=== PATIENT | female | born 1975 | race African-American/Black ===

== ENCOUNTER 2020-10-16 14:39 | Outpatient (REF) | payer OTHER, SELFPAY | END 2020-10-16 14:40 | disposition home or self-care (01) | LOC: HO.LAB 14:39 | PROVIDERS: Visit Provider Internal Medicine | DX: Z20.828 Contact with and (suspected) exposure to other viral communicable diseases (principal) | CPT/HCPCS: C9803; U0003 ==

== ENCOUNTER 2021-08-12 19:32 | Emergency (ER) | payer OTHER, SELFPAY ==
--- NOTE | 2021-08-12 | ECG_ITS ---
Test Reason : CHEST PAIN Blood Pressure : / mmHG Vent. Rate : 091 BPM Atrial Rate : 091 BPM P-R Int : 150 ms QRS Dur : 086 ms QT Int : 334 ms P-R-T Axes : 058 014 027 degrees QTc Int : 410 ms Normal sinus rhythm Normal ECG When compared with ECG of 11-OCT-2017 01:28, No significant change was found Referred By: Generic ED Physician Electronically Signed By:GARRY VICK
--- NOTE | ~2021-08-12 | CT_ITS ---
EXAMINATION: CT ANGIOGRAM OF THE CHEST WITH AND WITHOUT CONTRAST (CT PULMONARY ANGIOGRAM FOR PE) CLINICAL INFORMATION: Reason for Exam elevated D-dimer. PE? COMPARISON: None TECHNIQUE: Prior to contrast administration, noncontrast localization images were obtained. Subsequently, multidetector volumetric imaging was performed from the thoracic inlet to below the diaphragms following the administration of 80 mL Omnipaque 350 intravenous contrast. No contrast reaction reported Sagittal, coronal, and MIP oblique sagittal reformatted images were obtained on the CT workstation, uploaded to PACS, and reviewed. This CT examination was performed using dose optimization techniques as appropriate, variously including the following: *Automated exposure control *Adjustment of mA and/or kV according to patient size (this includes techniques or standardized protocols for targeted exams where dose is matched to indication/reason for exam; i.e. extremities or head) *Use of iterative reconstruction technique Total exam dose-length product 214 mGy-cm FINDINGS: QUALITY OF STUDY/CONTRAST BOLUS: Satisfactory. PULMONARY ARTERIES: No central or segmental pulmonary emboli. THORACIC AORTA: No aneurysm or dissection. LUNG: No focal consolidation, nodules or masses. The central airways are patent. Minimal bibasilar atelectasis. PLEURA: No pleural effusion or pneumothorax. MEDIASTINUM: Normal heart size. No pericardial effusion. No hilar or mediastinal lymphadenopathy. No evidence of septal bowing or right heart strain. CHEST WALL/AXILLA: No axillary or internal mammary lymphadenopathy. OSSEOUS STRUCTURES: No acute or suspicious osseous abnormality. UPPER ABDOMEN: Unremarkable. No reflux of contrast into the hepatic veins to suggest elevated right heart pressures. CT/CT angio chest PE protocol IMPRESSION: No pulmonary embolism or other acute intrathoracic abnormality. VTE: negative
--- NOTE | ~2021-08-12 | XR_ITS ---
EXAMINATION: XR CHEST CLINICAL INFORMATION: Chest pain. COMPARISON: Chest radiograph dated from 07/23/2016. TECHNIQUE: 2 views of the chest were obtained. FINDINGS: No significant abnormality is noted involving the heart, lungs, mediastinum, bony thorax or soft tissues. XR/XR chest 2V IMPRESSION: No acute cardiopulmonary findings.
[2021-08-12 20:40] VITALS: BP 146/91; PULSE 96; RESP 16; TEMP 36.6; O2SAT 100; BMI 30.4
[2021-08-12 20:59] LABS: COVID-19 Test Negative (Negative); IDNOW Serial# 9DD0AD1C
[2021-08-12 22:50] LABS: MANUAL DIFF FLAG NO
[2021-08-12 22:52] LABS: Basophils Percent Auto 0.2 % (0-2); Eosinophils Absolute Auto 0.1 X10*3/uL (0.0-0.4); Eosinophils Percent Auto 2.1 % (0-4); Hematocrit 33.2 % (37-47); Hemoglobin 11.4 g/dl (12.0-16.0); Imm Gran Abs Auto 0.02 X10*3/uL (0.00-0.03); Imm Gran Pct Auto 0.3 % (0.0-0.4); Lymphocytes Absolute Auto 1.7 X10*3/uL (1.2-4.9); Lymphocytes Percent Auto 27.3 % (20-40); Mean Corpuscular HGB Conc 34.3 g/dl (31.0-35.0); Mean Corpuscular Hemoglobin 29.8 pg (27.0-33.0); Mean Corpuscular Volume 86.9 fL (80-98); Mean Platelet Volume 9.8 fL (9.4-12.3); Monocytes Absolute Auto 0.5 X10*3/uL (0.1-1.2); Monocytes Percent Auto 7.6 % (2-11); Neutrophils Percent Auto 62.5 % (45-73); Platelet Count 305 X10*3/uL (160-400); Red Blood Count 3.82 X10*6/uL (4.20-5.50); Red Cell Distribution Width 12.4 % (11.0-16.0); White Blood Count 6.3 X10*3/uL (4.8-10.8)
[2021-08-12 22:59] LABS: INTERNATIONAL NORM RATIO 1.1 (0.9-1.1); Prothrombin Time 12.5 SEC (9.9-13.0)
[2021-08-12 23:02] LABS: D Dimer 777 NG/ML; Partial Thromboplastin Time 40.5 SEC (24.1-38.0)
[2021-08-12 23:11] LABS: B Type Natriuretic Peptide 46 pg/mL (<100); Troponin-I High Sensitivity < 3.5 ng/L (<3.5-17.0)
[2021-08-12 23:12] LABS: Alanine Aminotransferase 10 U/L (0-31); Albumin Level 3.7 g/dL (3.5-5.0); Alkaline Phosphatase 85 U/L (39-117); Anion Gap 13 (12-20); Aspartate Amino Transferase 19 U/L (5-31); Bilirubin Total 0.4 mg/dL (0.0-1.0); Blood Urea Nitrogen 19 mg/dL (9-16); Calcium 8.6 mg/dL (8.4-10.2); Carbon Dioxide 19 mmol/L (22-29); Chloride 109 mmol/L (96-108); Creatinine Clr Calc Pharmacy 63.5; Estimated Glomerular Filt Rate > 60; Glucose Random 86 mg/dL (60-115); Sodium 137 mmol/L (135-145); Total Protein 7.8 g/dL (6.5-8.0)
[2021-08-12 23:48] LABS: HCG Quantitative < 2 mIU/mL
--- NOTE | 2021-08-13 00:13 | ED_ITS ---
HPI - General Adult General Chief complaint: Upper Respiratory Symptoms Stated complaint: chest pain Time Seen by Provider: 08/12/21 21:58 Source: patient Mode of arrival: ambulatory Limitations: no limitations History of Present Illness HPI narrative: Patient presents to the ED for slight cough but more concerning pleuritic chest pain and also right-sided chest pain. Patient denies any swelling of lower extremities, calf pain, coughing up blood, fever, or chills. Patient denies any sore throat. Patient states history of lupus. Patient denies any history of blood clots. Related Data Allergies Allergy/AdvReac Type Severity Reaction Status Date / Time Penicillins [PENICILLINS] Allergy Unknown SWELLING Unverified 07/25/20 16:37 Review of Systems Review of Systems: Yes all other systems are reviewed and are negative Constitutional: Constitutional: Reports as per HPI and Reports no additional constitutional complaints Eyes: Eyes: Reports as per HPI and Reports no additional eye complaints ENT: Reports system reviewed and no additional complaints, except as documented and Reports as per HPI Cardiovascular: Cardiovascular: Reports as per HPI, Reports no additional cardiovascular complaints and Reports chest pain (Right-sided) Respiratory: Respiratory: Reports as per HPI, Reports no additional respiratory complaints, Reports cough and Reports pain on inspiration Gastrointestinal: Gastrointestinal: Reports as per HPI and Reports no additional gastrointestinal complaints Genitourinary: Genitourinary: Reports no additional female genitourinary complaints and Reports as per HPI Musculoskeletal: Musculoskeletal: Reports no additional musculoskeletal c omplaints and Reports as per HPI Neurologic: Reports system reviewed and no additional complaints, except as documented and Reports as per HPI Psychiatric: Psychiatric: Reports no additional psychiatric complaints and Reports as per HPI [facility] Past Medical History Medical History (Updated 08/13/21 @ 01:37 by DOC Kruger) HTN (hypertension) Lupus Surgical History (Updated 08/12/21 @ 20:47 by Arleen Samaniego) History of hysterectomy Social History Social History Advance Directives: No Advance Directives Information Provided: No Patient : No Physical Exam Vital Signs: Vital Signs: Last Vital Signs Temp 97.8 F 08/12/21 20:40 Pulse 96 08/12/21 20:40 Resp 16 08/12/21 20:40 BP 146/91 H 08/12/21 20:40 Pulse Ox 100 08/12/21 20:40 Body Mass Index 30.4 Const: General: cooperative, healthy appearing, comfortable, no acute distress, well developed, alert, awake and Physically active O rientation/consciousness: patient oriented x3 HENMT: Head: Yes normal to inspection, Yes No palpable skull fracture present, Yes normocephalic, Yes atraumatic and No abrasion Throat: Yes posterior oropharynx normal, Yes tonsils normal and Yes uvula midline Eyes: General: appearance normal, both eyes and all related structures Neck: Neck: Yes normal visual inspection, Yes full ROM, Yes no lymphade nopathy, Yes no meningeal signs, Yes trachea midline, Yes supple and No tender Chest: Other: Positive for right-sided chest wall tenderness. Chest palpation & inspection: normal inspection of the chest Resp: Effort & Inspection: normal respiratory effort and able to speak in complete sentences Auscultation: clear to auscultation bilaterally Cardio: Jugular venous distension: no JVD Heart sounds: S1 normal heart sound present and S2 normal heart sound present GI: Inspection: Yes normal to inspection and No abdominal wall ecchymosis Palpation (GI): Soft to palpation, not firm, nontender, no guarding and not rigid : General: No CVA tenderness and Yes no CVA tenderness Back/Spine/Pelvis: Back: no CVA tenderness, No CVA tenderness and No back tenderness Skin: General skin exam: no rashes or lesions noted and elasticity normal Neuro: General: patient oriented x3, gait normal, no meningeal signs and CN's II-XI intact bilaterally Extrem: Other: Lower extremities negative for swelling, pitting edema, or calf tenderness General: Yes normal to inspection and Yes full ROM Psych: Appearance: grossly normal, well kempt and not disheveled Course Course Course Narrative: Patient COVID sore chest x-ray normal. Patient seemed concerned for pleuritic chest pain. Patient will have the labs including D- dimer. Patient read the EKG. Reevaluation(s) Reevaluation #1: D-dimer elevated. Troponin negative. Due to history of lupus will do chest CT to rule out PE. EKG negative STEMI Time: 00:18 Reevaluation #2: Patient chest CT negative for PE. One troponin negative after having symptoms for 2 days. Diagnosis upper respiratory infection with pleurisy. Time: 01:35 Medical Decision Making [facility] Narrative Medical decision making narrative: Pleuritic chest pain Lab Data Result diagrams: 08/12/21 22:46 08/12/21 22:46 Labs: Lab Results 08/12/21 08/12/21 08/12/21 Range/Units 20:31 22:46 22:46 WBC 6.3 (4.8-10.8) X10*3/uL RBC 3.82 L (4.20-5.50) X10*6/uL Hgb 11.4 L (12.0-16.0) g/dl Hct 33.2 L (37-47) % MCV 86.9 (80-98) fL MCH 29.8 (27.0-33.0) pg MCHC 34.3 (31.0-35.0) g/dl RDW 12.4 (11.0-16.0) % Plt Count 305 (160-400) X10*3/uL MPV 9.8 (9.4-12.3) fL Immature Gran % (Auto) 0.3 (0.0-0.4) % Neut % (Auto) 62.5 (45-73) % Lymph % (Auto) 27.3 (20-40) % [place] % (Auto) 7.6 (2-11) % Eos % (Auto) 2.1 (0-4) % Baso % (Auto) 0.2 (0-2) % Lymph # (Auto) 1.7 (1.2-4.9) X10*3/uL [place] # (Auto) 0.5 (0.1-1.2) X10*3/uL Eos # (Auto) 0.1 (0.0-0.4) X10*3/uL Baso # (Auto) 0.0 (0.0-0.2) X10*3/uL Abs Immat Gran (auto) 0.02 (0.00-0.03) X10*3/uL Absolute Neuts (auto) 4.0 (2.0-8.3) X10*3/uL Absolute Nucleated RBC 0.000 (0.0-0.012) X10*3/uL Nucleated RBC % (auto) 0.0 (0.0-0.2) /100WBC PT 12.5 (9.9-13.0) SEC INR 1.1 (0.9-1.1) APTT 40.5 H (24.1-38.0) SEC D-Dimer 777 NG/ML Sodium (135-145) mmol/L Potassium (3.3-5.1) mmol/L Chloride (96-108) mmol/L Carbon Dioxide (22-29) mmol/L Anion Gap (12-20) BUN (9-16) mg/dL Creatinine (0.5-1.4) mg/dL Estim Creat Clear Calc Estimated GFR Random Glucose (60-115) mg/dL Calcium (8.4-10.2) mg/dL Total Bilirubin (0.0-1.0) mg/dL AST (5-31) U/L ALT (0-31) U/L Alkaline Phosphatase (39-117) U/L Troponin I High Sens (<3.5-17.0) ng/L B-Natriuretic Peptide (<100) pg/mL Total Protein (6.5-8.0) g/dL Albumin (3.5-5.0) g/dL Beta HCG, Quant mIU/mL COVID-19 ([place]) Negative (Negative) COVID-19 Clin Com See Note 08/12/21 08/12/21 Range/Units 22:46 22:46 WBC (4.8-10.8) X10*3/uL RBC (4.20-5.50) X10*6/uL Hgb (12.0-16.0) g/dl Hct (37-47) % MCV (80-98) fL MCH (27.0-33.0) pg MCHC (31.0-35.0) g/dl RDW (11.0-16.0) % Plt Count (160-400) X10*3/uL MPV (9.4-12.3) fL Immature Gran % (Auto) (0.0-0.4) % Neut % (Auto) (45-73) % Lymph % (Auto) (20-40) % [place] % (Auto) (2-11) % Eos % (Auto) (0-4) % Baso % (Auto) (0-2) % Lymph # (Auto) (1.2-4.9) X10*3/uL [place] # (Auto) (0.1-1.2) X10*3/uL Eos # (Auto) (0.0-0.4) X10*3/uL Baso # (Auto) (0.0-0.2) X10*3/uL Abs Immat Gran (auto) (0.00-0.03) X10*3/uL Absolute Neuts (auto) (2.0-8.3) X10*3/uL Absolute Nucleated RBC (0.0-0.012) X10*3/uL Nucleated RBC % (auto) (0.0-0.2) /100WBC PT (9.9-13.0) SEC INR (0.9-1.1) APTT (24.1-38.0) SEC D-Dimer NG/ML Sodium 137 (135-145) mmol/L Potassium 4.0 (3.3-5.1) mmol/L Chloride 109 H (96-108) mmol/L Carbon Dioxide 19 L (22-29) mmol/L Anion Gap 13 (12-20) BUN 19 H (9-16) mg/dL Creatinine 0.82 (0.5-1.4) mg/dL Estim Creat Clear Calc 63.5 Estimated GFR > 60 Random Glucose 86 (60-115) mg/dL Calcium 8.6 (8.4-10.2) mg/dL Total Bilirubin 0.4 (0.0-1.0) mg/dL AST 19 (5-31) U/L ALT 10 (0-31) U/L Alkaline Phosphatase 85 (39-117) U/L Troponin I High Sens < 3.5 (<3.5-17.0) ng/L B-Natriuretic Peptide 46 (<100) pg/mL Total Protein 7.8 (6.5-8.0) g/dL Albumin 3.7 (3.5-5.0) g/dL Beta HCG, Quant < 2 mIU/mL COVID-19 ([place]) (Negative) COVID-19 Clin Com ECG Data Interpretation: EKG normal sinus rhythm. Normal EKG. Ventricular rate 91. Pr i nterval 150. QRS 86. QTC 410. Negative STEMI Discharge Plan Discharge Clinical Impression: Upper respiratory infection, Pleuritic chest pain Patient Disposition: Home, Self-Care Instructions: Pleurisy (ED), Upper Respiratory Infection (ED) Additional Instructions: Reed electrocardiograma y an?lisis de medhat resultaron negativos para un ataque card?aco. Reed radiograf?a de t?rax result? negativa para neumon?a. Reed hisopo COVID result? negativo. Y umberto tomograf?a computarizada de reed pecho result? negativa para embolia pulmonar. Est? seguro para el natasha. Regrese al servicio de urgencias de inmediato si tiene hinchaz?n de las extremidades inferiores, dolor en la pantorrilla, tos con medhat, dolor sarai en el pecho, dificultad para respirar o cualquier otro s?ntoma preocupante. Siga al proveedor de atenci?n primaria. Stand Alone Forms: Work/School Release Print Language: Montenegrin
[2021-08-13] MEDS: iohexoL 350 MG/ML 100 ML INFUS..BTL 65 ML IV (00:46)
== END 2021-08-13 01:52 | disposition home or self-care (01) ==
PROVIDERS: Physician Assistant; Emergency Provider Internal Medicine; PCP Internal Medicine
DX: J06.9 Acute upper respiratory infection, unspecified (principal); R07.81 Pleurodynia; R06.02 Shortness of breath; R05.9 Cough, unspecified; Z20.822 Contact with and (suspected) exposure to COVID-19; Z79.899 Other long term (current) drug therapy
CPT/HCPCS: 36415; 71046; 71275; 80053; 83880; 84484; 84702; 85025; 85379; 85610; 85730; 87635; 93005; 99284; Q9967

== ENCOUNTER 2021-10-08 18:46 | Emergency (ER) | payer OTHER, SELFPAY ==
--- NOTE | ~2021-10-08 | XR_ITS ---
EXAMINATION: LEFT SHOULDER, LEFT ELBOW CLINICAL INFORMATION: Left elbow and shoulder pain COMPARISON: Left elbow 03/30/2019 TECHNIQUE: 4 views left shoulder, 3 views left elbow FINDINGS: There is calcification seen in the supraspinatus tendon. No other shoulder abnormality is seen. No significant bone joint or soft tissue abnormality is seen involving the left elbow. No convincing joint effusion or fracture is not present. XR/XR elbow LT 2V IMPRESSION: Rotator cuff tendinosis/tendinitis with calcification in the supraspinatus tendon
--- NOTE | ~2021-10-08 | XR_ITS ---
EXAMINATION: LEFT SHOULDER, LEFT ELBOW CLINICAL INFORMATION: Left elbow and shoulder pain COMPARISON: Left elbow 03/30/2019 TECHNIQUE: 4 views left shoulder, 3 views left elbow FINDINGS: There is calcification seen in the supraspinatus tendon. No other shoulder abnormality is seen. No significant bone joint or soft tissue abnormality is seen involving the left elbow. No convincing joint effusion or fracture is not present. XR/XR shoulder LT min 2V IMPRESSION: Rotator cuff tendinosis/tendinitis with calcification in the supraspinatus tendon
--- NOTE | ~2021-10-08 | CT_ITS ---
EXAMINATION: CT CERVICAL SPINE WITHOUT CONTRAST CLINICAL INFORMATION: Neck pain radiating down the arm COMPARISON: None TECHNIQUE: Noncontrast helical axial CT images through the cervical spine were obtained. This CT examination was performed using dose optimization techniques as appropriate, variously including the following: *Automated exposure control *Adjustment of mA and/or kV according to patient size (this includes techniques or standardized protocols for targeted exams where dose is matched to indication/reason for exam; i.e. extremities or head) *Use of iterative reconstruction technique DLP: 475 mGy-cm FINDINGS: No fracture seen. There is straightening of the normal cervical lordosis. No malalignment. Normal prevertebral soft tissues. There is degenerative disc disease with loss of disc height, endplate sclerosis, and anterior as well as posterior osteophytosis at C5-C6. The axial orientation of the scan is poor for evaluating each intervertebral disc level. There is a broad-based posterior disc osteophyte complex at C5-C6. Slightly effaces the ventral thecal sac. There is minimal right neuroforaminal narrowing. No left neuroforaminal narrowing. The remaining cervical levels are normal in appearance with no central canal stenosis or neuroforaminal narrowing seen. Thyroid is homogeneous. No cervical lymphadenopathy or mass. Diffuse fatty atrophy of the parotid gland. Normal size left intraparotid lymph node. Partially absent crown of the left most posterior molar consistent with dental disease. CT/CT cervical spine wo con IMPRESSION: Degenerative disc disease at C5-C6. Recommend MRI for further evaluation.
[2021-10-08 20:06] VITALS: BP 145/88; PULSE 77; RESP 16; TEMP 36.6; O2SAT 100; BMI 29.1
[2021-10-08 20:35] VITALS: BP 140/84; PULSE 72; RESP 16; TEMP 36.6; O2SAT 100
--- NOTE | 2021-10-08 21:56 | ED.EXTPRO ---
HPI - Extremity Problem General Chief complaint: Extremity Injury, Upper Stated complaint: left arm pain Time Seen by Provider: 10/08/21 20:42 Source: patient Mode of arrival: ambulatory Limitations: no limitations History of Present Illness HPI Narrative: 45-YEAR-OLD FEMALE PRESENTS TO ED FOR NECK AND LEFT SHOULDER PAIN FOR 2 DAYS. PATIENT DENIES ANY TRAUMA. PATIENT STATES RANGE OF MOTION OF LEFT SHOULDER LIMITED DUE TO PAIN. PATIENT STATES NO FEVER, CHILLS, CHEST PAIN, SHORTNESS OF BREATH. PATIENT DENIES ANY HEADACHE Related Data Previous Rx's Medication Instructions Recorded cyclobenzaprine 10 mg tablet 10 mg PO TID PRN #21 tab 10/08/21 naproxen 500 mg tablet 500 mg PO BID PRN 10 Days #20 tab 10/08/21 prednisone 20 mg tablet 40 mg PO DAILY 5 Days #10 tab 10/08/21 Allergies Allergy/AdvReac Type Severity Reaction Status Date / Time Penicillins [PENICILLINS] Allergy Unknown SWELLING Unverified 07/25/20 16:37 Review of Systems Review of Systems: Yes all other systems are reviewed and are negative Constitutional: Constitutional: Reports as per HPI and Reports no additional constitutional complaints Eyes: Eyes: Reports as per HPI and Reports no additional eye complaints ENT: Reports system reviewed and no additional complaints, except as documented, Reports as per HPI and Reports neck pain Cardiovascular: Cardiovascular: Reports as per HPI and Reports no additional cardiovascular complaints Respiratory: Respiratory: Reports as per HPI and Reports no additional respiratory complaints Gastrointestinal: Gastrointestinal: Reports as per HPI and Reports no additional gastrointestinal complaints Genitourinary: Genitourinary: Reports no additional female genitourinary complaints and Reports as per HPI Musculoskeletal: Musculoskeletal: Reports no additional musculoskeletal complaints, Reports as per HPI and Reports neck pain Comments: LEFT SHOULDER PAIN Neurologic: Reports system reviewed and no additional complaints, except as documented and Reports as per HPI Psychiatric: Psychiatric: Reports no additional psychiatric complaints and Reports as per HPI Endocrine: Endocrine: Reports no additional endocrine complaints and Reports as per HPI PMF Past Medical History Medical History (Updated 10/09/21 @ 00:02 by Melanie Headley) HTN (hypertension) Lupus Surgical History (Updated 08/12/21 @ 20:47 by Arleen Samaniego) History of hysterectomy Social History Social History Advance Directives: No Advance Directives Information Provided: Yes Patient : No Physical Exam Vital Signs: Vital Signs: Last Vital Signs Temp 98.1 F 10/08/21 22:00 Pulse 70 10/08/21 22:00 Resp 17 10/08/21 22:00 BP 140/79 H 10/08/21 22:00 Pulse Ox 100 10/08/21 22:00 BMI result Body Mass Index 29.1 Const: General: cooperative, healthy appearing, comfortable, no acute distress, well developed, alert, awake and Physically active Orientation/consciousness: patient oriented x3 HENMT: Head: Yes normal to inspection, Yes No palpable skull fracture present, Yes normocephalic and Yes atraumatic Eyes: General: appearance normal, both eyes and all related structures Neck: Neck: Yes normal visual inspection, Yes full ROM, Yes no lymphadenopathy, Yes no meningeal signs, Yes trachea midline, Yes supple, No anterior neck swelling and Yes tender (POSTERIOR) Chest: Chest palpation & inspection: normal inspection of the chest and normal palpation of entire chest wall Resp: Effort & Inspection: normal respiratory effort and able to speak in complete sentences Cardio: Jugular venous distension: no JVD Heart sounds: S1 normal heart sound present and S2 normal heart sound present GI: Inspection: Yes normal to inspection and No abdominal wall ecchymosis Palpation (GI): Soft to palpation, not firm, nontender, no guarding and not rigid : General: No CVA tenderness and Yes no CVA tenderness Back/Spine/Pelvis: Back: no CVA tenderness, No CVA tenderness and No back tenderness Skin: General skin exam: no rashes or lesions noted and elasticity normal Neuro: General: patient oriented x3, gait normal, no meningeal signs and CN's II-XI intact bilaterally Cranial nerves: Yes CN's II-XII intact bilaterally Extrem: Shoulder/upper arm images: 1. POSITIVE FOR TENDERNESS ON PALPATION. DECREASED ABDUCTION DUE TO PAIN. NEGATIVE FOR SWELLING OR REDNESS. VASCULAR/NEURO EXAM INTACT. MOTOR EXAM LIMITED DUE TO PAIN. Psych: Appearance: grossly normal, well kempt and not disheveled Course Course Course Narrative: PATIENT WILL HAVE IMAGING. Reevaluation(s) Reevaluation #1: IMAGES OF NECK SHOWS CERVICAL ARTHRITIS. SHOULDER X-RAY SHOWS TENDINITIS. Time: 22:06 MDM - Extremity (Nontraumatic) MDM Narrative Medical decision making narrative: CERVICAL RADICULOPATHY, ROTATOR CUFF TENDINITIS Discharge Plan Discharge Clinical Impression: Cervical radiculopathy, Right rotator cuff tendonitis Patient Disposition: Home, Self-Care Instructions: Rotator Cuff Tendinitis (ED), Cervical Radiculopathy (ED) Additional Instructions: LA TAC DEL LUPIS MUESTRA ARTRITIS. LA RADIOGRAF?A DE ARGUELLES HOMBRO MUESTRA TENDINITIS DEL MANGUITO DEL ROTADOR. SER? DADO DE ZULMA CON MEDICAMENTOS PARA EL DOLOR, RELAJANTE MUSCULAR Y ESTEROIDES. DEBE SEGUIR CON ARGUELLES M?DICO DE ATENCI?N PRIMARIA PARA JAYE POSIBLE REFERENCIA A TERAPIA F?EVETTE. REGRESE INMEDIATAMENTE AL DEP?SITO EN HANNAH DE PAR?LISIS DE EXTREMIDADES SUPERIORES DOLOR QUAN DE LUPIS, DOLOR DE ÁNGEL, FIEBRE, ESFALZOS, N?USEAS, V?MITOS, ENROJECIMIENTO, HINCHAZ?N, DOLOR EN EL PECHO, DIFICULTAD PARA RESPIRAR O CUALQUIER OTROS S?NTOMAS RELACIONADOS. Prescriptions: New naproxen 500 mg tablet 500 mg PO BID PRN (Reason: pain) 10 Days Qty: 20 RF: 0 prednisone 20 mg tablet 40 mg PO DAILY 5 Days Qty: 10 RF: 0 cyclobenzaprine 10 mg tablet 10 mg PO TID PRN (Reason: muscle spasm) Qty: 21 RF: 0 Interventions: ED Discharge Assessment Last Done: 10/08/21 22:38 Discharge Date/Time: 10/08/21 22:40 Print Language: Citizen Of [place]
[2021-10-08 22:00] VITALS: BP 140/79; PULSE 70; RESP 17; TEMP 36.7; O2SAT 100
[2021-10-08] MEDS: predniSONE 20 MG TABLET 60 MG PO (22:33)
[2021-10-08] MEDS: Ibuprofen 800 MG TABLET PO (22:34)
== END 2021-10-08 22:40 | disposition home or self-care (01) ==
PROVIDERS: Emergency Provider Emergency Medicine
DX: M54.12 Radiculopathy, cervical region (principal); M75.101 Unspecified rotator cuff tear or rupture of right shoulder, not specified as traumatic; M79.602 Pain in left arm; M54.2 Cervicalgia; Z79.899 Other long term (current) drug therapy
CPT/HCPCS: 72125; 73030; 73070; 99284

== ENCOUNTER 2022-03-31 20:26 | Emergency (ER) | payer OTHER, SELFPAY ==
[2022-03-31 21:30] VITALS: BP 188/102; PULSE 95; RESP 16; TEMP 36.2; O2SAT 97; BMI 30.7
[2022-03-31 22:16] LABS: MANUAL DIFF FLAG NO
[2022-03-31 22:18] LABS: Basophils Percent Auto 0.4 % (0-2); Eosinophils Absolute Auto 0.1 X10*3/uL (0.0-0.4); Eosinophils Percent Auto 0.9 % (0-4); Hematocrit 42.8 % (37.0-47.0); Hemoglobin 14.6 g/dl (12.0-16.0); Imm Gran Abs Auto 0.03 X10*3/uL (0.00-0.03); Imm Gran Pct Auto 0.4 % (0.0-0.4); Lymphocytes Percent Auto 27.2 % (20-40); Mean Corpuscular HGB Conc 34.1 g/dl (31.0-35.0); Mean Corpuscular Hemoglobin 30.1 pg (27.0-33.0); Mean Corpuscular Volume 88.2 fL (80.0-98.0); Mean Platelet Volume 10.1 fL (9.4-12.3); Monocytes Absolute Auto 0.8 X10*3/uL (0.1-1.2); Monocytes Percent Auto 11.2 % (2-11); Neutrophils Absolute Auto 4.4 x10*3/uL (2.0-8.3); Neutrophils Percent Auto 59.9 % (45-73); Platelet Count 331 X10*3/uL (160-400); Red Blood Count 4.85 X10*6/uL (4.20-5.50); Red Cell Distribution Width 11.8 % (11.0-16.0); White Blood Count 7.4 X10*3/uL (4.8-10.8)
[2022-03-31 22:26] LABS: D Dimer High Sensitivity 215 NG/ML
[2022-03-31 22:34] LABS: Alanine Aminotransferase 18 U/L (0-31); Alkaline Phosphatase 77 U/L (39-117); Anion Gap 13 (12-20); Aspartate Amino Transferase 21 U/L (5-31); Bilirubin Total 0.4 mg/dL (0.0-1.0); Blood Urea Nitrogen 19 mg/dL (9-16); Calcium 9.3 mg/dL (8.4-10.2); Carbon Dioxide 31 mmol/L (22-29); Chloride 94 mmol/L (96-108); Creatinine Clr Calc Pharmacy 47.4; Estimated Glomerular Filt Rate 54; Glucose Random 110 mg/dL (60-115); Potassium 3.1 mmol/L (3.3-5.1); Sodium 135 mmol/L (135-145); Total Protein 8.1 g/dL (6.5-8.0)
--- NOTE | 2022-03-31 22:50 | ED_ITS ---
HPI - General Adult General Chief complaint: General Medical Stated complaint: High Blood Pressure/Sob Time Seen by Provider: 03/31/22 22:48 Related Data Previous Rx's Medication Instructions Recorded cyclobenzaprine 10 mg tablet 10 mg PO TID PRN #21 tab 10/08/21 naproxen 500 mg tablet 500 mg PO BID PRN 10 Days #20 tab 10/08/21 prednisone 20 mg tablet 40 mg PO DAILY 5 Days #10 tab 10/08/21 Allergies Allergy/AdvReac Type Severity Reaction Status Date / Time Penicillins [PENICILLINS] Allergy Unknown SWELLING Unverified 07/25/20 16:37 [facility] Past Medical History Medical History (Updated 10/09/21 @ 00:02 by Melanie Headley) HTN (hypertension) Lupus Surgical History (Updated 08/12/21 @ 20:47 by Arleen Samaniego) History of hysterectomy Social History Social History Advance Directives: No Physical Exam ED Vital Signs: Vital Signs - 24 hr 03/31/22 21:30 Temperature 97.2 F Pulse Rate 95 Respiratory Rate 16 Blood Pressure 188/102 H Pulse Oximetry 97 BMI result Body Mass Index 30.7 Medical Decision Making Lab Data Result diagrams: 03/31/22 22:10 03/31/22 22:10 Labs: Lab Results 03/31/22 03/31/22 03/31/22 Range/Units 22:10 22:10 22:10 WBC 7.4 (4.8-10.8) X10*3/uL RBC 4.85 (4.20-5.50) X10*6/uL Hgb 14.6 (12.0-16.0) g/dl Hct 42.8 (37.0-47.0) % MCV 88.2 (80.0-98.0) fL MCH 30.1 (27.0-33.0) pg MCHC 34.1 (31.0-35.0) g/dl RDW 11.8 (11.0-16.0) % Plt Count 331 (160-400) X10*3/uL MPV 10.1 (9.4-12.3) fL Immature Gran % (Auto) 0.4 (0.0-0.4) % Neut % (Auto) 59.9 (45-73) % Lymph % (Auto) 27.2 (20-40) % [place] % (Auto) 11.2 H (2-11) % Eos % (Auto) 0.9 (0-4) % Baso % (Auto) 0.4 (0-2) % Lymph # (Auto) 2.0 (1.2-4.9) X10*3/uL [place] # (Auto) 0.8 (0.1-1.2) X10*3/uL Eos # (Auto) 0.1 (0.0-0.4) X10*3/uL Baso # (Auto) 0.0 (0.0-0.2) X10*3/uL Abs Immat Gran (auto) 0.03 (0.00-0.03) X10*3/uL Absolute Neuts (auto) 4.4 (2.0-8.3) x10*3/uL Absolute Nucleated RBC 0.000 (0.0-0.012) X10*3/uL Nucleated RBC % (auto) 0.0 (0.0-0.2) /100WBC D-Dimer High Sensitivty 215 NG/ML Sodium 135 (135-145) mmol/L Potassium 3.1 L D (3.3-5.1) mmol/L Chloride 94 L (96-108) mmol/L Carbon Dioxide 31 H (22-29) mmol/L Anion Gap 13 (12-20) BUN 19 H (9-16) mg/dL Creatinine 1.09 (0.5-1.4) mg/dL Estim Creat Clear Calc 47.4 Estimated GFR 54 Random Glucose 110 (60-115) mg/dL Calcium 9.3 D (8.4-10.2) mg/dL Total Bilirubin 0.4 (0.0-1.0) mg/dL AST 21 (5-31) U/L ALT 18 (0-31) U/L Alkaline Phosphatase 77 (39-117) U/L Total Protein 8.1 H (6.5-8.0) g/dL Albumin 4.0 (3.5-5.0) g/dL Discharge Plan Discharge Prescriptions: No Action naproxen 500 mg tablet 500 mg PO BID PRN (Reason: pain) 10 Days Qty: 20 0RF prednisone 20 mg tablet 40 mg PO DAILY 5 Days Qty: 10 0RF cyclobenzaprine 10 mg tablet 10 mg PO TID PRN (Reason: muscle spasm) Qty: 21 0RF Rx Instructions: side effect is drowsiness. Do not take at work or while driving.
--- NOTE | 2022-03-31 23:14 | ED.GENADULT ---
HPI - General Adult General Chief complaint: General Medical Stated complaint: High Blood Pressure/Sob Time Seen by Provider: 03/31/22 22:48 Source: patient and development administrator Mode of arrival: ambulatory Limitations: no limitations History of Present Illness HPI narrative: compliant with her 25mg HCTZ and 10mg lisinopril notes BP has been high for 4 days feeling headaches daily BP always above 150 which is not normal for her. also has leg cramps in both legs, no recent travel or procedures MD complaint: leg cramps and elevated BP Onset (ago): day(s) (4) Location: head, left, right and lower extremity Radiation: non-radiation Severity: mild Quality: aching and dull Pain Consistency: intermittent Relieving factors: none Exacerbating factors: none Associated symptoms: other (muscle cramps in legs) Treatments prior to arrival: none Related Data Previous Rx's Medication Instructions Recorded cyclobenzaprine 10 mg tablet 10 mg PO TID PRN #21 tab 10/08/21 naproxen 500 mg tablet 500 mg PO BID PRN 10 Days #20 tab 10/08/21 prednisone 20 mg tablet 40 mg PO DAILY 5 Days #10 tab 10/08/21 amlodipine 2.5 mg tablet 2.5 mg PO DAILY #14 tab 03/31/22 Allergies Allergy/AdvReac Type Severity Reaction Status Date / Time Penicillins [PENICILLINS] Allergy Unknown SWELLING Unverified 07/25/20 16:37 Review of Systems Review of Systems: Constitutional : No Weight loss, No Fever, No Chills, No Fatigue, No Malaise ENT/Mouth : No sore throat, No Rhinorrhea Eyes: No Eye Pain, No Swelling, No Redness Cardiovascular : No Chest Pain, No SOB, No Dyspnea on Exertion, No Orthopnea, No Edema, No Palpitations Respiratory : No Cough, No Sputum, No Wheezing Gastrointestinal : No Nausea, No Vomiting, No Diarrhea, No Constipation, No abdominal Pain, No Hematochezia, No Melena Genitourinary : No Dysuria, No Urinary Frequency, No Hematuria, Musculoskeletal : No joint pain, No Joint Swelling, pos leg cramps Skin : No Skin Lesions, No rash Neuro : No Weakness, No Numbness, No Dizziness, posHeadache Psych : No Anxiety/Panic, No Depression Heme/Lymph: No Bruising, No Bleeding,No Lymphadenopathy Endocrine : No Polyuria, No Polydipsia All other systems reviewed and are negative [facility] Past Medical History Attestation statement: The following information was validated with the patient. Medical History HTN (hypertension) Lupus Surgical History History of hysterectomy Social History Social History (Updated 03/31/22 @ 23:15 by Hafsa Wagner DO) Patient Tobacco Use Status: Never used Tobacco Advance Directives: No Physical Exam ED Vital Signs: Vital Signs - 24 hr 03/31/22 21:30 Temperature 97.2 F Pulse Rate 95 Respiratory Rate 16 Blood Pressure 188/102 H Pulse Oximetry 97 BMI result Body Mass Index 30.7 Appearance: Alert. Oriented X3. No acute distress. Eyes: Pupils equal, round and reactive to light. ENT: Pharynx normal. Neck: Normal inspection. Neck supple. CVS: Normal heart rate and rhythm. Pulses normal. Respiratory: No respiratory distress. Breath sounds normal. Abdomen: Soft and nontender. Skin: Skin warm and dry. Normal skin color. Normal skin turgor. Extremities: No lower extremity edema. No calf ttp bouding distal pulses Neuro: Oriented X 3. No motor deficit. No sensory deficit. Normal gait Course Course Course Narrative: BP down to 144/94 stable for DC Medical Decision Making [facility] Narrative Medical decision making narrative: 46 yo female with hx of HTN, lupus on medications comes in with c/o peristently high BP > 150 with mild headaches despite compliance with her HCTZ 25 and lisinopril 10mg. No new changes in diet or meds. Will add on amlodipine 2.5mg and she can follow up with PCP. She has no signs of end organ damage - CR is normal and has no chest pain. She has leg cramps and kassandra horses at night - K is low will replete denies GI losses. Ddtanika davey has no calf pain on exam and no swellling doubt DVT suspect symptom of hypokalemia. Lab Data Result diagrams: 03/31/22 22:10 03/31/22 22:10 Labs: Lab Results 03/31/22 03/31/22 03/31/22 Range/Units 22:10 22:10 22:10 WBC 7.4 (4.8-10.8) X10*3/uL RBC 4.85 (4.20-5.50) X10*6/uL Hgb 14.6 (12.0-16.0) g/dl Hct 42.8 (37.0-47.0) % MCV 88.2 (80.0-98.0) fL MCH 30.1 (27.0-33.0) pg MCHC 34.1 (31.0-35.0) g/dl RDW 11.8 (11.0-16.0) % Plt Count 331 (160-400) X10*3/uL MPV 10.1 (9.4-12.3) fL Immature Gran % (Auto) 0.4 (0.0-0.4) % Neut % (Auto) 59.9 (45-73) % Lymph % (Auto) 27.2 (20-40) % [place] % (Auto) 11.2 H (2-11) % Eos % (Auto) 0.9 (0-4) % Baso % (Auto) 0.4 (0-2) % Lymph # (Auto) 2.0 (1.2-4.9) X10*3/uL [place] # (Auto) 0.8 (0.1-1.2) X10*3/uL Eos # (Auto) 0.1 (0.0-0.4) X10*3/uL Baso # (Auto) 0.0 (0.0-0.2) X10*3/uL Abs Immat Gran (auto) 0.03 (0.00-0.03) X10*3/uL Absolute Neuts (auto) 4.4 (2.0-8.3) x10*3/uL Absolute Nucleated RBC 0.000 (0.0-0.012) X10*3/uL Nucleated RBC % (auto) 0.0 (0.0-0.2) /100WBC D-Dimer High Sensitivty 215 NG/ML Sodium 135 (135-145) mmol/L Potassium 3.1 L D (3.3-5.1) mmol/L Chloride 94 L (96-108) mmol/L Carbon Dioxide 31 H (22-29) mmol/L Anion Gap 13 (12-20) BUN 19 H (9-16) mg/dL Creatinine 1.09 (0.5-1.4) mg/dL Estim Creat Clear Calc 47.4 Estimated GFR 54 Random Glucose 110 (60-115) mg/dL Calcium 9.3 D (8.4-10.2) mg/dL Magnesium 2.1 (1.6-2.6) mg/dL Total Bilirubin 0.4 (0.0-1.0) mg/dL AST 21 (5-31) U/L ALT 18 (0-31) U/L Alkaline Phosphatase 77 (39-117) U/L Total Protein 8.1 H (6.5-8.0) g/dL Albumin 4.0 (3.5-5.0) g/dL Discharge Plan Discharge Clinical Impression: Acute hypokalemia HTN (hypertension) Qualifiers: Hypertension type: unspecified Qualified Code(s): I10 - Essential (primary) hypertension Patient Disposition: Home, Self-Care Instructions: Hypokalemia (ED), Hypertension (ED) Additional Instructions: return to ED for any worsening symptoms or concerns Prescriptions: New amlodipine 2.5 mg tablet 2.5 mg PO DAILY Qty: 14 0RF No Action naproxen 500 mg tablet 500 mg PO BID PRN (Reason: pain) 10 Days Qty: 20 0RF prednisone 20 mg tablet 40 mg PO DAILY 5 Days Qty: 10 0RF cyclobenzaprine 10 mg tablet 10 mg PO TID PRN (Reason: muscle spasm) Qty: 21 0RF Rx Instructions: side effect is drowsiness. Do not take at work or while driving. Referrals: Willie Main III, MD [Primary Care Provider] - 2 days Print Language: Urdu
[2022-03-31 23:29] LABS: Magnesium 2.1 mg/dL (1.6-2.6)
[2022-03-31] MEDS: Potassium Chloride ER 20 MEQ TAB.ER.PRT 40 MEQ PO (23:33)
[2022-03-31] MEDS: amLODIPine Besylate 2.5 MG TABLET PO (23:33)
[2022-03-31 23:57] VITALS: BP 149/94; PULSE 86; PULSE 90; RESP 16; RESP 18; O2SAT 100
[2022-04-01] VITALS: BP 151/89; PULSE 83; RESP 16; TEMP 36.9; O2SAT 100
== END 2022-04-01 00:43 | disposition home or self-care (01) ==
PROVIDERS: Emergency Provider Emergency Medicine; PCP Internal Medicine
DX: E87.6 Hypokalemia (principal); R06.02 Shortness of breath; R25.2 Cramp and spasm; I10 Essential (primary) hypertension; Z79.899 Other long term (current) drug therapy
CPT/HCPCS: 36415; 80053; 83735; 85025; 85379; 99282; 99283

== ENCOUNTER 2022-09-03 08:56 | Outpatient (REF) | payer OTHER, SELFPAY ==
[2022-09-03 10:48] LABS: MANUAL DIFF FLAG NO
[2022-09-03 11:00] LABS: Basophils Percent Auto 0.5 % (0-2); Eosinophils Absolute Auto 0.2 X10*3/uL (0.0-0.4); Eosinophils Percent Auto 2.6 % (0-4); Hematocrit 36.1 % (37.0-47.0); Hemoglobin 11.8 g/dl (12.0-16.0); Imm Gran Abs Auto 0.01 X10*3/uL (0.00-0.03); Imm Gran Pct Auto 0.2 % (0.0-0.4); Lymphocytes Absolute Auto 1.7 X10*3/uL (1.2-4.9); Mean Corpuscular HGB Conc 32.7 g/dl (31.0-35.0); Mean Corpuscular Hemoglobin 29.1 pg (27.0-33.0); Mean Corpuscular Volume 88.9 fL (80.0-98.0); Mean Platelet Volume 9.9 fL (9.4-12.3); Monocytes Absolute Auto 0.5 X10*3/uL (0.1-1.2); Monocytes Percent Auto 7.2 % (2-11); Neutrophils Absolute Auto 4.3 x10*3/uL (2.0-8.3); Neutrophils Percent Auto 64.5 % (45-73); Platelet Count 308 X10*3/uL (160-400); Red Blood Count 4.06 X10*6/uL (4.20-5.50); White Blood Count 6.7 X10*3/uL (4.8-10.8)
[2022-09-03 11:26] LABS: Alanine Aminotransferase 8 U/L (0-31); Albumin Level 3.5 g/dL (3.5-5.0); Alkaline Phosphatase 68 U/L (39-117); Anion Gap 12 (12-20); Aspartate Amino Transferase 17 U/L (5-31); Bilirubin Total 0.3 mg/dL (0.0-1.0); Blood Urea Nitrogen 16 mg/dL (9-16); Calcium 8.6 mg/dL (8.4-10.2); Carbon Dioxide 27 mmol/L (22-29); Chloride 104 mmol/L (96-108); Estimated Glomerular Filt Rate > 60; Glucose Random 75 mg/dL (60-115); Sodium 139 mmol/L (135-145); Total Protein 7.1 g/dL (6.5-8.0)
[2022-09-03 11:49] LABS: Creatinine Urine 251.01 mg/dL; Protein/Creatinine Ratio, Ur 0.12 (<0.2); Total Protein Urine Random 31 mg/dL (<12)
[2022-09-03 16:01] LABS: Erythrocyte Sedimentation Rate 27 MM/HR (0-20)
== END 2022-09-03 08:57 | disposition home or self-care (01) ==
LOC: HO.10HDL 08:56
PROVIDERS: Visit Provider Internal Medicine Rheumatology
DX: M32.9 Systemic lupus erythematosus, unspecified (principal); M75.81 Other shoulder lesions, right shoulder; M75.82 Other shoulder lesions, left shoulder; B02.9 Zoster without complications; Z79.899 Other long term (current) drug therapy
CPT/HCPCS: 36415; 80053; 84156; 85025; 85652; 86140; 99212

== ENCOUNTER 2022-10-22 12:21 | Emergency (ER) | payer OTHER, SELFPAY ==
--- NOTE | ~2022-10-22 | XR_ITS ---
EXAMINATION: XR CHEST CLINICAL INFORMATION: Asymptomatic elevated blood pressure COMPARISON: August 2021. TECHNIQUE: 2 views of the chest were obtained. 1330 hours. FINDINGS: No significant abnormality is noted involving the heart, lungs, mediastinum, bony thorax or soft tissues. XR/XR chest 2V IMPRESSION: Unremarkable examination.
[2022-10-22 13:03] VITALS: BP 179/94; PULSE 81; RESP 17; TEMP 36; O2SAT 98; BMI 30.9
--- NOTE | 2022-10-22 13:05 | ED.RECABL ---
HPI - Recheck/Abnormal Lab/Rx General Chief Complaint: General Medical <DOC Wen - Last Filed: 10/22/22 13:09> Stated Complaint: high bp <DOC Wen - Last Filed: 10/22/22 13:09> Time Seen by Provider: 10/22/22 16:53 <DOC Wen - Last Filed: 10/22/22 13:09> Source: patient <Chan Sullivan MD - Last Filed: 10/22/22 22:50> Mode of arrival: ambulatory <Chan Sullivan MD - Last Filed: 10/22/22 22:50> Limitations: no limitations <Chan Sullivan MD - Last Filed: 10/22/22 22:50> History of Present Illness HPI narrative: This is a 46 years old female presented to the emergency department with asymptomatic hypertension, she takes a 2.5 mg of amlodipine daily, she went to the dentist yesterday a before she had anything done her blood pressure was 200 systolic so the procedure was canceled. She denies any chest pain shortness of breath <Chan Sullivan MD - Last Filed: 10/22/22 22:50> Initial visit (ago): day(s) (1) <Chan Sullivan MD - Last Filed: 10/22/22 22:50> Symptoms since prior visit: no new symptoms <Chan Sullivan MD - Last Filed: 10/22/22 22:50> Associated symptoms: none <Chan Sullivan MD - Last Filed: 10/22/22 22:50> Related Data Home Medications: Previous Rx's Medication Instructions Recorded cyclobenzaprine 10 mg tablet 10 mg PO TID PRN muscle spasm #21 10/08/21 tabs naproxen 500 mg tablet 500 mg PO BID PRN pain 10 days #20 10/08/21 tabs amlodipine 2.5 mg tablet 2.5 mg PO DAILY #14 tabs 03/31/22 gabapentin 300 mg capsule 300 mg PO TID #90 caps 09/03/22 mycophenolate mofetil 500 mg tablet 500 mg PO QID #120 tabs 09/03/22 valacyclovir 1 gram tablet 1,000 mg PO TID #21 tabs 09/03/22 amlodipine 5 mg tablet (Norvasc) 5 mg PO DAILY #30 tabs 10/22/22 <DOC Wen - Last Filed: 10/22/22 13:09> Allergies/Adverse Reactions: Allergies Allergy/AdvReac Type Severity Reaction Status Date / Time Penicillins [PENICILLINS] Allergy Unknown SWELLING Unverified 09/03/22 08:01 <DOC Wen - Last Filed: 10/22/22 13:09> Review of Systems Constitutional: Constitutional: Reports no additional constitutional complaints <Chan Sullivan MD - Last Filed: 10/22/22 22:50> ENT: Reports system reviewed and no additional complaints, except as documented <Chan Sullivan MD - Last Filed: 10/22/22 22:50> Cardiovascular: Cardiovascular: Reports no additional cardiovascular complaints <Chan Sullivan MD - Last Filed: 10/22/22 22:50> Gastrointestinal: Gastrointestinal: Reports no additional gastrointestinal complaints <Chan Sullivan MD - Last Filed: 10/22/22 22:50> Musculoskeletal: Musculoskeletal: Reports no additional musculoskeletal complaints <Chan Sullivan MD - Last Filed: 10/22/22 22:50> PMFSH Past Medical History Medical History: Medical History Dyslipidemia Eczema GERD (gastroesophageal reflux disease) HTN (hypertension) Lupus SLE (systemic lupus erythematosus) Tendinopathy of right rotator cuff <DOC Wen - Last Filed: 10/22/22 13:09> Surgical History: Surgical History History of hysterectomy <DOC Wen - Last Filed: 10/22/22 13:09> Family History Family History: Family History (Updated 06/18/22 @ 12:04 by FRANCISCO Lopez) Mother Hypertension Father Hypertension History of thyroid disorder Sister Strabismus Maternal Grandmother Diabetes Maternal Grandfather FH: prostate cancer <DOC Wen - Last Filed: 10/22/22 13:09> Social History Social History: Social History (Updated 09/03/22 @ 08:02 by Barry Mccrary LPN) Household Members: Spouse Housing: Apartment Alcohol intake: current Patient Tobacco Use Status: Never used Tobacco Advance Directives: No Advance Directives Information Provided: No service: No Current occupational status: unemployed <DOC Wen - Last Filed: 10/22/22 13:09> Physical Exam Vital Signs: Vital Signs: Last Vital Signs Temp 96.8 F 10/22/22 13:03 Pulse 81 10/22/22 13:03 Resp 17 10/22/22 13:03 BP 159/87 H 10/22/22 16:40 Pulse Ox 98 10/22/22 13:03 O2 Del Method 10/22/22 13:03 BMI result Body Mass Index 30.9 <DOC Wen - Last Filed: 10/22/22 13:09> Vital Signs: Last Vital Signs Temp 96.8 F 10/22/22 13:03 Pulse 81 10/22/22 13:03 Resp 17 10/22/22 13:03 BP 159/87 H 10/22/22 16:40 Pulse Ox 98 10/22/22 13:03 O2 Del Method 10/22/22 13:03 BMI result Body Mass Index 30.9 <Chan Sullivan MD - Last Filed: 10/22/22 22:50> Patient looks well she is not toxic-appearing <Chan Sullivan MD - Last Filed: 10/22/22 22:50> Const: General: cooperative, comfortable, no acute distress, well developed, alert and awake <Chan Sullivan MD - Last Filed: 10/22/22 22:50> Nutritional Appearance: average body habitus and well nourished <Chan Sullivan MD - Last Filed: 10/22/22 22:50> Orientation/consciousness: patient oriented x3 <Chan Sullivan MD - Last Filed: 10/22/22 22:50> Limitations: no limitations <Chan Sullivan MD - Last Filed: 10/22/22 22:50> HEENT: Head: Yes normal to inspection <Chan Sullivan MD - Last Filed: 10/22/22 22:50> Ears: hearing grossly normal bilaterally <Chan Sullivan MD - Last Filed: 10/22/22 22:50> Face and sinus: Yes normal facial exam <Chan Sullivan MD - Last Filed: 10/22/22 22:50> Mouth: Normal oral and palatal mucosa present <Chan Sullivan MD - Last Filed: 10/22/22 22:50> Throat: Yes posterior oropharynx normal <Chan Sullivan MD - Last Filed: 10/22/22 22:50> Neck: Neck: Yes normal visual inspection <Chan Sullivan MD - Last Filed: 10/22/22 22:50> Chest: Chest palpation & inspection: normal inspection of the chest <Chan Sullivan MD - Last Filed: 10/22/22 22:50> Resp: Effort & Inspection: normal respiratory effort <Chan Sullivan MD - Last Filed: 10/22/22 22:50> Auscultation: clear to auscultation bilaterally <Chan Sullivan MD - Last Filed: 10/22/22 22:50> Cardio: Jugular venous distension: no JVD <Chan Sullivan MD - Last Filed: 10/22/22 22:50> Rate: regular rate <Chan Sullivan MD - Last Filed: 10/22/22 22:50> Rhythm: regular rhythm <Chan Sullivan MD - Last Filed: 10/22/22 22:50> GI: Inspection: Yes normal to inspection <Chan Sullivan MD - Last Filed: 10/22/22 22:50> Palpation (GI): Soft to palpation, not firm, nontender and no guarding <Chan Sullivan MD - Last Filed: 10/22/22 22:50> Skin: General skin exam: no rashes or lesions noted, elasticity normal and turgor normal <Chan Sullivan MD - Last Filed: 10/22/22 22:50> Lesions: no lesions <Chan Sullivan MD - Last Filed: 10/22/22 22:50> Rashes: no rashes <Chan Sullivan MD - Last Filed: 10/22/22 22:50> Neuro: General: patient oriented x3 <Chan Sullivan MD - Last Filed: 10/22/22 22:50> Extrem: General: Yes normal to inspection, Yes full ROM and Yes capillary refill normal <Chan Sullivan MD - Last Filed: 10/22/22 22:50> Course Course Course Narrative: BABITA-13:05 46yoF c PMHx of HTN currently on 2.5 mg of amlodipine once daily taking as prescribed presenting to the ER with complaints of elevated blood pressure yesterday in the 200s when she was at the dentist when she was about to get a root canal. She was unable to take her blood pressure today. She called her primary care provider's office and they told to come here for further adjuvant treatment. She denies any symptoms today. She reports she did not have any symptoms yesterday either. Plan: Labs, CXR, EKG ordered patient will be sent back to the waiting room for further evaluation treatment to the Emergency Department. <DOC Wen - Last Filed: 10/22/22 13:09> Reevaluation(s) Reevaluation #1: I discussed with the patient it is reasonable to increase the Norvasc to 5 mg daily, the patient also will call the primary care physician I explained to her the primary physician is the one in the is in charge of the blood pressure treatment, in the interim until she sees the PCP I will increase the Norvasc from 2.5 to-5 mg <Chan Sullivan MD - Last Filed: 10/22/22 22:50> Medical Decision Making Medical Decision Making [facility] Narrative: This is a 46 years old female presented to the emergency department with asymptomatic hypertension <Chan Sullivan MD - Last Filed: 10/22/22 22:50> Differential Diagnosis Differential Diagnoses: The differential diagnosis associated with the presentation includes <Chan Sullivan MD - Last Filed: 10/22/22 22:50> HTN crisis/urgency <Chan Sullivan MD - Last Filed: 10/22/22 22:50> Admission/Observation Consideration of admission/observation: Escalation of care including admission/observation considered <Chan Sullivan MD - Last Filed: 10/22/22 22:50> Lab Data [facility] Lab Attestation statement: I reviewed the patient's lab results. <Chan Sullivan MD - Last Filed: 10/22/22 22:50> Result Diagrams: : 10/22/22 13:19 10/22/22 13:19 <DOC Wen - Last Filed: 10/22/22 13:09> Labs: Lab Results 10/22/22 10/22/22 10/22/22 Range/Units 13:19 13:19 13:19 WBC 4.7 L (4.8-10.8) X10*3/uL RBC 3.91 L (4.20-5.50) X10*6/uL Hgb 11.7 L (12.0-16.0) g/dl Hct 34.7 L (37.0-47.0) % MCV 88.7 (80.0-98.0) fL MCH 29.9 (27.0-33.0) pg MCHC 33.7 (31.0-35.0) g/dl RDW 12.6 (11.0-16.0) % Plt Count 337 (160-400) X10*3/uL MPV 9.8 (9.4-12.3) fL Immature Gran % (Auto) 0.2 (0.0-0.4) % Neut % (Auto) 46.8 (45-73) % Lymph % (Auto) 39.9 (20-40) % [place] % (Auto) 9.7 (2-11) % Eos % (Auto) 2.8 (0-4) % Baso % (Auto) 0.6 (0-2) % Lymph # (Auto) 1.9 (1.2-4.9) X10*3/uL [place] # (Auto) 0.5 (0.1-1.2) X10*3/uL Eos # (Auto) 0.1 (0.0-0.4) X10*3/uL Baso # (Auto) 0.0 (0.0-0.2) X10*3/uL Abs Immat Gran (auto) 0.01 (0.00-0.03) X10*3/uL Absolute Neuts (auto) 2.2 (2.0-8.3) x10*3/uL Absolute Nucleated RBC 0.000 (0.0-0.012) X10*3/uL Nucleated RBC % (auto) 0.0 (0.0-0.2) /100WBC PT 11.8 (10.0-13.1) SEC INR 1.0 (0.9-1.1) Sodium 135 (135-145) mmol/L Potassium 4.2 (3.3-5.1) mmol/L Chloride 103 (96-108) mmol/L Carbon Dioxide 27 (22-29) mmol/L Anion Gap 9 L (12-20) BUN 13 (9-16) mg/dL Creatinine 0.87 (0.5-1.4) mg/dL Estim Creat Clear Calc 59.7 Estimated GFR > 60 Random Glucose 81 (60-115) mg/dL Calcium 9.0 (8.4-10.2) mg/dL Magnesium 1.8 (1.6-2.6) mg/dL Total Bilirubin 0.6 (0.0-1.0) mg/dL AST 18 (5-31) U/L ALT 10 (0-31) U/L Alkaline Phosphatase 75 (39-117) U/L Total Protein 7.1 (6.5-8.0) g/dL Albumin 3.5 (3.5-5.0) g/dL Beta HCG, Quant mIU/mL 10/22/ Range/Units 13:19 WBC (4.8-10.8) X10*3/uL RBC (4.20-5.50) X10*6/uL Hgb (12.0-16.0) g/dl Hct (37.0-47.0) % MCV (80.0-98.0) fL MCH (27.0-33.0) pg MCHC (31.0-35.0) g/dl RDW (11.0-16.0) % Plt Count (160-400) X10*3/uL MPV (9.4-12.3) fL Immature Gran % (Auto) (0.0-0.4) % Neut % (Auto) (45-73) % Lymph % (Auto) (20-40) % [place] % (Auto) (2-11) % Eos % (Auto) (0-4) % Baso % (Auto) (0-2) % Lymph # (Auto) (1.2-4.9) X10*3/uL [place] # (Auto) (0.1-1.2) X10*3/uL Eos # (Auto) (0.0-0.4) X10*3/uL Baso # (Auto) (0.0-0.2) X10*3/uL Abs Immat Gran (auto) (0.00-0.03) X10*3/uL Absolute Neuts (auto) (2.0-8.3) x10*3/uL Absolute Nucleated RBC (0.0-0.012) X10*3/uL Nucleated RBC % (auto) (0.0-0.2) /100WBC PT (10.0-13.1) SEC INR (0.9-1.1) Sodium (135-145) mmol/L Potassium (3.3-5.1) mmol/L Chloride (96-108) mmol/L Carbon Dioxide (22-29) mmol/L Anion Gap (12-20) BUN (9-16) mg/dL Creatinine (0.5-1.4) mg/dL Estim Creat Clear Calc Estimated GFR Random Glucose (60-115) mg/dL Calcium (8.4-10.2) mg/dL Magnesium (1.6-2.6) mg/dL Total Bilirubin (0.0-1.0) mg/dL AST (5-31) U/L ALT (0-31) U/L Alkaline Phosphatase (39-117) U/L Total Protein (6.5-8.0) g/dL Albumin (3.5-5.0) g/dL Beta HCG, Quant < 2 mIU/mL <DOC Wen - Last Filed: 10/22/22 13:09> Lab Results 10/22/22 10/22/22 10/22/22 Range/Units 13:19 13:19 13:19 WBC 4.7 L (4.8-10.8) X10*3/uL RBC 3.91 L (4.20-5.50) X10*6/uL Hgb 11.7 L (12.0-16.0) g/dl Hct 34.7 L (37.0-47.0) % MCV 88.7 (80.0-98.0) fL MCH 29.9 (27.0-33.0) pg MCHC 33.7 (31.0-35.0) g/dl RDW 12.6 (11.0-16.0) % Plt Count 337 (160-400) X10*3/uL MPV 9.8 (9.4-12.3) fL Immature Gran % (Auto) 0.2 (0.0-0.4) % Neut % (Auto) 46.8 (45-73) % Lymph % (Auto) 39.9 (20-40) % [place] % (Auto) 9.7 (2-11) % Eos % (Auto) 2.8 (0-4) % Baso % (Auto) 0.6 (0-2) % Lymph # (Auto) 1.9 (1.2-4.9) X10*3/uL [place] # (Auto) 0.5 (0.1-1.2) X10*3/uL Eos # (Auto) 0.1 (0.0-0.4) X10*3/uL Baso # (Auto) 0.0 (0.0-0.2) X10*3/uL Abs Immat Gran (auto) 0.01 (0.00-0.03) X10*3/uL Absolute Neuts (auto) 2.2 (2.0-8.3) x10*3/uL Absolute Nucleated RBC 0.000 (0.0-0.012) X10*3/uL Nucleated RBC % (auto) 0.0 (0.0-0.2) /100WBC PT 11.8 (10.0-13.1) SEC INR 1.0 (0.9-1.1) Sodium 135 (135-145) mmol/L Potassium 4.2 (3.3-5.1) mmol/L Chloride 103 (96-108) mmol/L Carbon Dioxide 27 (22-29) mmol/L Anion Gap 9 L (12-20) BUN 13 (9-16) mg/dL Creatinine 0.87 (0.5-1.4) mg/dL Estim Creat Clear Calc 59.7 Estimated GFR > 60 Random Glucose 81 (60-115) mg/dL Calcium 9.0 (8.4-10.2) mg/dL Magnesium 1.8 (1.6-2.6) mg/dL Total Bilirubin 0.6 (0.0-1.0) mg/dL AST 18 (5-31) U/L ALT 10 (0-31) U/L Alkaline Phosphatase 75 (39-117) U/L Total Protein 7.1 (6.5-8.0) g/dL Albumin 3.5 (3.5-5.0) g/dL Beta HCG, Quant mIU/mL 10/22/22 Range/Units 13:19 WBC (4.8-10.8) X10*3/uL RBC (4.20-5.50) X10*6/uL Hgb (12.0-16.0) g/dl Hct (37.0-47.0) % MCV (80.0-98.0) fL MCH (27.0-33.0) pg MCHC (31.0-35.0) g/dl RDW (11.0-16.0) % Plt Count (160-400) X10*3/uL MPV (9.4-12.3) fL Immature Gran % (Auto) (0.0-0.4) % Neut % (Auto) (45-73) % Lymph % (Auto) (20-40) % [place] % (Auto) (2-11) % Eos % (Auto) (0-4) % Baso % (Auto) (0-2) % Lymph # (Auto) (1.2-4.9) X10*3/uL [place] # (Auto) (0.1-1.2) X10*3/uL Eos # (Auto) (0.0-0.4) X10*3/uL Baso # (Auto) (0.0-0.2) X10*3/uL Abs Immat Gran (auto) (0.00-0.03) X10*3/uL Absolute Neuts (auto) (2.0-8.3) x10*3/uL Absolute Nucleated RBC (0.0-0.012) X10*3/uL Nucleated RBC % (auto) (0.0-0.2) /100WBC PT (10.0-13.1) SEC INR (0.9-1.1) Sodium (135-145) mmol/L Potassium (3.3-5.1) mmol/L Chloride (96-108) mmol/L Carbon Dioxide (22-29) mmol/L Anion Gap (12-20) BUN (9-16) mg/dL Creatinine (0.5-1.4) mg/dL Estim Creat Clear Calc Estimated GFR Random Glucose (60-115) mg/dL Calcium (8.4-10.2) mg/dL Magnesium (1.6-2.6) mg/dL Total Bilirubin (0.0-1.0) mg/dL AST (5-31) U/L ALT (0-31) U/L Alkaline Phosphatase (39-117) U/L Total Protein (6.5-8.0) g/dL Albumin (3.5-5.0) g/dL Beta HCG, Quant < 2 mIU/mL <Chan Sullivan MD - Last Filed: 10/22/22 22:50> Independent Interpretation I performed an independent interpretation of an: EKG <Chan Sullivan MD - Last Filed: 10/22/22 22:50> Interpretation: Normal sinus rhythm rate [address]-T changes <Chan Sullivan MD - Last Filed: 10/22/22 22:50> Discharge Plan Discharge Clinical Impression: HTN (hypertension) <DOC Wen - Last Filed: 10/22/22 13:09> Patient Disposition: Home, Self-Care <DOC Wen - Last Filed: 10/22/22 13:09> Instructions: Chronic Hypertension (ED) <DOC Wen - Last Filed: 10/22/22 13:09> Prescriptions: New amlodipine [Norvasc] 5 mg tablet 5 mg PO DAILY Qty: 30 0RF No Action amlodipine 2.5 mg tablet 2.5 mg PO DAILY Qty: 14 0RF naproxen 500 mg tablet 500 mg PO BID PRN (Reason: pain) 10 Days Qty: 20 0RF cyclobenzaprine 10 mg tablet 10 mg PO TID PRN (Reason: muscle spasm) Qty: 21 0RF Rx Instructions: side effect is drowsiness. Do not take at work or while driving. valacyclovir 1 gram tablet 1,000 mg PO TID Qty: 21 0RF gabapentin 300 mg capsule 300 mg PO TID Qty: 90 1RF Rx Instructions: start with just night time use and gardaully increase to three times a day mycophenolate mofetil 500 mg tablet 500 mg PO QID Qty: 120 3RF <DOC Wen - Last Filed: 10/22/22 13:09> Referrals: Willie Main III, MD [Primary Care Provider] - 2 days <DOC Wen - Last Filed: 10/22/22 13:09> Interventions: ED Discharge Assessment Last Done: 10/22/22 17:42 <DOC Wen - Last Filed: 10/22/22 13:09> Discharge Date/Time: 10/22/22 17:43 <DOC Wen - Last Filed: 10/22/22 13:09>
--- NOTE | 2022-10-22 13:07 | ECG_ITS ---
Test Reason : HYPERTENSION Blood Pressure : / mmHG Vent. Rate : 082 BPM Atrial Rate : 082 BPM P-R Int : 162 ms QRS Dur : 076 ms QT Int : 350 ms P-R-T Axes : 062 011 014 degrees QTc Int : 408 ms Normal sinus rhythm Minimal voltage criteria for LVH, may be normal variant ( [place] product ) Borderline ECG No significant changes when compared with the previous EKG of 12 aug 2021 Referred By: Nelida Bettencourt Electronically Signed By:NY JIMÉNEZ
[2022-10-22 13:24] LABS: MANUAL DIFF FLAG NO
[2022-10-22 13:27] LABS: Basophils Percent Auto 0.6 % (0-2); Eosinophils Absolute Auto 0.1 X10*3/uL (0.0-0.4); Eosinophils Percent Auto 2.8 % (0-4); Hematocrit 34.7 % (37.0-47.0); Hemoglobin 11.7 g/dl (12.0-16.0); Imm Gran Abs Auto 0.01 X10*3/uL (0.00-0.03); Imm Gran Pct Auto 0.2 % (0.0-0.4); Lymphocytes Absolute Auto 1.9 X10*3/uL (1.2-4.9); Lymphocytes Percent Auto 39.9 % (20-40); Mean Corpuscular HGB Conc 33.7 g/dl (31.0-35.0); Mean Corpuscular Hemoglobin 29.9 pg (27.0-33.0); Mean Corpuscular Volume 88.7 fL (80.0-98.0); Mean Platelet Volume 9.8 fL (9.4-12.3); Monocytes Absolute Auto 0.5 X10*3/uL (0.1-1.2); Monocytes Percent Auto 9.7 % (2-11); Neutrophils Absolute Auto 2.2 x10*3/uL (2.0-8.3); Neutrophils Percent Auto 46.8 % (45-73); Platelet Count 337 X10*3/uL (160-400); Red Blood Count 3.91 X10*6/uL (4.20-5.50); Red Cell Distribution Width 12.6 % (11.0-16.0); White Blood Count 4.7 X10*3/uL (4.8-10.8)
[2022-10-22 13:33] LABS: Prothrombin Time 11.8 SEC (10.0-13.1)
[2022-10-22 13:46] LABS: Alanine Aminotransferase 10 U/L (0-31); Albumin Level 3.5 g/dL (3.5-5.0); Alkaline Phosphatase 75 U/L (39-117); Anion Gap 9 (12-20); Aspartate Amino Transferase 18 U/L (5-31); Bilirubin Total 0.6 mg/dL (0.0-1.0); Blood Urea Nitrogen 13 mg/dL (9-16); Carbon Dioxide 27 mmol/L (22-29); Chloride 103 mmol/L (96-108); Creatinine Clr Calc Pharmacy 59.7; Estimated Glomerular Filt Rate > 60; Glucose Random 81 mg/dL (60-115); Magnesium 1.8 mg/dL (1.6-2.6); Potassium 4.2 mmol/L (3.3-5.1); Sodium 135 mmol/L (135-145); Total Protein 7.1 g/dL (6.5-8.0)
[2022-10-22 13:51] LABS: HCG Quantitative < 2 mIU/mL
[2022-10-22 16:40] VITALS: BP 159/87
== END 2022-10-22 17:43 | disposition home or self-care (01) ==
PROVIDERS: Physician Assistant Medical; Emergency Provider Emergency Medicine; PCP Internal Medicine
DX: I10 Essential (primary) hypertension (principal); Z79.899 Other long term (current) drug therapy
CPT/HCPCS: 36415; 71046; 80053; 83735; 84702; 85025; 85610; 93005; 99283

== ENCOUNTER → 2022-12-03 09:17 | Outpatient (BNVA) | payer OTHER, SELFPAY | PROVIDERS: PCP Internal Medicine; Visit Provider Internal Medicine Rheumatology | DX: M75.81 Other shoulder lesions, right shoulder (principal); M75.82 Other shoulder lesions, left shoulder; M32.9 Systemic lupus erythematosus, unspecified; Z79.899 Other long term (current) drug therapy | CPT/HCPCS: 99212 ==

== ENCOUNTER 2023-01-14 09:00 | Outpatient (RCR) | payer OTHER, SELFPAY ==
--- NOTE | 2023-01-04 10:39 | MHC.PT.EP ---
[facility] [place] Office [place] Office [place] Office [address] Gavi Cifuentes [address] [phone] F: [phone] F: [phone] F: [phone] F: [phone] Physical Therapy Plan of Care Date of Evaluation: Date of Surgery: Diagnosis: LEFT SHOULDER LESION Assessment: 47 YO FEMALE REF TO PT W A 6 MONTH H/O LEFT SH PAIN-> ON XRAY, CONFIRMED CALCIFICATION IN SUPRASPINATUS TENDON. Pt IS RIGHT HAND DOMINANT AND SHE HAS A H/O SLE. 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 Pt HAS DECR POSTURAL AWARENESS, AROM AND STRENGTH DEFICITS IN HER LEFT SH COMPLEX- ALL INFLUENCED BY PAIN. SHE HAS (+) TTP Lt UT/ DELTOID/PARASCAP MM- CURRENTLY HER SENSATION IS = AND INTACT TEJINDER UEs AND SHE DENIES MOTOR DEFICITS. Pt HAS DIFFIC SLEEPING (PRONE) AND PERF MORE DEMANDING ADLS DUE TO PAIN. Pt WOULD BENEIFIT FROM PT TO ADDRESS THE ABOVE , ESPECIALLY PAIN/ SX MGMT. Frequency and Duration: The patient will be seen 2 x WK x 6 WKS Short Term Goals: *DECREASE Lt SH PAIN TO 2-3/10 *Pt INDEP SELF-CORRECT POSTURE TO REDUCE STRESS ON Lt SH GIRDLE *IMPROVE Lt SH AROM *INITIATE HEP [employer] Information Clerk Goals: *IMPROVE STRENGTH Lt SH BY 1 GRADE *Pt REPORT IMPROVED SLEEP AND ADLs, EVIDENT W INCR SPADI SCORE (AT EVAL 104/130) *Pt INDEP W PROGRESSIVE HEP AND SELF-SX MGMT TECHN Treatment Plan: Modalities to reduce pain, spasms and effusion. Manual therapy to restore motion and function. Therapeutic exercise to improve strength and flexibility. Neuromuscular re-education for posture and balance. Therapeutic activities to return to functional activities of daily living. Electronically signed by: LUANNE CHAVEZ,PT Please sign and return to therapist. Thank you for your referral.
--- NOTE | 2023-02-05 08:40 | MHC.PT.DC ---
[facility] [place] Office [place] Office [place] Office [address] Gavi Cifuentes 140 [facility] [phone] F: [phone] F: [phone] F: [phone] F: [phone] Physical Therapy Discharge Report Diagnosis: LEFT SHOULDER LESION Date of Surgery: Date of Evaluation: 01/04/23 Date of Discharge: 02/05/23 Treatments to Date: 3 Cancellations to Date: 2 No Shows to Date: 2 Discharge Status: Visit Non-compliance Discharge Summary: [facility] WE ADDRESSED HER POSTURE, PAIN MGMT TECHN, AND INITIATED DEV OF A HEP FOR HER Lt SHOULDER. Pt DID NOT MEET HER PT GOALS DUE TO POOR ATTENDANCE FOR SCHED PT APPTS. Electronically signed by: LUANNE MCNEILL,PT Please sign and return to therapist. Thank you for your referral.
== END 2023-02-05 08:42 | disposition home or self-care (01) ==
LOC: HO.PT 09:00
PROVIDERS: PCP Internal Medicine; Visit Provider Internal Medicine Rheumatology
DX: M75.82 Other shoulder lesions, left shoulder (principal)
CPT/HCPCS: 97035; 97162; 97530

== ENCOUNTER 2023-03-11 10:42 | Emergency (ER) | payer OTHER, SELFPAY ==
--- NOTE | 2023-03-11 11:16 | ED_ITS ---
HPI - General Adult General Chief complaint: General Medical <DOC Madrid - Last Filed: 03/11/23 11:23> Stated complaint: facial swelling <DOC [place] - Last Filed: 03/11/23 11:23> Time Seen by Provider: 03/11/23 11:31 <DOC [place] - Last Filed: 03/11/23 11:23> Source: patient <Nick Motta MD - Last Filed: 03/11/23 15:11> Mode of arrival: ambulatory <Nick Motta MD - Last Filed: 03/11/23 15:11> Limitations: no limitations <Nick Motta MD - Last Filed: 03/11/23 15:11> History of Present Illness HPI narrative: 47-year-old female with history of hypertension presents with right-sided facial swelling. Symptoms started at 2:00 a.m. this morning. She describes symptoms as severe. She denies any difficulty breathing or swallowing. She has never had this before. She is on Ernesto inhibitors which was recently restarted. Patient appears to be on lisinopril 10 mg daily. She has never had symptoms like this before she. She denies any rash. No lightheadedness, chest pain, headache, vision changes. Patient is also being treated for lupus. <Nick Motta MD - Last Filed: 03/11/23 15:11> Related Data Home medications: Previous Rx's Medication Instructions Recorded cyclobenzaprine 10 mg tablet 10 mg PO TID PRN muscle spasm #21 10/08/21 tabs naproxen 500 mg tablet 500 mg PO BID PRN pain 10 days #20 10/08/21 tabs amlodipine 2.5 mg tablet 2.5 mg PO DAILY #14 tabs 03/31/22 gabapentin 300 mg capsule 300 mg PO TID #90 caps 09/03/22 mycophenolate mofetil 500 mg tablet 500 mg PO QID #120 tabs 09/03/22 amlodipine 5 mg tablet (Norvasc) 5 mg PO DAILY #30 tabs 10/22/22 multivitamin with iron 1 tab PO DAILY #30 tabs 12/03/22 <DOC [place] - Last Filed: 03/11/23 11:23> Allergies/adverse reactions: Allergies Allergy/AdvReac Type Severity Reaction Status Date / Time Penicillins [PENICILLINS] Allergy Unknown SWELLING Unverified 03/11/23 11:17 <DOC [place] - Last Filed: 03/11/23 11:23> [facility] Past Medical History Medical History: Medical History Dyslipidemia Eczema GERD (gastroesophageal reflux disease) HTN (hypertension) Lupus SLE (systemic lupus erythematosus) Tendinopathy of right rotator cuff <DOC [place] - Last Filed: 03/11/23 11:23> Surgical History: Surgical History History of hysterectomy <DOC [place] - Last Filed: 03/11/23 11:23> Family History Family History: Family History Mother Hypertension Father Hypertension History of thyroid disorder Sister Strabismus Maternal Grandmother Diabetes Maternal Grandfather FH: prostate cancer <DOC [place] - Last Filed: 03/11/23 11:23> Social History Social History: Social History Household Members: Spouse Housing: Apartment Alcohol intake: never Patient Tobacco Use Status: Never used Tobacco Smoked in Last 30 Days: No Use of substances other than those prescribed or required for medical reasons: No Advance Directives: No Patient : No service: No Current occupational status: unemployed <DOC [place] - Last Filed: 03/11/23 11:23> Physical Exam ED Vital Signs: Vital Signs - 24 hr 03/11/23 11:17 03/11/23 12:12 03/11/23 13:10 Temperature 97.8 F 98.4 F 98.5 F Pulse Rate 76 72 62 Respiratory Rate 16 12 13 Blood Pressure 216/106 H 214/112 H 200/98 H Pulse Oximetry 99 100 98 Oxygen Delivery Method Room Air Room Air Room Air 03/11/23 13:38 03/11/23 14:19 03/11/23 15:04 Temperature Pulse Rate 67 82 Respiratory Rate 15 14 Blood Pressure 198/96 H 199/97 H 142/80 H Pulse Oximetry 99 99 Oxygen Delivery Method Room Air Room Air BMI result Body Mass Index 30.3 <DOC [place] - Last Filed: 03/11/23 11:23> Vital Signs - 24 hr 03/11/23 11:17 03/11/23 12:12 03/11/23 13:10 Temperature 97.8 F 98.4 F 98.5 F Pulse Rate 76 72 62 Respiratory Rate 16 12 13 Blood Pressure 216/106 H 214/112 H 200/98 H Pulse Oximetry 99 100 98 Oxygen Delivery Method Room Air Room Air Room Air 03/11/23 13:38 03/11/23 14:19 03/11/23 15:04 Temperature Pulse Rate 67 82 Respiratory Rate 15 14 Blood Pressure 198/96 H 199/97 H 142/80 H Pulse Oximetry 99 99 Oxygen Delivery Method Room Air Room Air BMI result Body Mass Index 30.3 <Nick Motta MD - Last Filed: 03/11/23 15:11> GEN: Well developed, no acute distress, alert, oriented HEENT: atraumatic, normal external ears, nose appears normal, no oropharyngeal edema or exudates, right facial swelling, no tongue swelling, no intraoral angioedema Eyes: Normal to appearance Neck: Supple, no lymphadenopathy Respiratory: Talks in complete sentences, no respiratory distress, clear to auscultation bilaterally, no wheezing or stridor Cardiovascular: Regular rate and rhythm, no murmurs rubs or gallops Abdomen: Soft, nontender, nondistended, no guarding, no rebound Back: No CVA tenderness Extremities: No clubbing cyanosis or edema Neurologic: No focal neurologic deficits, cranial nerves 2-12 intact, strength is 5/5 bilaterally Skin: No rash <Nick Motta MD - Last Filed: 03/11/23 15:11> Course Course Course Narrative: This is an RME: Additional HPI, ROS, PE not included below will be deferred to primary provider. 47 year old female hx of HTN, dyslipidemia, SLE, presents w/ facial swelling R > L started suddenly at 2 am worsening since. No SOB, difficulty speaking or changes in voice. Speaking in full sentences controlling secretions well. Takes 10 mg lisinopril daily. Ate chinesse food at 12 midnight PE- R sided facial swelling Plan- pepcid, steroid, benadryl. <DOC [place] - Last Filed: 03/11/23 11:23> Reevaluation(s) Reevaluation #1: Patient presents with hypertensive urgency and angioedema likely secondary to ERNESTO-inhibitor administration. Patient will receive epinephrine, Benadryl, Solu-Medrol and continue to be observed. Will also need to manage her blood pressure. I will give her clonidine 0.1 mg orally. <Nick Motta MD - Last Filed: 03/11/23 15:11> Time: 12:57 <Nick Motta MD - Last Filed: 03/11/23 15:11> Reevaluation #2: Patient's facial swelling significantly better. She remains hypertensive but improved. Will give labetalol and re-evaluate shortly. <Nick Motta MD - Last Filed: 03/11/23 15:11> Time: 14:19 <Nick Motta MD - Last Filed: 03/11/23 15:11> Reevaluation #3: BP significantly improved. Will have patient start labetolol and stop lisinopril close follow up with PMD <Nick Motta MD - Last Filed: 03/11/23 15:11> Time: 15:08 <Nick Motta MD - Last Filed: 03/11/23 15:11> Medications Administered Discontinued Medications Generic Name Dose Route Start Last Admin Trade Name Freq PRN Reason Stop Dose Admin Clonidine HCl 0.1 mg 03/11/23 12:24 03/11/23 12:37 Clonidine Hcl 0.1 Mg Tablet PO 03/11/23 12:25 0.1 mg ONCE ONE Administration Protocol Diphenhydramine HCl 50 mg 03/11/23 11:21 03/11/23 11:38 Diphenhydramine Hcl 50 Mg/Ml Vial IVPUSH 03/11/23 11:22 50 mg ONCE ONE Administration Famotidine 20 mg 03/11/23 11:16 03/11/23 11:38 Famotidine/Pf 20 Mg/2 Ml Vial IVPUSH 03/11/23 11:17 20 mg ONCE ONE Administration Labetalol HCl 100 mg 03/11/23 13:44 03/11/23 14:18 Labetalol Hcl 100 Mg Tablet PO 03/11/23 13:45 100 mg ONCE ONE Administration Protocol Methylprednisolone Sodium Succinate 125 mg 03/11/23 11:16 03/11/23 11:37 Methylprednisolone Sod Succ 125 Mg/2 Ml Vial IVPUSH 03/11/23 11:17 125 mg ONCE ONE Administration <DOC [place] - Last Filed: 03/11/23 11:23> Medications Administered Discontinued Medications Generic Name Dose Route Start Last Admin Trade Name Alexus PRN Reason Stop Dose Admin Clonidine HCl 0.1 mg 03/11/23 12:24 03/11/23 12:37 Clonidine Hcl 0.1 Mg Tablet PO 03/11/23 12:25 0.1 mg ONCE ONE Administration Protocol Diphenhydramine HCl 50 mg 03/11/23 11:21 03/11/23 11:38 Diphenhydramine Hcl 50 Mg/Ml Vial IVPUSH 03/11/23 11:22 50 mg ONCE ONE Administration Famotidine 20 mg 03/11/23 11:16 03/11/23 11:38 Famotidine/Pf 20 Mg/2 Ml Vial IVPUSH 03/11/23 11:17 20 mg ONCE ONE Administration Labetalol HCl 100 mg 03/11/23 13:44 03/11/23 14:18 Labetalol Hcl 100 Mg Tablet PO 03/11/23 13:45 100 mg ONCE ONE Administration Protocol Methylprednisolone Sodium Succinate 125 mg 03/11/23 11:16 03/11/23 11:37 Methylprednisolone Sod Succ 125 Mg/2 Ml Vial IVPUSH 03/11/23 11:17 125 mg ONCE ONE Administration <Nick Motta MD - Last Filed: 03/11/23 15:11> Medical Decision Making Medical Decision Making MDM Narrative: 47-year-old female's presents swelling to the right side of her face. This is most likely secondary to ERNESTO-inhibitor. There is no intraoral angioedema. There is no wheezing or stridor. She denies any difficulty swallowing. Patient is not currently not emergent airway issue. In any event, will treat with epinephrine, Benadryl and Solu-Medrol. Patient also is signific antly hypertensive. I will give her clonidine 0.1 mg attempt to appropriately lower her blood pressure. <Nick Motta MD - Last Filed: 03/11/23 15:11> Differential Diagnosis Differential Diagnoses: The differential diagnosis associated with the presentation includes (Angioedema secondary to ERNESTO inhibitors, allergic reaction, angioedema, hypertensive urgency, renal dysfunction) <Nick Motta MD - Last Filed: 03/11/23 15:11> Angioedema, hypertensive urgency <Nick Motta MD - Last Filed: 03/11/23 15:11> Admission/Observation Consideration of admission/observation: Escalation of care including admission/observation considered (Patient with angioedema as well as hypertensive urgency may need further observation.) <Nick Motta MD - Last Filed: 03/11/23 15:11> Lab Data MDM Lab Attestation statement: I reviewed the patient's lab results. <Nick Motta MD - Last Filed: 03/11/23 15:11> Result Diagrams: 03/11/23 12:41 03/11/23 12:41 <DOC Madrid - Last Filed: 03/11/23 11:23> Labs: Lab Results 03/11/23 03/11/23 Range/Units 12:41 12:41 WBC 7.1 (4.8-10.8) X10*3/uL RBC 3.80 L (4.20-5.50) X10*6/uL Hgb 11.1 L (12.0-16.0) g/dl Hct 33.1 L (37.0-47.0) % MCV 87.1 (80.0-98.0) fL MCH 29.2 (27.0-33.0) pg MCHC 33.5 (31.0-35.0) g/dl RDW 12.0 (11.0-16.0) % Plt Count 363 (160-400) X10*3/uL MPV 9.7 (9.4-12.3) fL Immature Gran % (Auto) 0.1 (0.0-0.4) % Neut % (Auto) 64.1 (45-73) % Lymph % (Auto) 28.7 (20-40) % Schoolcraft % (Auto) 6.0 (2-11) % Eos % (Auto) 0.8 (0-4) % Baso % (Auto) 0.3 (0-2) % Lymph # (Auto) 2.0 (1.2-4.9) X10*3/uL Schoolcraft # (Auto) 0.4 (0.1-1.2) X10*3/uL Eos # (Auto) 0.1 (0.0-0.4) X10*3/uL Baso # (Auto) 0.0 (0.0-0.2) X10*3/uL Abs Immat Gran (auto) 0.01 (0.00-0.03) X10*3/uL Absolute Neuts (auto) 4.6 (2.0-8.3) x10*3/uL Absolute Nucleated RBC 0.000 (0.0-0.012) X10*3/uL Nucleated RBC % (auto) 0.0 (0.0-0.2) /100WBC Sodium 138 (135-145) mmol/L Potassium 4.4 (3.3-5.1) mmol/L Chloride 109 H (96-108) mmol/L Carbon Dioxide 23 (22-29) mmol/L Anion Gap 10 L (12-20) BUN 14 (9-16) mg/dL Creatinine 0.91 (0.5-1.4) mg/dL Estim Creat Clear Calc 55.8 Estimated GFR > 60 Random Glucose 75 (60-115) mg/dL Calcium 8.6 (8.4-10.2) mg/dL <DOC Madrid - Last Filed: 03/11/23 11:23> Lab Results 03/11/23 03/11/23 Range/Units 12:41 12:41 WBC 7.1 (4.8-10.8) X10*3/uL RBC 3.80 L (4.20-5.50) X10*6/uL Hgb 11.1 L (12.0-16.0) g/dl Hct 33.1 L (37.0-47.0) % MCV 87.1 (80.0-98.0) fL MCH 29.2 (27.0-33.0) pg MCHC 33.5 (31.0-35.0) g/dl RDW 12.0 (11.0-16.0) % Plt Count 363 (160-400) X10*3/uL MPV 9.7 (9.4-12.3) fL Immature Gran % (Auto) 0.1 (0.0-0.4) % Neut % (Auto) 64.1 (45-73) % Lymph % (Auto) 28.7 (20-40) % Schoolcraft % (Auto) 6.0 (2-11) % Eos % (Auto) 0.8 (0-4) % Baso % (Auto) 0.3 (0-2) % Lymph # (Auto) 2.0 (1.2-4.9) X10*3/uL Schoolcraft # (Auto) 0.4 (0.1-1.2) X10*3/uL Eos # (Auto) 0.1 (0.0-0.4) X10*3/uL Baso # (Auto) 0.0 (0.0-0.2) X10*3/uL Abs Immat Gran (auto) 0.01 (0.00-0.03) X10*3/uL Absolute Neuts (auto) 4.6 (2.0-8.3) x10*3/uL Absolute Nucleated RBC 0.000 (0.0-0.012) X10*3/uL Nucleated RBC % (auto) 0.0 (0.0-0.2) /100WBC Sodium 138 (135-145) mmol/L Potassium 4.4 (3.3-5.1) mmol/L Chloride 109 H (96-108) mmol/L Carbon Dioxide 23 (22-29) mmol/L Anion Gap 10 L (12-20) BUN 14 (9-16) mg/dL Creatinine 0.91 (0.5-1.4) mg/dL Estim Creat Clear Calc 55.8 Estimated GFR > 60 Random Glucose 75 (60-115) mg/dL Calcium 8.6 (8.4-10.2) mg/dL <Nick Motta MD - Last Filed: 03/11/23 15:11> Prescription Management I considered prescription management with: Other (Epi, Benadryl, Solu-Medrol) <Nick Motta MD - Last Filed: 03/11/23 15:11> Chronic Conditions Patient?s care impacted by: Hypertension and Other (Lupus) <Nick Motta MD - Last Filed: 03/11/23 15:11> Discharge Plan Discharge Clinical Impression: Asymptomatic hypertensive urgency, Angioedema <DOC [place] - Last Filed: 03/11/23 11:23> Patient Disposition: Home, Self-Care <DOC Madrid Last Filed: 03/11/23 11:23> Instructions: Angioedema (ED), Hypertensive Crisis (ED) <DOC Madrid Last Filed: 03/11/23 11:23> Additional Instructions: Previamente trat? reed presi?n arterial con lisinopril 10 mg. Deber? suspender sis medicamento ya que esto estaba causando la hinchaz?n en reed ricardo. UR consider? intolerante a un medicamento llamado inhibidores Ernesto. Comenzar? con labetalol 100 mg 100 mg dos veces al d?a. Debe realizar un seguimiento de cerca con reed proveedor de atenci?n primaria a principios de la pr?xima semana. Si desarrolla umberto hinchaz?n adicional en la ricardo, dificultad para tragar o respirar, llame al 911 y regrese al departamento de emergencias de inmediato. <DOC Madrid Last Filed: 03/11/23 11:23> Prescriptions: No Action amlodipine 2.5 mg tablet 2.5 mg PO DAILY Qty: 14 0RF naproxen 500 mg tablet 500 mg PO BID PRN (Reason: pain) 10 Days Qty: 20 0RF cyclobenzaprine 10 mg tablet 10 mg PO TID PRN (Reason: muscle spasm) Qty: 21 0RF Rx Instructions: side effect is drowsiness. Do not take at work or while driving. amlodipine [Norvasc] 5 mg tablet 5 mg PO DAILY Qty: 30 0RF multivitamin with iron Tablet 1 tab PO DAILY Qty: 30 4RF gabapentin 300 mg capsule 300 mg PO TID Qty: 90 1RF Rx Instructions: start with just night time use and gardaully increase to three times a day mycophenolate mofetil 500 mg tablet 500 mg PO QID Qty: 120 3RF <DOC Madrid Last Filed: 03/11/23 11:23> Referrals: Willie Main III, MD [Primary Care Provider] - 3 days <DOC [place] - Last Filed: 03/11/23 11:23> Print Language: Indonesian <DOC [place] - Last Filed: 03/11/23 11:23>
[2023-03-11 11:17] VITALS: BP 216/106; PULSE 76; RESP 16; TEMP 36.6; O2SAT 99; BMI 30.3
[2023-03-11] MEDS: methylPREDNISolone Sod Succ 125 MG/2 ML VIAL IVPUSH (11:37)
[2023-03-11] MEDS: diphenhydrAMINE HCL 50 MG/ML VIAL IVPUSH (11:38)
[2023-03-11] MEDS: Famotidine/PF 20 MG/2 ML VIAL IVPUSH (11:38)
[2023-03-11 12:12] VITALS: BP 214/112; PULSE 72; RESP 12; TEMP 36.9; O2SAT 100
[2023-03-11] MEDS: cloNIDine HCL 0.1 MG TABLET PO (12:37)
--- NOTE | 2023-03-11 12:43 | MHC.EDTECH ---
Labs collected and sent
[2023-03-11 12:47] LABS: MANUAL DIFF FLAG NO
[2023-03-11 12:51] LABS: Basophils Percent Auto 0.3 % (0-2); Eosinophils Absolute Auto 0.1 X10*3/uL (0.0-0.4); Eosinophils Percent Auto 0.8 % (0-4); Hematocrit 33.1 % (37.0-47.0); Hemoglobin 11.1 g/dl (12.0-16.0); Imm Gran Abs Auto 0.01 X10*3/uL (0.00-0.03); Imm Gran Pct Auto 0.1 % (0.0-0.4); Lymphocytes Percent Auto 28.7 % (20-40); Mean Corpuscular HGB Conc 33.5 g/dl (31.0-35.0); Mean Corpuscular Hemoglobin 29.2 pg (27.0-33.0); Mean Corpuscular Volume 87.1 fL (80.0-98.0); Mean Platelet Volume 9.7 fL (9.4-12.3); Monocytes Absolute Auto 0.4 X10*3/uL (0.1-1.2); Neutrophils Absolute Auto 4.6 x10*3/uL (2.0-8.3); Neutrophils Percent Auto 64.1 % (45-73); Platelet Count 363 X10*3/uL (160-400); White Blood Count 7.1 X10*3/uL (4.8-10.8)
[2023-03-11 13:05] LABS: Anion Gap 10 (12-20); Blood Urea Nitrogen 14 mg/dL (9-16); Calcium 8.6 mg/dL (8.4-10.2); Carbon Dioxide 23 mmol/L (22-29); Chloride 109 mmol/L (96-108); Creatinine Clr Calc Pharmacy 55.8; Estimated Glomerular Filt Rate > 60; Glucose Random 75 mg/dL (60-115); Potassium 4.4 mmol/L (3.3-5.1); Sodium 138 mmol/L (135-145)
[2023-03-11 13:10] VITALS: BP 200/98; PULSE 62; RESP 13; TEMP 36.9; O2SAT 98
[2023-03-11 13:38] VITALS: BP 198/96; PULSE 67; RESP 15; O2SAT 99
--- NOTE | 2023-03-11 13:40 | PC.NURSE ---
pt to nuc med via stretcher.
[2023-03-11] MEDS: Labetalol HCL 100 MG TABLET PO (14:18)
[2023-03-11 14:19] VITALS: BP 199/97
[2023-03-11 15:04] VITALS: BP 142/80; PULSE 82; RESP 14; O2SAT 99
== END 2023-03-11 15:27 | disposition home or self-care (01) ==
PROVIDERS: Emergency Provider Emergency Medicine; PCP Internal Medicine
DX: T78.3XXA Angioneurotic edema, initial encounter (principal); I16.0 Hypertensive urgency; I10 Essential (primary) hypertension; E78.5 Hyperlipidemia, unspecified; M32.9 Systemic lupus erythematosus, unspecified; Z79.899 Other long term (current) drug therapy
CPT/HCPCS: 36415; 80048; 85025; 96374; 96375; 99284; J1200; J2930

== ENCOUNTER → 2023-03-17 09:07 | Outpatient (BNVA) | payer OTHER, SELFPAY | PROVIDERS: PCP Internal Medicine; Visit Provider Internal Medicine Rheumatology | DX: M32.9 Systemic lupus erythematosus, unspecified (principal); I10 Essential (primary) hypertension; Z79.899 Other long term (current) drug therapy | CPT/HCPCS: 99212 ==

== ENCOUNTER 2023-04-24 03:35 | Emergency (ER) | payer OTHER, SELFPAY ==
--- NOTE | ~2023-04-24 | XR_ITS ---
EXAMINATION: XR CHEST CLINICAL INFORMATION: Chest pain, fever COMPARISON: None available. TECHNIQUE: 2 views of the chest were obtained. FINDINGS: No significant abnormality is noted involving the heart, lungs, mediastinum, bony thorax or soft tissues. XR/XR chest 2V IMPRESSION: Unremarkable chest examination.
[2023-04-24 03:39] VITALS: BP 188/104; PULSE 79; RESP 20; TEMP 36.6; O2SAT 100; BMI 29.1
[2023-04-24 04:00] VITALS: BP 120/75; PULSE 80; RESP 18; TEMP 37; O2SAT 98
[2023-04-24 05:30] LABS: MANUAL DIFF FLAG NO
[2023-04-24 05:31] LABS: Basophils Percent Auto 0.3 % (0-2); Eosinophils Absolute Auto 0.2 X10*3/uL (0.0-0.4); Eosinophils Percent Auto 1.5 % (0-4); Hematocrit 32.4 % (37.0-47.0); Hemoglobin 10.9 g/dl (12.0-16.0); Imm Gran Abs Auto 0.07 X10*3/uL (0.00-0.03); Imm Gran Pct Auto 0.5 % (0.0-0.4); Lymphocytes Absolute Auto 3.7 X10*3/uL (1.2-4.9); Lymphocytes Percent Auto 28.2 % (20-40); Mean Corpuscular HGB Conc 33.6 g/dl (31.0-35.0); Mean Corpuscular Hemoglobin 28.8 pg (27.0-33.0); Mean Corpuscular Volume 85.5 fL (80.0-98.0); Mean Platelet Volume 9.7 fL (9.4-12.3); Monocytes Absolute Auto 1.4 X10*3/uL (0.1-1.2); Monocytes Percent Auto 10.5 % (2-11); Neutrophils Absolute Auto 7.7 x10*3/uL (2.0-8.3); Platelet Count 330 X10*3/uL (160-400); Red Blood Count 3.79 X10*6/uL (4.20-5.50); Red Cell Distribution Width 12.8 % (11.0-16.0); White Blood Count 13.1 X10*3/uL (4.8-10.8)
[2023-04-24 05:42] LABS: Anion Gap 11 (12-20); Blood Urea Nitrogen 31 mg/dL (9-16); Calcium 9.2 mg/dL (8.4-10.2); Carbon Dioxide 27 mmol/L (22-29); Chloride 105 mmol/L (96-108); Creatinine Clr Calc Pharmacy 32.7; Estimated Glomerular Filt Rate 37; Glucose Random 83 mg/dL (60-115); Potassium 3.7 mmol/L (3.3-5.1); Sodium 139 mmol/L (135-145)
[2023-04-24 06:08] LABS: Influenza A PCR NEGATIVE (Negative); Influenza B PCR NEGATIVE (Negative); Resp Syncy Virus RNA Qual PCR NEGATIVE (Negative); SARS COV2 PCR INHOUSE NEGATIVE (Negative)
--- NOTE | 2023-04-24 06:28 | ED_ITS ---
HPI - General Adult General Chief complaint: Upper Respiratory Symptoms Stated complaint: cough since wednesday, eyes are bothersone, CP Time Seen by Provider: 04/24/23 06:27 Source: patient and spanish interpreter Mode of arrival: ambulatory Limitations: language barrier History of Present Illness HPI narrative: Patient is a 47-year-old female with history of systemic lupus erythematosus, migraines, GERD, dyslipidemia, and HTN presenting with nonproductive cough since Wednesday as well as chest pain while coughing and bilateral eye redness and discharge since yesterday. Denies any radiation of pain. Denies hemoptysis. Denies fevers. Denies any vision changes. Denies any abdominal pain, nausea, vomiting, or diarrhea. Has not used at OTC medications for her symptoms. Denies any sick contacts. MD complaint: cough Onset (ago): day(s) Location: chest Radiation: non-radiation Severity: moderate Quality: burning Pain Consistency: intermittent Relieving factors: none Exacerbating factors: none Associated symptoms: other (bilateral eye redness and discharge) Treatments prior to arrival: none Related Data Previous Rx's Medication Instructions Recorded cyclobenzaprine 10 mg tablet 10 mg PO TID PRN muscle spasm #21 10/08/21 tabs naproxen 500 mg tablet 500 mg PO BID PRN pain 10 days #20 10/08/21 tabs gabapentin 300 mg capsule 300 mg PO TID #90 caps 09/03/22 mycophenolate mofetil 500 mg tablet 500 mg PO QID #120 tabs 09/03/22 multivitamin with iron 1 tab PO DAILY #30 tabs 12/03/22 labetalol 100 mg tablet 100 mg PO BID #60 tabs 03/12/23 benzonatate 100 mg capsule 100 mg PO TID PRN cough #20 caps 04/24/23 erythromycin 5 mg/gram (0.5 %) eye 0.5 inch ophthalmic (eye) QID 5 04/24/23 ointment days #3.5 grams nitrofurantoin 100 mg PO BID #10 caps 04/24/23 monohydrate/macrocrystals 100 mg capsule (Macrobid) Allergies Allergy/AdvReac Type Severity Reaction Status Date / Time Penicillins [PENICILLINS] Allergy Unknown SWELLING Unverified 03/17/23 09:20 Review of Systems Review of Systems: As per HPI. Yes all other systems are reviewed and are negative Constitutional: Constitutional: Reports as per HPI [facility] Past Medical History Medical History Dyslipidemia Eczema GERD (gastroesophageal reflux disease) HTN (hypertension) Lupus SLE (systemic lupus erythematosus) Tendinopathy of right rotator cuff Surgical History History of hysterectomy Family History Family History Mother Hypertension Father Hypertension History of thyroid disorder Sister Strabismus Maternal Grandmother Diabetes Maternal Grandfather FH: prostate cancer Social History Social History Household Members: Spouse Housing: Apartment Alcohol intake: never Patient Tobacco Use Status: Never used Tobacco Smoked in Last 30 Days: No Any prior treatment program specific to substance use: No Advance Directives: No Advance Directives Information Provided: Yes Patient : No service: No Current occupational status: unemployed Physical Exam ED Vital Signs: Vital Signs - 24 hr 04/24/23 03:39 04/24/23 04:00 04/24/23 04:00 Temperature 97.8 F 98.6 F Pulse Rate 79 80 Respiratory Rate 20 18 Blood Pressure 188/104 H 120/75 Pulse Oximetry 100 98 98 Oxygen Delivery Method Room Air Room Air Room Air 04/24/23 07:11 Temperature Pulse Rate 67 Respiratory Rate 16 Blood Pressure 177/93 H Pulse Oximetry 100 Oxygen Delivery Method Room Air BMI result Body Mass Index 29.1 Vital signs have been reviewed and appear to be correct. Blood pressure normal. Heart rate normal. Respiratory rate normal. Temperature normal. Oxygen saturation normal. Const General: cooperative, healthy appearing and no acute distress Orientation/consciousness: oriented to person, oriented to place, oriented to time and patient oriented x3 Limitations: no limitations HENMT Head: Yes normocephalic and Yes atraumatic Ears: external ears normal General nose exam: Normal external nose present Face and sinus: Yes face symmetric Mouth: oropharynx normal and moist mucous membranes Throat: Yes uvula midline Eyes Periorbital: periorbital findings normal Eyelids: Yes eyelids normal Conjunctivae: conjunctival abnormal bilateral conjunctival injection diffuse Sclerae: scleral abnormal bilateral scleral injection diffuse Pupils: Equal, round and reactive pupils present EOM: EOMs intact bilaterally Neck Neck: Yes normal visual inspection and Yes supple Resp Effort & Inspection: normal respiratory effort and able to speak in complete sentences Auscultation: clear to auscultation bilaterally Cardio Rate: regular rate Rhythm: regular rhythm Heart sounds: S1 normal heart sound present and S2 normal heart sound present GI Palpation (GI): Soft to palpation and nontender Auscultation: normoactive bowel sounds General: Yes no CVA tenderness Back/Spine/Pelvis Back: no CVA tenderness Skin General skin exam: elasticity normal and turgor normal Neuro General: oriented to person, oriented to place, oriented to time, patient oriented x3, moves all extremities, no focal motor deficits and CN's II-XI intact bilaterally Cranial nerves: Yes Equal, round and reactive pupils present Cognition (Neuro): normal cognition Extrem General: Yes full ROM, Yes no pedal edema and Yes no calf tenderness Psych Mental Status: mental status grossly normal Affect: normal affect Thought process: Normal thought process present Medications Administered Discontinued Medications Generic Name Dose Route Start Last Admin Trade Name Freq PRN Reason Stop Dose Admin Sodium Chloride 1,000 mls @ 999 mls/hr 04/24/23 06:45 04/24/23 06:52 Ns IV 04/24/23 07:45 999 mls/hr .Q1H1M CHARITO Administration Medical Decision Making Medical Decision Making [facility] Narrative: Patient is a 47-year-old female with history of systemic lupus erythematosus, migraines, GERD, dyslipidemia, and HTN presenting with nonproductive cough since Wednesday as well as chest pain while coughing and bilateral eye redness and discharge since yesterday. On exam patient is awake, A+Ox3, VS WNL, nontoxic appearing, conjunctiva and sclera injected bilaterally with scant amount of white discharge, LS CTA throughout, abdomen soft, nontender, no CVA tenderness. Mild leukocytosis, elevated BUN/Cr likely related to viral illness and dehydration, labs otherwise unremarkable. Covid/flu/RSV all negative, CXR without acute findings. Likely viral respiratory infection in setting of bilateral viral appearing conjunctivitis. Unlikely pneumonia, TB, no history of asthma. Will administer IV fluids and reassess. Re-eval: IVF complete, VSS, all results discussed with patient and all questions answered. 2+ leukocytes and 21-50 WBC on UA, now reporting suprapubic discomft but denies dysuria. Will treat for UTI with Macrobid as pt allergic to PNC, CrCl is 32.7. Instructed patient to ensure adequate fluid intake. Feel cough and eye symptoms likely due to viral URI and patient stable for discharge home. Instructed patient to follow up with PCP within two days and return precautions discussed at bedside. Prescribed benzonatate for cough, prophylactic erythromycin ointment as patient frequently touching/rubbing eyes even after being advised against this. Patient verbalized understanding of and agreement with plan. Differential Diagnosis Differential Diagnoses: The differential diagnosis associated with the presentation includes As above. Lab Data MDM Lab Attestation statement: I reviewed the patient's lab results. 04/24/23 05:25 04/24/23 05:25 Labs: Lab Results 04/24/23 04/24/23 04/24/23 Range/Units 05:25 05:25 05:25 WBC 13.1 H (4.8-10.8) X10*3/uL RBC 3.79 L (4.20-5.50) X10*6/uL Hgb 10.9 L (12.0-16.0) g/dl Hct 32.4 L (37.0-47.0) % MCV 85.5 (80.0-98.0) fL MCH 28.8 (27.0-33.0) pg MCHC 33.6 (31.0-35.0) g/dl RDW 12.8 (11.0-16.0) % Plt Count 330 (160-400) X10*3/uL MPV 9.7 (9.4-12.3) fL Immature Gran % (Auto) 0.5 H (0.0-0.4) % Neut % (Auto) 59.0 (45-73) % Lymph % (Auto) 28.2 (20-40) % [place] % (Auto) 10.5 (2-11) % Eos % (Auto) 1.5 (0-4) % Baso % (Auto) 0.3 (0-2) % Lymph # (Auto) 3.7 (1.2-4.9) X10*3/uL [place] # (Auto) 1.4 H (0.1-1.2) X10*3/uL Eos # (Auto) 0.2 (0.0-0.4) X10*3/uL Baso # (Auto) 0.0 (0.0-0.2) X10*3/uL Abs Immat Gran (auto) 0.07 H (0.00-0.03) X10*3/uL Absolute Neuts (auto) 7.7 (2.0-8.3) x10*3/uL Absolute Nucleated RBC 0.000 (0.0-0.012) X10*3/uL Nucleated RBC % (auto) 0.0 (0.0-0.2) /100WBC Sodium 139 (135-145) mmol/L Potassium 3.7 (3.3-5.1) mmol/L Chloride 105 (96-108) mmol/L Carbon Dioxide 27 (22-29) mmol/L Anion Gap 11 L (12-20) BUN 31 H (9-16) mg/dL Creatinine 1.52 H (0.5-1.4) mg/dL Estim Creat Clear Calc 32.7 Estimated GFR 37 Random Glucose 83 (60-115) mg/dL Calcium 9.2 D (8.4-10.2) mg/dL Urine Color Urine Appearance Urine pH (5.0-9.0) Ur Specific [place] (1.005-1.025) Urine Protein (Neg-Trace) mg/dL Urine Glucose (UA) (Negative) mg/dL Urine Ketones (Negative) mg/dL Urine Blood (Negative) Urine Nitrite (Negative) Ur Leukocyte Esterase (Negative) Urine RBC (0-2) /HPF Urine WBC (0-5) /HPF Ur Squamous Epith Cells (0-2) /HPF Urine Bacteria (None Seen) Hyaline Casts (0-2) /LPF Influenza Type A (PCR) NEGATIVE (Negative) Influenza Type B (PCR) NEGATIVE (Negative) RSV RNA Qual (PCR) NEGATIVE (Negative) SARS-CoV-2 RNA (RT-PCR) NEGATIVE (Negative) 04/24/23 Range/Units 07:31 WBC (4.8-10.8) X10*3/uL RBC (4.20-5.50) X10*6/uL Hgb (12.0-16.0) g/dl Hct (37.0-47.0) % MCV (80.0-98.0) fL MCH (27.0-33.0) pg MCHC (31.0-35.0) g/dl RDW (11.0-16.0) % Plt Count (160-400) X10*3/uL MPV (9.4-12.3) fL Immature Gran % (Auto) (0.0-0.4) % Neut % (Auto) (45-73) % Lymph % (Auto) (20-40) % [place] % (Auto) (2-11) % Eos % (Auto) (0-4) % Baso % (Auto) (0-2) % Lymph # (Auto) (1.2-4.9) X10*3/uL [place] # (Auto) (0.1-1.2) X10*3/uL Eos # (Auto) (0.0-0.4) X10*3/uL Baso # (Auto) (0.0-0.2) X10*3/uL Abs Immat Gran (auto) (0.00-0.03) X10*3/uL Absolute Neuts (auto) (2.0-8.3) x10*3/uL Absolute Nucleated RBC (0.0-0.012) X10*3/uL Nucleated RBC % (auto) (0.0-0.2) /100WBC Sodium (135-145) mmol/L Potassium (3.3-5.1) mmol/L Chloride (96-108) mmol/L Carbon Dioxide (22-29) mmol/L Anion Gap (12-20) BUN (9-16) mg/dL Creatinine (0.5-1.4) mg/dL Estim Creat Clear Calc Estimated GFR Random Glucose (60-115) mg/dL Calcium (8.4-10.2) mg/dL Urine Color Yellow Urine Appearance Clear Urine pH 5.5 (5.0-9.0) Ur Specific [place] 1.020 (1.005-1.025) Urine Protein 100 (2+) H (Neg-Trace) mg/dL Urine Glucose (UA) Negative (Negative) mg/dL Urine Ketones Trace (Negative) mg/dL Urine Blood Large (3+) H (Negative) Urine Nitrite Negative (Negative) Ur Leukocyte Esterase Moderate (2+) H (Negative) Urine RBC >20 H (0-2) /HPF Urine WBC 21-50 H (0-5) /HPF Ur Squamous Epith Cells 3-5 (0-2) /HPF Urine Bacteria None Seen (None Seen) Hyaline Casts 6-10 (0-2) /LPF Influenza Type A (PCR) (Negative) Influenza Type B (PCR) (Negative) RSV RNA Qual (PCR) (Negative) SARS-CoV-2 RNA (RT-PCR) (Negative) Independent Interpretation I performed an independent interpretation of an: Plain X-Ray Interpretation: I independently reviewed the x-ray and agree with the radiologist's interpretation. Radiology Impression Discussion of test interpretation with radiology: I have reviewed the radio logist's reading. Radiologist Impression: FINDINGS: No significant abnormality is noted involving the heart, lungs, mediastinum, bony thorax or soft tissues. XR/XR chest 2V IMPRESSION: Unremarkable chest examination. External Record Review External record reviewed: Inpatient record, Office record and Outpatient record Prescription Management I considered prescription management with: Antibiotic (e-mycin ointment) and Other (benzonatate) Chronic Conditions Patient?s care impacted by: Hypertension and Other Discharge Plan Discharge Clinical Impression: Upper respiratory infection, viral, Acute viral conjunctivitis of both eyes, UTI (urinary tract infection) Patient Disposition: Home, Self-Care Instructions: Urinary Tract Infection in Women (DC), Upper Respiratory Infection (DC), Viral Syndrome (ED), Conjunctivitis (ED) Additional Instructions: Le est?n recetando benzonatato que puede usar cada 8 horas seg?n sea necesario para la tos. Tambi?n le est?n recetando umberto pomada antibi?dominga para los ojos. Debes evitar tocarle los ojos tanto tulio sea posible, cheo si es necesario, debes lavarle donovan las martell antes y despu?s de tocarle los ojos. Tambi?n puede aplicar compresas tibias en los ojos varias veces al d?a. Regrese al departamento de emergencias si experimenta tos que empeora, fiebre de 100.4? F o m?s, v?mitos recurrentes, dolor de pecho, dificultad para respirar o cualquier otro s?ntoma preocupante. Prescriptions: New benzonatate 100 mg capsule 100 mg PO TID PRN (Reason: cough) Qty: 20 0RF erythromycin 5 mg/gram (0.5 %) ointment 0.5 inch ophthalmic (eye) QID 5 Days Qty: 3.5 0RF Rx Instructions: Apply 0.5 inch to both eyes nitrofurantoin monohyd/m-cryst [Macrobid] 100 mg capsule 100 mg PO BID Qty: 10 0RF Rx Instructions: must administer with a meal/food No Action naproxen 500 mg tablet 500 mg PO BID PRN (Reason: pain) 10 Days Qty: 20 0RF cyclobenzaprine 10 mg tablet 10 mg PO TID PRN (Reason: muscle spasm) Qty: 21 0RF Rx Instructions: side effect is drowsiness. Do not take at work or while driving. labetalol 100 mg tablet 100 mg PO BID Qty: 60 0RF multivitamin with iron Tablet 1 tab PO DAILY Qty: 30 4RF gabapentin 300 mg capsule 300 mg PO TID Qty: 90 1RF Rx Instructions: start with just night time use and gardaully increase to three times a day mycophenolate mofetil 500 mg tablet 500 mg PO QID Qty: 120 3RF Print Language: Mohawk
[2023-04-24] MEDS: 0.9 % Sodium Chloride 1,000 ML 999 ML IV (06:52)
[2023-04-24 07:11] VITALS: BP 177/93; PULSE 67; RESP 16; O2SAT 100
[2023-04-24 07:41] LABS: Appearance Urine Clear; Color Urine Yellow; Glucose Urine UA Negative (Negative); Leukocyte Esterase Urine Moderate (2+) (Negative); Nitrite Urine Negative (Negative); PH 5.5 (5.0-9.0); UMIC TRIGGER UACC YES; Urine Blood Large (3+) (Negative); Urine Ketones Trace mg/dL (Negative); Urine Protein 100 (2+) mg/dL (Neg-Trace)
[2023-04-24 07:57] LABS: Bacteria Urine None Seen (None Seen); RBC Urine >20 /HPF (0-2); UACC Culture Trigger YES; WBC Urine 21-50 /HPF (0-5)
--- NOTE | 2023-04-24 08:07 | PC.NURSE ---
alert, speech clear, skin wpd, ns bolus infusing, will discharge after fluids, pa re eval done w architectural engineering teacher
[2023-04-24 08:27] VITALS: BP 151/80; PULSE 63; RESP 17; O2SAT 99
== END 2023-04-24 09:02 | disposition home or self-care (01) ==
PROVIDERS: Emergency Provider Emergency Medicine; PCP Internal Medicine
DX: J06.9 Acute upper respiratory infection, unspecified (principal); H10.33 Unspecified acute conjunctivitis, bilateral; N39.0 Urinary tract infection, site not specified; I10 Essential (primary) hypertension; E78.5 Hyperlipidemia, unspecified; M32.9 Systemic lupus erythematosus, unspecified; Z79.899 Other long term (current) drug therapy; Z20.822 Contact with and (suspected) exposure to COVID-19; Z20.828 Contact with and (suspected) exposure to other viral communicable diseases
CPT/HCPCS: 0241U; 36415; 71046; 80048; 81001; 85025; 87086; 99283; 99285

== ENCOUNTER 2023-05-12 14:34 | Emergency (ER) | payer OTHER, SELFPAY ==
[2023-05-12 14:39] VITALS: BP 163/82; BP 165/91; PULSE 58; PULSE 59; RESP 18; TEMP 35.6; O2SAT 100; BMI 28.2
--- NOTE | 2023-05-12 14:47 | ED.GENADULT ---
HPI - General Adult General Chief complaint: Abdominal Pain Stated complaint: nausea, vomiting, abdominal pain Time Seen by Provider: 05/12/23 15:42 Source: patient and family (daughter, Elena) Mode of arrival: ambulatory Limitations: language barrier (Lux[place]ish speaking with some Korean, sifting operator used) History of Present Illness HPI narrative: 47-year-old female who presents emergency department for evaluation of nausea vomiting diarrhea which started this morning. The patient states she woke up and she was dizzy. She denies the dizziness as a sensation as if she was going to pass out. She took a blood pressure medication and then lying down. She states that the dizziness persisted. She then developed nausea and had 3 episodes of vomiting. She also had 2 episodes of loose diarrheal stool. She denied any blood in the emesis or in the diarrhea. She states this is her 1st episode of these types of symptoms. She is also complaining of abdominal pain. She points to her epigastric area when asked to localize the pain. She describes the pain is a constant, sharp pain. She has not been able to eat or drink since onset of her symptoms. She denied fever, chills, rhinorrhea, sore throat, cough, shortness of breath, frequency, urgency or dysuria. She has not noticed any dark black stools or bloody stools the Related Data Previous Rx's Medication Instructions Recorded cyclobenzaprine 10 mg tablet 10 mg PO TID PRN muscle spasm #21 10/08/21 tabs naproxen 500 mg tablet 500 mg PO BID PRN pain 10 days #20 10/08/21 tabs gabapentin 300 mg capsule 300 mg PO TID #90 caps 09/03/22 mycophenolate mofetil 500 mg tablet 500 mg PO QID #120 tabs 09/03/22 multivitamin with iron 1 tab PO DAILY #30 tabs 12/03/22 labetalol 100 mg tablet 100 mg PO BID #60 tabs 03/12/23 benzonatate 100 mg capsule 100 mg PO TID PRN cough #20 caps 04/24/23 erythromycin 5 mg/gram (0.5 %) eye 0.5 inch ophthalmic (eye) QID 5 04/24/23 ointment days #3.5 grams nitrofurantoin 100 mg PO BID #10 caps 04/24/23 monohydrate/macrocrystals 100 mg capsule (Macrobid) meclizine 25 mg tablet (Dramamine 25 mg PO TID PRN dizziness #20 tabs 05/12/23 Less Drowsy) ondansetron 4 mg disintegrating 4 mg PO Q6-8H PRN nausea and 05/12/23 tablet vomiting #14 tabs Allergies Allergy/AdvReac Type Severity Reaction Status Date / Time Penicillins [PENICILLINS] Allergy Unknown SWELLING Unverified 03/17/23 09:20 amlodipine Allergy Headache Verified 05/12/23 14:53 azathioprine Allergy Rash Verified 05/12/23 14:53 Review of Systems Review of Systems: Yes all other systems are reviewed and are negative [facility] Past Medical History [facility] Narrative: She denied tobacco, alcohol and drug use. Medical History Dyslipidemia Eczema GERD (gastroesophageal reflux disease) HTN (hypertension) Lupus SLE (systemic lupus erythematosus) Tendinopathy of right rotator cuff Surgical History History of hysterectomy Family History Family History Mother Hypertension Father Hypertension History of thyroid disorder Sister Strabismus Maternal Grandmother Diabetes Maternal Grandfather FH: prostate cancer Social History Social History Household Members: Spouse Housing: Apartment Alcohol intake: never Patient Tobacco Use Status: Never used Tobacco Smoked in Last 30 Days: No Use of substances other than those prescribed or required for medical reasons: No Advance Directives: No Advance Directives Information Provided: Yes service: No Current occupational status: unemployed Physical Exam ED Vital Signs: Vital Signs - 24 hr 05/12/23 14:39 05/12/23 17:38 05/12/23 18:56 Temperature 96.1 F L 97.7 F Pulse Rate 58 63 62 Respiratory Rate 18 16 14 Blood Pressure 163/82 H 166/92 H 175/86 H Pulse Oximetry 100 100 100 Oxygen Delivery Method Room Air Room Air Room Air 05/12/23 20:00 Temperature 98.7 F Pulse Rate 64 Respiratory Rate 16 Blood Pressure 180/72 H Pulse Oximetry 97 Oxygen Delivery Method Room Air BMI result Body Mass Index 28.2 Const General: cooperative and no acute distress Orientation/consciousness: oriented to person and oriented to place Limitations: no limitations HENMT Head: Yes normal to inspection, Yes normocephalic and Yes atraumatic Ears: external ears normal General nose exam: Normal external nose present Face and sinus: Yes normal facial exam Mouth: Normal oral and palatal mucosa present Throat: Yes posterior oropharynx normal Eyes General: appearance normal, both eyes and all related structures Pupils: Equal, round and reactive pupils present Neck Neck: Yes normal visual inspection, Yes no lymphadenopathy, Yes trachea midline and Yes supple Chest Chest palpation & inspection: normal inspection of the chest and normal palpation of entire chest wall Resp Effort & Inspection: normal respiratory effort and able to speak in complete sentences Auscultation: clear to auscultation bilaterally Cardio Rate: regular rate Rhythm: regular rhythm Heart sounds: S1 normal heart sound present, S2 normal heart sound present and no murmurs GI Other: Patient's abdomen is soft, she has moderate epigastric tenderness, no rebound, no voluntary or involuntary guarding, normoactive bowel sounds. General: Yes no CVA tenderness Back/Spine/Pelvis Back: no CVA tenderness Skin General skin exam: no rashes or lesions noted Neuro General: oriented to person and oriented to place Cranial nerves: Yes CN's II-XII intact bilaterally and Yes Equal, round and reactive pupils present Cognition (Neuro): normal cognition Motor exam (neuro): 5/5 motor strength present throughout Extrem General: Yes normal to inspection Psych Appearance: grossly normal Speech and movement: Normal speech and movement present Affect: normal affect Attitude: cooperative Thought process: Normal thought process present Thought content: Normal thought content present Course Course Course Narrative: RME- 47-year-old female presents for evaluation of upper abdominal pain, nausea vomiting. Her symptoms started 3 hours ago. During triage her oral temperature was as low as 93.5? into not get higher than 94.5. For this reason we will get a septic workup including blood cultures and a lactic acid. UA also ordered Medications Administered Discontinued Medications Generic Name Dose Route Start Last Admin Trade Name Freq PRN Reason Stop Dose Admin Diphenhydramine HCl 25 mg 05/12/23 19:59 05/12/23 20:11 Diphenhydramine Hcl 50 Mg/Ml Vial IVPUSH 05/12/23 20:00 25 mg ONCE ONE Administration Sodium Chloride 1,000 mls @ 999 mls/hr 05/12/23 16:05 05/12/23 17:41 Ns IV 05/12/23 17:05 Infused .Q1H1M STA Infusion Sodium Chloride 1,000 mls @ 999 mls/hr 05/12/23 19:59 05/12/23 21:11 Ns IV 05/12/23 20:59 Infused .Q1H1M STA Infusion Ketorolac Tromethamine 15 mg 05/12/23 16:05 05/12/23 16:17 Ketorolac Tromethamine 15 Mg/Ml Vial IVPUSH 05/12/23 16:06 15 mg ONCE STA Administration Lorazepam 1 mg 05/12/23 19:59 05/12/23 20:11 Lorazepam 2 Mg/Ml Vial IVPUSH 05/12/23 20:00 1 mg STAT STA Administration Meclizine HCl 25 mg 05/12/23 18:18 05/12/23 18:25 Meclizine Hcl 25 Mg Tablet PO 05/12/23 18:19 25 mg ONCE STA Administration Meclizine HCl 25 mg 05/12/23 18:50 05/12/23 19:41 Meclizine Hcl 25 Mg Tablet PO 05/12/23 18:51 25 mg ONCE STA Administration Methylprednisolone Sodium Succinate 60 mg 05/12/23 19:59 05/12/23 20:11 Methylprednisolone Sod Succ 125 Mg/2 Ml Vial IVPUSH 05/12/23 20:00 60 mg ONCE ONE Administration Ondansetron HCl 4 mg 05/12/23 16:05 05/12/23 16:18 Ondansetron Hcl 4 Mg/2 Ml Vial IVPUSH 05/12/23 16:06 4 mg ONCE ONE Administration Ondansetron HCl 8 mg 05/12/23 18:50 05/12/23 19:01 Ondansetron Odt 8 Mg Tab.Rapdis TRANSLINGU 05/12/23 18:51 8 mg ONCE ONE Administration Medical Decision Making Medical Decision Making MDM Narrative: 47-year-old female who presents emergency department for evaluation of nausea vomiting diarrhea which started this morning. The patient's vital signs revealed a blood pressure of 163/82. I ordered the following tests on the patient: CBC, CMP, lipase, lactic acid, chest x-ray. 1644: The patient's laboratory evaluation revealed an elevated white blood cell count and a low potassium 3.2. BUN was elevated 33 suggesting that she is dehydrated. I ordered normal saline x1 L, Toradol 15 mg IV and Zofran 4 mg IV. 1818: The patient is feeling better but still has some dizziness therefore she was given meclizine 25 mg orally Patient was discharged home with prescriptions for meclizine and Zofran She was advised to rest, increase her fluid intake, take Tylenol, ibuprofen for fever and pain She was given printed and verbal instructions and discharged home 2157: Initially, when the nurse went to discharge the patient, she stood up, she felt dizzy, the room was spinning and she vomited and could not get out of bed I did re-evaluate the patient. Her cerebellar exam revealed normal [id number]-finger, normal heel to mendez, the she had easily inducible vertigo with minimal help position change of her head. An IV was restarted, she was given a 2 L of normal saline IV. She was given Ativan 1 mg IV and Solu-Medrol 60 mg IV. The patient felt better and was discharged home with printed and verbal instructions. Differential Diagnosis Differential diagnosis includes but is not limited to gastritis, viral syndrome, biliary disease, pancreatitis, colitis, electrolyte abnormalities, anemia, pneumonia. Admission/Observation Consideration of admission/observation: Escalation of care including admission/observation considered Lab Data MDM Lab Attestation statement: I reviewed the patient's lab results. My independent interpretation patient's laboratory evaluation as follows: WBC elevated 11,300, BUN elevated 33, potassium low 3.2. Lipase and lactic acid were normal. These values are consistent with viral syndrome and dehydration/volume depletion. 05/12/23 15:00 05/12/23 15:00 Labs: Lab Results 05/12/23 05/12/23 05/12/23 Range/Units 15:00 15:00 15:00 WBC 11.3 H (4.8-10.8) X10*3/uL RBC 4.03 L (4.20-5.50) X10*6/uL Hgb 11.7 L (12.0-16.0) g/dl Hct 34.8 L (37.0-47.0) % MCV 86.4 (80.0-98.0) fL MCH 29.0 (27.0-33.0) pg MCHC 33.6 (31.0-35.0) g/dl RDW 13.2 (11.0-16.0) % Plt Count 386 (160-400) X10*3/uL MPV 9.8 (9.4-12.3) fL Immature Gran % (Auto) 0.9 H (0.0-0.4) % Neut % (Auto) 58.9 (45-73) % Lymph % (Auto) 34.8 (20-40) % [place] % (Auto) 4.7 (2-11) % Eos % (Auto) 0.4 (0-4) % Baso % (Auto) 0.3 (0-2) % Lymph # (Auto) 3.9 (1.2-4.9) X10*3/uL [place] # (Auto) 0.5 (0.1-1.2) X10*3/uL Eos # (Auto) 0.0 (0.0-0.4) X10*3/uL Baso # (Auto) 0.0 (0.0-0.2) X10*3/uL Abs Immat Gran (auto) 0.10 H (0.00-0.03) X10*3/uL Absolute Neuts (auto) 6.7 (2.0-8.3) x10*3/uL Absolute Nucleated RBC 0.000 (0.0-0.012) X10*3/uL Nucleated RBC % (auto) 0.0 (0.0-0.2) /100WBC Sodium 140 (135-145) mmol/L Potassium 3.2 L (3.3-5.1) mmol/L Chloride 104 (96-108) mmol/L Carbon Dioxide 24 (22-29) mmol/L Anion Gap 15 (12-20) BUN 33 H (9-16) mg/dL Creatinine 1.18 (0.5-1.4) mg/dL Estim Creat Clear Calc 41.5 Estimated GFR 49 Random Glucose 110 (60-115) mg/dL Lactic Acid 1.4 (0.5-2.0) mmol/L Calcium 9.9 D (8.4-10.2) mg/dL Total Bilirubin 0.5 (0.0-1.0) mg/dL AST 16 (5-31) U/L ALT 9 (0-31) U/L Alkaline Phosphatase 69 (39-117) U/L Total Protein 8.1 H (6.5-8.0) g/dL Albumin 3.7 (3.5-5.0) g/dL Lipase 24 (8-78) U/L Independent Interpretation I performed an independent interpretation of an: Plain X-Ray Interpretation: My independent interpretation of the patient's chest x-ray is as follows: No acute disease. Radiology Impression Radiologist Impression: XR chest 2V IMPRESSION: No acute intrathoracic disease. Dictated By:Colton Marlow MD Independent Historian Clinical information obtained from an independent historian. History obtained from or confirmed by: Other (Daughter and ) Prescription Management I considered prescription management with: Other (Antiemetics and anti vertigo medications) Chronic Conditions Patient?s care impacted by: Diabetes and Other (Hyperlipidemia, GERD) Discharge Plan Discharge Clinical Impression: Viral syndrome, Acute dehydration, Benign paroxysmal positional vertigo Patient Disposition: Home, Self-Care Instructions: Viral Syndrome (ED) Additional Instructions: Your blood work was normal. Your symptoms are most likely caused by a viral infection Take Zofran ODT 4 mg pills, 1 pill dissolved in your mouth every 8 hours as needed for nausea and vomiting. Take meclizine 25 mg pills, 1 pill 3 times a day for the next 3 days for dizziness then as needed for dizziness. This medication will make you sleepy. Do not drive or work while taking this medication. Take ibuprofen 200 mg pills, 2 pills every 6 hours as needed for pain. Take Tylenol (acetaminophen) 500 mg pills, 2 pills every 6 hours as needed for pain. Follow-up with your doctor in 2 days. Please return to the emergency department if your symptoms get worse or if you develop any symptoms that are concerning to you. Prescriptions: New meclizine [Dramamine Less Drowsy] 25 mg tablet 25 mg PO TID PRN (Reason: dizziness) Qty: 20 0RF ondansetron 4 mg tablet,disintegrating 4 mg PO Q6-8H PRN (Reason: nausea and vomiting) Qty: 14 0RF No Action naproxen 500 mg tablet 500 mg PO BID PRN (Reason: pain) 10 Days Qty: 20 0RF cyclobenzaprine 10 mg tablet 10 mg PO TID PRN (Reason: muscle spasm) Qty: 21 0RF Rx Instructions: side effect is drowsiness. Do not take at work or while driving. labetalol 100 mg tablet 100 mg PO BID Qty: 60 0RF benzonatate 100 mg capsule 100 mg PO TID PRN (Reason: cough) Qty: 20 0RF erythromycin 5 mg/gram (0.5 %) ointment 0.5 inch ophthalmic (eye) QID 5 Days Qty: 3.5 0RF Rx Instructions: Apply 0.5 inch to both eyes nitrofurantoin monohyd/m-cryst [Macrobid] 100 mg capsule 100 mg PO BID Qty: 10 0RF Rx Instructions: must administer with a meal/food multivitamin with iron Tablet 1 tab PO DAILY Qty: 30 4RF gabapentin 300 mg capsule 300 mg PO TID Qty: 90 1RF Rx Instructions: start with just night time use and gardaully increase to three times a day mycophenolate mofetil 500 mg tablet 500 mg PO QID Qty: 120 3RF Interventions: ED Discharge Assessment Last Done: 05/12/23 21:42 Discharge Date/Time: 05/12/23 21:49 Print Language: [place]ish
[2023-05-12 17:38] VITALS: BP 166/92; PULSE 63; RESP 16; TEMP 36.5; O2SAT 100
--- NOTE | 2023-05-12 18:52 | PC.NURSE ---
During discharge patient sat up at the edge of bed and started to become dizzy. Patient encouraged to sit for a minute before moving again. Patient changed from nely to her clothes and she became nauseated and started to vomit. Provider made aware and plan to keep patient a little longer, give her more Zofran and Meclizine.
[2023-05-12 18:56] VITALS: BP 175/86; PULSE 62; RESP 14; O2SAT 100
[2023-05-12 20:00] VITALS: BP 180/72; PULSE 64; RESP 16; TEMP 37.1; O2SAT 97
== END 2023-05-12 21:49 | disposition home or self-care (01) ==
PROVIDERS: Emergency Provider Emergency Medicine Emergency Medical Services
DX: B34.9 Viral infection, unspecified (principal); H81.10 Benign paroxysmal vertigo, unspecified ear; E86.0 Dehydration; E78.5 Hyperlipidemia, unspecified; I10 Essential (primary) hypertension; Z79.899 Other long term (current) drug therapy
CPT/HCPCS: 36415; 71046; 80053; 83605; 83690; 85025; 87040; 96361; 96374; 96375; 99284; J1200; J1885; J2060; J2405; J2930

== ENCOUNTER 2023-05-14 21:04 | Emergency (ER) | payer OTHER, SELFPAY ==
[2023-05-14 21:12] VITALS: BP 185/93; PULSE 75; RESP 16; TEMP 36.7; O2SAT 98; BMI 28.2
[2023-05-14 22:06] VITALS: BP 185/93; PULSE 75; RESP 16; TEMP 36.7; O2SAT 98
--- NOTE | 2023-05-14 22:07 | PC.NURSE ---
Pt ca&ox3, uzbek speaking only. Pt denies chest pain and sob, no signs of distress. Pts daughter is at bedside. Pt reports no pain but has had n/v and dizziness since weds with no relief. Pt states i was seen here in the ED on for the same thing and they told me it was a virus and vertigo, but Im no better. wctm.
[2023-05-14 22:33] VITALS: BP 189/90; PULSE 69
[2023-05-14 22:40] VITALS: BP 189/100; PULSE 72
--- NOTE | 2023-05-14 22:40 | ED.GENADULT ---
HPI - General Adult General Chief complaint: General Medical Stated complaint: Dizziness Time Seen by Provider: 05/14/23 22:26 Source: patient and family (Daughter) Mode of arrival: ambulatory History of Present Illness HPI narrative: 47-year-old female who was recently seen urine Wednesday for same concerns regarding dizziness, nausea, vomiting and denies any further diarrheal episodes but also reports some weakness and at that time was diagnosed with a viral syndrome. Patient states that she feels like it is getting worse and reports headache and has a diagnosis hypertension. Patient reports she is taking her medication as directed. On review of medications patient reports that she was recently started on mirtazapine. Related Data Previous Rx's Medication Instructions Recorded cyclobenzaprine 10 mg tablet 10 mg PO TID PRN muscle spasm #21 10/08/21 tabs naproxen 500 mg tablet 500 mg PO BID PRN pain 10 days #20 10/08/21 tabs gabapentin 300 mg capsule 300 mg PO TID #90 caps 09/03/22 mycophenolate mofetil 500 mg tablet 500 mg PO QID #120 tabs 09/03/22 multivitamin with iron 1 tab PO DAILY #30 tabs 12/03/22 labetalol 100 mg tablet 100 mg PO BID #60 tabs 03/12/23 benzonatate 100 mg capsule 100 mg PO TID PRN cough #20 caps 04/24/23 erythromycin 5 mg/gram (0.5 %) eye 0.5 inch ophthalmic (eye) QID 5 04/24/23 ointment days #3.5 grams nitrofurantoin 100 mg PO BID #10 caps 04/24/23 monohydrate/macrocrystals 100 mg capsule (Macrobid) meclizine 25 mg tablet (Dramamine 25 mg PO TID PRN dizziness #20 tabs 05/12/23 Less Drowsy) ondansetron 4 mg disintegrating 4 mg PO Q6-8H PRN nausea and 05/12/23 tablet vomiting #14 tabs Allergies Allergy/AdvReac Type Severity Reaction Status Date / Time Penicillins [PENICILLINS] Allergy Unknown SWELLING Unverified 03/17/23 09:20 amlodipine Allergy Headache Verified 05/12/23 14:53 azathioprine Allergy Rash Verified 05/12/23 14:53 Review of Systems Review of Systems: Pertinent positives and negatives as stated in HPI [facility] Past Medical History Source: nursing notes reviewed Medical History Dyslipidemia Eczema GERD (gastroesophageal reflux disease) HTN (hypertension) Lupus SLE (systemic lupus erythematosus) Tendinopathy of right rotator cuff Surgical History History of hysterectomy Family History Family History Mother Hypertension Father Hypertension History of thyroid disorder Sister Strabismus Maternal Grandmother Diabetes Maternal Grandfather FH: prostate cancer Social History Social History Household Members: Spouse Housing: Apartment Alcohol intake: never Patient Tobacco Use Status: Never used Tobacco Smoked in Last 30 Days: No Use of substances other than those prescribed or required for medical reasons: No Advance Directives: No Advance Directives Information Provided: Yes service: No Current occupational status: unemployed Physical Exam ED Vital Signs: Vital Signs - 24 hr 05/14/23 21:12 05/14/23 22:06 05/14/23 22:33 Temperature 98.0 F 98.0 F Pulse Rate 75 75 69 Respiratory Rate 16 16 Blood Pressure 185/93 H 185/93 H 189/90 H Pulse Oximetry 98 98 Oxygen Delivery Method Room Air Room Air 05/14/23 22:40 05/14/23 22:42 Temperature Pulse Rate 72 83 Respiratory Rate Blood Pressure 189/100 H 173/96 H Pulse Oximetry Oxygen Delivery Method BMI result Body Mass Index 28.2 VITAL SIGNS: Reviewed. GENERAL: Well developed, well nourished, in no acute distress. HEAD: Normocephalic/atraumatic EYES: PERRLA, EOMI, no nystagmus EARS: Ext canals without abnormality NOSE: Nares patent bilateral OROPHARYNX: no oral lesions noted, posterior pharynx clear NECK: Supple, no adenopathy, no tenderness to palpation LUNGS: Normal breath sounds. No adventitious sounds or accessory muscle use. SpO2<98> CARDIOVASCULAR: Regular rate and rhythm without noted murmurs, ABDOMEN: Soft, non-tender, non-distended with bowel sounds. MUSCULOSKELETAL: No tenderness, deformities, or effusions noted on gross inspection. EXTREMITIES: No cyanosis, clubbing or edema. SKIN: Inspection of the skin reveals no rashes NEUROLOGIC: Alert and oriented x 4. Strength and sensation to light touch were grossly intact x 4, cranial nerves 2-12 are grossly intact. Medications Administered Discontinued Medications Generic Name Dose Route Start Last Admin Trade Name Alexus PRN Reason Stop Dose Admin Iohexol 85 ml 05/15/23 00:16 05/15/23 00:17 Iohexol 350 Mg/Ml 100 Ml Infus..Btl IV 05/15/23 00:17 85 ml ONCE ONE Administration Medical Decision Making Medical Decision Making MDM Narrative: 47-year-old female with history and clinical presentation, DDX: BPPV,Dizziness differential, no clinical suspicion for central vertigo, medication side effect. I reviewed all investigations and hematologic indices are chronically stable without leukocytosis/left shift/evidence of anemia, chemistries are grossly within normal limits within undetectable troponin level, urinalysis is noted to be grossly positive for blood with greater than 20 RBCs, this is not associated with any menstrual type bleeding as patient is status post hysterectomy. CT scan of abdomen pelvis does not identify any acute issues and this was discussed with the patient at bedside and she will receive a referral to follow-up with urology, in addition, she has an appointment with her ceramics test engineer in June. I also discussed better blood pressure control with the patient at bedside and informed her that she would need to contact her primary care provider to get an additional or different medication for better blood pressure control. At this time I feel that patient's vertigo is benign in nature given the onset and associated symptoms and feel that this is either a combination of viral verses medication (mirtazapine). I do not suspect any central etiology for patient's dizziness. Differential Diagnosis Please see the discussion above Admission/Observation Consideration of admission/observation: Escalation of care including admission/observation considered Lab Data Please see the discussion above 05/14/23 21:31 05/14/23 21:31 Labs: Lab Results 05/14/23 05/14/23 05/14/23 Range/Units 21:31 21:31 22:31 WBC 9.9 (4.8-10.8) X10*3/uL RBC 4.16 L (4.20-5.50) X10*6/uL Hgb 12.0 (12.0-16.0) g/dl Hct 35.5 L (37.0-47.0) % MCV 85.3 (80.0-98.0) fL MCH 28.8 (27.0-33.0) pg MCHC 33.8 (31.0-35.0) g/dl RDW 13.2 (11.0-16.0) % Plt Count 362 (160-400) X10*3/uL MPV 9.4 (9.4-12.3) fL Absolute Nucleated RBC 0.000 (0.0-0.012) X10*3/uL Nucleated RBC % (auto) 0.0 (0.0-0.2) /100WBC D-Dimer High Sensitivty NG/ML Sodium 138 (135-145) mmol/L Potassium 3.8 (3.3-5.1) mmol/L Chloride 105 (96-108) mmol/L Carbon Dioxide 22 (22-29) mmol/L Anion Gap 15 (12-20) BUN 25 H (9-16) mg/dL Creatinine 1.10 (0.5-1.4) mg/dL Estim Creat Clear Calc 44.5 Estimated GFR 53 Random Glucose 113 (60-115) mg/dL Calcium 9.4 (8.4-10.2) mg/dL Total Bilirubin 0.6 (0.0-1.0) mg/dL AST 23 (5-31) U/L ALT 12 (0-31) U/L Alkaline Phosphatase 64 (39-117) U/L Troponin I High Sens (<3.5-17.0) ng/L Total Protein 7.7 (6.5-8.0) g/dL Albumin 3.5 (3.5-5.0) g/dL Urine Color Urine Appearance Urine pH (5.0-9.0) Ur Specific [place] (1.005-1.025) Urine Protein (Neg-Trace) mg/dL Urine Glucose (UA) (Negative) mg/dL Urine Ketones (Negative) mg/dL Urine Blood (Negative) Urine Nitrite (Negative) Ur Leukocyte Esterase (Negative) Urine RBC (0-2) /HPF Urine WBC (0-5) /HPF Ur Squamous Epith Cells (0-2) /HPF Urine Bacteria (None Seen) Hyaline Casts (0-2) /LPF Urine Test NEGATIVE (NEGATIVE) 05/14/23 05/14/23 05/14/23 Range/Units 22:31 23:19 23:19 WBC (4.8-10.8) X10*3/uL RBC (4.20-5.50) X10*6/uL Hgb (12.0-16.0) g/dl Hct (37.0-47.0) % MCV (80.0-98.0) fL MCH (27.0-33.0) pg MCHC (31.0-35.0) g/dl RDW (11.0-16.0) % Plt Count (160-400) X10*3/uL MPV (9.4-12.3) fL Absolute Nucleated RBC (0.0-0.012) X10*3/uL Nucleated RBC % (auto) (0.0-0.2) /100WBC D-Dimer High Sensitivty 576 NG/ML Sodium (135-145) mmol/L Potassium (3.3-5.1) mmol/L Chloride (96-108) mmol/L Carbon Dioxide (22-29) mmol/L Anion Gap (12-20) BUN (9-16) mg/dL Creatinine (0.5-1.4) mg/dL Estim Creat Clear Calc Estimated GFR Random Glucose (60-115) mg/dL Calcium (8.4-10.2) mg/dL Total Bilirubin (0.0-1.0) mg/dL AST (5-31) U/L ALT (0-31) U/L Alkaline Phosphatase (39-117) U/L Troponin I High Sens < 2.7 (<3.5-17.0) ng/L Total Protein (6.5-8.0) g/dL Albumin (3.5-5.0) g/dL Urine Color Yellow Urine Appearance Clear Urine pH 8.0 (5.0-9.0) Ur Specific [place] 1.020 (1.005-1.025) Urine Protein 30 (1+) H (Neg-Trace) mg/dL Urine Glucose (UA) Negative (Negative) mg/dL Urine Ketones Negative (Negative) mg/dL Urine Blood Large (3+) H (Negative) Urine Nitrite Negative (Negative) Ur Leukocyte Esterase Trace H (Negative) Urine RBC >20 H (0-2) /HPF Urine WBC 6-10 H (0-5) /HPF Ur Squamous Epith Cells 6-10 (0-2) /HPF Urine Bacteria Trace (None Seen) Hyaline Casts 0-2 (0-2) /LPF Urine Test (NEGATIVE) Independent Interpretation I performed an independent interpretation of an: EKG Interpretation: Normal sinus rhythm, HR-67, no STEMI, IA/QRS/QTC is within normal limits. Radiology Impression Radiologist Impression: No SBO, no intra-abdominal infection, otherwise my interpretation is in agreement with radiology's impression External Record Review External record reviewed: Outpatient record and Prior outpatient labs Chronic Conditions Patient?s care impacted by: Hypertension Discharge Plan Discharge Clinical Impression: Benign paroxysmal positional vertigo, Medication side effect Patient Disposition: Home, Self-Care Instructions: Benign Paroxysmal Positional Vertigo (ED), Adverse Drug Reaction (ED) Additional Instructions: 1. Reanudar todos los medicamentos caseros excepto mirtazapina. 2. Jj un seguimiento con reed proveedor de atenci?n primaria y reed ginec?logo lo antes posible. 3. Contin?e tomando meclizine y Zofran para ángela mareos y n?useas. 4. Le he dado un seguimiento de derivaci?n con Urolog?a para evaluar m?s a fondo la medhat en reed orina. Regrese a la suha de emergencias por cualquier empeoramiento de los s?ntomas que incluya fiebre, escalofr?os. 1. Resume all home medications except mirtazapine. 2. Follow-up with your primary care provider and your ceramics test engineer at your earliest convenience. 3. Continue to take the meclizine and Zofran for your dizziness and nausea. 4. I have given you a referral follow-up with Urology to further evaluate the blood in your urine. Return to the ER for any worsening symptoms to include fevers, chills. Prescriptions: No Action naproxen 500 mg tablet 500 mg PO BID PRN (Reason: pain) 10 Days Qty: 20 0RF cyclobenzaprine 10 mg tablet 10 mg PO TID PRN (Reason: muscle spasm) Qty: 21 0RF Rx Instructions: side effect is drowsiness. Do not take at work or while driving. labetalol 100 mg tablet 100 mg PO BID Qty: 60 0RF meclizine [Dramamine Less Drowsy] 25 mg tablet 25 mg PO TID PRN (Reason: dizziness) Qty: 20 0RF ondansetron 4 mg tablet,disintegrating 4 mg PO Q6-8H PRN (Reason: nausea and vomiting) Qty: 14 0RF benzonatate 100 mg capsule 100 mg PO TID PRN (Reason: cough) Qty: 20 0RF erythromycin 5 mg/gram (0.5 %) ointment 0.5 inch ophthalmic (eye) QID 5 Days Qty: 3.5 0RF Rx Instructions: Apply 0.5 inch to both eyes nitrofurantoin monohyd/m-cryst [Macrobid] 100 mg capsule 100 mg PO BID Qty: 10 0RF Rx Instructions: must administer with a meal/food multivitamin with iron Tablet 1 tab PO DAILY Qty: 30 4RF gabapentin 300 mg capsule 300 mg PO TID Qty: 90 1RF Rx Instructions: start with just night time use and gardaully increase to three times a day mycophenolate mofetil 500 mg tablet 500 mg PO QID Qty: 120 3RF Referrals: Garrett Dang MD [Physician] - (Hematuria, greater than 20 RBCs) Print Language: Zambian
[2023-05-14 22:42] VITALS: BP 173/96; PULSE 83
--- NOTE | 2023-05-14 22:44 | MHC.EDTECH ---
patient orthostatics vitals taken ,ekg done and was read by provider ,urine sample collected and sent to lab ,patient was hooked up to teletypesetter monitor by this pct .
[2023-05-14 22:46] LABS: Appearance Urine Clear; Color Urine Yellow; Glucose Urine UA Negative (Negative); Leukocyte Esterase Urine Trace (Negative); Nitrite Urine Negative (Negative); UMIC TRIGGER UACC YES; Urine Blood Large (3+) (Negative); Urine Ketones Negative (Negative); Urine Protein 30 (1+) mg/dL (Neg-Trace)
[2023-05-14 22:51] LABS: Bacteria Urine Trace (None Seen); Hyaline Casts Urine 0-2 /LPF (0-2); RBC Urine >20 /HPF (0-2); UACC Culture Trigger YES
[2023-05-15 01:33] VITALS: BP 168/92; PULSE 70; RESP 15; TEMP 36.7; O2SAT 98
== END 2023-05-15 02:18 | disposition home or self-care (01) ==
PROVIDERS: Emergency Provider Student in an Organized Health Care Education/Training Program
DX: H81.13 Benign paroxysmal vertigo, bilateral (principal); R94.31 Abnormal electrocardiogram [ECG] [EKG]; R11.2 Nausea with vomiting, unspecified; R10.30 Lower abdominal pain, unspecified; Z79.899 Other long term (current) drug therapy
CPT/HCPCS: 36415; 74177; 80053; 81001; 81025; 84484; 85027; 85379; 87086; 93005; 99284; 99285; Q9967

== ENCOUNTER 2023-07-14 09:24 | Outpatient (AMB) | payer OTHER, SELFPAY ==
--- NOTE | 2023-07-14 09:25 | A.OFFVIS_ITS ---
Intake Vital Signs 07/14/23 09:32 Weight 126 lb 15.78 oz BP 104/72 Blood Pressure Location Lt brachial Position Sitting Pulse 71 Pulse Source Pulse Oximeter Temp 98.2 F Temp Source Skin Pulse Oximetry (%) 100 Oxygen Delivery Method Room Air Intake Visit Reasons: SLE Intake Note: Here for SLE follow up. [employer] Required: Yes [employer] Language: Privacy Compliance Manager Name: Warren- friend Information Interpreted: clinical only Accompanied by: Friend Allergies Penicillins [PENICILLINS] Allergy (Unknown, Unverified 07/14/23 09:31) SWELLING amlodipine Allergy (Verified 07/14/23 09:31) Headache azathioprine Allergy (Verified 07/14/23 09:31) Rash Medication List - Last Reconciled 07/14/23 by Mitesh Okeefe MD amlodipine 5 mg PO DAILY azelastine 0.05% 0 drps ophthalmic (eye) benzonatate 100 mg PO TID PRN clotrimazole-betamethasone 1-0.05 % appl topical DAILY cyclobenzaprine 10 mg PO TID PRN erythromycin 0.5 inches ophthalmic (eye) QID 5 days gabapentin 300 mg PO TID hydrochlorothiazide 50 mg PO DAILY meclizine (Dramamine Less Drowsy) 25 mg PO TID PRN mirtazapine 7.5 mg PO BEDTIME multivitamin with iron 1 tab PO DAILY mycophenolate mofetil 500 mg PO QID naproxen 500 mg PO BID PRN 10 days omeprazole 20 mg PO DAILY ondansetron 4 mg PO Q6-8H PRN topiramate 50 mg PO DAILY HPI HPI Comments History of Present Illness Details The patient returns today for evaluation of her SLE. She comes in today with her who translates. The patient remains on mycophenolate 1 g b.i.d., occasional naproxen, gabapentin 300 t.i.d., and mirtazapine at bedtime. Her blood pressure medicines currently are hydrochlorothiazide 50 mg daily with amlodipine 5 mg daily. She is having some irritation in the eyes, she is on some eyedrops for conjunctivitis. It seems to be improving. She did have a visit to the ER in early May with vertigo, nausea and vomiting. This lasted for a few days but apparently has subsided. She feels a little discomfort currently at angle of the jaw on the left. She did not seem to have any tinnitu s or hearing loss. [facility] Medical History Dyslipidemia Eczema GERD (gastroesophageal reflux disease) HTN (hypertension) Lupus SLE (systemic lupus erythematosus) Tendinopathy of right rotator cuff Surgical History History of hysterectomy Family History Mother Hypertension Father Hypertension History of thyroid disorder Sister Strabismus Maternal Grandmother Diabetes Maternal Grandfather FH: prostate cancer Social History Household Members: Spouse Housing: Apartment Alcohol intake: never Patient Tobacco Use Status: Never used Tobacco service: No Current occupational status: unemployed Review of Systems Const Details: She has been working to lose some weight this year and has had some weight reduction. Negative for appetite change, fever, chills, malaise and fatigue Eyes Details: Episode of vertigo and early May of that has resolved. Occasional migraines usually prevented with Topamax. Negative for vision change, dry eyes ENT Details: Some soreness just inferior to the left TMJ. Negative for hearing change, tinnitus, oral ulcer, nose bleeds and oral dryness. Card Details: Negative chest pain, edema and syncope Resp Details: Negative for SOB, cough and wheezing GI Details: Negative indigestion/heartburn, nausea, abdominal pain, bowel changes, diarrhea, constipation and bloody stool. Details: Negative for dysuria, hematuria, nocturia, decreased force/flow and genital discharge Skin/Breast Details: Negative for itching, rash, hives, Raynaud's symptoms, sun sensitivity, and skin cancer Neuro Details: Negative for epilepsy, palsy, stroke, changes in speech, tingling and weakness Psych Details: anxiety, depression controlled with current treatment. Endo Details: Negative for polyuria and polydypsia Loy/Lymph Details: Negative for excessive bruising or bleeding. Physical Exam Vital Signs: Last Vital Signs Temp 98.2 F 07/14/23 09:32 Pulse 71 07/14/23 09:32 BP 104/72 07/14/23 09:32 Pulse Ox 100 07/14/23 09:32 Oxygen Delivery Method Room Air 07/14/23 09:32 APPEARANCE: Patient in no acute distress EYES no redness, pupils equal and reactive to light, eyelids normal EARS:? External ear normal, canal clear and tympanic membrane normal. There is no tenderness with tugging on the pinna of the left ear. NOSE/SINUS:? Airflow through both nares, no nasal discharge, no bleeding THROAT:? Oral mucosa moist, no ulcerations NECK:? There is some slight tenderness just inferior to the TMJ. This is probably over the parotid but I do not feel any mass or swelling. No thyromegaly or masses, no adenopathy, trachea midline. HEART:? Regulrar rhythm, S1-S2 heard, no murmurs, rubs or gallops. LUNG:? Clear to percussion and auscultation ABD:? Normal bowel sounds, no organomegaly, masses or tenderness. EXTREMITIES:? No edema, no calf tenderness, normal peripheral pulses. NEURO:? Oriented and alert x3.? No focal weakness.? Reflexes symmetric.? Gait normal. SKIN:? ? No active inflammatory rash JOINT EXAM:.?? No tender or swollen joints. Shoulders:? ? Full range of motion without pain. No tenderness, weakness, swelling, increased warmth or erythema.? The remainder of the joints have no swelling or tenderness. ? Results Reviewed Results Reviewed: Laboratory Tests 09/03/22 05/14/23 05/14/23 09:00 21:31 21:31 WBC 9.9 Hgb 12.0 Creatinine 1.10 C-Reactive Protein 0.20 May 13 and data from the [facility] ER: Potassium 3.2, BUN 33, CT abdomen was normal. 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 Mucosal lesions. Positive anti-DNA, SS- A. Negative SS-B, anti-almanza, anti-ENERGY ANALYST. On hydroxychloroquine, Myfortec, prednisone. Myfortec tapered Off 2013. Eye exam OK 08/20, 12/22. Stopped hydroxychlorquine in spring 2015 - ? Eye abnormality Flare of SLE summer 2015 - back on prednisone, azathioprine added - azathioprine caused skin rash and stopped 2016 Cellcept and prednisone started 2016 Code(s): M32.9 - Systemic lupus erythematosus, unspecified Plan SLE with good control of symptoms currently with the mycophenolate. She is not a candidate for hydroxychloroquine as she had reaction to it in the past. We will recheck her lab work monitoring the mycophenolate use and also check the urine for protein. I congratulated her on the weight loss which I think will be beneficial in controlling her blood pressure. Now that we have her off the corticosteroids I think she will have better opportunity to control her weight. She had this episode of vertigo that lasted a few days and was associated with nausea and vomiting. Hopefully this is just an acute viral syndrome. We will continue with the medications as above. A follow-up in 3 months is recommended. Orders: Orders Basic Metabolic Panel Today M32.9 - Systemic lupus erythematosus, unspecified C Reactive Protein Today M32.9 - Systemic lupus erythematosus, unspecified Complete Blood Count Auto Diff Today M32.9 - Systemic lupus erythematosus, unspecified Erythrocyte Sedimentation Rate Today M32.9 - Systemic lupus erythematosus, unspecified Complement C3 Today M32.9 - Systemic lupus erythematosus, unspecified Complement C4 Today M32.9 - Systemic lupus erythematosus, unspecified Anti DNA DS Antibody Today M32.9 - Systemic lupus erythematosus, unspecified Protein Electrophoresis,Ran Ur Today M32.9 - Systemic lupus erythematosus, unspecified Coding Level of Care Code Est Pt Level 3 (45986) Diagnoses skilled nursing current use of immunosuppressive drug Z79.899 SLE (systemic lupus erythematosus) M32.9
[2023-07-14 09:32] VITALS: BP 104/72; PULSE 71; TEMP 36.8; O2SAT 100
== END 2023-07-14 09:49 | disposition home or self-care (01) ==
PROVIDERS: PCP Internal Medicine; Visit Provider Internal Medicine Rheumatology
DX: Z79.899 Other long term (current) drug therapy (principal); M32.9 Systemic lupus erythematosus, unspecified
CPT/HCPCS: 99213

== ENCOUNTER → 2023-07-14 09:24 | Outpatient (BNVA) | payer OTHER, SELFPAY | PROVIDERS: PCP Internal Medicine; Visit Provider Internal Medicine Rheumatology | DX: M32.9 Systemic lupus erythematosus, unspecified (principal); Z79.899 Other long term (current) drug therapy | CPT/HCPCS: 99212 ==

== ENCOUNTER 2023-07-14 09:58 | Outpatient (REF) | payer OTHER, SELFPAY ==
[2023-07-14 13:11] LABS: MANUAL DIFF FLAG NO
[2023-07-14 13:32] LABS: Basophils Percent Auto 0.4 % (0-2); Eosinophils Absolute Auto 0.1 X10*3/uL (0.0-0.4); Eosinophils Percent Auto 2.2 % (0-4); Hematocrit 31.8 % (37.0-47.0); Hemoglobin 10.5 g/dl (12.0-16.0); Imm Gran Abs Auto 0.02 X10*3/uL (0.00-0.03); Imm Gran Pct Auto 0.4 % (0.0-0.4); Lymphocytes Absolute Auto 1.6 X10*3/uL (1.2-4.9); Lymphocytes Percent Auto 34.6 % (20-40); Mean Corpuscular Hemoglobin 29.3 pg (27.0-33.0); Mean Corpuscular Volume 88.8 fL (80.0-98.0); Mean Platelet Volume 10.7 fL (9.4-12.3); Monocytes Absolute Auto 0.5 X10*3/uL (0.1-1.2); Monocytes Percent Auto 10.9 % (2-11); Neutrophils Absolute Auto 2.4 x10*3/uL (2.0-8.3); Neutrophils Percent Auto 51.5 % (45-73); Platelet Count 329 X10*3/uL (160-400); Red Blood Count 3.58 X10*6/uL (4.20-5.50); Red Cell Distribution Width 12.3 % (11.0-16.0); White Blood Count 4.6 X10*3/uL (4.8-10.8)
[2023-07-14 13:40] LABS: Anion Gap 12 (12-20); Blood Urea Nitrogen 23 mg/dL (9-16); C Reactive Protein 0.13 mg/dL (< or = 0.50); Carbon Dioxide 28 mmol/L (22-29); Chloride 103 mmol/L (96-108); Estimated Glomerular Filt Rate 44; Glucose Random 76 mg/dL (60-115); Sodium 139 mmol/L (135-145)
[2023-07-14 14:06] LABS: Erythrocyte Sedimentation Rate 77 MM/HR (0-20)
[2023-07-16 17:58] LABS: Complement C3 49 mg/dL (83-193)
[2023-07-19 09:59] LABS: Anti DNA DS Antibody 531 IU/mL
[2023-07-19 10:02] LABS: PEU-Rand. Prot/Creat Ratio 430 mg/g creat (24-184); PEU-Random Ur. Gamma Globulin 10 %; PEU-Random Urine A1 Globulin 3 %; PEU-Random Urine A2 Globulin 5 %; PEU-Random Urine Albumin 69 %; PEU-Random Urine Beta Globulin 13 %; PEU-Random Urine Creatinine 179 mg/dL (20-275); PEU-Random Urine Protein 77 mg/dL (5-24)
== END 2023-07-14 09:59 | disposition home or self-care (01) ==
LOC: HO.10HDL 09:58
PROVIDERS: Visit Provider Internal Medicine Rheumatology
DX: M32.9 Systemic lupus erythematosus, unspecified (principal)
CPT/HCPCS: 80048; 82570; 84156; 84166; 85025; 85652; 86140; 86160; 86225

== ENCOUNTER 2023-07-21 09:37 | Outpatient (REF) | payer OTHER, SELFPAY ==
[2023-07-21 10:13] LABS: MANUAL DIFF FLAG NO
[2023-07-21 10:18] LABS: Basophils Percent Auto 0.5 % (0-2); Eosinophils Absolute Auto 0.1 X10*3/uL (0.0-0.4); Eosinophils Percent Auto 2.1 % (0-4); Hematocrit 32.3 % (37.0-47.0); Hemoglobin 10.5 g/dl (12.0-16.0); Imm Gran Abs Auto 0.01 X10*3/uL (0.00-0.03); Imm Gran Pct Auto 0.2 % (0.0-0.4); Lymphocytes Absolute Auto 1.7 X10*3/uL (1.2-4.9); Lymphocytes Percent Auto 39.7 % (20-40); Mean Corpuscular HGB Conc 32.5 g/dl (31.0-35.0); Mean Corpuscular Hemoglobin 28.6 pg (27.0-33.0); Mean Platelet Volume 10.3 fL (9.4-12.3); Monocytes Absolute Auto 0.4 X10*3/uL (0.1-1.2); Monocytes Percent Auto 9.2 % (2-11); Neutrophils Percent Auto 48.3 % (45-73); Platelet Count 313 X10*3/uL (160-400); Red Blood Count 3.67 X10*6/uL (4.20-5.50); White Blood Count 4.2 X10*3/uL (4.8-10.8)
[2023-07-21 10:26] LABS: Estimated Glomerular Filt Rate 45; Iron 42 mcg/dL (30-160); Percent Iron Saturation 21 % (15-50); Total Iron Binding Capacity 202 mcg/dL (228-428); Unsaturated Iron Binding 160 ug/dL
[2023-07-21 10:43] LABS: Creatinine Urine 125.43 mg/dL; Protein/Creatinine Ratio, Ur 0.43 (<0.2); Total Protein Urine Random 54 mg/dL (<12)
[2023-07-21 11:08] LABS: Vitamin B12 330 pg/mL (200-900)
[2023-07-21 16:46] LABS: Urine Cytology See Pathology rpt
[2023-07-21 23:49] LABS: Haptoglobin 108 MG/DL ((30-200))
== END 2023-07-21 09:38 | disposition home or self-care (01) ==
LOC: HO.10HDL 09:37
PROVIDERS: Urology; Visit Provider Internal Medicine Rheumatology
DX: M32.9 Systemic lupus erythematosus, unspecified (principal); R31.29 Other microscopic hematuria; D64.9 Anemia, unspecified
CPT/HCPCS: 36415; 81003; 82565; 82570; 82607; 83010; 83540; 84156; 85025; 88112

== ENCOUNTER 2023-07-21 13:41 | Outpatient (AMB) | payer OTHER, SELFPAY ==
--- NOTE | 2023-07-21 13:45 | MHC.OFFVIS ---
Intake Intake Visit Reasons: Hematuria Intake Note: NEW Patient presents today to established treatment for Hematuria: Meds- None Allergies to Antibiotic- Penicillin Blood Thinner- None Data Recovery Planner Required: No Accompanied by: Significant Other Allergies Penicillins [PENICILLINS] Allergy (Unknown, Unverified 07/21/23 13:45) SWELLING amlodipine Allergy (Verified 07/21/23 13:45) Headache azathioprine Allergy (Verified 07/21/23 13:45) Rash HPI HPI Comments History of Present Illness Details Natividad is a 47-year-old female who presents today to the office to establish as a new patient for an evaluation of hematuria. 07/21/2023? Natividad is a 47 year old female with history of Lupus followed by Rheumatology. She presents today for an evaluation of microscopic hematuria. The patient is a Ukrainian speaking female accompanied with her friend who interpreted today during the visit. I reviewed the CT of the abdomen/pelvis results from 05/15/2023 revealed Kidneys are normal; no calculi are seen, calculi seen. Subcentimeter cyst in the lower pole right kidney, too small to characterize. I reviewed the urine culture results from 05/14/2023 which came back 50,000 to 100,000 cfu/ml mixed bacterial stacy characteristic of urogenital contamination. Evaluation today?UA?Leukocytes: 15 Shirlene; blood: 3 +. Plan: Will send Urine for cytology. Follow-up in office Cystoscopy. Follow up in 1 month. [facility] Medical History GERD (gastroesophageal reflux disease) Eczema Tendinopathy of right rotator cuff Dyslipidemia SLE (systemic lupus erythematosus) HTN (hypertension) Lupus Surgical History History of hysterectomy Family History Mother Hypertension Father Hypertension History of thyroid disorder Sister Strabismus Maternal Grandmother Diabetes Maternal Grandfather FH: prostate cancer Social History Household Members: Spouse Housing: Apartment Alcohol intake: never Patient Tobacco Use Status: Never used Tobacco service: No Current occupational status: unemployed Review of Systems Const All systems reviewed & are unremarkable except as noted in HPI and below Reports no additional complaints Eyes Reports no additional complaints ENT Reports no additional complaints Card Denies dyspnea Resp Denies cough and Denies dyspnea GI Reports no additional complaints Reports no additional complaints Musc Reports no additional complaints Skin/Breast Denies rash and Denies unusual bruising Neuro Reports no additional complaints Psych Reports no additional complaints Endo Reports no additional complaints Loy/Lymph Reports no additional complaints Aller/Immun Reports no additional complaints Physical Exam Const General: cooperative, healthy appearing and no acute distress Orientation/consciousness: patient oriented x3 HEENT Head: Yes normal to inspection, Yes normocephalic and Yes atraumatic Eyes Conjunctivae: conjunctivae normal Neck Neck: Yes normal visual inspection and Yes trachea midline Chest Chest palpation & inspection: normal inspection of the chest Resp Effort & Inspection: normal respiratory effort Cardio Rate: regular rate GI Inspection: Yes normal to inspection Skin General skin exam: no rashes or lesions noted Neuro General: patient oriented x3 Extrem General: No edema Psych Appearance: grossly normal Results AMB Urinalysis, Automated UA Leukoctes 15 Shirlene/uL Last Edit by GERMÁN Evangelista on 07/21/23 13:59 UA Nitrite Negative Last Edit by Alessia Price [facility] on 07/21/23 13:59 UA Urobilinogen 0.2 mg/dL Last Edit by GERMÁN Evangelista on 07/21/23 13:59 UA Protein 30 mg/dL Last Edit by Alessia Price [facility] on 07/21/23 13:59 1+ Alessia Price 07/21/23 13:59 UA pH 6.0 Last Edit by GERMÁN Evangelista on 07/21/23 13:59 UA Blood 200 Deandre/uL Last Edit by Alessia Price [facility] on 07/21/23 13:59 3+ Alessia Price 07/21/23 13:59 UA Specific [place] 1.020 Last Edit by GERMÁN Evangelista on 07/21/23 13:59 UA Ketone Negative Last Edit by GERMÁN Evangelista on 07/21/23 13:59 UA Bilirubin 0 mg/dL Last Edit by Alessia Price [facility] on 07/21/23 13:59 UA Glucose 0 mg/dL Last Edit by GERMÁN Evangelista on 07/21/23 13:59 Results Reviewed Results Reviewed: Laboratory Last Values Urine pH (Auto) 6.0 07/21/23 13:46 Specific [place] (Auto) 1.020 07/21/23 13:46 Urine Protein (Auto) 30 mg/dL 07/21/23 13:46 Glucose (UA)(Auto) 0 mg/dL 07/21/23 13:46 Urine Ketones (Auto) Negative 07/21/23 13:46 Urine Blood (Auto) 200 Deandre/uL 07/21/23 13:46 Urine Nitrite (Auto) Negative 07/21/23 13:46 Urine Bilirubin (Auto) 0 mg/dL 07/21/23 13:46 Urine Urobilinogen (Auto) 0.2 mg/dL 07/21/23 13:46 Leukocyte Esterase (Auto) 15 Shirlene/uL 07/21/23 13:46 Date of Service: 05/15/23 EXAMINATION: CT ABDOMEN AND PELVIS WITH CONTRAST?? CLINICAL INFORMATION: Hematuria?? COMPARISON: 03/30/2019 FINDINGS: LUNG BASES: The visualized lung bases are unremarkable.?? LIVER, GALLBLADDER, AND BILIARY TREE: The liver is normal in size, shape, and attenuation. No focal hepatic lesion or biliary ductal dilatation is present. The gallbladder is unremarkable with no evidence of radiopaque gallstones, gallbladder wall thickening, or obvious pericholecystic inflammatory changes.?? PANCREAS: Unremarkable.?? SPLEEN: Unremarkable.?? ADRENAL GLANDS: Unremarkable.?? KIDNEYS AND URETERS: The kidneys are normal in size, shape, and attenuation. No hydronephrosis, hydroureter, or calculi seen. Subcentimeter cyst in the lower pole right kidney, too small to characterize. No follow-up imaging recommended. No perinephric stranding.? ? BLADDER: Unremarkable.?? GASTROINTESTINAL TRACT: The small and large bowel are unremarkable. The appendix is unremarkable.?? ABDOMINAL WALL: No significant hernia is appreciated.?? LYMPH NODES: Normal. VASCULAR: Unremarkable. PELVIC VISCERA: The patient is either status post hysterectomy or supracervical hysterectomy. There is fullness in the region of the possible remaining cervix. Ovaries are unremarkable.?? OSSEOUS STRUCTURES: No acute or suspicious osseous abnormalities.?? IMPRESSION: *? No source of hematuria evident within the kidneys, ureters or bladder. *? The patient is either status post hysterectomy or supracervical hysterectomy. There is fullness in the region of the possible remaining cervix. Recommend direct visual inspection pelvic ultrasound for further evaluation if clinically indicated. Ordered:? Urine Culture? Procedure?Result?Verified?Site ? Urine Culture? Final?05/16/23-8 ? Report Result?50,000 to 100,000 cfu/ml ? Mixed bacterial stacy characteristic of ? urogenital contamination Assessment & Plan Assessment & Plan (1) SLE (systemic lupus erythematosus): Code(s): M32.9 - Systemic lupus erythematosus, unspecified (2) Microscopic hematuria: Code(s): R31.29 - Other microscopic hematuria Plan Will send Urine for cytology. Follow-up in office Cystoscopy. Follow up in 1 month. Orders: Orders AMB Urinalysis Automated 07/21/23 Z13.9 - Encounter for screening, unspecified Urine Cytology 07/21/23 R31.9 - Hematuria, unspecified Patient Instructions: The patient had an opportunity to ask questions regarding treatment plan. All questions were answered. Imaging, Laboratory studies and physical exam results were discussed and reviewed in detail. No major barriers to understanding were identified. The patient expressed understanding and agreement with the above treatment plan.? ? ? The patient is aware they should contact our office by phone for worsening of their current condition or the appearance of new symptoms. Compliance is encouraged with any medications and followup testing that is ordered.? ? ? It is a privilege to be allowed the opportunity to participate in the urologic care of your patient. If you have any questions or concerns regarding treatment for the above conditions please do not hesitate to contact me. The office telephone contact is [phone].? ? ? This note is constructed in part using voice recognition software. While every effort has been made to ensure accuracy implementation lead errors may have been included.? ? ? Yours sincerely,? ? ? Garrett Dang MD? ? ? Coding Level of Care Code New Pt Level 4 (79476) Diagnoses SLE (systemic lupus erythematosus) M32.9 Microscopic hematuria R31.29
== END 2023-07-21 14:26 | disposition home or self-care (01) ==
PROVIDERS: Visit Provider Urology
DX: M32.9 Systemic lupus erythematosus, unspecified (principal); R31.29 Other microscopic hematuria
CPT/HCPCS: 99204

== ENCOUNTER 2023-07-21 15:00 | Outpatient (REF) | payer OTHER, SELFPAY | END 2023-07-21 15:01 | disposition home or self-care (01) | LOC: HO.LAB 15:00 | PROVIDERS: Visit Provider Urology | DX: Z13.89 Encounter for screening for other disorder (principal) ==

== ENCOUNTER 2023-08-19 14:35 | Outpatient (AMB) | payer OTHER, SELFPAY ==
--- NOTE | 2023-08-19 15:05 | A.OFFVIS_ITS ---
Intake Intake Visit Reasons: cysto Intake Note: Patient presents today for a CYSTOSCOPY Procedure: Meds: None Allergies to Antibiotic: Penicillin Blood Thinner: None Urinalysis test clear for Cysto? Disposable Uro-G Cystoscope Cannula: Lot: [id number] Exp: 03/21/2025 Cart Driver Required: Yes Cart Driver Language: Wool Buyer Name: GERMÁN GARCIA/ALBERTO LAROSE Information Interpreted: non-clinical & clinical Allergies Penicillins [PENICILLINS] Allergy (Unknown, Unverified 07/21/23 13:45) SWELLING amlodipine Allergy (Verified 07/21/23 13:45) Headache azathioprine Allergy (Verified 07/21/23 13:45) Rash HPI cysto HPI Details Natividad is a 47-year-old female who presents today to the office for a cystoscopy. 07/21/2023? She has a history of Lupus followed by Rheumatology. She presents today for an evaluation of microscopic hematuria. I reviewed the CT of the abdomen/pelvis results from 05/15/2023 revealed Kidneys are normal; no calculi are seen, calculi seen. Sub centimeter cyst in the lower pole right kidney, too small to characterize. I reviewed the urine culture results from 05/14/2023 which came back 50,000 to 100,000 cfu/ml mixed bacterial stacy characteristic of urogenital contamination. Evaluation today?UA?Leukocytes: 15 Shirlene; blood: 3 +. 08/18/23 ? A certified pin sorter and bagger was present during the visit. She denies any issues with bladder control or urinary leakage. She denies visible blood in urine. Evaluation today-- Blood: 200 Deandre/dL, leukocytes: 0 Shirlene/dL. Urine protein: 100 mg/dL. 07/21/23: Urine cytology result reviewed : Negative for high-grade urothelial carcinoma. Cystoscopy finding today: There was no suspicious legion noted. There was a thrombosed prominent blood vessel in the bladder. Plan work up including CT imaging/office cysto, negative for malignancy at this time. The patient will follow up in one year with me. [facility] Medical History GERD (gastroesophageal reflux disease) Eczema Tendinopathy of right rotator cuff Dyslipidemia SLE (systemic lupus erythematosus) HTN (hypertension) Lupus Surgical History History of hysterectomy Family History Mother Hypertension Father Hypertension History of thyroid disorder Sister Strabismus Maternal Grandmother Diabetes Maternal Grandfather FH: prostate cancer Social History Household Members: Spouse Housing: Apartment Alcohol intake: never Patient Tobacco Use Status: Never used Tobacco service: No Current occupational status: unemployed Review of Systems Const All systems reviewed & are unremarkable except as noted in HPI and below Reports no additional complaints Eyes Reports no additional complaints ENT Reports no additional complaints Card Reports no additional complaints Resp Reports no additional complaints GI Reports no additional complaints Musc Reports no additional complaints Skin/Breast Reports system reviewed and no additional complaints, except as documented Neuro Reports no additional complaints Psych Reports no additional complaints Endo Reports no additional complaints Loy/Lymph Reports no additional complaints Aller/Immun Reports no additional complaints Physical Exam Const General: healthy appearing, no acute distress and well developed Orientation/consciousness: patient oriented x3 HEENT Head: Yes normocephalic and Yes atraumatic Eyes Conjunctivae: conjunctivae normal Neck Neck: Yes normal visual inspection Chest Chest palpation & inspection: normal inspection of the chest Resp Effort & Inspection: normal respiratory effort Cardio Rate: regular rate GI Inspection: Yes normal to inspection Skin General skin exam: no rashes or lesions noted Neuro General: patient oriented x3 Extrem General: Yes no pedal edema Psych Appearance: grossly normal Affect: normal affect Office Procedures Cystoscopy Consent Discussed risk and benefit or proposed procedure with the patient. Information consent for procedure given to the patient. Discussed technical aspects, risks, benefits and alternatives in full. Addressed all of the patient's questions and concerns regarding the procedure. The patient demonstrated knowledge and understanding. They wish to proceed with this procedure. Preparation The patient was prepped in the usual manner. A radiological equipment specialist was present and in the room. Genitalia was prepped with betadine solution in a sterile manner. Lidocaine Jelly 2% was placed into the urethra and 16Fr flexible Olympus cystoscope was inserted into the meatus after adequate lubrication. Procedure Time out per protocol performed. Bladder Inspection Bladder Inspection: The bladder was inspected in its entirety with utilization retroflexion displaying: Tumor(s): none visualized Trabeculation: N/A Mucosal Erthema: N/A Orifices: normal shape and position Urethra: normal Cystoscopy finding today: There was no suspicious legion noted. There was a thrombosed prominent blood vessel in the bladder. [id number] DISPOSABLE SCOPE URO-G FLEXIBLE SCOPE Procedure code (CPT) selection complete Office Meds lidocaine HCl 2 % mucosal jelly in applicator Performing Provider: Garrett Dang MD Performing Location[facility] Administered by: Anthony Ribera LPN on 08/19/23 15:05 Dose Route Admin Location Dispensed Lot Number Expiration Date [facility] [employer] 10 mL intra-urethral 20 mL naproxen 500 mg tablet Performing Provider: Garrett Dang MD Performing Location: [facility] Administered by: Anthony Ribera LPN on 08/19/23 15:05 Dose Route Admin Location Dispensed Lot Number Expiration Date [facility] [employer] 500 mg PO 1 tab ciprofloxacin HCl 500 mg tablet Performing Provider: Garrett Dang MD Performing Location: [facility] Administered by: Anthony Ribera LPN on 08/19/23 15:05 Dose Route Admin Location Dispensed Lot Number Expiration Date [facility] [employer] 500 mg PO 1 tab Results AMB Urinalysis, Automated UA Leukoctes 0 Shirlene/uL Last Edit by GERMÁN Garcia on 08/19/23 14:57 UA Nitrite Negative Last Edit by GERMÁN Garcia on 08/19/23 14:57 UA Urobilinogen 0.2 mg/dL Last Edit by GERMÁN Garcia on 08/19/23 14:5 7 UA Protein 100 mg/dL Last Edit by GERMÁN Garcia on 08/19/23 14:57 2+ Alessia Price 08/19/23 14:57 UA pH 6.0 Last Edit by GERMÁN Garcia on 08/19/23 14:57 UA Blood 200 Deandre/uL Last Edit by GERMÁN Garcia on 08/19/23 14:57 3+ Alessia Price 08/19/23 14:57 UA Specific [place] 1.015 Last Edit by GERMÁN Garcia on 08/19/23 14: 57 UA Ketone Negative Last Edit by GERMÁN Garcia on 08/19/23 14:57 UA Bilirubin 0 mg/dL Last Edit by GERMÁN Garcia on 08/19/23 14:57 UA Glucose 0 mg/dL Last Edit by GERMÁN Garcia on 08/19/23 14:57 Results Reviewed Results Reviewed: Laboratory Last Values Urine pH (Auto) 6.0 08/19/23 14:55 Specific [place] (Auto) 1.015 08/19/23 14:55 Urine Protein (Auto) 100 mg/dL 08/19/23 14:55 Glucose (UA)(Auto) 0 mg/dL 08/19/23 14:55 Urine Ketones (Auto) Negative 08/19/23 14:55 Urine Blood (Auto) 200 Deandre/uL 08/19/23 14:55 Urine Nitrite (Auto) Negative 08/19/23 14:55 Urine Bilirubin (Auto) 0 mg/dL 08/19/23 14:55 Urine Urobilinogen (Auto) 0.2 mg/dL 08/19/23 14:55 Leukocyte Esterase (Auto) 0 Shirlene/uL 08/19/23 14:55 Assessment & Plan Assessment & Plan (1) SLE (systemic lupus erythematosus): Code(s): M32.9 - Systemic lupus erythematosus, unspecified (2) Microscopic hematuria: Code(s): R31.29 - Other microscopic hematuria Plan work up including CT imaging/office cysto, negative for malignancy at this time. The patient will follow up in one year with me. Orders: Orders AMB Cystoscopy 08/19/23 R31.29 - Other microscopic hematuria AMB Urinalysis Automated 08/19/23 Z13.9 - Encounter for screening, unspecified Patient Instructions: The patient had an opportunity to ask questions regarding treatment plan. All questions were answered. Imaging, Laboratory studies and physical exam results were discussed and reviewed in detail. No major barriers to understanding were identified. The patient expressed understanding and agreement with the above treatment plan. The patient is aware they should contact our office by phone for worsening of their current condition or the appearance of new symptoms. Compliance is encouraged with any medications and followup testing that is ordered. It is a privilege to be allowed the opportunity to participate in the urologic care of your patient. If you have any questions or concerns regarding treatment for the above conditions please do not hesitate to contact me. The office telephone contact is [phone]. This note is constructed in part using voice recognition software. While every effort has been made to ensure accuracy rn embedded errors may have been included. Yours sincerely, Garrett Dang MD Coding Level of Care Code Procedure Only Diagnoses SLE (systemic lupus erythematosus) M32.9 Microscopic hematuria R31.29 CPT Codes Cystoscopy - CPT: 82585-[id number] ([id number])
== END 2023-08-19 15:33 | disposition home or self-care (01) ==
PROVIDERS: PCP Internal Medicine; Visit Provider Urology
DX: R31.29 Other microscopic hematuria (principal); Z13.9 Encounter for screening, unspecified
CPT/HCPCS: 52000

== ENCOUNTER → 2023-08-19 14:35 | Outpatient (BNVA) | payer OTHER, SELFPAY | PROVIDERS: PCP Internal Medicine; Visit Provider Urology | DX: R31.29 Other microscopic hematuria (principal); M32.9 Systemic lupus erythematosus, unspecified | CPT/HCPCS: 52000; 81003 ==

== ENCOUNTER 2023-10-14 11:09 | Outpatient (AMB) | payer OTHER, SELFPAY ==
--- NOTE | 2023-10-14 11:37 | A.OFFVIS_ITS ---
Intake Vital Signs 10/14/23 11:43 Height 4 ft 8 in Weight 119 lb 11.376 oz BMI 26.8 BP 138/40 L Blood Pressure Location Lt brachial Position Sitting Pulse 85 Pulse Source Pulse Oximeter Temp 97.7 F Temp Source Skin Pulse Oximetry (%) 98 Oxygen Delivery Method Room Air Intake Visit Reasons: SLE Intake Note: Patient presents today to follow up on SLE. Reports weight loss without intent to loose weight. Colonoscopy scheduled for 10/18/23 at [facility] Reports started on Prednisone 50 mg qd. Room Service Supervisor Required: No Room Service Supervisor Name: Tammy [email or web address] Information Interpreted: clinical only Accompanied by: Self / Same As Patient Allergies Penicillins [PENICILLINS] Allergy (Unknown, Unverified 10/14/23 11:37) SWELLING amlodipine Allergy (Verified 10/14/23 11:37) Headache azathioprine Allergy (Verified 10/14/23 11:37) Rash Medication List - Last Reconciled 10/14/23 by Mitesh Okeefe MD amlodipine 5 mg PO DAILY azelastine 0.05% 0 drps ophthalmic (eye) clotrimazole-betamethasone 1-0.05 % appl topical DAILY cyclobenzaprine 10 mg PO TID PRN gabapentin 300 mg PO TID hydrochlorothiazide 50 mg PO DAILY meclizine (Dramamine Less Drowsy) 25 mg PO TID PRN mirtazapine 7.5 mg PO BEDTIME multivitamin with iron 1 tab PO DAILY mycophenolate mofetil 500 mg PO .five times a day omeprazole 20 mg PO DAILY ondansetron 4 mg PO Q6-8H PRN prednisone 50 mg PO DAILY topiramate 50 mg PO DAILY HPI HPI Comments History of Present Illness Details The patient returns for evaluation of her SLE. 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 At the time she was on 2500 mg daily mycophenolate in split doses. This had been increased from 2000 mg spread through the day. After the discussion with the paleologist we increased her mycophenolate up to 1 g t.i.d. and the prednisone was restarted at 50 mg daily. In general she says she continues to lose weight slowly. Some days she has a poor appetite but has no nausea or vomiting. There is no diarrhea. She has not had any recent skin rashes, oral ulcers, shortness of breath or joint pains. She does have a nephrology appointment in the next few days. She remains on blood pressure medications, amlodipine and hydrochlorothiazide. [facility] Medical History (Updated 10/14/23 @ 16:49 by Mitesh Okeefe MD) GERD (gastroesophageal reflux disease) Eczema Tendinopathy of right rotator cuff Dyslipidemia SLE (systemic lupus erythematosus) HTN (hypertension) Lupus Surgical History History of hysterectomy Family History Mother Hypertension Father Hypertension History of thyroid disorder Sister Strabismus Maternal Grandmother Diabetes Maternal Grandfather FH: prostate cancer Social History Household Members: Spouse Housing: Apartment Alcohol intake: never Patient Tobacco Use Status: Never used Tobacco service: No Current occupational status: unemployed Review of Systems Const Details: Some weight loss and intermittent decreased appetite. Negative for fever, chills, malaise and fatigue Eyes Details: Negative for vision change, dry eyes,headaches and dizziness ENT Details: Negative for hearing change, tinnitus, oral ulcer, nose bleeds and oral dryness. Card Details: Negative chest pain, edema and syncope Resp Details: Negative for SOB, cough and wheezing GI Details: Negative indigestion/heartburn, nausea, abdominal pain, bowel changes, diarrhea, constipation and bloody stool. Details: Negative for dysuria, hematuria, nocturia, decreased force/flow and genital discharge Skin/Breast Details: Negative for itching, rash, hives, Raynaud's symptoms, sun sensitivity, and skin cancer Loy/Lymph Details: Negative for excessive bruising or bleeding. Physical Exam Vital Signs: Last Vital Signs Temp 97.7 F 10/14/23 11:43 Pulse 85 10/14/23 11:43 BP 138/40 L 10/14/23 11:43 Pulse Ox 98 10/14/23 11:43 Oxygen Delivery Method Room Air 10/14/23 11:43 BMI result Body Mass Index 26.8 APPEARANCE: Patient in no acute distress EYES no redness, pupils equal and reactive to light, eyelids normal EARS:? External ear normal, canal clear and tympanic membrane normal. NOSE/SINUS:? Airflow through both nares, no nasal discharge, no bleeding THROAT:? Oral mucosa moist, no ulcerations NECK:? There is tenderness or swelling over the parotids. No thyromegaly or masses, no adenopathy, trachea midline. HEART:? Regulrar rhythm, S1-S2 heard, no murmurs, rubs or gallops. LUNG:? Clear to percussion and auscultation ABD:? Normal bowel sounds, no organomegaly, masses or tenderness. EXTREMITIES:? No edema, no calf tenderness, normal peripheral pulses. SKIN:? ? No active inflammatory rash JOINT EXAM:?? No tender or swollen joints. Results Reviewed Results Reviewed: Laboratory Tests 07/14/23 07/21/23 07/21/23 10:04 09:45 09:45 WBC 4.2 L Hgb 10.5 L ESR 77 H Haptoglobin 108 Creatinine 1.27 C-Reactive Protein 0.13 Laboratory Tests 07/14/23 07/21/23 10:04 09:45 Protein/Creatinin Ratio 430 H 0.43 H Assessment & Plan Assessment & Plan (1) Glomerulonephritis determined by biopsy: Comment: Biopsy 08/2023: WHO class III GN from SLE. Nephro: Dr. 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 Mucosal lesions. Positive anti-DNA, SS- A. Negative SS-B, anti-almanza, anti-[employer]. On hydroxychloroquine, Myfortec, prednisone. Myfortec tapered Off 2013. Eye exam OK 08/20, 12/22. Stopped hydroxychlorquine in spring 2015 - ? Eye abnormality Flare of SLE summer 2015 - back on prednisone, azathioprine added - azathioprine caused skin rash and stopped 2016 Cellcept and prednisone started 2016 Prednisone tapered off, December 2020 WHO III GN develpoe summer 2022; Cellcept increased;high dose prednisone started Code(s): M32.9 - Systemic lupus erythematosus, unspecified Plan SLE with no symptoms or signs currently of activity;, this is likely related to recent start of high-dose prednisone and increase in her mycophenolate. There is some depression of the HGB likely due to her renal disease. Haptoblobin was normal so hemoysis is unlkeily. It is interesting that she developed the renal disease while on 2 g a day of the mycophenolate. Hopefully with the increase to 3 g a day and the prednisone this will be controlled. She knows to avoid NSAID's such as ibuprofen and naproxen. She is followed closely in Nephrology. Her blood pressure looks good today and she has no thrush. At the present time most of her treatment is through Nephrology so we will see her back in about 3 months. 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
[2023-10-14 11:43] VITALS: BP 138/40; PULSE 85; TEMP 36.5; O2SAT 98; BMI 26.8
== END 2023-10-14 12:09 | disposition home or self-care (01) ==
PROVIDERS: PCP Internal Medicine; Visit Provider Internal Medicine Rheumatology
DX: N05.9 Unspecified nephritic syndrome with unspecified morphologic changes (principal); D64.9 Anemia, unspecified; Z79.899 Other long term (current) drug therapy; M32.9 Systemic lupus erythematosus, unspecified
CPT/HCPCS: 99213

== ENCOUNTER → 2023-10-14 11:09 | Outpatient (BNVA) | payer OTHER, SELFPAY | PROVIDERS: PCP Internal Medicine; Visit Provider Internal Medicine Rheumatology | DX: M32.9 Systemic lupus erythematosus, unspecified (principal); N05.9 Unspecified nephritic syndrome with unspecified morphologic changes; D64.9 Anemia, unspecified; Z79.899 Other long term (current) drug therapy | CPT/HCPCS: 99212 ==

== ENCOUNTER 2023-11-11 10:04 | Emergency (ER) | payer OTHER, SELFPAY ==
[2023-11-11 11:05] VITALS: BP 146/94; PULSE 115; RESP 16; TEMP 36.6; O2SAT 100; BMI 23.1
--- NOTE | 2023-11-11 11:11 | ED.GENADULT ---
HPI - General Adult General Chief complaint: Nausea/Vomiting/Diarrhea Stated complaint: Diarrhea 5 days Time Seen by Provider: 11/12/23 02:22 Source: patient Mode of arrival: ambulatory Limitations: no limitations History of Present Illness HPI narrative: Patient comes to the emergency room complaining of 5 days of diarrhea. Patient states that she has been taking Pepto-Bismol and loperamide without any relief. Patient complaining of diffuse abdominal cramping. Patient denies fever chills, denies UTI symptoms. Patient complaining of new ulcerations in the mouth. Patient states that she was seen in urgent care yesterday, they sent out a stool culture, results are not back yet. Patient denies any blood or black stool. Related Data Home Medications Medication Instructions Recorded Confirmed amlodipine 5 mg tablet 5 mg PO DAILY 07/09/23 10/14/23 azelastine 0.05 % eye drops 0 drp ophthalmic (eye) 07/09/23 10/14/23 clotrimazole-betamethasone 1 appl topical DAILY 07/09/23 10/14/23 %-0.05 % topical cream hydrochlorothiazide 25 mg tablet 50 mg PO DAILY 07/09/23 10/14/23 mirtazapine 7.5 mg tablet 7.5 mg PO BEDTIME 07/09/23 10/14/23 omeprazole 20 mg capsule,delayed 20 mg PO DAILY 07/09/23 10/14/23 release topiramate 50 mg tablet 50 mg PO DAILY 07/09/23 10/14/23 prednisone 10 mg tablet 50 mg PO DAILY 10/14/23 10/14/23 Previous Rx's Medication Instructions Recorded cyclobenzaprine 10 mg tablet 10 mg PO TID PRN muscle spasm #21 10/08/21 tabs gabapentin 300 mg capsule 300 mg PO TID #90 caps 09/03/22 multivitamin with iron 1 tab PO DAILY #30 tabs 12/03/22 meclizine 25 mg tablet (Dramamine 25 mg PO TID PRN dizziness #20 tabs 05/12/23 Less Drowsy) ondansetron 4 mg disintegrating 4 mg PO Q6-8H PRN nausea and 05/12/23 tablet vomiting #14 tabs mycophenolate mofetil 500 mg tablet 500 mg PO .five times a day #150 07/21/23 tabs diphenoxylate-atropine 2.5 1 tab PO TID PRN diarrhea #10 tabs 11/12/23 mg-0.025 mg tablet (Lomotil) Allergies Allergy/AdvReac Type Severity Reaction Status Date / Time Penicillins [PENICILLINS] Allergy Unknown SWELLING Verified 11/11/23 11:08 amlodipine Allergy Headache Verified 10/14/23 11:37 azathioprine Allergy Rash Verified 10/14/23 11:37 Review of Systems Review of Systems: Constitutional : No Weight loss, No Fever, No Chills, No Night Sweats, No Fatigue, No Malaise ENT/Mouth : No Hearing loss, No Ear Pain, No Nasal Congestion, No Sinus Pain, No Hoarseness, No sore throat, No Rhinorrhea, No Swallowing Difficulty Eyes: No Eye Pain, No Swelling, No Redness, No Foreign Body, No Discharge, No Vision Changes Cardiovascular : No Chest Pain, No SOB, No Dyspnea on Exertion, No Orthopnea, No Edema, No Palpitations Respiratory : No Cough, No Sputum, No Wheezing, No Smoke Exposure, No Dyspnea Gastrointestinal : No Nausea, No Vomiting, complaining of Diarrhea, No Constipation, No abdominal Pain, No Hematochezia, No Melena Genitourinary : no irregular bleeding, No Dysuria, No Urinary Frequency, No Hematuria, No Urinary Incontinence, No Urgency, No Flank Pain, No Urinary Flow Changes, No Hesitancy Musculoskeletal : No joint pain, No Myalgias, No Joint Swelling Skin : No Skin Lesions, No rash Neuro : No Weakness, No Numbness, No Paresthesias, No Loss of Consciousness, No Dizziness, No Headache Psych : No Anxiety/Panic, No Depression, No SI/HI/AH/VH, No Social Issues, Heme/Lymph: No Bruising, No Bleeding,No Lymphadenopathy Endocrine : No Polyuria, No Polydipsia, No Temperature Intolerance PMFSH Past Medical History Onset Date is defined in the Problem List Problems that require an onset date and time if occurred within 24 hrs of arrival to the ED Aortic Dissection and Rupture; Neurologic impairment; Cardiopulmonary Arrest; Endotracheal Intubation; Insertion or Replacement of Mechanical Circulatory Assist Device Medical History GERD (gastroesophageal reflux disease) Eczema Tendinopathy of right rotator cuff Dyslipidemia SLE (systemic lupus erythematosus) HTN (hypertension) Lupus Surgical History History of hysterectomy Family History Family History Mother Hypertension Father Hypertension History of thyroid disorder Sister Strabismus Maternal Grandmother Diabetes Maternal Grandfather FH: prostate cancer Social History Social History Household Members: Spouse Housing: Apartment Alcohol intake: never Patient Tobacco Use Status: Never used Tobacco Advance Directives: No Advance Directives Information Provided: No service: No Current occupational status: unemployed Physical Exam ED Vital Signs: Vital Signs - 24 hr 11/11/23 11:05 11/11/23 21:02 11/11/23 23:31 Temperature 97.8 F 98.0 F 98.0 F Pulse Rate 115 H 98 86 Respiratory Rate 16 14 18 Blood Pressure 146/94 H 169/106 H 148/102 H Pulse Oximetry 100 99 Oxygen Delivery Method Room Air Room Air 11/12/23 01:54 Temperature 98.3 F Pulse Rate 85 Respiratory Rate 17 Blood Pressure 157/101 H Pulse Oximetry 99 Oxygen Delivery Method Room Air BMI result Body Mass Index 23.1 Const Other: Appearance: Alert. Oriented X3. No acute distress. Eyes: Pupils equal, round and reactive to light. ENT: Pharynx normal. Dry oral mucosa, aphthous ulcers in the left side of the tongue and lower lip Neck: Normal inspection. Neck supple. No lymph nodes noted. No crepitus CVS: Normal heart rate and rhythm. Pulses normal. Normal S1 and S2 Respiratory: No respiratory distress. Breath sounds normal. No Wheezing. No rales Abdomen: Soft and nontender. No rigidity. No distention. Skin: Skin warm and dry. Normal skin color. Normal skin turgor. Extremities: No lower extremity edema. No Lacerations. No Rash Neuro: Oriented X 3. No motor deficit. No sensory deficit. Moving all extremities. No slurred speech. CN 2 through 12 grossly intact Psych: calm, cooperative, normal affect Course Course Course Narrative: RME: 47-year-old female presents for diarrhea for 5 days and slight abdominal discomfort. Stool sample brought to primary care provider yesterday. Patient states no recent travel or new antibiotics. Labs SARS ordered. Medications Administered Discontinued Medications Generic Name Dose Route Start Last Admin Trade Name Alexus PRN Reason Stop Dose Admin Diphenoxylate HCl/Atropine 2 tab 11/12/23 02:28 11/12/23 02:37 Diphenoxylate/Atrop 2.5/0.025 Tablet PO 11/12/23 02:29 2 tab ONCE ONE Administration Sodium Chloride 1,000 mls @ 999 mls/hr 11/12/23 02:28 11/12/23 02:38 Ns IVCONT 11/12/23 03:28 999 mls/hr .Q1H1M ONE Administration Medical Decision Making Medical Decision Making MDM Narrative: -my interpretation of labs: Normal hematology, chemistry is fairly normal, creatinine slightly bumped likely secondary to dehydration. HCG negative. Serology negative for COVID and influenza. -patient receiving IV fluids. Also, given 1 dose of Lomotil Differential Diagnosis Differential Diagnoses: The differential diagnosis associated with the presentation includes (Dehydration, gastroenteritis, Behcet's, Crohn's) Admission/Observation Consideration of admission/observation: Escalation of care including admission/observation considered Lab Data [facility] Lab Attestation statement: I reviewed the patient's lab results. 11/11/23 12:37 11/11/23 12:37 Labs: Lab Results 11/11/23 11/11/23 Range/Units 12:37 12:38 WBC 3.4 L (4.8-10.8) X10*3/uL RBC 4.22 (4.20-5.50) X10*6/uL Hgb 12.5 (12.0-16.0) g/dl Hct 37.3 (37.0-47.0) % MCV 88.4 (80.0-98.0) fL MCH 29.6 (27.0-33.0) pg MCHC 33.5 (31.0-35.0) g/dl RDW 13.8 (11.0-16.0) % Plt Count 304 (160-400) X10*3/uL MPV 8.9 L (9.4-12.3) fL Immature Gran % (Auto) 1.5 H (0.0-0.4) % Neut % (Auto) 84.6 H (45-73) % Lymph % (Auto) 7.7 L (20-40) % [place] % (Auto) 5.9 (2-11) % Eos % (Auto) 0.0 (0-4) % Baso % (Auto) 0.3 (0-2) % Lymph # (Auto) 0.3 L (1.2-4.9) X10*3/uL [place] # (Auto) 0.2 (0.1-1.2) X10*3/uL Eos # (Auto) 0.0 (0.0-0.4) X10*3/uL Baso # (Auto) 0.0 (0.0-0.2) X10*3/uL Abs Immat Gran (auto) 0.05 H (0.00-0.03) X10*3/uL Absolute Neuts (auto) 2.9 (2.0-8.3) x10*3/uL Absolute Nucleated RBC 0.000 (0.0-0.012) X10*3/uL Nucleated RBC % (auto) 0.0 (0.0-0.2) /100WBC PT 10.9 L (11.1-13.3) SEC INR 0.9 (0.9-1.1) APTT 25.8 L (26.0-36.4) SEC Sodium 135 (135-145) mmol/L Potassium 3.9 (3.3-5.1) mmol/L Chloride 97 (96-108) mmol/L Carbon Dioxide 28 (22-29) mmol/L Anion Gap 14 (12-20) BUN 32 H (9-16) mg/dL Creatinine 1.42 H (0.5-1.4) mg/dL Estim Creat Clear Calc 33.3 Estimated GFR 40 Random Glucose 89 (60-115) mg/dL Calcium 9.5 (8.4-10.2) mg/dL Total Bilirubin 0.4 (0.0-1.0) mg/dL AST 18 (5-31) U/L ALT 14 (0-31) U/L Alkaline Phosphatase 61 (39-117) U/L Total Protein 7.2 (6.5-8.0) g/dL Albumin 3.8 (3.5-5.0) g/dL Lipase 28 (8-78) U/L Beta HCG, Quant < 2 mIU/mL Influenza Type A (PCR) NEGATIVE (Negative) Influenza Type B (PCR) NEGATIVE (Negative) RSV RNA Qual (PCR) NEGATIVE (Negative) SARS-CoV-2 RNA (RT-PCR) NEGATIVE (Negative) Critical Care Time Critical Care Time Critical Care Time: Yes Total Critical Care Time: 60 Attestation: I have personally provided critical care time. Time includes review of lab data, radiology results, discussion with consultants, and monitoring for potential decompensation. Intervention performed as documented. Discharge Plan Discharge Clinical Impression: Acute dehydration, Diarrhea Patient Disposition: Home, Self-Care Instructions: Dehydration (ED), Acute Diarrhea (ED) Additional Instructions: Please follow-up with your primary care physician tomorrow. If you have any worsening or new symptoms, please return to the emergency room or call 911 Prescriptions: New diphenoxylate-atropine [Lomotil] 2.5-0.025 mg tablet 1 tab PO TID PRN (Reason: diarrhea) Qty: 10 0RF No Action mycophenolate mofetil 500 mg tablet 500 mg PO .five times a day Qty: 150 3RF cyclobenzaprine 10 mg tablet 10 mg PO TID PRN (Reason: muscle spasm) Qty: 21 0RF Rx Instructions: side effect is drowsiness. Do not take at work or while driving. meclizine [Dramamine Less Drowsy] 25 mg tablet 25 mg PO TID PRN (Reason: dizziness) Qty: 20 0RF ondansetron 4 mg tablet,disintegrating 4 mg PO Q6-8H PRN (Reason: nausea and vomiting) Qty: 14 0RF multivitamin with iron Tablet 1 tab PO DAILY Qty: 30 4RF gabapentin 300 mg capsule 300 mg PO TID Qty: 90 1RF Rx Instructions: start with just night time use and gardaully increase to three times a day azelastine 0.05 % drops 0 drp ophthalmic (eye) topiramate 50 mg tablet 50 mg PO DAILY clotrimazole-betamethasone 1-0.05 % cream topical DAILY amlodipine 5 mg tablet 5 mg PO DAILY mirtazapine 7.5 mg tablet 7.5 mg PO BEDTIME hydrochlorothiazide 25 mg tablet 50 mg PO DAILY omeprazole 20 mg capsule,delayed release(DR/EC) 20 mg PO DAILY prednisone 10 mg tablet 50 mg PO DAILY Interventions: ED Discharge Assessment Last Done: 11/12/23 03:41 Discharge Date/Time: 11/12/23 03:41
[2023-11-11 21:02] VITALS: BP 169/106; PULSE 98; RESP 14; TEMP 36.7
[2023-11-11 23:31] VITALS: BP 148/102; PULSE 86; RESP 18; TEMP 36.7; O2SAT 99
[2023-11-12 01:54] VITALS: BP 157/101; PULSE 85; RESP 17; TEMP 36.8; O2SAT 99
--- NOTE | 2023-11-12 03:40 | PC.NURSE ---
This RN only reviewed discharge instruction with pt and removed Iv, pt verbalized understanding, no sign of distress upon discharge.
== END 2023-11-12 03:41 | disposition home or self-care (01) ==
PROVIDERS: Emergency Provider Emergency Medicine; PCP Internal Medicine
DX: R19.7 Diarrhea, unspecified (principal); E86.0 Dehydration; Z20.822 Contact with and (suspected) exposure to COVID-19; Z20.828 Contact with and (suspected) exposure to other viral communicable diseases; I10 Essential (primary) hypertension; E78.5 Hyperlipidemia, unspecified; M32.9 Systemic lupus erythematosus, unspecified; Z79.899 Other long term (current) drug therapy; R10.9 Unspecified abdominal pain
CPT/HCPCS: 0241U; 36415; 74176; 80053; 83690; 84702; 85025; 85610; 85730; 99284

== ENCOUNTER 2024-01-13 09:16 | Outpatient (AMB) | payer OTHER, SELFPAY ==
--- NOTE | 2024-01-13 09:21 | MHC.OFFVIS ---
Intake Vital Signs 01/13/24 09:22 Height 4 ft 11 in Weight 127 lb 6.835 oz BMI 25.7 BP 136/78 Blood Pressure Location Rt brachial Position Sitting Pulse 100 Pulse Source Pulse Oximeter Pulse Oximetry (%) 99 Oxygen Delivery Method Room Air Intake Visit Reasons: sle with dr stern Intake Note: Patient last seen by Dr Okeefe on 10/14/23 presents today for follow up. C/o rash on L foot, hair loss, and spots on tongue Clip Wrapper Required: Yes Clip Wrapper Language: Senior Cobol Developer Name: Noe sanches #[id number] Accompanied by: Self / Same As Patient Allergies Penicillins [PENICILLINS] Allergy (Unknown, Verified 01/13/24 09:23) SWELLING amlodipine Allergy (Verified 01/13/24 09:23) Headache azathioprine Allergy (Verified 01/13/24 09:23) Rash Medication List - Last Reconciled 01/13/24 by Tobin Segovia MD amlodipine 5 mg PO DAILY azelastine 0.05% 0 drps ophthalmic (eye) cholecalciferol (vitamin D3) 50 mcg PO DAILY clotrimazole-betamethasone 1-0.05 % appl topical DAILY cyclobenzaprine 10 mg PO TID PRN diphenoxylate-atropine 2.5-0.025 mg (Lomotil) 1 tab PO TID PRN gabapentin 300 mg PO TID hydrochlorothiazide 50 mg PO DAILY meclizine (Dramamine Less Drowsy) 25 mg PO TID PRN mirtazapine 7.5 mg PO BEDTIME multivitamin with iron 1 tab PO DAILY mycophenolate sodium 720 mg PO BID omeprazole 20 mg PO DAILY ondansetron 4 mg PO Q6-8H PRN prednisone 20 mg PO DAILY topiramate 50 mg PO DAILY PRN HPI HPI Comments History of Present Illness Details 48-year-old female with SLE returns for follow-up. She is on mycophenolic acid 720 mg Twice daily and prednisone 20 mg daily. She states that she has been having itchy skin rash on her left foot for about a year but over the last month it has been more severe and itchy. She has been noticing triggering of her right index and middle fingers. It happens almost as her day. She worries about carrying objects as she worries that she will have triggering. She is losing some hair at the front of her scalp Most recent history by Dr. Okeefe 10/2023: The patient returns for evaluation of her SLE. 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 At the time she was on 2500 mg daily mycophenolate in split doses. This had been increased from 2000 mg spread through the day. After the discussion with the recreational programs director we increased her mycophenolate up to 1 g t.i.d. and the prednisone was restarted at 50 mg daily. In general she says she continues to lose weight slowly. Some days she has a poor appetite but has no nausea or vomiting. There is no diarrhea. She has not had any recent skin rashes, oral ulcers, shortness of breath or joint pains. She does have a nephrology appointment in the next few days. She remains on blood pressure medications, amlodipine and hydrochlorothiazide. [facility] Medical History GERD (gastroesophageal reflux disease) Eczema Tendinopathy of right rotator cuff Dyslipidemia SLE (systemic lupus erythematosus) HTN (hypertension) Lupus Surgical History History of hysterectomy Family History Mother Hypertension Father Hypertension History of thyroid disorder Sister Strabismus Maternal Grandmother Diabetes Maternal Grandfather FH: prostate cancer Social History Household Members: Spouse Housing: Apartment Alcohol intake: never Patient Tobacco Use Status: Never used Tobacco service: No Current occupational status: unemployed Review of Systems [facility] Reports stiffness Skin/Breast Reports alopecia, Reports pruritus, Reports lesions and Reports rash Physical Exam Vital Signs: Last Vital Signs Pulse 100 01/13/24 09:22 BP 136/78 01/13/24 09:22 Pulse Ox 99 01/13/24 09:22 Oxygen Delivery Method Room Air 01/13/24 09:22 BMI result Body Mass Index 25.7 Const General: cooperative, healthy appearing and comfortable Nutritional Appearance: average body habitus Orientation/consciousness: patient oriented x3 Limitations: no limitations HEENT Head: Yes normocephalic and Yes atraumatic Mouth: moist mucous membranes Resp Effort & Inspection: normal respiratory effort and able to speak in complete sentences Skin Other: Raised rash on left foot more prominent on the medial aspect with scaling Neuro General: patient oriented x3 Extrem Other: No active synovitis No prominent triggering today Assessment & Plan Assessment & Plan (1) SLE (systemic lupus erythematosus): Comment: 2009 - joint pains, rash, ? Mucosal lesions. Positive anti-DNA, SS- A. 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 On hydroxychloroquine, Myfortec, prednisone. Myfortec tapered Off 2013. Eye exam OK 08/20, 12/22. Stopped hydroxychlorquine in spring 2015 - ? Eye abnormality Flare of SLE summer 2015 - back on prednisone, azathioprine added - azathioprine caused skin rash and stopped 2016 Cellcept and prednisone started 2016 Prednisone tapered off, December 2020 WHO III GN develpoe summer 2022; Cellcept increased;high dose prednisone started CellCept switch to Myfortic 11/2023 due to diarrhea Code(s): M32.9 - Systemic lupus erythematosus, unspecified Qualifiers: Systemic lupus erythematosus type: unspecified Systemic lupus erythematosus organ involvement: glomerular disease Qualified Code(s): M32.14 - Glomerular disease in systemic lupus erythematosus Plan: 48-year-old female with SLE manifested by class 3 glomerulonephritis who presents for follow-up. Doing well. Currently on prednisone 20 mg daily and Myfortic 720 mg Twice daily. She is currently managed by her recreational programs director. Follow-up in 4 months (2) Glomerulonephritis determined by biopsy: Comment: Biopsy 08/2023: WHO class III GN from SLE. Nephro: Dr. Garcia Code(s): N05.9 - Unspecified nephritic syndrome with unspecified morphologic changes Plan: Follow-up with recreational programs director (3) Rash of foot: Code(s): R21 - Rash and other nonspecific skin eruption Plan: Eczema versus tinea pedis. Prescribed antifungal/steroid combination cream (4) Trigger finger, right: Code(s): M65.30 - Trigger finger, unspecified finger Qualifiers: Trigger finger location: index finger Qualified Code(s): M65.321 - Trigger finger, right index finger Plan: Affecting index and middle fingers. Advised patient to buy finger splints. If no improvement, we can consider steroid inject Plan I spent 30 minutes reviewing patient's chart, evaluating patient, ordering diagnostic workup, counseling patient and documenting in the chart Medications: New clotrimazole-betamethasone 1-0.05 % 1 appl topical BID 2 weeks 15 grams 1RF Coding Level of Care Code Est Pt Level 4 (98635) Diagnoses Systemic lupus erythematosus with glomerular disease, unspecified SLE type M32.14 Systemic lupus erythematosus type: unspecified Systemic lupus erythematosus organ involvement: glomerular disease Glomerulonephritis determined by biopsy N05.9 Rash of foot R21 Trigger index finger of right hand M65.321 Trigger finger location: index finger
[2024-01-13 09:22] VITALS: BP 136/78; PULSE 100; O2SAT 99; BMI 25.7
== END 2024-01-13 09:56 | disposition home or self-care (01) ==
PROVIDERS: PCP Internal Medicine; Visit Provider Student in an Organized Health Care Education/Training Program
DX: M32.14 Glomerular disease in systemic lupus erythematosus (principal); N05.9 Unspecified nephritic syndrome with unspecified morphologic changes; R21 Rash and other nonspecific skin eruption; M65.321 Trigger finger, right index finger
CPT/HCPCS: 99214

== ENCOUNTER → 2024-01-13 09:16 | Outpatient (BNVA) | payer OTHER, SELFPAY | PROVIDERS: PCP Internal Medicine; Visit Provider Student in an Organized Health Care Education/Training Program | DX: M32.14 Glomerular disease in systemic lupus erythematosus (principal); N05.9 Unspecified nephritic syndrome with unspecified morphologic changes; M65.321 Trigger finger, right index finger; R21 Rash and other nonspecific skin eruption | CPT/HCPCS: 99212 ==

== ENCOUNTER 2024-02-15 07:33 | Outpatient (AMB) | payer OTHER, SELFPAY ==
[2024-02-15 07:42] VITALS: BP 122/68; PULSE 102; O2SAT 99; BMI 26.0
--- NOTE | 2024-02-15 07:42 | MHC.OFFVIS ---
Intake Vital Signs 02/15/24 07:42 Height 4 ft 11 in Weight 128 lb 11.999 oz BMI 26.0 BP 122/68 Blood Pressure Location Rt brachial Position Sitting Pulse 102 H Pulse Source Pulse Oximeter Pulse Oximetry (%) 99 Oxygen Delivery Method Room Air Intake Visit Reasons: Rash/CM Intake Note: Pt seen today for rash; states rash is over her whole body, part of her face, and her eyes are red. She has had this since Wednesday and states it is itchy, and painful. Patient was prescribed a steroid and eye drops by her PCP. Strategic Account Director Required: Yes Strategic Account Director Name: Suzan Covarrubias460 Information Interpreted: clinical only Accompanied by: Self / Same As Patient Allergies Penicillins [PENICILLINS] Allergy (Unknown, Verified 02/15/24 07:52) SWELLING amlodipine Allergy (Verified 02/15/24 07:52) Headache azathioprine Allergy (Verified 02/15/24 07:52) Rash Medication List - Last Reconciled 02/15/24 by Tobin Segovia MD amlodipine 5 mg PO DAILY azelastine 0.05% 0 drps ophthalmic (eye) cetirizine 5 mg PO DAILY cholecalciferol (vitamin D3) 50 mcg PO DAILY clotrimazole-betamethasone 1-0.05 % 1 appl topical BID 2 weeks cyclobenzaprine 10 mg PO TID PRN diphenoxylate-atropine 2.5-0.025 mg (Lomotil) 1 tab PO TID PRN gabapentin 300 mg PO TID hydrochlorothiazide 50 mg PO DAILY meclizine (Dramamine Less Drowsy) 25 mg PO TID PRN mirtazapine 7.5 mg PO BEDTIME multivitamin with iron 1 tab PO DAILY mycophenolate sodium 720 mg PO BID omeprazole 20 mg PO DAILY ondansetron 4 mg PO Q6-8H PRN topiramate 50 mg PO DAILY PRN HPI HPI Comments History of Present Illness Details 48-year-old female with SLE returns for follow-up. She is on mycophenolic acid 720 mg Twice daily. Patient stated that she has been on prednisone 20 mg consistently until about 1 week ago. Stated that it was discontinued by her bottom saw operator a few weeks ago but her PCP asked her to continue it a little longer until it was discontinued last week. 5-6 days ago she started having he was rashes on her arms, legs, the rashes are painful and itchy as well as itchiness and reddish discoloration of her eyes. She was evaluated by her PCP and eyedrops were prescribed which were not helpful. She has an appointment with skin installer towards the end of this month Most recent history by Dr. Okeefe 10/2023: The patient returns for evaluation of her SLE. 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 At the time she was on 2500 mg daily mycophenolate in split doses. This had been increased from 2000 mg spread through the day. After the discussion with the bottom saw operator we increased her mycophenolate up to 1 g t.i.d. and the prednisone was restarted at 50 mg daily. In general she says she continues to lose weight slowly. Some days she has a poor appetite but has no nausea or vomiting. There is no diarrhea. She has not had any recent skin rashes, oral ulcers, shortness of breath or joint pains. She does have a nephrology appointment in the next few days. She remains on blood pressure medications, amlodipine and hydrochlorothiazide. [facility] Medical History GERD (gastroesophageal reflux disease) Eczema Tendinopathy of right rotator cuff Dyslipidemia SLE (systemic lupus erythematosus) HTN (hypertension) Lupus Surgical History History of hysterectomy Family History Mother Hypertension Father Hypertension History of thyroid disorder Sister Strabismus Maternal Grandmother Diabetes Maternal Grandfather FH: prostate cancer Social History Household Members: Spouse Housing: Apartment Alcohol intake: never Patient Tobacco Use Status: Never used Tobacco service: No Current occupational status: unemployed Review of Systems Eyes Reports irritation and Reports itchy eyes Skin/Breast Reports pruritus and Reports rash Aller/Immun Reports itchy eyes Physical Exam Vital Signs: Last Vital Signs Pulse 102 H 02/15/24 07:42 BP 122/68 02/15/24 07:42 Pulse Ox 99 02/15/24 07:42 Oxygen Delivery Method Room Air 02/15/24 07:42 BMI result Body Mass Index 26.0 Const General: cooperative, healthy appearing and comfortable Nutritional Appearance: average body habitus Orientation/consciousness: patient oriented x3 Limitations: no limitations HEENT Head: Yes normocephalic and Yes atraumatic Mouth: moist mucous membranes Eyes Other: Reddish discoloration of both eyes Resp Effort & Inspection: normal respiratory effort and able to speak in complete sentences Skin Other: Very faint diffuse rash on left upper extremity extending all the way to the wrists, bilateral lower extremities Neuro General: patient oriented x3 Extrem Other: No active synovitis No prominent triggering today Assessment & Plan Assessment & Plan (1) SLE (systemic lupus erythematosus): Comment: 2009 - joint pains, rash, ? Mucosal lesions. Positive anti-DNA, SS- A. 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 On hydroxychloroquine, Myfortec, prednisone. Myfortec tapered Off 2013. Eye exam OK 08/20, 12/22. Stopped hydroxychlorquine in spring 2015 - ? Eye abnormality Flare of SLE summer 2015 - back on prednisone, azathioprine added - azathioprine caused skin rash and stopped 2016 Cellcept and prednisone started 2016 Prednisone tapered off, December 2020 WHO III GN develpoe summer 2022; Cellcept increased;high dose prednisone started CellCept switch to Myfortic 11/2023 due to diarrhea Code(s): M32.9 - Systemic lupus erythematosus, unspecified Qualifiers: Systemic lupus erythematosus type: unspecified Systemic lupus erythematosus organ involvement: glomerular disease Qualified Code(s): M32.14 - Glomerular disease in systemic lupus erythematosus Plan: 48-year-old female with SLE manifested by class 3 glomerulonephritis who presents for follow-up. Doing well. She is generally managed by her bottom saw operator. She remains on Myfortic. Her prednisone 20 mg daily was discontinued about a week ago with resultant use rash. Likely SLE related rash. Check labs today. Will prescribe prednisone taper. Will continue to monitor patient and if he continues to have recurrent rashes while tapering prednisone, she might need another DMARD such as Benlysta Follow-up with skin installer Follow-up in about 2 months (2) Glomerulonephritis determined by biopsy: Comment: Biopsy 08/2023: WHO class III GN from SLE. Nephro: Dr. Garcia Code(s): N05.9 - Unspecified nephritic syndrome with unspecified morphologic changes Plan: Follow-up with bottom saw operator Plan I spent 30 minutes reviewing patient's chart, evaluating patient, ordering diagnostic workup, counseling patient and documenting in the chart Orders: Orders Complete Blood Count Auto Diff Today M32.14 - Glomerular disease in systemic lupus erythematosus C Reactive Protein Today M32.14 - Glomerular disease in systemic lupus erythematosus Immunofixation Pnl, Serum Today M32.14 - Glomerular disease in systemic lupus erythematosus Protein Electrophoresis, Serum Today M32.14 - Glomerular disease in systemic lupus erythematosus Complement C3 Today M32.14 - Glomerular disease in systemic lupus erythematosus Complement C4 Today M32.14 - Glomerular disease in systemic lupus erythematosus Protein Creatinine Ratio, Ur Today M32.14 - Glomerular disease in systemic lupus erythematosus UA w Microscopic Today M32.14 - Glomerular disease in systemic lupus erythematosus Beta-2 Glycoprotein Antibody Today D68.61 - Antiphospholipid syndrome Cardiolipin Antibodies Today D68.61 - Antiphospholipid syndrome Comprehensive Met. Panel Today M32.14 - Glomerular disease in systemic lupus erythematosus Erythrocyte Sedimentation Rate Today M32.14 - Glomerular disease in systemic lupus erythematosus Hepatitis A,B,C Profile Today Z11.59 - Encounter for screening for other viral diseases T Spot TB Today Z11.7 - Encounter for testing for latent tuberculosis infection Anti Extractable Nuclear Ag Today M32.14 - Glomerular disease in systemic lupus erythematosus Anti DNA DS Antibody Today M32.14 - Glomerular disease in systemic lupus erythematosus DNA Double Stranded-Crithidia Today M32.14 - Glomerular disease in systemic lupus erythematosus Sjogren's Antibodies Today M32.14 - Glomerular disease in systemic lupus erythematosus Lupus Anticoagulant Panel Today D68.61 - Antiphospholipid syndrome Medications: New prednisone Take 6 tabs daily for 1 week, 5 tabs daily for 1 week, 4 tabs daily for 2 weeks, 3 tabs daily for 2 weeks and remain on 2 tabs daily 203 tabs 0RF Coding Level of Care Code Est Pt Level 4 (11003) Diagnoses Systemic lupus erythematosus with glomerular disease, unspecified SLE type M32.14 Systemic lupus erythematosus type: unspecified Systemic lupus erythematosus organ involvement: glomerular disease Glomerulonephritis determined by biopsy N05.9
== END 2024-02-15 08:24 | disposition home or self-care (01) ==
PROVIDERS: PCP Internal Medicine; Visit Provider Student in an Organized Health Care Education/Training Program
DX: M32.14 Glomerular disease in systemic lupus erythematosus (principal); N05.9 Unspecified nephritic syndrome with unspecified morphologic changes
CPT/HCPCS: 99214

== ENCOUNTER 2024-02-15 07:33 | Outpatient (REF) | payer OTHER, SELFPAY ==
[2024-02-15 09:08] LABS: MANUAL DIFF FLAG NO
[2024-02-15 09:52] LABS: Basophils Percent Auto 0.5 % (0-2); Eosinophils Absolute Auto 0.1 X10*3/uL (0.0-0.4); Eosinophils Percent Auto 1.1 % (0-4); Hematocrit 35.3 % (37.0-47.0); Hemoglobin 11.2 g/dl (12.0-16.0); Imm Gran Abs Auto 0.02 X10*3/uL (0.00-0.03); Imm Gran Pct Auto 0.3 % (0.0-0.4); Lymphocytes Absolute Auto 1.9 X10*3/uL (1.2-4.9); Lymphocytes Percent Auto 30.5 % (20-40); Mean Corpuscular HGB Conc 31.7 g/dl (31.0-35.0); Mean Corpuscular Hemoglobin 27.1 pg (27.0-33.0); Mean Corpuscular Volume 85.5 fL (80.0-98.0); Mean Platelet Volume 9.1 fL (9.4-12.3); Monocytes Absolute Auto 0.8 X10*3/uL (0.1-1.2); Monocytes Percent Auto 12.3 % (2-11); Neutrophils Absolute Auto 3.4 x10*3/uL (2.0-8.3); Neutrophils Percent Auto 55.3 % (45-73); Platelet Count 432 X10*3/uL (160-400); Red Blood Count 4.13 X10*6/uL (4.20-5.50); Red Cell Distribution Width 13.6 % (11.0-16.0); White Blood Count 6.1 X10*3/uL (4.8-10.8)
[2024-02-15 10:06] LABS: Appearance Urine Clear; Color Urine Yellow; Glucose Urine UA Negative (Negative); Leukocyte Esterase Urine Negative (Negative); Nitrite Urine Negative (Negative); UMIC TRIGGER UA YES; Urine Blood Large (3+) (Negative); Urine Ketones Negative (Negative); Urine Protein Negative (Neg-Trace)
[2024-02-15 10:07] LABS: Bacteria Urine Trace (None Seen); Hyaline Casts Urine 0-2 /LPF (0-2); WBC Urine 0-5 /HPF (0-5)
[2024-02-15 10:23] LABS: Creatinine Urine 124.56 mg/dL; Protein/Creatinine Ratio, Ur 0.12 (<0.2); Total Protein Urine Random 15 mg/dL (<12)
[2024-02-15 10:25] LABS: Alanine Aminotransferase 40 U/L (0-31); Albumin Level 3.9 g/dL (3.5-5.0); Alkaline Phosphatase 73 U/L (39-117); Anion Gap 13 (12-20); Aspartate Amino Transferase 34 U/L (5-31); Bilirubin Total 0.2 mg/dL (0.0-1.0); Blood Urea Nitrogen 16 mg/dL (9-16); C Reactive Protein 0.32 mg/dL (< or = 0.50); Calcium 9.2 mg/dL (8.4-10.2); Carbon Dioxide 29 mmol/L (22-29); Chloride 100 mmol/L (96-108); Estimated Glomerular Filt Rate 59; Glucose Random 84 mg/dL (60-115); Potassium 3.3 mmol/L (3.3-5.1); Sodium 139 mmol/L (135-145); Total Protein 7.8 g/dL (6.5-8.0)
[2024-02-15 10:45] LABS: HBS Num1 5.24 mIU/mL (0-7.99); HBc Num1 0.08 S/CO (0.00-0.79); HBsAGNum1 0.33 S/CO (0.00-0.99); Hepatitis A Antibody IgM 0.16 Index (0-0.79); Hepatitis B Core Antibody Nonreactive (Nonreactive); Hepatitis B Surface Antigen Negative (Negative); ~HepC Num1 0.12 S/CO (0.00-0.79); ~Hepatitis A Antibody IgM Nonreactive (Nonreactive); ~Hepatitis B Surface Antibody NONREACTIVE (Nonreactive); ~Hepatitis C Antibody Nonreactive (Nonreactive)
[2024-02-15 11:00] LABS: Erythrocyte Sedimentation Rate 73 MM/HR (0-20)
[2024-02-16 19:43] LABS: Cardiolipin IgG Ab 62.2 GPL-U/mL; Cardiolipin IgM Ab <2.0 MPL-U/mL
[2024-02-17 09:28] LABS: Complement C3 77 mg/dL (83-193)
[2024-02-17 13:13] LABS: IgA 734 mg/dL (47-310); IgG 1138 mg/dL (600-1640); IgM 55 mg/dL (50-300)
[2024-02-17 14:59] LABS: Anti DNA DS Antibody 39 IU/mL; Antibody to SS-A Antigen 5.2 POS AI (<1.0 NEG); Antibody to SS-B Antigen <1.0 NEG AI (<1.0 NEG); SM/Ribonucleoprotein Ab <1.0 NEG AI (<1.0 NEG); Smith Protein <1.0 NEG AI (<1.0 NEG)
[2024-02-17 22:03] LABS: TS Negative Control Passed; TS Panel A 0; TS Panel B 0; TS Positive Control Passed; TSpotTB Negative (Negative)
[2024-02-17 22:08] LABS: Beta-2 Glycoprotein IgA >65.0 U/mL (<20.0); Beta-2 Glycoprotein IgG >112.0 U/mL (<20.0); Beta-2 Glycoprotein IgM <2.0 U/mL (<20.0)
[2024-02-18 22:03] LABS: Prot Elec - Albumin 3.9 g/dL (3.8-4.8); Prot Elec - Alpha1 0.3 g/dL (0.2-0.3); Prot Elec - Alpha2 0.7 g/dL (0.5-0.9); Prot Elec - Beta 1 0.6 g/dL (0.4-0.6); Prot Elec - Beta 2 0.7 g/dL (0.2-0.5); Prot Elec - Total Protein 7.3 g/dL (6.1-8.1)
[2024-02-19 07:42] LABS: DRVVT Confirmation Negative (Negative); Hexagonal Phase Neutralization Negative (Negative); PTT (LAC) Screen 47 sec (<=40)
[2024-02-23 19:38] LABS: DNAds, Crithidia Antibody 1:10 titer (<1:10); DNAds, Crithidia Antibody Positive (Negative)
== END 2024-02-15 07:34 | disposition home or self-care (01) ==
LOC: HO.LAB 07:33
PROVIDERS: PCP Internal Medicine; Visit Provider Student in an Organized Health Care Education/Training Program
DX: M32.14 Glomerular disease in systemic lupus erythematosus (principal); D68.61 Antiphospholipid syndrome; N05.9 Unspecified nephritic syndrome with unspecified morphologic changes; Z11.7 Encounter for testing for latent tuberculosis infection; Z11.59 Encounter for screening for other viral diseases; Z72.89 Other problems related to lifestyle; Z79.899 Other long term (current) drug therapy
CPT/HCPCS: 36415; 80053; 81001; 82570; 82784; 84156; 84165; 85025; 85597; 85598; 85613; 85652; 85730; 86140; 86146; 86147; 86160; 86225; 86235; 86255; 86334; 86481; 86704; 86706; 86709; 86803; 87340; 99212

== ENCOUNTER 2024-04-17 09:04 | Outpatient (AMB) | payer MEDICARE, MEDICAID, SELFPAY ==
--- NOTE | 2024-04-17 09:12 | MHC.OFFVIS ---
Vital Signs 04/17/24 09:13 Height 4 ft 11 in Weight 136 lb 0.403 oz BMI 27.5 BP 144/76 H Blood Pressure Location Rt brachial Position Sitting Pulse 86 Pulse Source Pulse Oximeter Pulse Oximetry (%) 99 Oxygen Delivery Method Room Air Intake Visit Reasons: SLE/CM Intake Note: Patient last seen 02/15/24 presents today for follow up and test results. Pt reports left ankle rash; burning pain/sensation on bl legs Currently taking prednisone 5mg 2 tabs daily, if continuing will need refill. Residence Manager Required: Yes Residence Manager Language: Customer Service Receptionist Name: Reta [id number] Accompanied by: Self / Same As Patient Allergies Penicillins [PENICILLINS] Allergy (Unknown, Verified 04/17/24 09:22) SWELLING amlodipine Allergy (Verified 04/17/24 09:22) Headache azathioprine Allergy (Verified 04/17/24 09:22) Rash Medication List - Last Reconciled 04/17/24 by Tobin Segovia MD amlodipine 5 mg PO DAILY azelastine 0.05% 0 drps ophthalmic (eye) cetirizine 5 mg PO DAILY cholecalciferol (vitamin D3) 50 mcg PO DAILY clotrimazole-betamethasone 1-0.05 % 1 appl topical BID 2 weeks cyclobenzaprine 10 mg PO TID PRN diphenoxylate-atropine 2.5-0.025 mg (Lomotil) 1 tab PO TID PRN gabapentin 300 mg PO TID hydrochlorothiazide 50 mg PO DAILY meclizine (Dramamine Less Drowsy) 25 mg PO TID PRN mirtazapine 7.5 mg PO BEDTIME multivitamin with iron 1 tab PO DAILY mycophenolate sodium 720 mg PO BID omeprazole 20 mg PO DAILY ondansetron 4 mg PO Q6-8H PRN prednisone 10 mg PO DAILY topiramate 50 mg PO DAILY PRN HPI Comments Details: 48-year-old female with SLE returns for follow-up. She is on mycophenolic acid 720 mg Twice daily and prednisone 5 mg Twice daily. She states that her rashes have improved except for the rash on the outer aspect of her left foot which is itchy. Gets burning sensation of her legs especially at night. She has been having some throat irritation that she believes might be related to allergies. She was recently evaluated by her rock crusher operator and asked to remain on prednisone 10 mg daily Most recent history by Dr. Okeefe 10/2023: The patient returns for evaluation of her SLE. 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 At the time she was on 2500 mg daily mycophenolate in split doses. This had been increased from 2000 mg spread through the day. After the discussion with the rock crusher operator we increased her mycophenolate up to 1 g t.i.d. and the prednisone was restarted at 50 mg daily. In general she says she continues to lose weight slowly. Some days she has a poor appetite but has no nausea or vomiting. There is no diarrhea. She has not had any recent skin rashes, oral ulcers, shortness of breath or joint pains. She does have a nephrology appointment in the next few days. She remains on blood pressure medications, amlodipine and hydrochlorothiazide. [facility] Medical History GERD (gastroesophageal reflux disease) Eczema Tendinopathy of right rotator cuff Dyslipidemia SLE (systemic lupus erythematosus) HTN (hypertension) Lupus Surgical History History of hysterectomy Family History Mother Hypertension Father Hypertension History of thyroid disorder Sister Strabismus Maternal Grandmother Diabetes Maternal Grandfather FH: prostate cancer Social History Household Members: Spouse Housing: Apartment Alcohol intake: never Patient Tobacco Use Status: Never used Tobacco service: No Current occupational status: unemployed Review of Systems Eyes Reports irritation ENT Details: Itchy throat Skin/Breast Reports pruritus and Reports rash Physical Exam Vital Signs: Last Vital Signs Pulse 86 04/17/24 09:13 BP 144/76 H 04/17/24 09:13 Pulse Ox 99 04/17/24 09:13 Oxygen Delivery Method Room Air 04/17/24 09:13 BMI result Body Mass Index 27.5 Const General: cooperative, healthy appearing and comfortable Nutritional Appearance: average body habitus Orientation/consciousness: patient oriented x3 Limitations: no limitations HEENT Head: Yes normocephalic and Yes atraumatic Mouth: moist mucous membranes Eyes Other: Reddish discoloration of both eyes Resp Effort & Inspection: normal respiratory effort and able to speak in complete sentences Skin Other: Rash with scaling on the outer aspect of left foot Neuro General: patient oriented x3 Extrem Other: No active synovitis No prominent triggering today Assessment & Plan Assessment & Plan (1) SLE (systemic lupus erythematosus): Comment: 2009 - joint pains, rash, ? Mucosal lesions. Positive anti-DNA, SS- A. 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 On hydroxychloroquine, Myfortec, prednisone. Myfortec tapered Off 2013. Eye exam [place] 08/20, 12/22. Stopped hydroxychlorquine in spring 2015 - ? Eye abnormality Flare of SLE summer 2015 - back on prednisone, azathioprine added - azathioprine caused skin rash and stopped 2016 Cellcept and prednisone started 2016 Prednisone tapered off, December 2020 WHO III GN develpoe summer 2022; Cellcept increased;high dose prednisone started CellCept switch to Myfortic 11/2023 due to diarrhea Code(s): M32.9 - Systemic lupus erythematosus, unspecified Category: Medical Qualifiers: Systemic lupus erythematosus type: unspecified Systemic lupus erythematosus organ involvement: glomerular disease Qualified Code(s): M32.14 - Glomerular disease in systemic lupus erythematosus Plan: 48-year-old female with SLE manifested by class 3 glomerulonephritis who presents for follow-up. Doing well. She is generally managed by her rock crusher operator. She remains on Myfortic and prednisone 10 mg daily. Rash on foot is likely tinea pedis. Prescribed clotrimazole/betamethasone cream Prednisone refilled. Follow-up with rock crusher operator Labs before next visit in 4 months (2) Glomerulonephritis determined by biopsy: Comment: Biopsy 08/2023: WHO class III GN from SLE. Nephro: Dr. Garcia Code(s): N05.9 - Unspecified nephritic syndrome with unspecified morphologic changes Category: Medical Plan: Follow-up with rock crusher operator Plan I spent 30 minutes reviewing patient's chart, evaluating patient, ordering diagnostic workup, counseling patient and documenting in the chart Orders: Orders Erythrocyte Sedimentation Rate 4 Months M3.14 - Glomerular disease in systemic lupus erythematosus Protein Creatinine Ratio, Ur 4 Months M3.14 - Glomerular disease in systemic lupus erythematosus UA w Microscopic 4 Months .14 - Glomerular disease in systemic lupus erythematosus Anti DNA DS Antibody 4 Months - Glomerular disease in systemic lupus erythematosus Complement C3 4 Months . - Glomerular disease in systemic lupus erythematosus Complement C4 4 Months . - Glomerular disease in systemic lupus erythematosus C Reactive Protein 4 Months . - Glomerular disease in systemic lupus erythematosus Complete Blood Count Auto Diff 4 Months - Glomerular disease in systemic lupus erythematosus Comprehensive Met. Panel 4 Months - Glomerular disease in systemic lupus erythematosus Medications: Changed From prednisone 10 mg PO DAILY To prednisone 5 mg PO BID 60 tabs 1RF Refilled clotrimazole-betamethasone 1-0.05 % 1 appl topical BID 2 weeks 45 grams 1RF B35.3 - Tinea pedis Coding Level of Care Code Est Pt Level 4 (29270) Diagnoses Systemic lupus erythematosus with glomerular disease, unspecified SLE type Systemic lupus erythematosus type: unspecified Systemic lupus erythematosus organ involvement: glomerular disease Glomerulonephritis determined by biopsy N05.9
[2024-04-17 09:13] VITALS: BP 144/76; PULSE 86; O2SAT 99; BMI 27.5
== END 2024-04-17 09:37 | disposition home or self-care (01) ==
PROVIDERS: PCP Internal Medicine; Visit Provider Student in an Organized Health Care Education/Training Program
DX: M32.14 Glomerular disease in systemic lupus erythematosus (principal); N05.9 Unspecified nephritic syndrome with unspecified morphologic changes
CPT/HCPCS: 99214

== ENCOUNTER → 2024-04-17 09:04 | Outpatient (BNVA) | payer MEDICARE, SELFPAY | PROVIDERS: PCP Internal Medicine; Visit Provider Student in an Organized Health Care Education/Training Program | DX: M32.14 Glomerular disease in systemic lupus erythematosus (principal); N05.9 Unspecified nephritic syndrome with unspecified morphologic changes | CPT/HCPCS: 99212 ==

== ENCOUNTER 2024-06-08 06:42 | Emergency (ER) | payer OTHER, SELFPAY ==
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
--- NOTE | ~2024-06-08 | US_ITS ---
EXAMINATION: US RETROPERITONEAL LIMITED (RENAL ONLY) CLINICAL INFORMATION: Systemic lupus erythematosus. Back pain. COMPARISON: CT abdomen/pelvis 11/11/2023 TECHNIQUE: Real-time imaging of the kidneys. FINDINGS: RIGHT KIDNEY: 10.0 x 5.3 x 5.9 cm (SAG x AP x TRV). Increased echogenicity. Renal cortical thickness is normal. No calculi or focal parenchymal lesions. No hydronephrosis. LEFT KIDNEY: 8.8 x 5.1 x 6.3 cm (SAG x AP x TRV). Increased echogenicity. Renal cortical thickness is normal. No calculi or focal parenchymal lesions. No hydronephrosis. US/US renal BI IMPRESSION: Echogenic kidneys most likely representing chronic medical renal disease.
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
[2024-06-08 06:47] VITALS: BP 176/94; PULSE 88; RESP 20; TEMP 36.9; O2SAT 100; BMI 31.2
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
[2024-06-08 07:08] VITALS: BP 152/96; PULSE 83; RESP 14; O2SAT 100
[2024-06-08 07:17] LABS: UPreg QC Valid YES
[2024-06-08 07:18] LABS: Appearance Urine Clear; Color Urine Yellow; Glucose Urine UA Negative (Negative); Leukocyte Esterase Urine Negative (Negative); Nitrite Urine Negative (Negative); UMIC TRIGGER UACC YES; Urine Blood Large (3+) (Negative); Urine Ketones Negative (Negative); Urine Pregnancy NEGATIVE (NEGATIVE); Urine Protein Negative (Neg-Trace)
[2024-06-08 07:20] LABS: Bacteria Urine None Seen (None Seen); Hyaline Casts Urine 0-2 /LPF (0-2); RBC Urine >20 /HPF (0-2); WBC Urine 0-5 /HPF (0-5)
[2024-06-08] MEDS: Acetaminophen 325 MG TABLET 650 MG PO (07:38)
[2024-06-08 07:39] LABS: Basophils Percent Auto 0.1 % (0-2); Eosinophils Percent Auto 0.2 % (0-4); Hematocrit 36.6 % (37.0-47.0); Hemoglobin 12.4 g/dl (12.0-16.0); Imm Gran Abs Auto 0.09 X10*3/uL (0.00-0.03); Imm Gran Pct Auto 0.6 % (0.0-0.4); Lymphocytes Absolute Auto 5.2 X10*3/uL (1.2-4.9); Lymphocytes Percent Auto 35.7 % (20-40); MANUAL DIFF FLAG SCAN; Mean Corpuscular HGB Conc 33.9 g/dl (31.0-35.0); Mean Corpuscular Hemoglobin 29.2 pg (27.0-33.0); Mean Corpuscular Volume 86.3 fL (80.0-98.0); Mean Platelet Volume 8.7 fL (9.4-12.3); Monocytes Absolute Auto 1.2 X10*3/uL (0.1-1.2); Monocytes Percent Auto 8.3 % (2-11); Neutrophils Percent Auto 55.1 % (45-73); Platelet Count 427 X10*3/uL (160-400); Red Blood Count 4.24 X10*6/uL (4.20-5.50); Red Cell Distribution Width 14.9 % (11.0-16.0); SCAN SMEAR FLAG 1; White Blood Count 14.5 X10*3/uL (4.8-10.8)
[2024-06-08 07:51] LABS: Anion Gap 12 (12-20); Blood Urea Nitrogen 37 mg/dL (9-16); Calcium 9.8 mg/dL (8.4-10.2); Carbon Dioxide 31 mmol/L (22-29); Chloride 98 mmol/L (96-108); Creatinine Clr Calc Pharmacy 46.8; Estimated Glomerular Filt Rate 54; Glucose Random 88 mg/dL (60-115); Potassium 3.2 mmol/L (3.3-5.1); Sodium 138 mmol/L (135-145)
[2024-06-08 08:10] LABS: SLIDE REVIEW VERIFIED
[2024-06-08 08:45] VITALS: BP 144/80; PULSE 77; RESP 16; TEMP 37.2; O2SAT 100
[2024-06-08] MEDS: Potassium Chloride Packet 20 MEQ PACKET 40 MEQ PO (09:16)
[2024-06-08 10:36] VITALS: BP 129/79; PULSE 86; RESP 16; O2SAT 95
--- NOTE | 2024-06-08 10:54 | PC.NURSE ---
Pt a/ox4, respirations even and unlabored, no increased wob/sob, lung sounds cta bilaterally, s1 and s2 heard, left lower flank pain, pt medicated per MAR, verbalized pain relief. Ultrasound at bedside. Resting in bed quietly, call mcfarland within reach, all needs met at this time.
[2024-06-08 11:06] LABS: HCG Quantitative < 2 mIU/mL
[2024-06-08 12:00] VITALS: BP 146/90; PULSE 84; RESP 18; TEMP 36.8; O2SAT 100
--- NOTE | 2024-06-08 12:16 | MHC.EDTECH ---
pt vital signs checked, pt denies pain, call mcfarland within reach.
[2024-06-08 14:12] VITALS: BP 146/90; PULSE 80; RESP 18; TEMP 36.8; O2SAT 98
== END 2024-06-08 14:13 | disposition home or self-care (01) ==
PROVIDERS: Emergency Provider Emergency Medicine; PCP Internal Medicine
DX: Z04.1 Encounter for examination and observation following transport accident (principal); M54.2 Cervicalgia; M54.50 Low back pain, unspecified; R10.32 Left lower quadrant pain; I10 Essential (primary) hypertension; E78.5 Hyperlipidemia, unspecified; M32.9 Systemic lupus erythematosus, unspecified; Z79.899 Other long term (current) drug therapy
CPT/HCPCS: 36415; 72100; 72125; 76775; 80048; 81001; 81025; 84702; 85025; 99284

== ENCOUNTER 2024-08-11 08:37 | Outpatient (REF) | payer OTHER, SELFPAY ==
[2024-08-11 09:30] LABS: Basophils Absolute Auto 0.1 X10*3/uL (0.0-0.2); Basophils Percent Auto 0.3 % (0-2); Eosinophils Absolute Auto 0.1 X10*3/uL (0.0-0.4); Eosinophils Percent Auto 0.5 % (0-4); Hematocrit 36.5 % (37.0-47.0); Hemoglobin 11.9 g/dl (12.0-16.0); Imm Gran Abs Auto 0.21 X10*3/uL (0.00-0.03); Imm Gran Pct Auto 1.4 % (0.0-0.4); Lymphocytes Absolute Auto 5.1 X10*3/uL (1.2-4.9); Lymphocytes Percent Auto 33.7 % (20-40); MANUAL DIFF FLAG SCAN; Mean Corpuscular HGB Conc 32.6 g/dl (31.0-35.0); Mean Corpuscular Hemoglobin 28.7 pg (27.0-33.0); Mean Platelet Volume 9.1 fL (9.4-12.3); Monocytes Absolute Auto 1.4 X10*3/uL (0.1-1.2); Monocytes Percent Auto 9.4 % (2-11); Neutrophils Absolute Auto 8.2 x10*3/uL (2.0-8.3); Neutrophils Percent Auto 54.7 % (45-73); Platelet Count 352 X10*3/uL (160-400); Red Blood Count 4.15 X10*6/uL (4.20-5.50); Red Cell Distribution Width 14.6 % (11.0-16.0); SCAN SMEAR FLAG 1; White Blood Count 15.1 X10*3/uL (4.8-10.8)
[2024-08-11 09:32] LABS: Appearance Urine Clear; Color Urine Yellow; Glucose Urine UA Negative (Negative); Leukocyte Esterase Urine Negative (Negative); Nitrite Urine Negative (Negative); Specific Gravity - Urine 1.015 (1.005-1.025); UMIC TRIGGER UA YES; Urine Blood Large (3+) (Negative); Urine Ketones Negative (Negative); Urine Protein Negative (Neg-Trace)
[2024-08-11 09:38] LABS: Bacteria Urine None Seen (None Seen); Hyaline Casts Urine 0-2 /LPF (0-2); RBC Urine >20 /HPF (0-2); Squamous Epithelial Cell Urine 0-2 /HPF (0-2); WBC Urine 0-5 /HPF (0-5)
[2024-08-11 10:12] LABS: Erythrocyte Sedimentation Rate 23 MM/HR (0-20)
[2024-08-11 10:20] LABS: SLIDE REVIEW VERIFIED
[2024-08-11 10:39] LABS: Creatinine Urine 100.52 mg/dL; Protein/Creatinine Ratio, Ur 0.13 (<0.2); Total Protein Urine Random 13 mg/dL (<12)
[2024-08-11 11:09] LABS: Alanine Aminotransferase 24 U/L (0-31); Albumin Level 3.9 g/dL (3.5-5.0); Alkaline Phosphatase 55 U/L (39-117); Anion Gap 13 (12-20); Aspartate Amino Transferase 18 U/L (5-31); Bilirubin Total 0.4 mg/dL (0.0-1.0); Blood Urea Nitrogen 22 mg/dL (9-16); C Reactive Protein < 0.04 mg/dL (< or = 0.50); Calcium 9.3 mg/dL (8.4-10.2); Carbon Dioxide 29 mmol/L (22-29); Chloride 99 mmol/L (96-108); Estimated Glomerular Filt Rate 56; Glucose Random 74 mg/dL (60-115); Potassium 3.4 mmol/L (3.3-5.1); Sodium 138 mmol/L (135-145); Total Protein 7.2 g/dL (6.5-8.0)
[2024-08-14 06:53] LABS: Complement C3 125 mg/dL (83-193)
[2024-08-15 07:14] LABS: Anti DNA DS Antibody 27 IU/mL
== END 2024-08-11 08:38 | disposition home or self-care (01) ==
LOC: HO.LAB 08:37
PROVIDERS: PCP Internal Medicine; Visit Provider Student in an Organized Health Care Education/Training Program
DX: M32.14 Glomerular disease in systemic lupus erythematosus (principal)
CPT/HCPCS: 36415; 80053; 81001; 82570; 84156; 85025; 85652; 86140; 86160; 86225

== ENCOUNTER 2024-08-17 08:52 | Outpatient (AMB) | payer OTHER, SELFPAY ==
--- NOTE | 2024-08-17 08:54 | A.OFFVIS_ITS ---
Vital Signs 08/17/24 08:59 Height 4 ft 8 in Weight 151 lb 14.376 oz BMI 34.1 BP 144/82 H Blood Pressure Location Rt brachial Position Sitting Respiration 18 Pulse 92 Pulse Source Pulse Oximeter Pulse Oximetry (%) 99 Oxygen Delivery Method Room Air Intake Visit Reasons: SLE Intake Note: Patient presents for SLE. Process Development Associate Required: Yes Process Development Associate Language: Senior Audit Manager Services: Process Development Associate Present Process Development Associate Name: Anai [id number] Information Interpreted: non-clinical & clinical Allergies Penicillins [PENICILLINS] Allergy (Unknown, Verified 08/17/24 08:59) SWELLING amlodipine Allergy (Verified 08/17/24 08:59) Headache azathioprine Allergy (Verified 08/17/24 08:59) Rash Medication List - Last Reconciled 08/17/24 by Tobin Segovia MD acetaminophen (Tylenol) 325 mg PO QID PRN amlodipine 5 mg PO DAILY azelastine 0.05% 0 drps ophthalmic (eye) cetirizine 5 mg PO DAILY cholecalciferol (vitamin D3) 50 mcg PO DAILY clotrimazole-betamethasone 1-0.05 % 1 appl topical BID 2 weeks cyclobenzaprine 10 mg PO TID PRN diphenoxylate-atropine 2.5-0.025 mg (Lomotil) 1 tab PO TID PRN gabapentin 300 mg PO TID hydrochlorothiazide 50 mg PO DAILY meclizine (Dramamine Less Drowsy) 25 mg PO TID PRN mirtazapine 7.5 mg PO BEDTIME multivitamin with iron 1 tab PO DAILY mycophenolate sodium 720 mg PO BID omeprazole 20 mg PO DAILY ondansetron 4 mg PO Q6-8H PRN prednisone 5 mg PO BID topiramate 50 mg PO DAILY PRN HPI Comments Details: 48-year-old female with SLE returns for follow-up. She is on mycophenolic acid 720 mg Twice daily and prednisone 5 mg Twice daily. She states that she is doing reasonably well overall. She has noticed swelling of her bilateral lower extremities. She states that the rash on her left foot has progressed, the clotrimazole/betamethasone cream improves the itching but the rash has progressed. Most recent history by Dr. Okeefe 10/2023: The patient returns for evaluation of her SLE. 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 At the time she was on 2500 mg daily mycophenolate in split doses. This had been increased from 2000 mg spread through the day. After the discussion with the manager sales training we increased her mycophenolate up to 1 g t.i.d. and the prednisone was restarted at 50 mg daily. In general she says she continues to lose weight slowly. Some days she has a poor appetite but has no nausea or vomiting. There is no diarrhea. She has not had any recent skin rashes, oral ulcers, shortness of breath or joint pains. She does have a nephrology appointment in the next few days. She remains on blood pressure medications, amlodipine and hydrochlorothiazide. [facility] Medical History GERD (gastroesophageal reflux disease) Eczema Tendinopathy of right rotator cuff Dyslipidemia SLE (systemic lupus erythematosus) HTN (hypertension) Lupus Surgical History History of hysterectomy Family History Mother Hypertension Father Hypertension History of thyroid disorder Sister Strabismus Maternal Grandmother Diabetes Maternal Grandfather FH: prostate cancer Social History Household Members: Spouse Housing: Apartment Alcohol intake: never Patient Tobacco Use Status: Never used Tobacco service: No Current occupational status: unemployed Review of Systems Skin/Breast Reports pruritus and Reports rash Physical Exam Vital Signs: Last Vital Signs Pulse 92 08/17/24 08:59 Resp 18 08/17/24 08:59 BP 144/82 H 08/17/24 08:59 Pulse Ox 99 08/17/24 08:59 Oxygen Delivery Method Room Air 08/17/24 08:59 BMI result Body Mass Index 34.1 Const General: cooperative, healthy appearing and comfortable Nutritional Appearance: average body habitus Orientation/consciousness: patient oriented x3 Limitations: no limitations HEENT Head: Yes normocephalic and Yes atraumatic Mouth: moist mucous membranes Resp Effort & Inspection: normal respiratory effort and able to speak in complete sentences Skin Other: Rash with scaling on the outer aspect of left foot Neuro General: patient oriented x3 Extrem Other: No active synovitis Assessment & Plan Assessment & Plan (1) SLE (systemic lupus erythematosus): Comment: 2009 - joint pains, rash, ? Mucosal lesions. Positive anti-DNA, SS- A. Negative SS-B, anti-almanza, anti-[employer]. On hydroxychloroquine, Myfortec, prednisone. Myfortec tapered Off 2013. Eye exam OK 08/20, 12/22. Stopped hydroxychlorquine in spring 2015 - ? Eye abnormality Flare of SLE summer 2015 - back on prednisone, azathioprine added - azathioprine caused skin rash and stopped 2016 Cellcept and prednisone started 2016 Prednisone tapered off, December 2020 WHO III GN develpoe summer 2022; Cellcept increased;high dose prednisone started CellCept switch to Myfortic 11/2023 due to diarrhea Code(s): M32.9 - Systemic lupus erythematosus, unspecified Category: Medical Qualifiers: Systemic lupus erythematosus type: unspecified Systemic lupus erythematosus organ involvement: glomerular disease Qualified Code(s): M32.14 - Glomerular disease in systemic lupus erythematosus Plan: 48-year-old female with SLE manifested by class 3 glomerulonephritis who presents for follow-up. Doing well. Labs are stable. No proteinuria or cytopenias. Complements are normal. DsDNA trending down. She is generally managed by her manager sales training. She remains on Myfortic and prednisone 10 mg daily. Labs before next visit in 4 months (2) Glomerulonephritis determined by biopsy: Comment: Biopsy 08/2023: WHO class III GN from SLE. Nephro: Dr. Garcia Code(s): N05.9 - Unspecified nephritic syndrome with unspecified morphologic changes Category: Medical Plan: Follow-up with manager sales training (3) Rash of foot: Code(s): R21 - Rash and other nonspecific skin eruption Category: Medical Plan: Likely tinea pedis. Itching improved with clotrimazole/betamethasone cream but rash progress. Referred patient to Dermatology Plan I spent 30 minutes reviewing patient's chart, evaluating patient, ordering diagnostic workup, counseling patient and documenting in the chart Orders: Referrals Dermatology Referral R21 - Rash and other nonspecific skin eruption Coding Level of Care Code Est Pt Level 4 (18150) Diagnoses Systemic lupus erythematosus with glomerular disease, unspecified SLE type M32 .14 Systemic lupus erythematosus type: unspecified Systemic lupus erythematosus organ involvement: glomerular disease Glomerulonephritis determined by biopsy N05.9 Rash of foot R21
[2024-08-17 08:59] VITALS: BP 144/82; PULSE 92; RESP 18; O2SAT 99; BMI 34.1
== END 2024-08-17 09:27 | disposition home or self-care (01) ==
PROVIDERS: PCP Internal Medicine; Visit Provider Student in an Organized Health Care Education/Training Program
DX: M32.14 Glomerular disease in systemic lupus erythematosus (principal); N05.9 Unspecified nephritic syndrome with unspecified morphologic changes; R21 Rash and other nonspecific skin eruption
CPT/HCPCS: 99214

== ENCOUNTER → 2024-08-17 08:52 | Outpatient (BNVA) | payer OTHER, SELFPAY | PROVIDERS: PCP Internal Medicine; Visit Provider Student in an Organized Health Care Education/Training Program | DX: M32.14 Glomerular disease in systemic lupus erythematosus (principal); N05.9 Unspecified nephritic syndrome with unspecified morphologic changes; R21 Rash and other nonspecific skin eruption | CPT/HCPCS: 99212 ==

== ENCOUNTER 2024-10-09 08:11 | Outpatient (AMB) | payer OTHER, SELFPAY ==
--- NOTE | 2024-10-08 16:53 | A.OFFVIS_ITS ---
Intake Visit Reasons: 1 YR follow up- r/s Allergies Penicillins [PENICILLINS] Allergy (Unknown, Verified 08/17/24 08:59) SWELLING amlodipine Allergy (Verified 08/17/24 08:59) Headache azathioprine Allergy (Verified 08/17/24 08:59) Rash HPI Comments Details: 10/09/24- initially seen for hematuria 06/08/24--renal US--Echogenic kidneys most likely representing chronic medical renal disease. Natividad is a 47-year-old female who presents today to the office to establish as a new patient for an evaluation of hematuria. 07/21/2023? Natividad is a 47 year old female with history of Lupus followed by Rheumatology. She presents today for an evaluation of microscopic hematuria. The patient is a Pashto speaking female accompanied with her friend who interpreted today during the visit. I reviewed the CT of the abdomen/pelvis results from 05/15/2023 revealed Kidneys are normal; no calculi are seen, calculi seen. Subcentimeter cyst in the lower pole right kidney, too small to characterize. I reviewed the urine culture results from 05/14/2023 which came back 50,000 to 100,000 cfu/ml mixed bacterial stacy characteristic of urogenital contamination. Evaluation today?UA?Leukocytes: 15 Shirlene; blood: 3 +. Plan: Will send Urine for cytology. Follow-up in office Cystoscopy. Follow up in 1 month. ON LICENSE OF [facility] Medical History GERD (gastroesophageal reflux disease) Eczema Tendinopathy of right rotator cuff Dyslipidemia SLE (systemic lupus erythematosus) HTN (hypertension) Lupus Surgical History History of hysterectomy Family History Mother Hypertension Father Hypertension History of thyroid disorder Sister Strabismus Maternal Grandmother Diabetes Maternal Grandfather FH: prostate cancer Social History Household Members: Spouse Housing: Apartment Alcohol intake: never Patient Tobacco Use Status: Never used Tobacco service: No Current occupational status: unemployed Coding
--- NOTE | 2024-10-09 08:23 | A.OFFVIS_ITS ---
Intake Visit Reasons: 1 YR follow up- r/s Intake Note: Patient is Present for Follow Up Hematuria Urology Medication: None Antibiotic Allergies: Penicillins Blood Thinners: None Patient denies any pain/dicomfort States she does not visibly see any blood in urine Peoplesoft Functional Analyst Required: Yes Peoplesoft Functional Analyst Language: Child Specialist Name: Dia Canales, [facility] Interpr Information Interpreted: non-clinical & clinical Accompanied by: Self / Same As Patient Allergies Penicillins [PENICILLINS] Allergy (Unknown, Verified 10/09/24 08:30) SWELLING amlodipine Allergy (Verified 10/09/24 08:30) Headache azathioprine Allergy (Verified 10/09/24 08:30) Rash Medication List - Last Reviewed 10/09/24 by GERMÁN Soto acetaminophen (Tylenol) 325 mg PO QID PRN amlodipine 5 mg PO DAILY azelastine 0.05% 0 drps ophthalmic (eye) cholecalciferol (vitamin D3) 50 mcg PO DAILY diphenoxylate-atropine 2.5-0.025 mg (Lomotil) 1 tab PO TID PRN hydrochlorothiazide 50 mg PO DAILY meclizine (Dramamine Less Drowsy) 25 mg PO TID PRN mirtazapine 7.5 mg PO BEDTIME multivitamin with iron 1 tab PO DAILY omeprazole 20 mg PO DAILY prednisone 5 mg PO BID HPI Comments Details: 10/09/24---Natividad is a 48-year-old female who is here in follow-up due to evaluation for microscopic hematuria. Last visit 07/21/2023?I reviewed the CT of the abdomen/pelvis results from 05/15/2023 revealed Kidneys are normal; no calculi are seen, calculi seen. Subcentimeter cyst in the lower pole right kidney, too small to characterize. I have discussed follow-up renal ultrasound 06/08/2024 -echogenic changes findings consistent with chronic kidney disease. I have discussed with the patient referring her to Nephrology. She is on amlodipine and hydrochlorothiazide for management of hypertension. The patient states she already is followed by nephrology, [facility] (Nephrology)- Sienna Arreaga MD. Plan repeat urine cytology. Will follow-up in 1 year and if no new findings we will follow-up on a p.r.n. basis. Review of chart: 07/21/2023?Natividad is a 47-year-old female who presents today to the office to establish as a new patient for an evaluation of hematuria. Natividad is a 47 year old female with history of Lupus followed by Rheumatology. She presents today for an evaluation of microscopic hematuria. The patient is a Kiswahili speaking female accompanied with her friend who interpreted today during the visit. I reviewed the CT of the abdomen/pelvis results from 05/15/2023 revealed Kidneys are normal; no calculi are seen, calculi seen. Subcentimeter cyst in the lower pole right kidney, too small to characterize. I reviewed the urine culture results from 05/14/2023 which came back 50,000 to 100,000 cfu/ml mixed bacterial stacy characteristic of urogenital contamination. [facility] Medical History GERD (gastroesophageal reflux disease) Eczema Tendinopathy of right rotator cuff Dyslipidemia SLE (systemic lupus erythematosus) HTN (hypertension) Lupus Surgical History History of hysterectomy Family History Mother Hypertension Father Hypertension History of thyroid disorder Sister Strabismus Maternal Grandmother Diabetes Maternal Grandfather FH: prostate cancer Social History Household Members: Spouse Housing: Apartment Alcohol intake: never Patient Tobacco Use Status: Never used Tobacco service: No Current occupational status: unemployed Review of Systems Const All systems reviewed & are unremarkable except as noted in HPI and below Reports no additional complaints Eyes Reports no additional complaints ENT Reports no additional complaints Card Reports no additional complaints Resp Reports no additional complaints GI Reports no additional complaints Reports as per HPI Musc Reports no additional complaints Skin/Breast Reports system reviewed and no additional complaints, except as documented Neuro Reports no additional complaints Psych Reports no additional complaints Endo Reports no additional complaints Loy/Lymph Reports no additional complaints Aller/Immun Reports no additional complaints Results AMB Urinalysis, Automated UA Leukoctes 0 Shirlene/uL Last Edit by GERMÁN Soto on 10/09/24 08:51 UA Nitrite Negative Last Edit by Mary Domingo, A on 10/09/24 08:51 UA Urobilinogen 0.2 mg/dL Last Edit by Mary Domingo A on 10/09/24 08:5 1 UA Protein 15 mg/dL Last Edit by Mary Domingo, A on 10/09/24 08:51 UA pH 6.0 Last Edit by Mary Domingo, A on 10/09/24 08:51 UA Blood 200 Deandre/uL Last Edit by Mary Domingo, A on 10/09/24 08:51 UA Specific [place] 1.030 Last Edit by Mary Domingo, A on 10/09/24 08: 51 UA Ketone Negative Last Edit by Mary Domingo A on 10/09/24 08:51 UA Bilirubin 0 mg/dL Last Edit by Mary Domingo, A on 10/09/24 08:51 UA Glucose mg/dL Last Edit by Mary Domingo A on 10/09/24 08:51 Results Reviewed Results Reviewed: Laboratory Last Values Urine pH (Auto) 6.0 10/09/24 08:39 Specific [place] (Auto) 1.030 10/09/24 08:39 Urine Protein (Auto) 15 mg/dL 10/09/24 08:39 Urine Ketones (Auto) Negative 10/09/24 08:39 Urine Blood (Auto) 200 Deandre/uL 10/09/24 08:39 Urine Nitrite (Auto) Negative 10/09/24 08:39 Urine Bilirubin (Auto) 0 mg/dL 10/09/24 08:39 Urine Urobilinogen (Auto) 0.2 mg/dL 10/09/24 08:39 Leukocyte Esterase (Auto) 0 Shirlene/uL 10/09/24 08:39 Date of Service: 06/08/24 EXAMINATION: US RETROPERITONEAL LIMITED (RENAL ONLY) CLINICAL INFORMATION: Systemic lupus erythematosus. Back pain. COMPARISON: CT abdomen/pelvis 11/11/2023 TECHNIQUE: Real-time imaging of the kidneys. FINDINGS: RIGHT KIDNEY: 10.0 x 5.3 x 5.9 cm (SAG x AP x TRV). Increased echogenicity. Renal cortical thickness is normal. No calculi or focal parenchymal lesions. No hydronephrosis. LEFT KIDNEY: 8.8 x 5.1 x 6.3 cm (SAG x AP x TRV). Increased echogenicity. Renal cortical thickness is normal. No calculi or focal parenchymal lesions. No hydronephrosis. IMPRESSION: Echogenic kidneys most likely representing chronic medical renal disease. Date of Service: 05/15/23 EXAMINATION: CT ABDOMEN AND PELVIS WITH CONTRAST?? CLINICAL INFORMATION: Hematuria?? COMPARISON: 03/30/2019 FINDINGS: LUNG BASES: The visualized lung bases are unremarkable.?? LIVER, GALLBLADDER, AND BILIARY TREE: The liver is normal in size, shape, and attenuation. No focal hepatic lesion or biliary ductal dilatation is present. The gallbladder is unremarkable with no evidence of radiopaque gallstones, gallbladder wall thickening, or obvious pericholecystic inflammatory changes.?? PANCREAS: Unremarkable.?? SPLEEN: Unremarkable.?? ADRENAL GLANDS: Unremarkable.?? KIDNEYS AND URETERS: The kidneys are normal in size, shape, and attenuation. No hydronephrosis, hydroureter, or calculi seen. Subcentimeter cyst in the lower pole right kidney, too small to characterize. No follow-up imaging recommended. No perinephric stranding.? ? BLADDER: Unremarkable.?? GASTROINTESTINAL TRACT: The small and large bowel are unremarkable. The appendix is unremarkable.?? ABDOMINAL WALL: No significant hernia is appreciated.?? LYMPH NODES: Normal. VASCULAR: Unremarkable. PELVIC VISCERA: The patient is either status post hysterectomy or supracervical hysterectomy. There is fullness in the region of the possible remaining cervix. Ovaries are unremarkable.?? OSSEOUS STRUCTURES: No acute or suspicious osseous abnormalities.?? IMPRESSION: *? No source of hematuria evident within the kidneys, ureters or bladder. *? The patient is either status post hysterectomy or supracervical hysterectomy. There is fullness in the region of the possible remaining cervix. Recommend direct visual inspection pelvic ultrasound for further evaluation if clinically indicated. Ordered:? Urine Culture? Procedure?Result?Verified?Site ? Urine Culture? Final?05/16/23-1107 ? Report Result?50,000 to 100,000 cfu/ml ? Mixed bacterial stacy characteristic of ? 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 Nephro: Dr. Garcia Code(s): N05.9 - Unspecified nephritic syndrome with unspecified morphologic changes Category: Medical Plan I have discussed follow-up renal ultrasound 06/08/2024 -echogenic changes findings consistent with chronic kidney disease. I have discussed with the patient referring her to Nephrology. The patient states she already is followed by nephrology. Plan repeat urine cytology. Will follow-up in 1 year and if no new findings we will follow-up on a p.r.n. basis. Orders: Orders AMB Urinalysis Automated Today Z13.9 - Encounter for screening, unspecified Urine Cytology Today R31.29 - Other microscopic hematuria Patient Instructions: The patient had an opportunity to ask questions regarding treatment plan. The patient expressed understanding and agreement with the above treatment plan. The patient is aware they should contact our office by phone for worsening of their current condition or the appearance of new symptoms. Compliance is encoura ged with any medications and followup testing that is ordered. It is a privilege to be allowed the opportunity to participate in the urologic care of your patient. If you have any questions or concerns regarding treatment for the above conditions please do not hesitate to contact me. The office telephone contact is [phone]. This note is constructed in part using voice recognition software. While every effort has been made to ensure accuracy files supervisor errors may have been included. Yours sincerely, Garrett Dang MD Coding Level of Care Code Est Pt Level 4 (60972) Diagnoses Microscopic hematuria R31.29 CKD (chronic kidney disease) N18.9 Glomerulonephritis determined by biopsy N05.9
== END 2024-10-09 09:12 | disposition home or self-care (01) ==
PROVIDERS: PCP Internal Medicine; Visit Provider Urology
DX: R31.29 Other microscopic hematuria (principal); N18.9 Chronic kidney disease, unspecified; N05.9 Unspecified nephritic syndrome with unspecified morphologic changes; Z13.9 Encounter for screening, unspecified
CPT/HCPCS: 99214

== ENCOUNTER 2024-10-09 08:11 | Outpatient (REF) | payer OTHER, SELFPAY ==
[2024-10-10 08:44] LABS: Urine Cytology See Pathology rpt
== END 2024-10-09 08:12 | disposition home or self-care (01) ==
LOC: HO.LAB 08:11
PROVIDERS: PCP Internal Medicine; Visit Provider Urology
DX: R31.29 Other microscopic hematuria (principal); N18.9 Chronic kidney disease, unspecified; N05.9 Unspecified nephritic syndrome with unspecified morphologic changes
CPT/HCPCS: 81003; 88112; 99212

== ENCOUNTER 2024-11-13 11:07 | Outpatient (REF) | payer OTHER, SELFPAY ==
[2024-11-13 12:58] LABS: MANUAL DIFF FLAG NO
[2024-11-13 13:08] LABS: Basophils Absolute Auto 0.1 X10*3/uL (0.0-0.2); Basophils Percent Auto 0.4 % (0-2); Eosinophils Absolute Auto 0.1 X10*3/uL (0.0-0.4); Hematocrit 36.1 % (37.0-47.0); Hemoglobin 11.8 g/dl (12.0-16.0); Imm Gran Abs Auto 0.09 X10*3/uL (0.00-0.03); Imm Gran Pct Auto 0.7 % (0.0-0.4); Lymphocytes Absolute Auto 4.6 X10*3/uL (1.2-4.9); Lymphocytes Percent Auto 37.4 % (20-40); Mean Corpuscular HGB Conc 32.7 g/dl (31.0-35.0); Mean Corpuscular Hemoglobin 26.6 pg (27.0-33.0); Mean Corpuscular Volume 81.5 fL (80.0-98.0); Mean Platelet Volume 9.3 fL (9.4-12.3); Monocytes Absolute Auto 1.2 X10*3/uL (0.1-1.2); Monocytes Percent Auto 9.7 % (2-11); Neutrophils Absolute Auto 6.2 x10*3/uL (2.0-8.3); Neutrophils Percent Auto 50.8 % (45-73); Platelet Count 478 X10*3/uL (160-400); Red Blood Count 4.43 X10*6/uL (4.20-5.50); Red Cell Distribution Width 13.6 % (11.0-16.0); White Blood Count 12.3 X10*3/uL (4.8-10.8)
[2024-11-13 13:39] LABS: Alanine Aminotransferase 20 U/L (0-31); Alkaline Phosphatase 71 U/L (39-117); Anion Gap 12 (12-20); Aspartate Amino Transferase 25 U/L (5-31); Bilirubin Total 0.3 mg/dL (0.0-1.0); Blood Urea Nitrogen 20 mg/dL (9-16); Calcium 9.3 mg/dL (8.4-10.2); Carbon Dioxide 29 mmol/L (22-29); Chloride 98 mmol/L (96-108); Cholesterol 216 mg/dL (<200); Estimated Glomerular Filt Rate 43; Glucose Random 85 mg/dL (60-115); HDL Cholesterol 52 mg/dL (>40); LDL Cholesterol Calculated 99 mg/dL (<100); Potassium 3.1 mmol/L (3.3-5.1); Sodium 136 mmol/L (135-145); Thyroid Stimulating Hormone 3.77 uIU/mL (0.32-4.0); Total Protein 7.7 g/dL (6.5-8.0); Triglycerides 326 mg/dL (<150)
[2024-11-13 14:12] LABS: Microalbum/Creatinine Ratio Ur 80.4 ug/mg cr (<30)
== END 2024-11-13 11:08 | disposition home or self-care (01) ==
LOC: HO.10HDL 11:07
PROVIDERS: Visit Provider Internal Medicine
DX: Z00.01 Encounter for general adult medical examination with abnormal findings (principal); E66.9 Obesity, unspecified; I10 Essential (primary) hypertension; J04.0 Acute laryngitis; M32.9 Systemic lupus erythematosus, unspecified
CPT/HCPCS: 36415; 80053; 80061; 82043; 82570; 84443; 85025

== ENCOUNTER 2024-12-15 13:56 | Outpatient (AMB) | payer OTHER, SELFPAY ==
--- NOTE | 2024-12-15 14:01 | MHC.OFFVIS ---
Vital Signs 12/15/24 14:11 Height 4 ft 8 in Weight 148 lb BMI 33.2 BP 138/80 Blood Pressure Location Lt brachial Position Sitting Pulse 72 Pulse Source Pulse Oximeter Pulse Oximetry (%) 98 Oxygen Delivery Method Room Air Intake Visit Reasons: SLE Intake Note: Patient is here for follow up on lupus today. She states that she was referred to Dermatology in last visit, would like refill of the cream that was helpful Business Banking Manager Name: [id number] adayesenia Allergies Penicillins [PENICILLINS] Allergy (Unknown, Verified 10/09/24 08:30) SWELLING amlodipine Allergy (Verified 10/09/24 08:30) Headache azathioprine Allergy (Verified 10/09/24 08:30) Rash Medication List - Last Reconciled 12/15/24 by Nida Villarreal MD acetaminophen (Tylenol) 325 mg PO QID PRN amlodipine 5 mg PO DAILY azelastine 0.05% 0 drps ophthalmic (eye) cholecalciferol (vitamin D3) 50 mcg PO DAILY clotrimazole-betamethasone 1-0.05 % appl topical diphenoxylate-atropine 2.5-0.025 mg (Lomotil) 1 tab PO TID PRN hydrochlorothiazide 50 mg PO DAILY lisinopril 5 mg PO DAILY meclizine (Dramamine Less Drowsy) 25 mg PO TID PRN mirtazapine 7.5 mg PO BEDTIME multivitamin with iron 1 tab PO DAILY omeprazole 20 mg PO DAILY prednisone 5 mg PO BID HPI Comments Details: Patient is a 48-year-old female with hypertension, hyperlipidemia, GERD and SLE complicated by lupus nephritis now with CKD here today for follow up Interval History: Patient last seen 08/17/[address] Segovia. At that time she was following up being maintained on Myfortic 720 mg twice a day and prednisone 5 mg twice a day. Also complaining of rash affecting her lower extremities associated with itching Since then she followed up with renal 11/21/2024. 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 Mucosal lesions. Positive anti-DNA, SS- A. Negative SS-B, anti-almanza, anti-JUDGE CLERK. On hydroxychloroquine, Myfortec, prednisone. Myfortec tapered Off 2013. Eye exam [place] 08/20, 12/22. Stopped hydroxychlorquine in spring 2015 - ? Eye abnormality Flare of SLE summer 2015 - back on prednisone, azathioprine added - azathioprine caused skin rash and stopped 2016 Cellcept and prednisone started 2016 Prednisone tapered off, December 2020 WHO III GN develpoe summer 2022; Cellcept increased;high dose prednisone started CellCept switch to Myfortic 11/2023 due to diarrhea Current Rheumatology Medication(s): Myfortic 720 mg twice a day Prednisone 5mg bid [facility] Medical History (Updated 12/15/24 @ 14:45 by Nida Villarreal MD) care home (current) use of systemic steroids On mycophenolate mofetil therapy GERD (gastroesophageal reflux disease) Eczema Tendinopathy of right rotator cuff Dyslipidemia SLE (systemic lupus erythematosus) HTN (hypertension) Lupus Surgical History History of hysterectomy Family History Mother Hypertension Father Hypertension History of thyroid disorder Sister Strabismus Maternal Grandmother Diabetes Maternal Grandfather FH: prostate cancer Social History Household Members: Spouse Housing: Apartment Alcohol intake: never Patient Tobacco Use Status: Never used Tobacco service: No Current occupational status: unemployed Review of Systems Const Details: Review of Systems Constitutional: Denies fever, chills, weight loss ENT: Denies vision changes, eye pain or eye redness, dental caries, dry mouth GI: Denies nausea, vomiting, diarrhea, abdominal pain, change in BM Pulm: Denies SOB, CHAPPELL, hemoptysis, wheezing Cards: Denies chest pain, palpitations Skin: Denies Raynaud's, rash, nail changes, photosensitivity, SCHEDULE SUPERVISOR: Denies headaches, weakness, paresthesias, recurrent falls MSK: as per HPI All other systems reviewed and are unremarkable except noted above Physical Exam Vital Signs: Last Vital Signs Pulse 72 12/15/24 14:11 BP 138/80 12/15/24 14:11 Pulse Ox 98 12/15/24 14:11 Oxygen Delivery Method Room Air 12/15/24 14:11 BMI result Body Mass Index 33.2 Vital signs reviewed Physical Examination CONSTITUITIONAL Patient alert and cooperative. Well appearing and in no apparent painful distress HEENT Conjunctiva and sclera clear. ?Pupils equal round and reactive to light. ?No lymphadenopathy. ? CHEST/RESPIRATORY SYSTEM Normal respiratory effort and able to speak in complete sentences. ?Clear to auscultation bilaterally. ?No crackles, rales, rhonchi, wheezes heard. CARDIAC SYSTEM Regular rate and rhythm. ?S1 and S2 heard no murmurs. ?Radial pulses intact bilaterally MSK Hands: ?Good vocational technical education director strength bilaterally. No deformities noted. ?No synovitis noted to the MCPs, PIPs or DIPs. ?No tenderness to palpation of these joints. Wrists: ?Full range of motion at the wrists without pain. ?No tenderness to palpation or synovitis noted to the wrists. Elbows: Full range of motion without pain. No tenderness, weakness, swelling, increased warmth or erythema. Shoulders: Full range of motion without pain. No tenderness, weakness, swelling, increased warmth or erythema. Hips: Full range of motion without pain. Hip bursa: No tenderness to palpation Knees: ?Full range of motion. ?No tenderness, swelling, increased warmth or erythema.?No effusion or crepitations Ankles: Full range of motion. ?No tenderness, swelling, increased warmth or erythema.? Feet: ?Negative squeeze test. ?No tenderness to palpation or swelling of the MTPs. Tender points:?No tenderness to palpation of the bilateral trapezius, supraspinatus, greater trochanters, anterior costochondral junctions, bilateral gluteal areas, bilateral suboccipital muscle insertions SKIN Annular flat patches with an erythematous base, with scaling noted on the lower aspect of the left lower limb close to the ankle. Blanching Results Reviewed Results Reviewed: Laboratory Tests 07/14/23 02/15/24 08/11/24 10:04 09:07 08:54 WBC RBC Hgb Hct Plt Count ESR 23 H Sodium Potassium Chloride Carbon Dioxide BUN Creatinine Calcium Total Bilirubin AST ALT Alkaline Phosphatase Total Protein Albumin SS-A/Ro Antibody 5.2 POS A Double Strand DNA Ab 531 H 39 H 27 H Beta-2-GPI IgG Ab >112.0 H Beta-2-GPI IgA Ab >65.0 H Anti-Cardiolipin IgG Ab 62.2 H Complement C3 77 L 125 Complement C4 11 L 17 11/13/24 11:15 WBC 12.3 H RBC 4.43 Hgb 11.8 L Hct 36.1 L Plt Count 478 H D ESR Sodium 136 Potassium 3.1 L Chloride 98 Carbon Dioxide 29 BUN 20 H Creatinine 1.31 Calcium 9.3 Total Bilirubin 0.3 AST 25 ALT 20 Alkaline Phosphatase 71 Total Protein 7.7 Albumin 4.0 SS-A/Ro Antibody Double Strand DNA Ab Beta-2-GPI IgG Ab Beta-2-GPI IgA Ab Anti-Cardiolipin IgG Ab Complement C3 Complement C4 Renal biopsy 08/2023 Focal lupus nephritis class III Modified NIH activity index 3 Modified in a chronicity index 3 Electron microscopy: 2 sclerotic glomeruli were identified Assessment & Plan Assessment & Plan (1) SLE (systemic lupus erythematosus): Comment: 2009 - joint pains, rash, ? Mucosal lesions. Positive anti-DNA, SS- A. Negative SS-B, anti-almanza, anti-JUDGE CLERK. On hydroxychloroquine, Myfortec, prednisone. Myfortec tapered Off 2013. Eye exam [place] 08/20, 12/22. Stopped hydroxychlorquine in spring 2015 - ? Eye abnormality Flare of SLE summer 2015 - back on prednisone, azathioprine added - azathioprine caused skin rash and stopped 2016 Cellcept and prednisone started 2016 Prednisone tapered off, December 2020 WHO III GN developed summer 2022; Cellcept increased; high dose prednisone started CellCept switch to Myfortic 11/2023 due to diarrhea Code(s): M32.9 - Systemic lupus erythematosus, unspecified Category: Medical Qualifiers: Systemic lupus erythematosus organ involvement: glomerular disease Systemic lupus erythematosus type: unspecified Qualified Code(s): M32.14 - Glomerular disease in systemic lupus erythematosus Plan: #SLE c/b LN III Patient is a 48-year-old female with 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 Upc currently stable. We will keep medications as is until follow up labs Plan - Myfortiq 720mg bid - Prednisone 5mg bid - RTC 3 months - Labs before visit: CBC, CMP, ESR, CRP, C3, C4, dsDNA, UA, UPC (2) Rash of foot: Code(s): R21 - Rash and other nonspecific skin eruption Category: Medical Plan: #Foot Rash Patient with rash to her left lower extremity that is associated with burning and itching at nights. The rashes blanching so it is not vasculitic, it could be a shingles outbreak. Lets try acyclovir topical ointment Plan Acyclovir topical ointment (3) On mycophenolate mofetil therapy: Code(s): Z79.624 - care home (current) use of inhibitors of nucleotide synthesis Category: Medical Plan: #Long-term Use of Mycophenolate/Mycophenolic Acid Discussed with patient the benefits and risks of mycophenolate/mycophenolic acid for the management of the rheumatic condition Benefits include improved disease control and reduction of mortality Risks include GI upset especially diarrhea, anemia, leukopenia, hepatotoxicity, lymphoproliferative malignancies, PML Mycophenolate and mycophenolic acid are teratogenic and should be avoided in patients who are desiring the Monitoring: ?CBC, LFTs, BMP Recommended holding medication during and for up to 1 week after resolution of a febrile illness (4) intermediate designer (current) use of systemic steroids: Code(s): Z79.52 - intermediate designer (current) use of systemic steroids Category: Medical Plan: #Long-term Use of Steroids Discussed with patient the risks and benefits of steroid for managing the rheumatic condition Benefits include: - Reduced pain, improved mobility, increased participation in activities, and decreased progression of disease Risks include: - GI upset, potential ultrasound worsening or formation (especially in patients > 65 years old), elevated blood pressure/worsening hypertension, elevated blood sugar/worsening diabetes control, worsening of bone density, elevated lipids/worsening triglycerides, cataract formation, weight gain Recommended using proton pump inhibitors (PPIs) for the duration of steroid use to reduce the risk of gastric ulcers and vitamin-D daily to reduce the risk of osteoporosis Labs checked: ?A1c, T spot, hepatitis-B and C serologies Pneumocystis jiroveci prophylaxis: ?Patient with risk factors including steroids greater than 50 mg for more than 30 days, age greater than 60 years, and lung involvement from underlying rheumatic disease requires prophylaxis and will be given so Plan I spent 30 minutes reviewing the record and labs, taking a history, examining the patient, discussing the treatment plan and documenting in the medical record Orders: Orders Complement C3 3 Months M32.14 - Glomerular disease in systemic lupus erythematosus Anti DNA DS Antibody 3 Months M3.14 - Glomerular disease in systemic lupus erythematosus Erythrocyte Sedimentation Rate 3 Months M32.14 - Glomerular disease in systemic lupus erythematosus Protein Creatinine Ratio, Ur 3 Months M3.14 - Glomerular disease in systemic lupus erythematosus Complement C4 3 Months M3.14 - Glomerular disease in systemic lupus erythematosus C Reactive Protein 3 Months M32.14 - Glomerular disease in systemic lupus erythematosus UA w Microscopic 3 Months M3.14 - Glomerular disease in systemic lupus erythematosus Beta-2 Glycoprotein Antibody 3 Months M3.14 - Glomerular disease in systemic lupus erythematosus Cardiolipin Antibodies 3 Months M3.14 - Glomerular disease in systemic lupus erythematosus Lupus Anticoagulant Panel 3 Months M3.14 - Glomerular disease in systemic lupus erythematosus Complete Blood Count Auto Diff 3 Months M3.14 - Glomerular disease in systemic lupus erythematosus Comprehensive Met. Panel 3 Months M3.14 - Glomerular disease in systemic lupus erythematosus Medications: New mycophenolate sodium (Myfortic) 720 mg (2 x 360 mg) PO Q12H 180 tabs 1RF .14 - Glomerular disease in systemic lupus erythematosus acyclovir 5% 1 appl topical 6XD 14 days 30 grams 1RF B02.9 - Zoster without complications Coding Level of Care Code Est Pt Level 4 (35518) Complex EM visit Add On G2211 Diagnoses Systemic lupus erythematosus with glomerular disease, unspecified SLE type M3.14 Systemic lupus erythematosus organ involvement: glomerular disease Systemic lupus erythematosus type: unspecified Rash of foot R21 On mycophenolate mofetil therapy Z79.624 care home (current) use of systemic steroids Z79.52
[2024-12-15 14:11] VITALS: BP 138/80; PULSE 72; O2SAT 98; BMI 33.2
== END 2024-12-15 14:40 | disposition home or self-care (01) ==
PROVIDERS: PCP Internal Medicine; Visit Provider Student in an Organized Health Care Education/Training Program
DX: M32.14 Glomerular disease in systemic lupus erythematosus (principal); R21 Rash and other nonspecific skin eruption; Z79.624 Long term (current) use of inhibitors of nucleotide synthesis; Z79.52 Long term (current) use of systemic steroids
CPT/HCPCS: 99214; G2211

== ENCOUNTER → 2024-12-15 13:56 | Outpatient (BNVA) | payer OTHER, SELFPAY | PROVIDERS: PCP Internal Medicine; Visit Provider Student in an Organized Health Care Education/Training Program | DX: M32.14 Glomerular disease in systemic lupus erythematosus (principal); B02.9 Zoster without complications; R21 Rash and other nonspecific skin eruption; Z79.624 Long term (current) use of inhibitors of nucleotide synthesis; Z79.52 Long term (current) use of systemic steroids | CPT/HCPCS: 99212 ==

== ENCOUNTER 2025-02-06 10:15 | Outpatient (REF) | payer OTHER, SELFPAY ==
[2025-02-06 11:40] LABS: Alanine Aminotransferase 12 U/L (0-31); Albumin Level 3.9 g/dL (3.5-5.0); Alkaline Phosphatase 56 U/L (39-117); Anion Gap 11 (12-20); Aspartate Amino Transferase 19 U/L (5-31); Bilirubin Total 0.4 mg/dL (0.0-1.0); Blood Urea Nitrogen 19 mg/dL (9-16); Calcium 9.3 mg/dL (8.4-10.2); Carbon Dioxide 27 mmol/L (22-29); Chloride 104 mmol/L (96-108); Estimated Glomerular Filt Rate 56; Glucose Random 76 mg/dL (60-115); Potassium 3.9 mmol/L (3.3-5.1); Sodium 138 mmol/L (135-145); Total Protein 7.4 g/dL (6.5-8.0)
--- OUTSIDE RECORDS SUMMARY | 2025-02-06 12:03 | XMS_ITS | Encounter Summary ---
Author Organization [facility] Address [address] [address] Phone Care Team Providers Care Furniture Maker Name Role Phone Willie Main MD Primary Care Provider [phone] Encounter Details Date Type Department Care Team (Late st Contact Info) Description 10/13/2024 Office Communication [facility] [address] [phone] Kajal Domingo [address] [phone] Social History Tobacco Use Types Packs/Day Years Used Date Smoking Tobacco: Never Passive Smoke Exposure: Never Smokeless Tobacco: Never Alcohol Use Standard Drinks/Week Comments Never 0 (1 standard drink = 0.6 oz pur e alcohol) Comments Unknown Sex and Gender Information Value Date Recorded Sex Assigned at Not on file Legal Sex Female 9:31 AM EDT Gender Identity Not on file Sexual Orientation Not on file documented as of this encounter Plan of Treatment Upcoming Encounters Date Type Department Care Team (Late st Contact Info) Description 04/04/2025 9:15 AM EDT Office Visit [facility] [address] [phone] Mary Lopes ARNP [address] [address] documented as of this encounter Visit Diagnoses Not on filedocumented in this encounter Care Teams Furniture Maker Relationship Specialty Start Date End Date Willie Main MD [address] [place] [phone] PCP - General Internal Medicine 10/24/24 documented as of this encounter
--- OUTSIDE RECORDS SUMMARY | 2025-02-06 12:03 | XMS_ITS | Encounter Summary ---
Author Organization [facility] Address [address] [address] Phone Care Team Providers Care Urology Physician Name Role Phone Willie Main MD Primary Care Provider [phone] Reason for Visit * Reason Comments Chronic Kidney Disease Encounter Details Date Type Department Care Team (Latest Contact Info) Description 02/05/2025 11:45 AM EDT Office Visit [facility] [address] [phone] Mary Lopes ARNP [address] [phone] Stage 3a chronic kidney disease (HCC) (Primary Dx); SLE glomerulonephritis syndrome, WHO class III (HCC); Iron deficiency anemia, not otherwise specified; Hypertension Social History Tobacco Use Types Packs/Day Years [...] on file documented as of this encounter Last Filed Vital Signs Vital Sign Reading Time Taken Comments Blood Pressure 160/84 02/05/2025 11:52 AM EDT Pulse 86 02/05/2025 11:52 AM EDT Temperature - - Respiratory Rate - - Oxygen Saturation 97% 02/05/2025 11:52 AM EDT Inhaled Oxygen Concentration - - Weight 67.6 kg (149 lb) 02/05/2025 11:52 AM EDT Height - - Body Mass Index - - documented in this encounter Patient Instructions * Patient Instructions* Mary Lopes ARNP - 02/05/2025 11:45 AM EDT Blood pressure monitoring education: Monitor home blood pressure values after sitting for 5 minutes with back and arm support. Keep a log. Bring your log and blood pressure cuff to your next visit. documented in this encounter Plan of Treatment Upcoming Encounters Date Type Department Care Team (Late st Contact Info) Description 04/04/2025 9:15 AM EDT Office Visit [facility] [address] [phone] Mary Lopes ARNP [address] [phone] documented as of this encounter Visit Diagnoses Diagnosis Stage 3a chronic kidney disease (HCC)- Primary SLE glomerulonephritis syndrome, WHO class III (HCC) Iron deficiency anemia, not otherwise specified Hypertension documented in this encounter Care Teams Urology Physician Relationship Specialty Start Date End Date Willie Main MD [address] [place] [id number] PCP - General Internal Medicine 10/24/24 documented as of this encounter
--- OUTSIDE RECORDS SUMMARY | 2025-02-06 12:03 | XMS_ITS | Clinical Summary ---
Author Organization [address] [place] [address] [place] [phone] Phone Care Team Providers Care Software Development Specialist Name Role Phone Willie Main MD Primary Care Provider [phone] Allergies Active Allergy Reactions Criticality Noted Date Comments Amlodipine Headache,Other 08/30/2018 Azathioprine Other 12/09/2016 Other Reaction(s): Rash/Dermatitis Penicillins 07/24/2013 Medications mirtazapine (REMERON) 7.5 mg tablet TAKE 1 TABLET BY MOUTH EVERY NIGHT AT BEDTIME 90 tablet 09/19/20 24 Active amLODIPine (NORVASC) 5 mg tablet Take 1 tablet (5 mg total) by mouth 1 (one) time each day. 06/09/20 23 Active cetirizine (ZyrTEC) 5 mg tablet Take 1 tablet (5 mg total) by mouth 1 (one) time each day. 02/11/20 24 Active cholecalcifero l (VITAMIN D-3) 50 mcg (2,000 unit) capsule Take 1 capsule (2,000 Units total) by mouth 1 (one) time each day. 08/26/20 23 Active clotrimazole-b etamethasone (LOTRISONE) 1-0.05 % cream APPLY TO AFFECTED SKIN ON FEET TWICE DAILY 08/07/20 24 Active cyclobenzaprin e (FLEXERIL) 10 mg tablet Take 0.5-1 Tablets by mouth 2 times daily as needed for Muscle spasms. Medication may cause drowsiness, do not drive/operate machinery while taking 06/20/20 24 Active gabapentin (NEURONTIN) 100 mg capsule TAKE 1 CAPSULE BY MOUTH AT BEDTIME 07/06/20 24 Active hydroCHLOROthi azide (HYDRODIURIL) 25 mg tablet 08/09/20 23 Active MULTIVITAMIN ORAL Take by mouth. 12/18/19 21 Active mycophenolate (CELLCEPT) 500 mg tablet Take 1 tablet (500 mg total) by mouth 5 (five) times a day. 08/15/20 21 Active potassium chloride 20 mEq tablet extended release Take 1 Tablet by mouth 2 times daily for 5 days. 12/15/19 24 Active predniSONE (DELTASONE) 10 mg tablet TAKE 5 TABLETS (50 MG TOTAL) BY MOUTH 1 (ONE) TIME EACH DAY 06/20/20 24 Active SUMAtriptan (IMITREX) 50 mg tablet Take 1 tablet (50 mg total) by mouth every 2 hours as needed. 12/18/19 21 Active omeprazole (PriLOSEC) [address] capsule Take 1 capsule (20 mg total) by mouth 1 (one) time each day. Do not crush or chew. 30 capsule 3 10/23/20 24 Active amLODIPine (NORVASC) 10 mg tablet TAKE 1 TABLET BY MOUTH EVERY DAY 30 tablet 01/12/20 25 Active topiramate (TOPAMAX) 50 mg tablet TAKE 1 TABLET BY MOUTH EVERY DAY 7 tablet 02/06/20 25 Active clotrimazole (LOTRIMIN) 1 % creamIndicatio ns:Cellulitis of left lower extremity Apply topically 2 (two) times a day. 30 g 2 09/20/20 24 025 amLODIPine (NORVASC) 10 mg tablet TAKE 1 TABLET BY MOUTH EVERY DAY 30 tablet 12/14/19 25 025 Discontinued topiramate (TOPAMAX) 50 mg tablet TAKE 1 TABLET BY MOUTH EVERY DAY 30 tablet 12/20/19 25 025 Discontinued topiramate (TOPAMAX) 50 mg tablet TAKE 1 TABLET BY MOUTH EVERY DAY 7 tablet 01/30/20 25 025 Discontinued Active Problems Problem Noted Date Diagnosed Date SLE (systemic lupus erythematosus) 09/24/2024 Overview (09/24/2024): 2010 - joint pains, rash, ? Mucosal lesions. Positive anti-DNA, SS- A. 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 On hydroxychloroquine, Myfortec, prednisone. Myfortec tapered Off 2013. Eye exam OK 08/20, 12/22. Stopped hydroxychlorquine in spring 2015 - ? Eye abnormality Flare of SLE summer 2015 - back on prednisone, azathioprine added - azathioprine caused skin rash and stopped 2016 Cellcept and prednisone started 2016 Prednisone tapered off, December 2020 Mass of upper outer quadrant of right breast 05/2022 COVID-19 03/07/2021 Overview (09/24/2024): DX: 03/03/21 Hyperlipidemia 12/19/2020 Instability of right shoulder joint 08/15/2020 Tendinitis of right rotator cuff 08/15/2020 Episode of recurrent major depressive disorder 1 01/05/2017 Essential hypertension 08/18/2017 Eczema 05/12/2017 Migraine without aura and wi thout status migrainosus, not intractable 01/16/2016 Overview (09/24/2024): Follows with neurology. GERD (gastroesophageal reflux disease) 5 Overview (09/24/2024): Seen by ENT and had upper airway endoscopy - 01/20. 02/25/2018: Upper GI endoscopy normal on chronic treatment with PPI and NSAIDs. Immunizations Name Administration Dates Next Due Hepatitis A-Hepatitis B Adul t (Twinrix) 18yo and older 06/10/2015,02/15/2015,02/07/2014 Influenza Quadravalent, MDCK , 0.5ml, preservative free (Flucelvax) 6mo and older 08/26/2022,07/24/2021,09/13/2019,09/09 Influenza Quadravalent, MDCK , 0.5ml, with preservative (Flucelvax) 6mo and older 07/29/2017 Influenza trivalent, with pr eservative (Fluzone; Afluria) 6mo and older 08/31/2016,08/07/2015,09/11/2014,07/24 PPD Test 11/20/2015 Pneumococcal polysaccharide 23 valent (Pneumovax 23) 2yo and older 08/28/2013 Tdap Tetanus diptheria acell ular pertussis (Boostrix; Adacel) 7yo and older 09/11/2014 Surgical History Surgery Date Site/Laterality Comments OTHER SURGICAL HISTORY PROCEDURE: DESTRUCTION OF EXTERNAL HEMORRHOIDS TUBAL LIGATION PROCEDURE: HISTORICAL TUBAL LIGATION UPPER GASTROINTESTINAL ENDOSCOPY 02/25/2018 PROCEDURE: HI UPPER GI ENDOSCOPY PERFORMED; COMMENT: Visually normal on chronic treatment with NSAIDs and PPIs; duodenal biopsies: negative. PARTIAL HYSTERECTOMY 09/2018 N/A PROCEDURE: HI SUPRACERVICAL ABDL HYSTER W/WO RMVL TUBE OVARY Medical History Medical History Date Comments SLE (systemic lupus erythema tosus) ([facility]) DX:SLE (systemic lupus erythematosus) ([facility]); COMMENT: 2009 Anemia DX:Anemia Hypertension DX:Hypertension; COMMENT: le GERD (gastroesophageal reflux disease) 01/29/2015 DX:GERD (gastroesophageal reflux disease) H/O vitamin D deficiency 09/29/2016 DX:H/O vitamin D deficiency Endometritis 02/20/2015 DX:Endometritis; COMMENT: Doxycline 100MG BID X 21 days Fibroid uterus 03/15/2015 DX:Fibroid uteru s Family History Medical History Relation Name Comments Hypertension Father thyroid problem s Hypertension Mother Diabetes Mother's side 1 grandmother Prostate cancer Mother's side 2 grandfath er Strabismus Sister Breast cancer Neg Hx Colon cancer Neg Hx Ovarian cancer Neg Hx Relation Name Status Comments Father Alive Mother Alive Mother's side 1 Mother's side 2 Sister Social History Tobacco Use Types Packs/Day Years Used Date Smoking Tobacco: Never Smokeless Tobacco: Never Alcohol Use Standard Drinks/Week Comments No 0 (1 standard drink = 0.6 oz pur e alcohol) Comments Unknown Sex and Gender Information Value Date Recorded Sex Assigned at Not on file Legal Sex Female 10:45 PM EST Gender Identity Not on file Sexual Orientation Not on file Obstetrics History Last Filed Vital Signs Vital Sign Reading Time Taken Comments Blood Pressure 150/85 09/20/2024 1:11 PM EST Pulse 103 09/20/2024 1:11 PM EST Temperature 36.7 ??C (98.1 ??F) 09/20/2024 1:11 PM ES T Respiratory Rate - - Oxygen Saturation 99% 09/20/2024 1:11 PM EST Inhaled Oxygen Concentration - - Weight 64.4 kg (142 lb) 06/20/2024 11:00 AM EDT Height 142.2 cm (4' 8 ) 05/10/2024 9:46 AM EDT Body Mass Index 31.84 05/10/2024 9:46 AM EDT Plan of Treatment Upcoming Encounters Date Type Department Care Team (Young st Contact Info) Description 08/16/2025 11:00 AM EDT [facility]ointment [facility] [address] [phone] Health Maintenance Due Date Last Done Comments Cervical Cancer Screening: Pap Smear 1996 Pneumococcal Vaccine: Pediatrics (0 to 5 Years) and At-Risk Patients (6 to 64 Years) (2 of 2 - PCV) 08/28/2014 08/28/2013 COVID-19 Vaccine (3 - Pfizer risk series) 09/17/2021 08/20/2021, 07/30/2021 Colorectal Cancer Screening: Colonoscopy 10/17/2022 Depression Screening 10/17/2022 HIV Screening 10/17/2022 Medicare Annual Wellness Visit 10/17/2022 Social Influencers of Health Screening 10/17/2022 Influenza Vaccine (#1) 2024 , 07/24/2021, 09/13/2019, Additional history exists DTaP,Tdap,and Td Vaccines (2 - Td or Tdap) 09/11/2024 09/11/2014 Hypertension/CHF/CAD Annual BMP Blood Test 2024 2023 Breast Cancer Screening 08/16/2026 08/16/20 24, 09/23/2023, 11/11/2021, Additional history exists Cholesterol Screening (Lipid Panel) 11/16/2027 11/16/2022 Hepatitis A Vaccines Aged Out 06/10/2015, 02/15/2015, 02/07/2014 No longer eligible based on patient's age to complete this topic Hepatitis B Vaccines Completed 06/10/2015, 02/15/2015, 02/07/2014 Hepatitis C Screening Completed 07/05/2019 HIB Vaccines Aged Out No longer eligi ble based on patient's age to complete this topic HPV Vaccines Aged Out No longer eligi ble based on patient's age to complete this topic IPV Vaccines Aged Out No longer eligi ble based on patient's age to complete this topic MMR Vaccines Aged Out No longer eligi ble based on patient's age to complete this topic Meningococcal ACWY Vaccine Aged Out N o longer eligible based on patient's age to complete this topic Meningococcal B Vacine Aged Out No lo nger eligible based on patient's age to complete this topic RSV Immunization Patients Under 20 months Aged Out No longer eligible based on patient's age to complete this topic Varicella Vaccines Aged Out No longer eligible based on patient's age to complete this topic Procedures Procedure Name Priority Date/Time Associated Diagnosis Comments ANNUAL BMP BLOOD TEST Routine 2023 [facility] SCREENING DIGITAL Routine 09/23/2023 11:40 AM EST Encounter for screening mammogram for malignant neoplasm of breast LIPID PANEL Routine 11/16/2022 HEPATITIS C SCREENING Routine 07/05/2019 from Last 3 Months or Most Recently Relevant to Health Maintenance Results * Annual BMP Blood Test (2023) Annual BMP Blood Test ABSTRACTED us Historical Provider HEALTH MAINTENANCE Final Result * [facility] SCREENING DIGITAL (09/23/2023 11:40 AM EST) Anatomical Region Laterality Modality Mammography 09/23/2023 10:3 1 AM EST Narrative 09/23/2023 11:40 AM EST [facility] Diagnostic Imaging Department [address] [place], [place] [id number] Patient: ??CHRISTINA RICKETTS ?/Age/Sex: 1975 - 47 - F Unit#: ??[id number] ? Location/Status: ??SPDIMAM/REG CLI ? Mnemonic/Ordering Site: ??DIGSC/SPMAM Ordering Physician: ??WILLIE MAIN MD [facility] Screening Digital - 09/23/23 - 1045 Report Status:Signed EXAM: [facility] Screening Digital EXAM DATE AND TIME: 09/23/2023 10:46 AM HISTORY: ??Annual screening COMPARISON: ??Multiple exams dating back to 2019 TECHNIQUE: Bilateral digital breast tomosynthesis was performed in the CC and MLO projections. Computer aided detection with Zwipe 3D 3.1 was employed. TISSUE DENSITY: c. The breasts are heterogeneously dense, which may obscure small masses. FINDINGS: Cluster of microcalcifications in the upper outer right breast seen on the CC and MLO view. ??No associated mass or architectural distortion. The left breast is unremarkable. IMPRESSION: Cluster of microcalcifications in the upper outer right breast seen on the CC and MLO view. ??Recommend diagnostic mammogram of the right breast with magnification CC, MLO, and true lateral views. BI-RADS: ??Category 0: Incomplete - Need Additional Imaging Evaluation Dictating Physician: ??ADALGISA STINSON MD Electronically Signed by: ??ADALGISA STINSON MD Dic Date/Time: ??09/23/23 1137 Sign date/Time: ??09/23/23 1140 Procedure Note Adalgisa Stinson MD - 12/14/2023 [facility] Diagnostic Imaging Department [address] [place] [id number] Patient: CHRISTINA RICKETTS /Age/Sex: 1975 - 47 - F Unit#: [id number] Location/Status: SPDIMAM/REG CLI Mnemonic/Ordering Site: [facility] [place] Ordering Physician: WILLIE MAIN MD [facility] Screening Digital - 09/23/23 - 1045 Report Status:Signed EXAM: [facility] Screening Digital EXAM DATE AND TIME: 09/23/2023 10:46 AM HISTORY: Annual screening COMPARISON: Multiple exams dating back to 2019 TECHNIQUE: Bilateral digital breast tomosynthesis was performed in the CCand MLO projections. Computer aided detection with Zwipe 3D 3.1was employed. TISSUE DENSITY: c. The breasts are heterogeneously dense, which mayobscure small masses. FINDINGS: Cluster of microcalcifications in the upper outer right breast seen on theCC and MLO view. No associated mass or architectural distortion. The left breast is unremarkable. IMPRESSION: Cluster of microcalcifications in the upper outer right breast seen on theCC and MLO view. Recommend diagnostic mammogram of the right breast with magnification CC, MLO, and true lateral views. BI-RADS: Category 0: Incomplete - Need Additional Imaging Evaluation Dictating Physician: ADALGISA STINSON MD Electronically Signed by: ADALGISA STINSON MD Dic Date/Time: 09/23/23 1137 Sign date/Time: 09/23/23 1140 us Willie Main MD IMG BI PROCEDURES Final Result * (ABNORMAL) Lipid panel (11/16/2022) LDL/HDL Ratio 3 0 - 4 Triglycerides 177(A) 0 - 150 mg/dL Cholesterol 167 0 - 200 mg/dL HDL 60 >=40 mg/dL LDL Cholesterol 72 0 - 100 mg/dL Blood Venous blood specimen / Unknown us Historical Provider LAB BLOOD ORDERABLES Dania l Result * Hepatitis C Screening (07/05/2019) Hepatitis C Screening ABSTRACTED us Historical Provider HEALTH MAINTENANCE Final Result from Last 3 Months or Most Recently Relevant to Health Maintenance Insurance [facility] MEDIC[facility] Member Subscriber Plan / Payer (Ef fective 2024-Present) Name:Christina Ricketts Relation to Subscriber:Self Name:Christina Ricketts Payer ID:[id number] Group ID:[id number] Type:Not on file Address: [place] [address] [address] [phone] Care Teams Software Development Specialist Relationship Specialty Start Date End Date Willie Main MD [address] [place] [phone] PCP - General Internal Medicine 08/23/19
--- OUTSIDE RECORDS SUMMARY | 2025-02-06 12:03 | XMS_ITS | Clinical Summary ---
Author Organization [facility] Address [address] [facility] [place] [address] Phone Care Team Providers Care Legal Examiner Name Role Phone Willie Main MD Primary Care Provider [phone] Allergies Active Allergy Reactions Criticality Noted Date Comments Azathioprine Other (see comments) 12/09/2016 Penicillins 07/24/2013 Medications azelastine (OPTIVAR) 0.05 % ophthalmic solution Administer 1 drop into both eyes 07/08/20 23 Active mirtazapine (REMERON) 7.5 MG tablet 08/09/20 23 Active topiramate (TOPAMAX) 50 MG tablet Take 50 mg by mouth 1 (one) time each day 06/09/20 23 Active omeprazole (PriLOSEC) [address] capsule Take 20 mg by mouth 1 (one) time each day 11/23/19 24 Active predniSONE (DELTASONE) 20 MG tablet Take 20 mg by mouth 1 (one) time each day Active potassium chloride (K-TAB) 20 MEQ CR tablet Take 1 Tablet by mouth 2 times daily for 5 days. 12/15/19 24 Active Cholecalciferol (Vitamin D3) 50 MCG (1999) tabletIndications:Vit tariq D deficiency, not otherwise specified Take 2,000 Units by mouth 1 (one) time each day 30 tablet 11 01/27/20 25 026 Active mycophenolate (MYFORTIC) 360 MG EC tablet Take 720 mg by mouth every 12 (twelve) hours 01/28/20 25 Active losartan (COZAAR) 50 MG tablet Take 50 mg by mouth 1 (one) time each day 01/11/20 25 Active fluticasone (FLONASE) 50 MCG/ACT nasal spray Administer 1 spray into each nostril 1 (one) time each day 01/04/20 25 Active ferrous sulfate (Fe Tabs) 325 (65 Fe) MG EC tabletIndications:Iro n deficiency anemia, not otherwise specified Take 1 tablet (325 mg total) by mouth 1 (one) time each day with breakfast Do not crush, chew, or split. 90 tablet 3 02/06/20 25 026 Active amLODIPine (NORVASC) 5 MG tabletIndications:Hyp ertension Take 1 tablet (5 mg total) by mouth 1 (one) time each day 90 tablet 3 02/06/20 026 Active amLODIPine (NORVASC) 5 MG tabletIndications:Hyp ertension Take 10 mg by mouth 1 (one) time each day 06/09/20 025 Disconti nued(Med List Maintena nce) hydroCHLOROthiazide 25 MG tabletIndications:Hyp ertension Take 50 mg by mouth 1 (one) time each day 08/09/20 025 Disconti nued(Med List Maintena nce) lisinopril 10 MG tabletIndications:Sta ge 3a chronic kidney disease (HCC),SLE glomerulonephritis syndrome, WHO class III (HCC),Essential hypertension,Persiste nt proteinuria Take 1 tablet (10 mg total) by mouth 1 (one) time each day 90 tablet 3 11/27/19 025 Disconti nued(Med List Maintena nce) Active Problems Problem Noted Date Diagnosed Date Iron deficiency anemia, not otherwise specified 02/05/2025 Stage 3a chronic kidney disease 06/13/2024 SLE glomerulonephritis syndrome, WHO class III 0 04/12/2024 Proteinuria 08/25/2023 Recurrent and persistent hem aturia with minimal change lesion 08/25/2023 Hypertension 08/18/2017 08/25/2023 Resolved Problems Problem Noted Date Diagnosed Date Resolved Date Systemic lupus erythematosus 08/25/2023 08/25/2023 08/25/2023 Overview (08/25/2023): 2009 - joint pains, rash, ? Mucosal lesions. Positive anti-DNA, SS- A. Negative SS-B, anti-almanza, anti-VP [employer]FORMATION [employer]CHNOLOGY. On hydroxychloroquine, Myfortec, prednisone. Myfortec tapered Off 2013. Eye exam OK 08/20, 12/22. Stopped hydroxychlorquine in spring 2015 - ? Eye abnormality Flare of SLE summer 2015 - back on prednisone, azathioprine added - azathioprine caused skin rash and stopped 2016 Cellcept and prednisone started 2016 Prednisone tapered off, December 2020 Lump in the right breast, up per outer quadrant 09/14/2022 08/25/2023 08/25/2023 COVID-19 03/07/2021 08/25/2023 08/25/2023 Overview (08/25/2023): DX: 03/03/21 Hyperlipidemia 12/19/2020 08/25/2023 08/25/2023 Instability of right shoulder joint 08/15/202008/2508/25/2023 Other shoulder lesion of right shoulder 08/15/2020 1 08/25/2023 Recurrent major depressive episodes 11/04/201708/2508/25/2023 Eczema 05/12/2017 08/25/2023 08/25/2023 Migraine without aura, not refractory 01/16/201608/25/2023 Overview (08/25/2023): Follows with neurology. Gastroesophageal reflux disease 01/29/2015 08/25/2023 Overview (08/25/2023): Seen by ENT and had upper airway endoscopy - 01/20. 02/25/2018: Upper GI endoscopy normal on chronic treatment with PPI and NSAIDs. Encounters Date Type Department Care Team Description 02/05/2025 11:45 AM EDT Office Visit [facility] [address] [phone] Mary Lopes ARNP Stage 3a chronic kidney disease (HCC) (Primary Dx); SLE glomerulonephritis syndrome, WHO class III (HCC); Iron deficiency anemia, not otherwise specified; Hypertension 01/19/2025 Orders Only [facility] [address] [phone] Kevon Boston MD SLE glomerulonephritis syndrome, WHO class III (HCC) 11/21/2024 3:15 PM EST Office Visit [facility] [address] [address] Kevon Boston MD Stage 3a chronic kidney disease (HCC); SLE glomerulonephritis syndrome, WHO class III (HCC); Essential hypertension; Persistent proteinuria from Last 3 Months Immunizations Name Administration Dates Next Due Hep A / Hep B 06/10/2015,02/15/2015,02/07/2014 Influenza, MDCK, PF, Quadrivalent 2021,07/24/2021,09/13/2019,09/09 Influenza, MDCK, Quadrivalen t, with preservative 07/29/2017 Influenza, Unspecified 08/31/2016,2014,09/11/2014,07/24 PPD Test 11/20/2015 Pfizer SARS-COV-2 08/20/2021,07/30/2021 Pneumococcal Polysaccharide 08/28/2013 Tdap 09/11/2014 Social History Tobacco Use Types Packs/Day Years [...] on file Sexual Orientation Not on file Last Filed Vital Signs Vital Sign Reading Time Taken Comments Blood Pressure 160/84 02/05/2025 11:52 AM EDT Pulse 86 02/05/2025 11:52 AM EDT Temperature - - Respiratory Rate - - Oxygen Saturation 97% 02/05/2025 11:52 AM EDT Inhaled Oxygen Concentration - - Weight 67.6 kg (149 lb) 02/05/2025 11:52 AM EDT Height - - Body Mass Index - - Plan of Treatment Upcoming Encounters Date Type Department Care Team (Late st Contact Info) Description 04/04/2025 9:15 AM EDT Office Visit [facility] [address] [phone] Mary Lopes ARNP [address] [phone] Health Maintenance Due Date Last Done Comments Pneumococcal Vaccine: Pediat rics (0 to 5 Years) and At-Risk Patients (6 to 64 Years) (2 of 2 - PCV) 08/28/2014 08/28/2013 Hepatitis B Vaccine (4 of 4 - Hep B Twinrix 4-dose series) 02/07/2015 06/10/2015, 02/15/2015, 02/07/2014 Influenza Vaccine (#1) 2024 2, 07/24/2021, 09/13/2019, Additional history exists Colorectal Cancer Screening: Annual FOBT 2024 Colorectal Cancer Screening: Colonoscopy 2024 Colorectal Cancer Screening: Sigmoidoscopy 2024 Procedures Procedure Name Priority Date/Time Associated Diagnosis Comments ROSSY + DNA/DS + SJOGREN'S Routine 01/23/2025 10:04 AM EDT PTH, INTACT Routine 01/23/2025 10:04 AM EDT SLE glomerulonephritis syndrome, WHO class III (HCC) VITAMIN D 25 HYDROXY Routine 01/23/2025 10:04 AM EDT SLE glomerulonephritis syndrome, WHO class III (HCC) URINE ALBUMIN / CREATININE RATIO Routine 01/23/2025 10:04 AM EDT SLE glomerulonephritis syndrome, WHO class III (HCC) PROTEIN / CREATININE RATIO, URINE Routine 01/23/2025 10:04 AM EDT SLE glomerulonephritis syndrome, WHO class III (HCC) URINALYSIS WITH MICROSCOPIC Routine 01/23/2025 10:04 AM EDT SLE glomerulonephritis syndrome, WHO class III (HCC) BASIC METABOLIC PANEL Routine 01/23/2025 10:04 AM EDT SLE glomerulonephritis syndrome, WHO class III (HCC) CBC AND DIFFERENTIAL Routine 01/23/2025 10:04 AM EDT SLE glomerulonephritis syndrome, WHO class III (HCC) URIC ACID Routine 01/23/2025 10:04 AM EDT SLE glomerulonephritis syndrome, WHO class III (HCC) FERRITIN Routine 01/23/2025 10:04 AM EDT SLE glomerulonephritis syndrome, WHO class III (HCC) IRON PANEL (FE, TIBC, TSAT) Routine 01/23/2025 10:04 AM EDT SLE glomerulonephritis syndrome, WHO class III (HCC) PHOSPHATE ( PHOSPHORUS) Routine 01/23/2025 10:04 AM EDT SLE glomerulonephritis syndrome, WHO class III (HCC) MAGNESIUM Routine 01/23/2025 10:04 AM EDT SLE glomerulonephritis syndrome, WHO class III (HCC) ANTI-DNA ANTIBODY, DOUBLE-STRANDED Routine 01/23/2025 10:04 AM EDT SLE glomerulonephritis syndrome, WHO class III (HCC) ALANIS W/REFLEX Routine 01/23/2025 10:04 AM EDT SLE glomerulonephritis syndrome, WHO class III (HCC) C4 COMPLEMENT Routine 01/23/2025 10:04 AM EDT SLE glomerulonephritis syndrome, WHO class III (HCC) C3 COMPLEMENT Routine 01/23/2025 10:04 AM EDT SLE glomerulonephritis syndrome, WHO class III (HCC) CYSTATIN C WITH EGFR Routine 01/23/2025 10:04 AM EDT SLE glomerulonephritis syndrome, WHO class III (HCC) MICROSCOPIC EXAMINATION - DO NOT USE Routine 01/23/2025 10:04 AM EDT from Last 3 Months Results * (ABNORMAL) Cystatin C w/GFR (01/23/2025 10:04 AM EDT) Cystatin C 1.19(H) 0.60 - 1.00 mg/L [facility] eGFR by Cystatin C 60 >59 mL/min/1.7 3 [facility] 01/23/2025 10:0 4 AM EDT 01/23/2025 Kevon Boston MD LAB BLOOD ORDERABLES Final Result [facility] [place] [address] * (ABNORMAL) ROSSY + DNA/DS + SJOGREN'S (01/23/2025 10:04 AM EDT) Pathologist [facility] VP [employer]CHNOLOG[employer] Antibodies 0.5 0.0 - 0.9 AI [facility] ALMANZA ANTIBODIES <0.2 0.0 - 0.9 AI [facility] [place] Sjogren's Anti-SS-A 4.9(H) 0.0 - 0.9 AI [facility] Sjogren's Anti-SS-B <0.2 0.0 - 0.9 [facility] See below: Comment [facility] [place] Comment: Autoantibody ? Disease Association ?Condition ?Frequency ? --------- Antinuclear Antibody, ?SLE, mixed connective Direct (ALANIS-D) ? tissue diseases ? --------- dsDNA ?SLE ?40 - 60% ? --------- Chromatin ?Drug induced SLE ?90% ? SLE ?48 - 97% ? --------- SSA (Ro) ? SLE ?25 - 35% ? Sjogren's Syndrome ? 40 - 70% ? Lupus ? 100% ? --------- SSB (La) ? SLE ? 10% ? Sjogren's Syndrome ?30% ?--------- Sm (anti-Almanza) ?SLE ?15 - 30% ?--------- VP [employer]FORMATION TECHNOLOGY ?Mixed Connective Tissue ? Disease ? 95% (U1 nRNP, ?SLE ?30 - 50% anti-ribonucleoprotein) ??Polymyositis and/or ? Dermatomyositis ? 20% ? --------- Scl-70 (antiDNA ?Scleroderma (diffuse) ?20 - 35% topoisomerase) ? Crest ? 13% ? --------- Alicia-1 ? Polymyositis and/or ? Dermatomyositis ?20 - 40% ? --------- Centromere B ? Scleroderma - Crest ? variant ? 80% 01/23/2025 10:0 4 AM EDT 01/23/2025 us Kevon Boston MD LAB BLOOD ORDERABLES Final Result [facility] [address] [place] [address] * (ABNORMAL) Microscopic Examination (01/23/2025 10:04 AM EDT) WBC, Urine 0-5 0 - 5 /hpf [facility] RBC, Urine 3-10(A) 0 - 2 /hpf [facility] Squamous Epithelial, Urine >10(A) 0 - 10 /hpf [facility] Casts None seen None seen /lpf [facility] Bacteria, Urine Few None seen/Few [facility] 01/23/2025 10:0 4 AM EDT 01/23/2025 us Kevon Boston MD LAB MICROBIOLOGY - GE NERAL ORDERABLES Final Result Performing Organization Address [facility] Co de Phone Number [facility] [address] [place] [address] * (ABNORMAL) ALANIS W/Reflex (01/23/2025 10:04 AM EDT) ALANIS Positive(A) Negative [facility] 01/23/2025 10:0 4 AM EDT 01/23/2025 us Kevon Boston MD LAB BLOOD ORDERABLES Final Result Performing Organization Address City/[facility]/ZIP Co de Phone Number [facility] [address] [place] [address] * (ABNORMAL) Iron Panel (Fe, TIBC, TSAT) (01/23/2025 10:04 AM EDT) Pathologist [facility] TIBC 384 250 - 450 ug/dL [facility] UIBC 355 131 - 425 ug/dL [facility] Iron 29 27 - 159 ug/dL [facility] Iron Saturation (TSat) 8(LL) 15 - 55 % [facility] Blood (Blood, Venous) 01/23/2025 10:04 AM EDT 01/23/2025 Kevon Boston MD LAB BLOOD ORDERABLES Final Result [facility] [address] [place] [address] * Protein, Total, Random Urine w/Creatinine (Protein/Creat Ratio) (01/23/2025 10:04 AM EDT) [facility] Creatinine, Ur 332.2 Not Estab. mg/dL [facility] Protein, Ur 24.5 Not Estab. mg/dL [facility] Urine Protein/Creatin ine Ratio 74 0 - 200 mg/g creat [facility] Urine (Urine, Clean Catch) 01/23/2025 10:04 AM EDT 01/23/2025 us Kevon Boston MD LAB URINE ORDERABLES Final Result [facility] [place] [address] [place] [address] * Urine Albumin / Creatinine Ratio (01/23/2025 10:04 AM EDT) [facility] Albumin, Urine 42.4 Not Estab. ug/mL [facility] Albumin/Creatin ine Ratio 13 0 - 29 mg/g creat [facility] Comment: ? Normal: ?0 - ??29 ? Moderately increased: 30 - 300 ? Severely increased: ? >300 Urine (Urine, Clean Catch) 01/23/2025 10:04 AM EDT 01/23/2025 Kevon Boston MD LAB URINE ORDERABLES Final Result [facility] [address] [place] [address] * (ABNORMAL) Anti-DNA antibody, double-stranded (01/23/2025 10:04 AM EDT) [facility] DS DNA Ab 29(H) 0 - 9 IU/mL [facility] Comment: ? Negative ?<5 ? Equivocal ??5 - 9 ? Positive ?>9 Blood (Blood, Venous) 01/23/2025 10:04 AM EDT 01/23/2025 Kevon Boston MD LAB BLOOD ORDERABLES Final Result Performing Organization Address City/[facility]/ZIP Co de Phone Number [facility] [address] [place] [address] * (ABNORMAL) Vitamin D 25 Hydroxy (01/23/2025 10:04 AM EDT) Vitamin D, 25-OH, Total 27.4(L) 30.0 - 100.0 ng/mL [facility] Comment: Vitamin D deficiency has been defined by the [place] of Medicine and an Endocrine Society practice guideline as a level of serum 25-OH vitamin D less than 20 ng/mL (1,2). The Endocrine Society went on to further define vitamin D insufficiency as a level between 21 and 29 ng/mL (2). 1. IOM ([place] of Medicine). 2010. Dietary reference ?? intakes for calcium and D. [place]: The ?? National Populus.org Press. 2. See MF, Russel NC, Alonso MON, et al. ?? Evaluation, treatment, and prevention of vitamin D ?? deficiency: an Endocrine Society clinical practice ?? guideline. JCEM. 2010; 96(7):1911-30. Blood (Blood, Venous) 01/23/2025 10:04 AM EDT 01/23/2025 Kevon Boston MD LAB BLOOD ORDERABLES Final Result [facility] [address] [place] [address] * (ABNORMAL) Urinalysis with microscopic (01/23/2025 10:04 AM EDT) Specific [place], Urine 1.027 1.005 - 1.030 [facility] [phone] pH Urine 5.5 5.0 - 7.5 [facility] Color, Urine Yellow Yellow [facility] Appearance Urine Clear [facility] [place] WBC Esterase Urine Negative Negative [facility] [phone] Protein, Ur 1+(A) Negative/Tra ce [facility] [phone] Glucose, Ur Negative Negative [facility] [phone] Ketones, Urine Negative Negative [facility] [place] [phone] Blood Urine Trace(A) Negative [facility] Bilirubin Urine Negative Negative [facility] [place] Urobilinogen Urine 0.2 0.2 - 1.0 mg/dL [facility] Nitrite, Urine Negative Negative [facility] [place] Microscopic Examination See below: [facility] [place] [phone] Comment:Microscopic was jemma cated and was performed. Urine (Urine, Clean Catch) 01/23/2025 10:04 AM EDT 01/23/2025 us Kevon Boston MD LAB URINE ORDERABLES Final Result [facility] [address] [place] [address] * (ABNORMAL) CBC and Differential (01/23/2025 10:04 AM EDT) WBC 11.3(H) 3.4 - 10.8 x10E3/uL [facility] RBC 3.88 3.77 - 5.28 x10E6/uL [facility] Hemoglobin 10.4(L) 11.1 - 15.9 g/dL [facility] Hematocrit 31.8(L) 34.0 - 46.6 % [facility] MCV 82 79 - 97 fL [facility] MCH 26.8 26.6 - 33.0 pg [facility] MCHC 32.7 31.5 - 35.7 g/dL [facility] RDW 15.3 11.7 - 15.4 % [facility] Platelets 374 150 - 450 x10E3/uL [facility] Neutrophils Relative 47 Not Estab. % [facility] Lymphocytes Relative 43 Not Estab. % [facility] Monocytes 9 Not Estab. % [facility] Eosinophils Relative 1 Not Estab. % [facility] Basophils Relative 0 Not Estab. % [facility] Neutrophils Absolute 5.3 1.4 - 7.0 x10E3/uL [facility] Lymphocytes Absolute 4.8(H) 0.7 - 3.1 x10E3/uL [facility] Monocytes Absolute 1.0(H) 0.1 - 0.9 x10E3/uL [facility] Eosinophils Absolute 0.1 0.0 - 0.4 x10E3/uL [facility] Basophils Absolute 0.1 0.0 - 0.2 x10E3/uL [facility] Immature Granulocytes 0 Not Estab. % [facility] Immature Grans (Absolute) 0.0 0.0 - 0.1 x10E3/uL [facility] Blood (Blood, Venous) 01/23/2025 10:04 AM EDT 01/23/2025 Narrative [facility] - 01/26/2025 4:05 AM EDT Specimen Comment: A courtesy copy of this report has been sent to [phone] us Kevon Forrestm MD LAB BLOOD ORDERABLES Final Result [facility] [address] [place] [address] * C3 Complement (01/23/2025 10:04 AM EDT) C3 Complement 113 82 - 167 mg/dL [facility] Blood (Blood, Venous) 01/23/2025 10:04 AM EDT 01/23/2025 Kevon Boston MD LAB BLOOD ORDERABLES Final Result Performing Organization Address City/[facility]/ZIP Co de Phone Number [facility] [address] [place] [address] * C4 Complement (01/23/2025 10:04 AM EDT) C4 Complement 15 12 - 38 mg/dL [facility] Blood (Blood, Venous) 01/23/2025 10:04 AM EDT 01/23/2025 us Kevon Boston MD LAB BLOOD ORDERABLES Final Result Performing Organization Address City/[facility]/ZIP Co de Phone Number [facility] [address] [place] [address] * Uric Acid (01/23/2025 10:04 AM EDT) Uric Acid 4.2 2.6 - 6.2 mg/dL [facility] Comment:Therapeutic target f or gout patients: <6.0 Blood (Blood, Venous) 01/23/2025 10:04 AM EDT 01/23/2025 us Kevon Boston MD LAB BLOOD ORDERABLES Final Result Performing Organization Address City/[facility] Co de Phone Number [facility] [address] [place] [address] * Phosphorus (01/23/2025 10:04 AM EDT) Phosphorus 4.0 3.0 - 4.3 mg/dL [facility] Blood (Blood, Venous) 01/23/2025 10:04 AM EDT 01/23/2025 us Kevon Boston MD LAB BLOOD ORDERABLES Final Result Performing Organization Address [facility] de Phone Number [facility] [address] [place] [address] * PTH, Intact (01/23/2025 10:04 AM EDT) PTH 30 15 - 65 pg/mL [facility] Blood (Blood, Venous) 01/23/2025 10:04 AM EDT 01/23/2025 us Kevon Boston MD LAB BLOOD ORDERABLES Final Result Performing Organization Address [facility] de Phone Number [facility] [address] [place] [address] * Magnesium (01/23/2025 10:04 AM EDT) Magnesium 1.8 1.6 - 2.3 mg/dL [facility] Blood (Blood, Venous) 01/23/2025 10:04 AM EDT 01/23/2025 us Kevon Boston MD LAB BLOOD ORDERABLES Final Result Performing Organization Address [facility] Co de Phone Number [facility] [address] [place] [address] * (ABNORMAL) Ferritin (01/23/2025 10:04 AM EDT) Ferritin 13(L) 15 - 150 ng/mL [facility] Blood (Blood, Venous) 01/23/2025 10:04 AM EDT 01/23/2025 Kevon Boston MD LAB BLOOD ORDERABLES Final Result [facility] [address] [place] [address] * (ABNORMAL) Basic Metabolic Panel (01/23/2025 10:04 AM EDT) Pathologist [facility] Glucose 82 70 - 99 mg/dL [facility] BUN 15 6 - 24 mg/dL [facility] Creatinine 1.12(H) 0.57 - 1.00 mg/dL [facility] eGFR CKD-EPI CR 2020 60 >59 mL/min/1.7 3 [facility] BUN/Creatinine Ratio 13 9 - 23 [facility] Sodium 138 134 - 144 mmol/L [facility] Potassium 4.0 3.5 - 5.2 mmol/L [facility] Chloride 101 96 - 106 mmol/L [facility] Bicarbonate (CO2) 24 20 - 29 mmol/L [facility] Calcium 9.0 8.7 - 10.2 mg/dL [facility] Blood (Blood, Venous) 01/23/2025 10:04 AM EDT 01/23/2025 Kevon Boston MD LAB BLOOD ORDERABLES Final Result [facility] [address] [place] [address] from Last 3 Months Insurance [facility] Care Teams Legal Examiner Relationship Specialty Start Date End Date Willie Main MD [address] [place], [place] [address] [address] PCP - General Internal Medicine 10/24/24
--- OUTSIDE RECORDS SUMMARY | 2025-02-06 12:03 | XMS_ITS | Clinical Summary ---
Author Organization [facility] Address [address] [place] [address] Care Team Providers Care Bed Rubber Name Role Phone Willie Main MD Primary Care Provider [phone] Allergies Active Allergy Reactions Criticality Noted Date Comments Amlodipine 02/11/2024 Azathioprine 02/11/2024 Penicillins 02/11/2024 Medications Medication Sig Dispensed Refills Start Date End Date Status loperamide (IMODIUM) 2 MG capsule Take 1 capsule (2 mg total) by mouth 4 (four) times a day as needed for diarrhea. 0 Active topiramate (TOPAMAX) 50 MG tablet Take 1 tablet (50 mg total) by mouth 2 (two) times a day. 0 Active amLODIPine (NORVASC) tablet 5 mg Take 1 tablet (5 mg total) by mouth daily. 0 Active Cholecalciferol (Vitamin D3) 50 MCG (2000 UT) CAPS Take by mouth. 0 Active hydroCHLOROthiazide (HYDRODIURIL) tablet 25 mg Take 1 tablet (25 mg total) by mouth daily. 0 Active SUMAtriptan (IMITREX) 50 MG tablet Take 1 tablet (50 mg total) by mouth every 2 (two) hours as needed for migraine. 0 Active mirtazapine (REMERON) 7.5 MG tablet Take 1 tablet (7.5 mg total) by mouth every night at bedtime. 0 Active omeprazole (PriLOSEC) 20 MG capsule Take 1 capsule (20 mg total) by mouth daily. 0 Active azelastine (OPTIVAR) 0.05 % ophthalmic solution 1 drop 2 (two) times a day. 0 Active lisinopril (PRINIVIL,ZESTRIL) tablet 10 mg Take 1 tablet (10 mg total) by mouth daily. 0 Active FLUoxetine (PROzac) 20 MG capsule Take 1 capsule (20 mg total) by mouth daily. 0 Active Ferrous Sulfate Dried ER (Slow Iron) 160 (50 Fe) MG TBCR Take 1 tablet by mouth daily. 90 tablet 1 02/14/2024 Active Social History Tobacco Use Types Packs/Day Years Used Date Smoking Tobacco: Never Smokeless Tobacco: Never Tobacco Cessation:Counseling Given: Not Answered Alcohol Use Standard Drinks/Week Comments Not Currently 0 (1 standard drink = 0.6 oz pur e alcohol) Sex and Gender Information Value Date Recorded Sex Assigned at Not on file Gender Identity Not on file Sexual Orientation Not on file Job Start Date Occupation Industry Not on file Not on file Not on file Last Filed Vital Signs Vital Sign Reading Time Taken Comments Blood Pressure 140/99 02/11/2024 8:21 AM EDT Pulse 95 02/11/2024 8:21 AM EDT Temperature 36.6 ??C (97.8 ??F) 02/11/2024 8:21 AM ED T Respiratory Rate - - Oxygen Saturation 100% 02/11/2024 8:21 AM EDT Inhaled Oxygen Concentration - - Weight 58.4 kg (128 lb 12.8 oz) 02/11/2024 8:21 AM EDT Height 172.7 cm (5' 8 ) 02/11/2024 8:21 AM EDT Body Mass Index 19.58 02/11/2024 8:21 AM EDT Plan of Treatment Health Maintenance Due Date Last Done Comments Hepatitis C Screening 1975 Depression Screening 1987 Preventative Health Evaluation 1993 Cervical Cancer Screening (Pap Smear) 1996 Colon Cancer Screening (Colonoscopy) 2020 COVID-19 Vaccine ( season) 2024 08/20/2021, 07/30/2021 Influenza Vaccine (#1) 2024 2, 07/24/2021, 09/13/2019, Additional history exists DTap / Tdap / Td (2 - Td or Tdap) 09/11/2024 09/11/2014 Pneumococcal Vaccine Aged Out 08/28/2013 No long er eligible based on patient's age to complete this topic Hepatitis B Vaccines Completed 06/10/2015, 02/15/2015, 02/07/2014 RSV Ped < 20 months Aged Out No longe r eligible based on patient's age to complete this topic Care Teams Bed Rubber Relationship Specialty Start Date End Date Willie Main MD PCP - General Internal Medicine 01/28/24
== END 2025-02-06 10:16 | disposition home or self-care (01) ==
LOC: HO.LAB 10:15
PROVIDERS: PCP Internal Medicine; Visit Provider Dermatology
DX: L30.9 Dermatitis, unspecified (principal)
CPT/HCPCS: 36415; 80053

== ENCOUNTER 2025-03-01 16:21 | Emergency (ER) | payer OTHER, SELFPAY ==
--- NOTE | ~2025-03-01 | CT_ITS ---
CLINICAL HISTORY: LLQ pain, TTP, constipation CT abdomen and pelvis with contrast Comparison: None Findings: There is mild bibasilar atelectasis. The liver, gallbladder, pancreas, spleen, adrenal glands, and kidneys are unremarkable. There is a small oval circumscribed focus of fat with surrounding fat stranding in the left lower quadrant along the anterior margin of the distal descending colon the end in the region of the omentum consistent with either epiploic appendagitis or an omental infarct. There is no abnormality of the adjacent colon. The remainder of the gastrointestinal tract is unremarkable. Patient is status post hysterectomy. The aorta and IVC are normal. There are no enlarged lymph nodes. There is a small fat containing umbilical hernia. The bladder is partially decompressed. There is no fracture or suspicious lytic or sclerotic lesion. IMPRESSION: Epiploic appendagitis versus an omental infarct in the left lower quadrant. This document has been electronically signed by: Regan Grossman MD on 03/02/2025 00:08:08
[2025-03-01 16:31] VITALS: BP 168/85; PULSE 105; RESP 16; TEMP 37.2; O2SAT 98; BMI 32.3
--- NOTE | 2025-03-01 16:32 | ED_ITS ---
HPI - Abdominal Pain General Chief Complaint: Abdominal Pain Stated Complaint: lower extremity pain Time Seen by Provider: 03/01/25 20:57 Source: patient Mode of arrival: ambulatory Limitations: no limitations History of Present Illness ED Provider: allan james np HPI narrative: Patient is a 49-year-old female who presents emergency department for evaluation. Over the past 4 days she has been experiencing left lower quadrant abdominal pain that is constant in nature without varying intensity. Unable to identify exacerbating or alleviating factors. She has tried Tylenol without any improvement. She does admit to constipation, she typically has a large formed bowel movement daily, she has had very small formed movements every other day for the past 6 days or so. Denies fevers, chills, chest pain, nausea, vomiting, hematemesis, diarrhea, constipation, hematochezia, melena, dysuria, urinary frequency, urinary urgency, urinary hesitancy, hematuria. denies pelvic pain or abnormal vaginal discharge has history of partial hysterectomy with ovaries remaining. Denies concern for sexually transmitted infection. Related Data Home Medications ?Medication ?Instructions ?Recorded ?Confirmed azelastine 0.05 % eye drops 0 drp ophthalmic (eye) 07/09/23 12/15/24 mirtazapine 7.5 mg tablet 7.5 mg PO BEDTIME 07/09/23 12/15/24 omeprazole 20 mg capsule,delayed 20 mg PO DAILY 07/09/23 12/15/24 release cholecalciferol (vitamin D3) 50 50 mcg PO DAILY 01/13/24 12/15/24 mcg (2,000 unit) capsule lisinopril 5 mg tablet 5 mg PO DAILY 12/15/24 12/15/24 Previous Rx's ?Medication ?Instructions ?Recorded multivitamin with iron 1 tab PO DAILY #30 tabs 12/03/22 meclizine 25 mg tablet (Dramamine 25 mg PO TID PRN dizziness #20 tabs 05/12/23 Less Drowsy) diphenoxylate-atropine 2.5 1 tab PO TID PRN diarrhea #10 tabs 11/12/23 mg-0.025 mg tablet (Lomotil) prednisone 5 mg tablet 5 mg PO BID #60 tabs 04/17/24 acetaminophen 325 mg tablet 325 mg PO QID PRN pain #20 tabs 06/08/24 (Tylenol) acyclovir 5 % topical ointment 1 appl topical 6XD 14 days #30 12/15/24 grams mycophenolate sodium 360 mg 720 mg (2 x 360 mg) PO Q12H #180 12/15/24 tablet,delayed release (Myfortic) tabs Allergies Allergy/AdvReac Type Severity Reaction Status Date / Time Penicillins [PENICILLINS] Allergy Unknown SWELLING Verified 03/01/25 16:32 amlodipine Allergy Headache Verified 03/01/25 16:32 azathioprine Allergy Rash Verified 03/01/25 16:32 Review of Systems Review of Systems Yes all other systems are reviewed and are negative [facility] Past Medical History Attestation statement: The following information was validated with the patient. Source: old records reviewed Medical History retirement (current) use of systemic steroids On mycophenolate mofetil therapy GERD (gastroesophageal reflux disease) Eczema Tendinopathy of right rotator cuff Dyslipidemia SLE (systemic lupus erythematosus) HTN (hypertension) Lupus Surgical History History of hysterectomy Family History Family History Mother Hypertension Father Hypertension History of thyroid disorder Sister Strabismus Maternal Grandmother Diabetes Maternal Grandfather FH: prostate cancer Social History Social History Household Members: Spouse Housing: Apartment Alcohol intake: never Patient Tobacco Use Status: Never used Tobacco Smoked in Last 30 Days: No Use of substances other than those prescribed or required for medical reasons: No Advance Directives: No Advance Directives Information Provided: Yes Do you have a plan to hurt others: No Plan Patient : No service: No Current occupational status: unemployed Physical Exam ED Vital Signs: Vital Signs - 24 hr 03/01/25 16:31 03/01/25 21:48 Temperature 98.9 F 98.0 F Pulse Rate 105 H 84 Respiratory Rate 16 16 Blood Pressure 168/85 H 154/86 H Pulse Oximetry 98 100 Oxygen Delivery Method Room Air Room Air BMI result Body Mass Index 32.3 Appearance: Alert.?Oriented to person, place and time. No acute distress.?Normal affect.?? Neck: Normal inspection.? Neck supple.?? CVS: Heart sounds normal. Normal heart rate and rhythm.? Pulses normal.?? Respiratory: No respiratory distress.? Lung sounds clear to auscultation bilaterally?? Abdomen: Soft with exquisite left lower quadrant tenderness even upon mild palpation. Mild left upper quadrant tenderness. No rebound tenderness at McBurney's point. Negative psoas sign. Negative Rovsing sign. Negative Titus sign. No CVAT. Normoactive bowel sounds. No pulsatile mass.?? Skin: Skin warm and dry.? Normal skin color.? Extremities: No lower extremity edema.? Neuro: Moves all extremities spontaneously. Sensation intact bilaterally. Ambulates with normal steady gait. Course Course Course Narrative: This is a Rapid Medical Exam performed in triage by Dori Stout PA-C. Full HPI, ROS and PE to be performed by primary ED provider. 49 yo F with a past medical history anemia, HTN, GERD, HLD, SLE presenting to the ED c/o LLQ abd pain x4 days. +constipation. denies N/V/D, urinary sx PE: abd soft w/LLQ ttp. Plan: labs, UA, CT Reevaluation(s) Reevaluation #1: CT revealing findings concerning for epiploic appendagitis versus omental infarct, this is reviewed with my attending Dr. Day, patient has not required any analgesia in the emergency department, recommends outpatient treatment with NSAID, and strict return precautions. Findings discussed with patient. All questions answered. Stable for discharge Medical Decision Making Medical Decision Making MDM Narrative: Patient is a 49-year-old female with past medical history of GERD, eczema, dyslipidemia, lupus, hypertension, CKD, glomerular nephritis who presents emergency department for evaluation of left lower quadrant abdominal pain over the past 4 days no associated constipation as per HPI. Overall she is well- appearing, nontoxic. She arrives mildly tachycardic but she is afebrile. She is requesting discharge home at this time. Serum labs were obtained prior to my assumption of care, CBC is without leukocytosis mild normocytic anemia not meeting transfusion criteria, so thrombocytopenia. No significant electrolyte derangement. No JAXON. LFTs and lipase are unremarkable. Urinalysis is pending at this time. Given her exquisite tenderness and left lower quadrant even upon light palpation, we discussed obtaining a CT of the abdomen and pelvis which she is amenable to at this time, rule out renal colic, hydronephrosis, obstructive calculi, diverticulitis. She declines analgesia at this time. Denies history of ovarian cysts, lower suspicion at this time for TOA/torsion. Differential Diagnosis Differential Diagnoses: The differential diagnosis associated with the presentation includes (See narrative above) Admission/Observation Consideration of admission/observation: Escalation of care including admission/observation considered (See narrative above ) Lab Data MDM Lab Attestation statement: I reviewed the patient's lab results. (See narrative above) 03/01/25 17:09 03/01/25 17:09 Labs: Lab Results 03/01/25 03/01/25 Range/Units 17:09 22:19 WBC 10.1 (4.8-10.8) X10*3/uL RBC 3.88 L (4.20-5.50) X10*6/uL Hgb 10.6 L (12.0-16.0) g/dl Hct 33.2 L (37.0-47.0) % MCV 85.6 (80.0-98.0) fL MCH 27.3 (27.0-33.0) pg MCHC 31.9 (31.0-35.0) g/dl RDW 16.5 H (11.0-16.0) % Plt Count 399 (160-400) X10*3/uL MPV 9.4 (9.4-12.3) fL Immature Gran % (Auto) 0.5 H (0.0-0.4) % Neut % (Auto) 81.4 H (45-73) % Lymph % (Auto) 14.5 L (20-40) % Shannon % (Auto) 3.4 (2-11) % Eos % (Auto) 0.0 (0-4) % Baso % (Auto) 0.2 (0-2) % Lymph # (Auto) 1.5 (1.2-4.9) X10*3/uL Shannon # (Auto) 0.3 (0.1-1.2) X10*3/uL Eos # (Auto) 0.0 (0.0-0.4) X10*3/uL Baso # (Auto) 0.0 (0.0-0.2) X10*3/uL Abs Immat Gran (auto) 0.05 H (0.00-0.03) X10*3/uL Absolute Neuts (auto) 8.2 (2.0-8.3) x10*3/uL Absolute Nucleated RBC 0.000 (0.0-0.012) X10*3/uL Nucleated RBC % (auto) 0.0 (0.0-0.2) /100WBC Sodium 137 (135-145) mmol/L Potassium 3.8 (3.3-5.1) mmol/L Chloride 107 (96-108) mmol/L Carbon Dioxide 24 (22-29) mmol/L Anion Gap 10 L (12-20) BUN 13 (9-16) mg/dL Creatinine 0.88 (0.5-1.4) mg/dL Estim Creat Clear Calc 58.5 Estimated GFR > 60 Random Glucose 125 H (60-115) mg/dL Calcium 9.1 (8.4-10.2) mg/dL Magnesium 1.8 (1.6-2.6) mg/dL Total Bilirubin 0.3 (0.0-1.0) mg/dL Direct Bilirubin 0.1 (0.0-0.5) mg/dL AST 20 (5-31) U/L ALT 16 (0-31) U/L Alkaline Phosphatase 57 (39-117) U/L Total Protein 7.4 (6.5-8.0) g/dL Albumin 4.0 (3.5-5.0) g/dL Lipase 30 (8-78) U/L Urine Color Yellow Urine Appearance Clear Urine pH 5.5 (5.0-9.0) Ur Specific [place] 1.020 (1.005-1.025) Urine Protein Trace (Neg-Trace) mg/dL Urine Glucose (UA) Negative (Negative) mg/dL Urine Ketones Negative (Negative) mg/dL Urine Blood Moderate (2+) H (Negative) Urine Nitrite Negative (Negative) Ur Leukocyte Esterase Negative (Negative) Urine RBC 11-20 H (0-2) /HPF Urine WBC 0-5 (0-5) /HPF Ur Squamous Epith Cells 3-5 (0-2) /HPF Urine Bacteria Trace (None Seen) Hyaline Casts 0-2 (0-2) /LPF Radiology Impression Discussion of test interpretation with radiology: I have reviewed the radiologist's reading. Radiologist Impression: CT abdomen and pelvis with contrast Comparison: None Findings: There is mild bibasilar atelectasis. The liver, gallbladder, pancreas, spleen, adrenal glands, and kidneys are unremarkable. There is a small oval circumscribed focus of fat with surrounding fat stranding in the left lower quadrant along the anterior margin of the distal descending colon the end in the region of the omentum consistent with either epiploic appendagitis or an omental infarct. There is no abnormality of the adjacent colon. The remainder of the gastrointestinal tract is unremarkable. Patient is status post hysterectomy. The aorta and IVC are normal. There are no enlarged lymph nodes. There is a small fat containing umbilical hernia. The bladder is partially decompressed. There is no fracture or suspicious lytic or sclerotic lesion. IMPRESSION: Epiploic appendagitis versus an omental infarct in the left lower quadrant. External Record Review External record reviewed: Outpatient record Medications Administered Discontinued Medications Generic Name Dose Route Start Last Admin Trade Name Freq PRN Reason Stop Dose Admin Sodium Chloride 1,000 mls @ 999 mls/hr 03/01/25 22:15 03/01/25 23:23 Ns IV 03/01/25 23:15 Infused .Q1H1M CHARITO Infusion Iohexol 85 ml 03/01/25 23:16 03/01/25 23:17 Iohexol 350 Mg/Ml 100 Ml Infus..Btl IV 03/01/25 23:17 85 ml ONCE ONE Administration Discharge Plan Discharge Clinical Impression: Epiploic appendagitis Patient Disposition: Home, Self-Care Additional Instructions: CT today she has been findings consistent with inflammation to fat attached to your large intestine/colon. This results in pain similar to what you are experiencing. You can take ibuprofen 200 mg, 3 tablets (600mg) every 6-8 hours as needed for pain, in addition to Tylenol 500 mg, 2 tablets (1,000mg) every 4-6 hours as needed for pain, but not to exceed 3 doses daily (3,000mg).? This is typically self-limiting, and should resolve within the next week or 2. Follow-up with your primary care doctor. Return to emergency department any new or worsening symptoms or concerns. Prescriptions: No Action meclizine [Dramamine Less Drowsy] 25 mg tablet 25 mg PO TID PRN (Reason: dizziness) Qty: 20 0RF diphenoxylate-atropine [Lomotil] 2.5-0.025 mg tablet 1 tab PO TID PRN (Reason: diarrhea) Qty: 10 0RF acetaminophen [Tylenol] 325 mg tablet 325 mg PO QID PRN (Reason: pain) Qty: 20 0RF multivitamin with iron Tablet 1 tab PO DAILY Qty: 30 4RF azelastine 0.05 % drops 0 drp ophthalmic (eye) mirtazapine 7.5 mg tablet 7.5 mg PO BEDTIME omeprazole 20 mg capsule,delayed release(DR/EC) 20 mg PO DAILY prednisone 5 mg tablet 5 mg PO BID Qty: 60 1RF cholecalciferol (vitamin D3) 50 mcg (2,000 unit) capsule 50 mcg PO DAILY lisinopril 5 mg tablet 5 mg PO DAILY mycophenolate sodium [Myfortic] 360 mg tablet,delayed release (DR/EC) 720 mg PO Q12H Qty: 180 1RF acyclovir 5 % ointment 1 appl topical 6XD 14 Days Qty: 30 1RF Referrals: Willie Main III, MD [Primary Care Provider] - Print Language: Macedonian
[2025-03-01 17:14] LABS: MANUAL DIFF FLAG NO
[2025-03-01 17:19] LABS: Basophils Percent Auto 0.2 % (0-2); Hematocrit 33.2 % (37.0-47.0); Hemoglobin 10.6 g/dl (12.0-16.0); Imm Gran Abs Auto 0.05 X10*3/uL (0.00-0.03); Imm Gran Pct Auto 0.5 % (0.0-0.4); Lymphocytes Absolute Auto 1.5 X10*3/uL (1.2-4.9); Lymphocytes Percent Auto 14.5 % (20-40); Mean Corpuscular HGB Conc 31.9 g/dl (31.0-35.0); Mean Corpuscular Hemoglobin 27.3 pg (27.0-33.0); Mean Corpuscular Volume 85.6 fL (80.0-98.0); Mean Platelet Volume 9.4 fL (9.4-12.3); Monocytes Absolute Auto 0.3 X10*3/uL (0.1-1.2); Monocytes Percent Auto 3.4 % (2-11); Neutrophils Absolute Auto 8.2 x10*3/uL (2.0-8.3); Neutrophils Percent Auto 81.4 % (45-73); Platelet Count 399 X10*3/uL (160-400); Red Blood Count 3.88 X10*6/uL (4.20-5.50); Red Cell Distribution Width 16.5 % (11.0-16.0); White Blood Count 10.1 X10*3/uL (4.8-10.8)
[2025-03-01 17:31] LABS: Alanine Aminotransferase 16 U/L (0-31); Alkaline Phosphatase 57 U/L (39-117); Anion Gap 10 (12-20); Aspartate Amino Transferase 20 U/L (5-31); Bilirubin Direct 0.1 mg/dL (0.0-0.5); Bilirubin Total 0.3 mg/dL (0.0-1.0); Blood Urea Nitrogen 13 mg/dL (9-16); Calcium 9.1 mg/dL (8.4-10.2); Carbon Dioxide 24 mmol/L (22-29); Chloride 107 mmol/L (96-108); Creatinine Clr Calc Pharmacy 58.5; Estimated Glomerular Filt Rate > 60; Glucose Random 125 mg/dL (60-115); Lipase 30 U/L (8-78); Magnesium 1.8 mg/dL (1.6-2.6); Potassium 3.8 mmol/L (3.3-5.1); Sodium 137 mmol/L (135-145); Total Protein 7.4 g/dL (6.5-8.0)
[2025-03-01 21:48] VITALS: BP 154/86; PULSE 84; RESP 16; TEMP 36.7; O2SAT 100
--- NOTE | 2025-03-01 21:52 | PC.NURSE ---
Pt ambulatory to ED 19, assumed care of pt at this time. A&Ox3 skin pwd respirations even unlabored. Endorsing LLQ pain x 4 days, non radiating, on palpation. Endorsing abd bloating, denies N/V/D. Denies urinary symptoms. Denies fever/chills or sick contacts. Labs drawn in [facility] and resulted, awaiting primary provider eval, aware of plan of care.
[2025-03-01] MEDS: 0.9 % Sodium Chloride 1,000 ML 999 ML IV (22:17)
[2025-03-01 22:24] LABS: Appearance Urine Clear; Color Urine Yellow; Glucose Urine UA Negative (Negative); Leukocyte Esterase Urine Negative (Negative); Nitrite Urine Negative (Negative); PH 5.5 (5.0-9.0); UMIC TRIGGER UACC YES; Urine Blood Moderate (2+) (Negative); Urine Ketones Negative (Negative); Urine Protein Trace mg/dL (Neg-Trace)
[2025-03-01 22:29] LABS: Bacteria Urine Trace (None Seen); Hyaline Casts Urine 0-2 /LPF (0-2); WBC Urine 0-5 /HPF (0-5)
[2025-03-01] MEDS: iohexoL 350 MG/ML 100 ML INFUS..BTL 85 ML IV (23:17)
[2025-03-02 01:31] VITALS: BP 154/86; PULSE 84; RESP 16; TEMP 36.7; O2SAT 100
== END 2025-03-02 01:32 | disposition home or self-care (01) ==
PROVIDERS: Physician Assistant; Emergency Provider Emergency Medicine Emergency Medical Services; PCP Internal Medicine
DX: K63.89 Other specified diseases of intestine (principal); R10.32 Left lower quadrant pain; I10 Essential (primary) hypertension; E78.5 Hyperlipidemia, unspecified; M32.9 Systemic lupus erythematosus, unspecified; Z79.52 Long term (current) use of systemic steroids; Z79.624 Long term (current) use of inhibitors of nucleotide synthesis; Z79.60 Long term (current) use of unspecified immunomodulators and immunosuppressants
CPT/HCPCS: 36415; 74177; 80048; 80076; 81001; 83690; 83735; 85025; 96360; 99284; 99285; Q9967

== ENCOUNTER → 2025-03-01 22:01 | Outpatient (BNV) | payer OTHER, SELFPAY | PROVIDERS: Emergency Provider Emergency Medicine Emergency Medical Services; PCP Internal Medicine; Visit Provider Radiology Diagnostic Radiology | DX: K59.00 Constipation, unspecified (principal); R10.32 Left lower quadrant pain | CPT/HCPCS: 74177 ==

== ENCOUNTER 2025-03-26 08:30 | Outpatient (REF) | payer OTHER, SELFPAY ==
--- OUTSIDE RECORDS SUMMARY | 2025-03-26 08:36 | XMS_ITS | Clinical Summary ---
Author Organization [facility] Address [address] [place] [address] Care Team Providers Care Partition Setter Name Role Phone Willie Main MD Primary Care Provider [phone] Allergies Active Allergy Reactions Criticality Noted Date [...] age to complete this topic Care Teams Partition Setter Relationship Specialty Start Date End Date Willie Main MD PCP - General Internal Medicine 01/28/24
--- OUTSIDE RECORDS SUMMARY | 2025-03-26 08:36 | XMS_ITS | Encounter Summary ---
Author Organization [facility] [employer] [facility] Address [address] [place] [address] Care Team Providers Care Scheduling Coordinator Name Role Phone Willie Main MD Primary Care Provider [phone] Reason for Visit * Reason Onset Date Comments Hospital Follow-up 03/06/2025 [facility] Encounter Details Date Type Department Care Team ([facility] st Contact Info) Description 03/06/2025 Telephone Adult Medicine [address] [phone] Willie Main MD [address] [place] [id number] Hospital Follow-up ([facility] ) Social History Tobacco Use Types Packs/Day Years [...] on file documented as of this encounter Progress Notes * Geetha Mccabe RN - 03/06/2025 1:26 PM EDT Using service employee [phone] Pt. Evaluated in the ER for abd. Pain , pt. States she had imaging and was discharged to follow up in office . Would like Her rt. Hand looked at she is having intermittent pain , no injury , no redness or heat or swelling . Apt. Made and advised to call office with any worsening symptoms , if abd. Pain returns or she develops cp,sob or weakness to be evaluated in the ER. * Megan Amador - 03/06/2025 12:35 PM EDT Hospital/ER follow up appointment needed Hospital patient was treated at: [facility] Was this only an ER visit or was the patient admitted to the hospital? ER Visit only Date of visit if ER visit only: 03/01/25 If patient was admitted what was the date of discharge? Reason/diagnosis for visit or stay: abdominal Pain When was the patient told to follow up? g[facility] Was visit or stay related to an injury? If yes, what was the date of injury (DOI)? No If yes, was the injury due to: Not 3rd constitution party related documented in this encounter Plan of Treatment Upcoming Encounters Date Type Department Care Team (Late st Contact Info) Description 04/20/2025 8:[address] [facility] CT Scan [address] [place] [phone] 07/19/2025 11:00 AM EDT Office Visit Adult Medicine [address] [phone] Willie Main MD [address] [place] [phone] 08/16/2025 11:00 AM EDT Appointment [facility] at [address] [phone] documented as of this encounter Visit Diagnoses Not on filedocumented in this encounter Care Teams Scheduling Coordinator Relationship Specialty Start Date End Date Willie Main MD [address] [place] [phone] PCP - General Internal Medicine 03/01/25 documented as of this encounter
--- OUTSIDE RECORDS SUMMARY | 2025-03-26 08:36 | XMS_ITS | Clinical Summary ---
Author Organization [address] [place] [address] [place] [phone] Phone Care Team Providers Care Layout Inspector Name Role Phone Willie Gardner MD Primary Care Provider [phone] Allergies Active Allergy Reactions Criticality Noted Date [...] ON FEET TWICE DAILY 08/07/20 24 Active MULTIVITAMIN ORAL Take by mouth. 12/18/19 21 Active mycophenolate (CELLCEPT) 500 mg tablet Take 1 tablet (500 mg total) by mouth 5 (five) times a day. 08/15/20 21 Active potassium chloride 20 mEq tablet extended release Take 1 Tablet by mouth 2 times daily for 5 days. 12/15/19 24 Active topiramate (TOPAMAX) 50 mg tablet TAKE 1 TABLET BY MOUTH EVERY DAY 7 tablet 02/06/20 25 Active omeprazole (PriLOSEC) [address] capsule Take 1 capsule (20 mg total) by mouth 1 (one) time each day. Do not crush or chew. 90 capsule 1 03/14/20 25 Active predniSONE (DELTASONE) 20 mg tablet Take 1 tablet (20 mg total) by mouth 1 (one) time each day. Active cyclobenzaprin e (FLEXERIL) 10 mg tabletIndicati ons:Mid back pain on right side Take 0.5-1 tablets (5-10 mg total) by mouth at bedtime as needed for muscle spasms. 30 tablet 03/14/20 25 Active cyclobenzaprin e (FLEXERIL) 10 mg tablet Take 0.5-1 Tablets by mouth 2 times daily as needed for Muscle spasms. Medication may cause drowsiness, do not drive/operate machinery while taking 06/20/20 24 025 Discontinued(Re order) gabapentin (NEURONTIN) 100 mg capsule TAKE 1 CAPSULE BY MOUTH AT BEDTIME 07/06/20 24 025 Discontinued hydroCHLOROthi azide (HYDRODIURIL) 25 mg tablet 08/09/20 23 025 Discontinued predniSONE (DELTASONE) 10 mg tablet TAKE 5 TABLETS (50 MG TOTAL) BY MOUTH 1 (ONE) TIME EACH DAY 06/20/20 24 025 Discontinued SUMAtriptan (IMITREX) 50 mg tablet Take 1 tablet (50 mg total) by mouth every 2 hours as needed. 12/18/19 21 025 Discontinued omeprazole (PriLOSEC) [address] capsule Take 1 capsule (20 mg total) by mouth 1 (one) time each day. Do not crush or chew. 30 capsule 3 10/23/20 24 025 Discontinued(Re order) amLODIPine (NORVASC) 10 mg tablet TAKE 1 TABLET BY MOUTH EVERY DAY 30 tablet 01/12/20 25 025 Discontinued Active Problems Problem Noted Date Diagnosed Date SLE (systemic lupus erythema tosus) (CMS/[facility] V24, CMS/HCC V28) 09/24/2024 Overview (09/24/2024): 2009 - joint pains, rash, ? Mucosal lesions. Positive anti-DNA, SS- A. Negative SS-B, anti-almanza, anti-POWER LINEMAN. On hydroxychloroquine, Myfortec, prednisone. Myfortec tapered Off [...] rotator cuff 08/15/2020 Episode of recurrent major d epressive disorder ([facility] V24) 11/04/2017 Essential hypertension 08/18/2017 Eczema 05/12/2017 Migraine without aura and wi thout status migrainosus, not intractable 01/16/2016 Overview (09/24/2024): Follows with neurology. GERD (gastroesophageal reflux disease) 5 Overview (09/24/2024): Seen by ENT and had upper airway endoscopy - 01/20. 02/25/2018: Upper GI endoscopy normal on chronic treatment with PPI and NSAIDs. Encounters Date Type Department Care Team Description 03/19/2025 Telephone Adult Medicine [facility] [address] [place] [address] Radha Cifuentes MA xray results (Called pt and lvm for her to return my call for xray results.) 03/14/2025 10:11 AM EDT - 03/14/2025 11:59 PM EDT Hospital Encounter XRAY - [address] [phone] Mid back pain on right side Discharge Disposition: Home or Self Care 03/14/2025 10:10 AM EDT - 03/14/2025 11:59 PM EDT Hospital Encounter [address] [phone] Mid back pain on right side Discharge Disposition: Home or Self Care 03/14/2025 9:30 AM EDT Office Visit Adult Medicine [address] [phone] Fern Jacome PA Mid back pain on right side (Primary Dx); Epiploic appendagitis; Abnormal CT of the abdomen; Gastroesophageal reflux disease, unspecified whether esophagitis present; Systemic lupus erythematosus, unspecified SLE type, unspecified organ involvement status (CMS/HCC V24, CMS/HCC V28) 03/06/2025 Telephone Adult Medicine [address] [phone] Willie Gardner MD Hospital Follow-up ([facility] ) 03/01/2025 Telephone Adult Medicine [address] [phone] Tasneem Deluna MA Flank Pain from Last 3 Months Immunizations Name Administration Dates Next Due Hepatitis [...] TUBAL LIGATION UPPER GASTROINTESTINAL ENDOSCOPY 02/25/2018 PROCEDURE: CT UPPER GI ENDOSCOPY PERFORMED; COMMENT: Visually normal on chronic treatment with NSAIDs and PPIs; duodenal biopsies: negative. PARTIAL HYSTERECTOMY 09/2018 N/A PROCEDURE: CT SUPRACERVICAL ABDL HYSTER W/WO RMVL TUBE OVARY Medical History Medical History Date Comments SLE (systemic lupus erythema tosus) ([facility] V24, [facility] V28) DX:SLE (systemic lupus erythematosus) ([facility]); COMMENT: 2009 Anemia DX:Anemia Hypertension DX:Hypertension; COMMENT: [...] Not Answered Alcohol Use Standard Drinks/Week Comments No 0 (1 standard drink = 0.6 oz pur e alcohol) Comments No Sex and Gender Information Value Date Recorded Sex Assigned at Not on file Legal Sex Female 10:45 PM EST Gender Identity Not on file Sexual Orientation Not on file Obstetrics History Last Filed Vital Signs Vital Sign Reading Time Taken Comments Blood Pressure 129/84 03/14/2025 9:33 AM EDT Pulse 84 03/14/2025 9:33 AM EDT Temperature 36.8 ??C (98.3 ??F) 03/14/2025 9:33 AM ED T Respiratory Rate 14 03/14/2025 9:33 AM EDT Oxygen Saturation 99% 03/14/2025 9:33 AM EDT Inhaled Oxygen Concentration - - Weight 67.6 kg (149 lb) 03/14/2025 9:33 AM EDT Height 144.8 cm (4' 9 ) 03/14/2025 9:33 AM EDT Body Mass Index 32.24 03/14/2025 9:33 AM EDT Plan of Treatment Upcoming Encounters Date Type Department Care Team (Late st Contact Info) Description 04/20/2025 8:00 AM EDT Appointment [facility] CT Scan [address] [place] [phone] 07/19/2025 11:00 AM EDT Office Visit Adult Medicine [facility] [address] [place] [address] Willie Gardner MD [address] [place] [address] 08/16/2025 11:00 AM EDT Appointment [facility] [address] [place] [phone] Health Maintenance Due Date Last Done Comments [...] 10/17/2022 Social Influencers of Health Screening 10/17/2022 DTaP,Tdap,and Td Vaccines (2 - Td or Tdap) 09/11/2024 09/11/2014 Influenza Vaccine (Season Ended) 2025 08/26/2022, 07/24/2021, 09/13/2019, Additional history exists Hypertension/CHF/CAD Annual BMP Blood Test 01/23/2026 01/23/2025, 2023 Breast Cancer Screening 08/16/2026 08/16/20 24, [...] age to complete this topic Meningococcal B Vaccine Aged Out No l onger eligible based on patient's age to complete this topic RSV Immunization Patients Under 20 months Aged Out No longer eligible based on patient's age to complete this topic Varicella Vaccines Aged Out No longer eligible based on patient's age to complete this topic Procedures Procedure Name Priority Date/Time Associated Diagnosis Comments XR SHOULDER 2+ VIEWS RIGHT Routine 03/14/2025 10:21 AM EDT Mid back pain on right side XR THORACIC SPINE 2 VIEWS Routine 03/14/2025 10:20 AM EDT Mid back pain on right side ANNUAL BMP BLOOD TEST Routine 2023 JOSE ALFREDO SCREENING DIGITAL Routine 09/23/2023 11:40 AM EST Encounter for screening mammogram for malignant neoplasm of breast LIPID PANEL Routine 11/16/2022 HEPATITIS C SCREENING Routine 07/05/2019 from Last 3 Months or Most Recently Relevant to Health Maintenance Results * XR Shoulder 2+ Views Right (03/14/2025 10:21 AM EDT) Anatomical Region Laterality Modality Upper Extremities, Shoulder Right Radi ographic Imaging 03/14/2025 5:12 PM EDT Impressions 03/14/2025 5:14 PM EDT No acute fracture or dislocation of the right shoulder. Calcific bursitis -------- FINAL REPORT -------- Dictated By: Fern Reed Dictated Date: 03/14/2025 17:12 ET Assigned Physician: Fern Reed Reviewed and Electronically Signed By: Fern Reed Signed Date: 03/14/2025 17:14 ET Workstation ID: [id number] Transcribed By: Self Edit Transcribed Date: 03/14/2025 17:12 ET Narrative 03/14/2025 5:14 PM EDT HISTORY: right shoulder blade pain TECHNIQUE: 4 views of the right shoulder COMPARISON: None FINDINGS: No acute fracture or dislocation is seen. There is no evidence of malalignment. The AC joint is intact. ??Small rounded calcification adjacent to the humeral head. Procedure Note Fern Reed MD - 03/14/2025 HISTORY: right shoulder blade pain TECHNIQUE: 4 views of the right shoulder COMPARISON: None FINDINGS: No acute fracture or dislocation is seen. There is no evidence ofmalalignment. The AC joint is intact. Small rounded calcificationadjacent to the humeral head. IMPRESSION: No acute fracture or dislocation of the right shoulder. Calcific bursitis -------- FINAL REPORT -------- Dictated By: Fern Reed Dictated Date: 03/14/2025 17:12 ET Assigned Physician: Fern Reed Reviewed and Electronically Signed By: Fern Reed Signed Date: 03/14/2025 17:14 ET Workstation ID: [id number] Transcribed By: Self Edit Transcribed Date: 03/14/2025 17:12 ET Fern ROACH IMG XR PROCEDURES Final Resul t * XR Thoracic Spine 2 Views (03/14/2025 10:20 AM EDT) Anatomical Region Laterality Modality Spine, T-spine Radiographic Amanda ging 03/14/2025 5:11 PM EDT Impressions 03/14/2025 5:12 PM EDT No acute fracture or dislocation of the thoracic spine. -------- FINAL REPORT -------- Dictated By: Fern Reed Dictated Date: 03/14/2025 17:11 ET Assigned Physician: Fren Reed Reviewed and Electronically Signed By: Fern Reed Signed Date: 03/14/2025 17:12 ET Workstation ID: [id number] Transcribed By: Self Edit Transcribed Date: 03/14/2025 17:11 ET Narrative 03/14/2025 5:12 PM EDT HISTORY: right mid back pain TECHNIQUE: 2 views of the thoracic spine COMPARISON: None FINDINGS: The vertebral body and disc space heights are preserved. The upper thoracic spine is not well-visualized on the lateral view. ??Spinal alignment is maintained without evidence of spondylolisthesis. No acute fracture is identified. Procedure Note Fern Reed MD - 03/14/2025 HISTORY: right mid back pain TECHNIQUE: 2 views of the thoracic spine COMPARISON: None FINDINGS: The vertebral body and disc space heights are preserved. The upperthoracic spine is not well-visualized on the lateral view. Spinalalignment is maintained without evidence of spondylolisthesis. No acutefracture is identified. IMPRESSION: No acute fracture or dislocation of the thoracic spine. -------- FINAL REPORT -------- Dictated By: Fern Reed Dictated Date: 03/14/2025 17:11 ET Assigned Physician: Fern Reed Reviewed and Electronically Signed By: Fern Reed Signed Date: 03/14/2025 17:12 ET Workstation ID: [id number] Transcribed By: Self Edit Transcribed Date: 03/14/2025 17:11 ET Fern ROACH IMG XR PROCEDURES Final Resul t * Annual BMP Blood Test (2023) Annual BMP Blood Test ABSTRACTED Historical Provider HEALTH MAINTENANCE Final Result * [facility] SCREENING DIGITAL (09/23/2023 11:40 AM EST) Anatomical Region Laterality Modality Mammography 09/23/2023 10:3 1 AM EST Narrative 09/23/2023 11:40 AM EST [facility] Diagnostic Imaging Department [address] [place] [phone] Patient: ??CHRISTINA RICKETTS ?/Age/Sex: 1975 - 47 - F Unit#: ??[id number] ? Location/Status: ??SPDIMAM/REG CLI ? Mnemonic/Ordering Site: ??DIGSC/SPMAM Ordering Physician: ??WILLIE GARDNER MD [facility] Screening Digital - 09/23/23 - 1045 Report Status:Signed EXAM: [facility] Screening Digital EXAM DATE AND TIME: 09/23/2023 10:46 AM HISTORY: ??Annual screening COMPARISON: ??Multiple exams dating back to 2019 TECHNIQUE: Bilateral digital breast tomosynthesis was performed in the CC and MLO projections. Computer aided detection with [employer] 3D 3.1 was employed. TISSUE DENSITY: c. [...] Procedure Note Adalgisa Stinson MD - 12/14/2023 [facility] Diagnostic Imaging Department [address] [place] [address] Patient: CHRISTINA RICKETTS D.O.B./Age/Sex: 1975 - 47 - F Unit#: [id number] Location/Status: [facility] CLI Mnemonic/Ordering Site: [facility] Ordering Physician: WILLIE GARDNER MD [facility] Screening Digital - 09/23/23 - 1045 Report Status:Signed EXAM: [facility] Screening Digital EXAM DATE AND TIME: 09/23/2023 10:46 AM HISTORY: Annual screening COMPARISON: Multiple exams dating back to 2019 TECHNIQUE: Bilateral digital breast tomosynthesis was performed in the CCand MLO projections. Computer aided detection with [employer] 3D 3.1was employed. TISSUE DENSITY: c. The [...] Date/Time: 09/23/23 1137 Sign date/Time: 09/23/23 1140 Willie Gardner MD IMG BI PROCEDURES Final Result * (ABNORMAL) Lipid panel (11/16/2022) LDL/HDL Ratio 3 0 - 4 Triglycerides 177(A) 0 - 150 mg/dL Cholesterol 167 0 - 200 mg/dL HDL 60 >=40 mg/dL LDL Cholesterol 72 0 - 100 mg/dL Blood Venous blood specimen / Unknown Result [facility] Historical Provider LAB BLOOD ORDERABLES Dania l Result * Hepatitis C Screening (07/05/2019) Hepatitis C Screening ABSTRACTED Historical Provider HEALTH MAINTENANCE Final Result from Last 3 Months or Most Recently Relevant to Health Maintenance [place] [id number] [facility] MEDICARE Member Subscriber Plan / Payer (Ef fective 2024-Present) Name:Christina Ricketts Relation to Subscriber:Self Name:Christina Ricketts Payer ID:[id number] Group ID:[id number] Type:Not on file Address: [place] [address] [address] [phone] Care Teams Layout Inspector Relationship Specialty Start Date End Date Willie Gardner MD [address] [place] [address] Karlos Zambrano [place] [phone] PCP - General Internal Medicine 03/01/25
--- OUTSIDE RECORDS SUMMARY | 2025-03-26 08:36 | XMS_ITS | Encounter Summary ---
Author Organization [facility] Address [address] [place] [address] Care Team Providers Care Operations Research Engineer Name Role Phone Willie Main MD Primary Care Provider [phone] Reason for Referral * Consultation (Routine) - Closed Specialty Diagnoses / Procedures Referred By Contact Referred To Contact Physical Medicine and Rehabilitation Diagnoses Right shoulder pain, unspecified chronicity Right-sided thoracic back pain, unspecified chronicity Claude Jacome PA [address] [place] [address] Phone: tel: fax: Kavin Diallo DO [address] [facility] [address] [place] [address] Phone: tel:[phone] fax:[phone] Referral ID Status Reason Start Date Expiration Date V isits Requested Visits Authorized [id number] Closed Specialty Services Required 03/21/2025 03/21/2026 1 1 Reason for Visit * Reason Onset Date Comments xray results 03/19/2025 Called pt and lv m for her to return my call for xray results. Encounter Details Date Type Department Care Team (Late st Contact Info) Description 03/19/2025 Telephone Adult Medicine [address] [phone] Radha Cifuentes MA xray results (Called pt and lvm for her to return my call for xray results.) Social History Tobacco Use Types Packs/Day Years [...] as of this encounter Progress Notes * DOC Pena - 03/21/2025 2:00 PM EDTAddended by: CLAUDE JACOME on: 03/21/2025 02:00 PM Modules accepted: Orders * DOC Pena - 03/21/2025 1:58 PM EDT Referral placed to Physiatry * Radha Cifuentes MA - 03/19/2025 2:03 PM EDT Spoke with patient and she stated that she would love to see a specialist. * Rod Coats - 03/19/2025 10:22 AM EDT Patient calling back looking to speak to nurse * Radha Cifuentes MA - 03/19/2025 9:26 AM EDT Called pt and lvm for her to return my call for xray results. * Radha Cifuentes MA - 03/19/2025 9:25 AM EDT ----- Message from DOC Sutton sent at 03/15/2025 9:06 PM EDT ----- Please inform patient that her recent shoulder x-ray showed bursitis/inflammation of the bursa sac which is a small friction reducing structure in the joint. This can contribute to shoulder pain symptoms. Her mid back x-ray was normal. If she would like, I can place a referral to the specialist fora consult on her right sided back/shoulder pain documented in this encounter Plan of Treatment Upcoming Encounters Date Type Department Care Team (Late st Contact Info) Description 04/20/2025 8:00 AM EDT Appointment [facility] CT Scan [address] [place] [address] 07/19/2025 11:00 AM EDT Office Visit Adult Medicine [address] [phone] Willie Main MD [address] [place] [address] 08/16/2025 11:00 AM EDT Appointment [facility] [address] [place] [address] Scheduled Referrals Name Type Priority Associated Diagnoses Order Schedule Ambulatory referral to Physical Medicine Rehab Outpatient Referral Routine Right shoulder pain, unspecified chronicity Right-sided thoracic back pain, unspecified chronicity 1 Occurrences starting 03/21/2025 until 03/21/2026 documented as of this encounter Visit Diagnoses Diagnosis Right shoulder pain, unspecified chronicity- Primary Right-sided thoracic back pain, unspecified chronicity Encounter for screening mammogram for breast cancer documented in this encounter Care Teams Operations Research Engineer Relationship Specialty Start Date End Date Willie Main MD [address] [place] [id number] PCP - General Internal Medicine 03/01/25 documented as of this encounter
--- OUTSIDE RECORDS SUMMARY | 2025-03-26 08:36 | XMS_ITS | Clinical Summary ---
Author Organization [facility] Address [address] [place] [address] Phone Care Team Providers Care Wrapper Sheeter Name Role Phone Willie Main MD Primary Care Provider [phone] Allergies Active Allergy Reactions Criticality Noted Date Comments Azathioprine Other (see comments) 12/09/2016 Penicillins 07/24/2013 Medications azelastine (OPTIVAR) 0.05 % ophthalmic solution Administer 1 drop into both eyes 3 Active mirtazapine (REMERON) 7.5 MG tablet 3 Active topiramate (TOPAMAX) 50 MG tablet Take 50 mg by mouth 1 (one) time each day 3 Active omeprazole (PriLOSEC) [address] capsule Take 20 mg by mouth 1 (one) time each day 4 Active predniSONE (DELTASONE) 20 MG tablet Take 20 mg by mouth 1 (one) time each day Active potassium chloride (K-TAB) 20 MEQ CR tablet Take 1 Tablet by mouth 2 times daily for 5 days. 4 Active Cholecalciferol (Vitamin D3) 50 MCG (1999) tabletIndicatio ns:Vitamin D deficiency, not otherwise specified Take 2,000 Units by mouth 1 (one) time each day 30 tablet 11 5 01/27/20 26 Active mycophenolate (MYFORTIC) 360 MG EC tablet Take 720 mg by mouth every 12 (twelve) hours 5 Active losartan (COZAAR) 50 MG tablet Take 50 mg by mouth 1 (one) time each day 5 Active fluticasone (FLONASE) 50 MCG/ACT nasal spray Administer 1 spray into each nostril 1 (one) time each day 5 Active ferrous sulfate (Fe Tabs) 325 (65 Fe) MG EC tabletIndicatio ns:Iron deficiency anemia, not otherwise specified Take 1 tablet (325 mg total) by mouth 1 (one) time each day with breakfast Do not crush, chew, or split. 90 tablet 3 5 02/06/20 26 Active amLODIPine (NORVASC) 5 MG tabletIndicatio ns:Hypertension Take 1 tablet (5 mg total) by mouth 1 (one) time each day 90 tablet 3 5 02/06/20 26 Active Active Problems Problem Noted Date Diagnosed Date [...] Positive anti-DNA, SS- A. Negative SS-B, anti-almanza, anti-TRAINING ANALYST. On hydroxychloroquine, Myfortec, prednisone. Myfortec tapered Off [...] Office Visit [facility] [address] [phone] Mary Lopes ARNP Stage 3a chronic kidney disease (HCC) (Primary Dx); SLE glomerulonephritis syndrome, WHO class III (HCC); Iron deficiency anemia, not otherwise specified; Hypertension 01/19/2025 Orders Only [facility] [address] [phone] Kevon Boston MD SLE glomerulonephritis syndrome, WHO class III (HCC) from Last 3 Months Immunizations Immunization Administration Dates Next Due Hep A / [...] Office Visit [facility] [address] [phone] Mary Lopes ARNP [address] [phone] Health Maintenance Due Date Last Done Comments Pneumococcal Vaccine: Peds ( 0 to 5 Years) and At-Risk Patients (6 to 49 Years) (2 of 2 - PCV) 08/28/2014 08/28/2013 Hepatitis B Vaccine (4 of 4 - Hep B Twinrix 4-dose series) 02/07/2015 06/10/2015, 02/15/2015, 02/07/2014 Colorectal Cancer Screening: Annual FOBT 2024 Colorectal Cancer Screening: Colonoscopy 2024 Colorectal Cancer Screening: Sigmoidoscopy 2024 Influenza Vaccine (Season Ended) 2025 08/26/2022, 07/24/2021, 09/13/2019, Additional history exists Procedures Procedure Name Priority Date/Time Associated Diagnosis [...] Cystatin C 1.19(H) 0.60 - 1.00 mg/L [facility] eGFR by Cystatin C 60 >59 mL/min/1.7 3 [facility] 01/23/2025 10:0 4 AM EDT 01/23/2025 us Kevon Boston MD LAB BLOOD ORDERABLES Final Result [facility] [address] [place] [address] * (ABNORMAL) ROSSY + DNA/DS + SJOGREN'S (01/23/2025 10:04 AM EDT) TRAINING ANALYST Antibodies 0.5 0.0 - 0.9 [facility] [place] ALMANZA ANTIBODIES <0.2 0.0 - 0.9 AI [facility] [place] Sjogren's Anti-SS-A 4.9(H) 0.0 - 0.9 AI [facility] [place] Sjogren's Anti-SS-B <0.2 0.0 - 0.9 AI [facility] [place] See below: Comment [facility] Comment: Autoantibody ? Disease Association ?Condition ?Frequency [...] Sm (anti-Almanza) ?SLE ?15 - 30% ?--------- TRAINING ANALYST ?Mixed Connective Tissue ? Disease ? 95% [...] Boston MD LAB BLOOD ORDERABLES Final Result [facility] [place] [address] [place] [address] * (ABNORMAL) Microscopic Examination (01/23/2025 10:04 AM EDT) WBC, Urine 0-5 0 - 5 /hpf [facility] RBC, Urine 3-10(A) 0 - 2 /hpf [facility] Squamous Epithelial, Urine >10(A) 0 - 10 /hpf [facility] Casts None seen None seen /lpf [facility] Bacteria, Urine Few None seen/Few [facility] 01/23/2025 10:0 4 AM EDT 01/23/2025 us Kevon Boston MD LAB MICROBIOLOGY - GE NERAL ORDERABLES Final Result [facility] [place] [address] [place] [address] * (ABNORMAL) ALANIS W/Reflex (01/23/2025 10:04 AM EDT) ALANIS Positive(A) Negative [facility] 01/23/2025 10:0 4 AM EDT 01/23/2025 us Kevon Boston MD LAB BLOOD ORDERABLES Final Result Performing Organization Address [facility] de Phone Number [facility] [address] [place] [address] * (ABNORMAL) Iron Panel (Fe, TIBC, TSAT) (01/23/2025 10:04 AM EDT) TIBC 384 250 - 450 ug/dL [facility] UIBC 355 131 - 425 ug/dL [facility] Iron 29 27 - 159 ug/dL [facility] Iron Saturation (TSat) 8(LL) 15 - 55 % [facility] Blood (Blood, Venous) 01/23/2025 10:04 AM EDT 01/23/2025 us Kevon Boston MD LAB BLOOD ORDERABLES Final Result Performing Organization Address City/[facility]/ZIP Co de Phone Number [facility] [address] [place] [address] * Protein, Total, Random Urine w/Creatinine (Protein/Creat Ratio) (01/23/2025 10:04 AM EDT) Creatinine, Ur 332.2 Not Estab. mg/dL [facility] Protein, Ur 24.5 Not Estab. mg/dL [facility] Urine Protein/Creatin ine Ratio 74 0 - 200 mg/g creat [facility] Urine (Urine, Clean Catch) 01/23/2025 10:04 AM EDT 01/23/2025 Kevon Boston MD LAB URINE ORDERABLES Final Result Performing Organization Address City/[facility]/ZIP Co de Phone Number [facility] [place] [address] [place] [address] * Urine Albumin / Creatinine Ratio (01/23/2025 10:04 AM EDT) Albumin, Urine 42.4 Not Estab. ug/mL [facility] [place] Albumin/Creatin ine Ratio 13 0 - 29 mg/g creat [facility] Comment: ? Normal: ?0 - ??29 ? Moderately increased: 30 - 300 ? Severely increased: ? >300 Urine (Urine, Clean Catch) 01/23/2025 10:04 AM EDT 01/23/2025 Kevon Boston MD LAB URINE ORDERABLES Final Result Performing Organization Address City/[facility]/ZIP Co de Phone Number [facility] [place] [address] [place] [address] * (ABNORMAL) Anti-DNA antibody, double-stranded (01/23/2025 10:04 AM EDT) Pathologist [facility] DS DNA Ab 29(H) 0 - 9 IU/mL [facility] Comment: ? Negative ?<5 ? Equivocal ??5 - 9 ? Positive ?>9 Blood (Blood, Venous) 01/23/2025 10:04 AM EDT 01/23/2025 Kevon Boston MD LAB BLOOD ORDERABLES Final Result [facility] [address] [place] [address] * (ABNORMAL) Vitamin D 25 Hydroxy (01/23/2025 10:04 AM EDT) Pathologist [facility] Vitamin D, 25-OH, Total 27.4(L) 30.0 - 100.0 ng/mL [facility] Comment: Vitamin D deficiency has been defined by the [place] of Medicine and an Endocrine Society practice guideline as a level of serum 25-OH vitamin D less than 20 ng/mL (1,2). The Endocrine Society went on to further define vitamin D insufficiency as a level between 21 and 29 ng/mL (2). 1. IOM ([place] of Medicine). 2010. Dietary reference ?? intakes for calcium and D. [place]: The ?? National [employer]. 2. See MF, Russel [place], Alonso MON, et al. ?? Evaluation, treatment, and prevention of vitamin D ?? deficiency: an Endocrine Society clinical practice ?? guideline. JCEM. 2010; 96(6):1911-30. Blood (Blood, Venous) 01/23/2025 10:04 AM EDT 01/23/2025 us Kevon Boston MD LAB BLOOD ORDERABLES Final Result [facility] [address] [place] [address] * (ABNORMAL) Urinalysis with microscopic (01/23/2025 10:04 AM EDT) Specific [place], Urine 1.027 1.005 - 1.030 [facility] [phone] pH Urine 5.5 5.0 - 7.5 [facility] Color, Urine Yellow Yellow [facility] Appearance Urine Clear Clear [facility] [place] WBC Esterase Urine Negative Negative [facility] Protein, Ur 1+(A) Negative/Tra ce [facility] Glucose, Ur Negative Negative [facility] Ketones, Urine Negative Negative [facility] [place] Blood Urine Trace(A) Negative [facility] [place] [phone] Bilirubin Urine Negative Negative [facility] [place] Urobilinogen Urine 0.2 0.2 - 1.0 mg/dL [facility] Nitrite, Urine Negative Negative [facility] [place] Microscopic Examination See below: [facility] [place] Comment:Microscopic was jemma cated and was performed. Urine (Urine, Clean Catch) 01/23/2025 10:04 AM EDT 01/23/2025 us Kevon Boston MD LAB URINE ORDERABLES Final Result [facility] [address] [place] [address] * (ABNORMAL) CBC and Differential (01/23/2025 10:04 AM EDT) WBC 11.3(H) 3.4 - 10.8 x10E3/uL [facility] RBC 3.88 3.77 - 5.28 x10E6/uL [facility] Hemoglobin 10.4(L) 11.1 - 15.9 g/dL [facility] Hematocrit 31.8(L) 34.0 - 46.6 % [facility] MCV 82 79 - 97 fL [facility] MCH 26.8 26.6 - 33.0 pg [facility] MCHC 32.7 31.5 - 35.7 g/dL [facility] RDW 15.3 11.7 - 15.4 % [facility] Platelets 374 150 - 450 x10E3/uL [facility] Neutrophils Relative 47 Not Estab. % [facility] Lymphocytes Relative 43 Not Estab. % [facility] Monocytes 9 Not Estab. % [facility] Eosinophils Relative 1 Not Estab. % [facility] Basophils Relative 0 Not Estab. % [facility] Neutrophils Absolute 5.3 1.4 - 7.0 x10E3/uL [facility] Lymphocytes Absolute 4.8(H) 0.7 - 3.1 x10E3/uL [facility] Monocytes Absolute 1.0(H) 0.1 - 0.9 x10E3/uL [facility] Eosinophils Absolute 0.1 0.0 - 0.4 x10E3/uL [facility] Basophils Absolute 0.1 0.0 - 0.2 x10E3/uL [facility] Immature Granulocytes 0 Not Estab. % [facility] Immature Grans (Absolute) 0.0 0.0 - 0.1 x10E3/uL [facility] Blood (Blood, Venous) 01/23/2025 10:04 AM EDT 01/23/2025 Narrative [facility] - 01/26/2025 4:05 AM EDT Specimen Comment: A courtesy copy of this report has been sent to [phone] Kevon Boston MD LAB BLOOD ORDERABLES [facility] [place] [address] [place] [address] * C3 Complement (01/23/2025 10:04 AM EDT) C3 Complement 113 82 - 167 mg/dL [facility] [place] Blood (Blood, Venous) 01/23/2025 10:04 AM EDT 01/23/2025 Kevon Boston MD LAB BLOOD ORDERABLES Final Result [facility] [address] [place] [address] * C4 Complement (01/23/2025 10:04 AM EDT) C4 Complement 15 12 - 38 mg/dL [facility] Blood (Blood, Venous) 01/23/2025 10:04 AM EDT 01/23/2025 us Kevon Boston MD LAB BLOOD ORDERABLES Final Result [facility] [place] [address] [place] [phone] * Uric Acid (01/23/2025 10:04 AM EDT) Uric Acid 4.2 2.6 - 6.2 mg/dL [facility] Comment:Therapeutic target f or gout patients: <6.0 Blood (Blood, Venous) 01/23/2025 10:04 AM EDT 01/23/2025 us Kevon Boston MD LAB BLOOD ORDERABLES Final Result Performing Organization Address [facility] Co de Phone Number [facility] [place] [address] [place] [address] * Phosphorus (01/23/2025 10:04 AM EDT) Phosphorus 4.0 3.0 - 4.3 mg/dL [facility] Blood (Blood, Venous) 01/23/2025 10:04 AM EDT 01/23/2025 us Kevon Boston MD LAB BLOOD ORDERABLES Final Result Performing Organization Address City/[facility] Co de Phone Number [facility] [place] [address] [place] [address] * PTH, Intact (01/23/2025 10:04 AM EDT) PTH 30 15 - 65 pg/mL [facility] Blood (Blood, Venous) 01/23/2025 10:04 AM EDT 01/23/2025 us Kevon Boston MD LAB BLOOD ORDERABLES Final Result Performing Organization Address City/[facility]/ZIP Co de Phone Number [facility] [place] [address] [place] [address] * Magnesium (01/23/2025 10:04 AM EDT) Magnesium 1.8 1.6 - 2.3 mg/dL [facility] Blood (Blood, Venous) 01/23/2025 10:04 AM EDT 01/23/2025 us Kevon Boston MD LAB BLOOD ORDERABLES Final Result Performing Organization Address [facility] Co de Phone Number [facility] [address] [place] [address] * (ABNORMAL) Ferritin (01/23/2025 10:04 AM EDT) Pathologist [facility] Ferritin 13(L) 15 - 150 ng/mL [facility] Blood (Blood, Venous) 01/23/2025 10:04 AM EDT 01/23/2025 us Kevon Boston MD LAB BLOOD ORDERABLES Final Result Performing Organization Address City/[facility] Co de Phone Number [facility] [address] [place] [address] * (ABNORMAL) Basic Metabolic Panel (01/23/2025 10:04 AM EDT) Glucose 82 70 - 99 mg/dL [facility] BUN 15 6 - 24 mg/dL [facility] Creatinine 1.12(H) 0.57 - 1.00 mg/dL [facility] eGFR CKD-EPI CR 2020 60 >59 mL/min/1.7 3 [facility] BUN/Creatinine Ratio 13 9 - 23 [facility] Sodium 138 134 - 144 mmol/L [facility] Potassium 4.0 3.5 - 5.2 mmol/L [facility] Chloride 101 96 - 106 mmol/L [facility] Bicarbonate (CO2) 24 20 - 29 mmol/L [facility] Calcium 9.0 8.7 - 10.2 mg/dL [facility] Blood (Blood, Venous) 01/23/2025 10:04 AM EDT 01/23/2025 Kevon Boston MD LAB BLOOD ORDERABLES Final Result [facility] [place] [address] [place] [address] from Last 3 Months Insurance [facility] [place] [id number] [facility] [place] [id number] Care Teams Wrapper Sheeter Relationship Specialty Start Date End Date Willie Main MD [address] [place] [address] JACOBY Zambrano [address] PCP - General Internal Medicine 10/24/24
[2025-03-26 08:48] LABS: MANUAL DIFF FLAG NO
[2025-03-26 09:14] LABS: Basophils Absolute Auto 0.1 X10*3/uL (0.0-0.2); Basophils Percent Auto 0.5 % (0-2); Eosinophils Absolute Auto 0.1 X10*3/uL (0.0-0.4); Eosinophils Percent Auto 0.9 % (0-4); Hemoglobin 11.1 g/dl (12.0-16.0); Imm Gran Abs Auto 0.06 X10*3/uL (0.00-0.03); Imm Gran Pct Auto 0.6 % (0.0-0.4); Lymphocytes Absolute Auto 4.3 X10*3/uL (1.2-4.9); Lymphocytes Percent Auto 40.3 % (20-40); Mean Corpuscular HGB Conc 31.7 g/dl (31.0-35.0); Mean Corpuscular Hemoglobin 27.9 pg (27.0-33.0); Mean Corpuscular Volume 87.9 fL (80.0-98.0); Mean Platelet Volume 9.7 fL (9.4-12.3); Monocytes Percent Auto 9.6 % (2-11); Neutrophils Absolute Auto 5.1 x10*3/uL (2.0-8.3); Neutrophils Percent Auto 48.1 % (45-73); Platelet Count 396 X10*3/uL (160-400); Red Blood Count 3.98 X10*6/uL (4.20-5.50); White Blood Count 10.5 X10*3/uL (4.8-10.8)
[2025-03-26 09:42] LABS: Appearance Urine Cloudy; Color Urine Yellow; Glucose Urine UA Negative (Negative); Leukocyte Esterase Urine Negative (Negative); Nitrite Urine Negative (Negative); PH 5.5 (5.0-9.0); UMIC TRIGGER UA YES; Urine Blood Moderate (2+) (Negative); Urine Ketones Negative (Negative); Urine Protein Negative (Neg-Trace)
[2025-03-26 09:51] LABS: Bacteria Urine 1+ (None Seen); Hyaline Casts Urine 0-2 /LPF (0-2); RBC Urine 0-2 /HPF (0-2); WBC Urine 0-5 /HPF (0-5)
[2025-03-26 09:55] LABS: Erythrocyte Sedimentation Rate 25 MM/HR (0-20)
[2025-03-26 10:12] LABS: Alanine Aminotransferase 15 U/L (0-31); Alkaline Phosphatase 57 U/L (39-117); Anion Gap 12 (12-20); Aspartate Amino Transferase 19 U/L (5-31); Bilirubin Total 0.3 mg/dL (0.0-1.0); Blood Urea Nitrogen 24 mg/dL (9-16); C Reactive Protein < 0.10 mg/dL (< or = 0.50); Calcium 9.1 mg/dL (8.4-10.2); Carbon Dioxide 25 mmol/L (22-29); Chloride 104 mmol/L (96-108); Estimated Glomerular Filt Rate 58; Glucose Random 77 mg/dL (60-115); Potassium 4.1 mmol/L (3.3-5.1); Sodium 137 mmol/L (135-145); Total Protein 7.3 g/dL (6.5-8.0)
[2025-03-26 11:14] LABS: Creatinine Urine 122.66 mg/dL; Total Protein Urine Random < 7 mg/dL (<12)
[2025-03-27 20:04] LABS: Anti DNA DS Antibody 32 IU/mL; Cardiolipin IgG Ab 60.7 GPL-U/mL; Cardiolipin IgM Ab <2.0 MPL-U/mL
[2025-03-28 11:05] LABS: Complement C3 130 mg/dL (83-193)
[2025-03-29 22:27] LABS: Beta-2 Glycoprotein IgA >65.0 U/mL (<20.0); Beta-2 Glycoprotein IgG 107.4 U/mL (<20.0); Beta-2 Glycoprotein IgM <2.0 U/mL (<20.0)
[2025-03-29 23:04] LABS: PTT (LAC) Screen 39 sec (<=40)
== END 2025-03-26 08:31 | disposition home or self-care (01) ==
LOC: HO.LAB 08:30
PROVIDERS: Absent Provider Dermatology; PCP Internal Medicine; Visit Provider Student in an Organized Health Care Education/Training Program
DX: M32.14 Glomerular disease in systemic lupus erythematosus (principal); L30.9 Dermatitis, unspecified
CPT/HCPCS: 36415; 80053; 81001; 82570; 84156; 85025; 85597; 85598; 85613; 85652; 85730; 86140; 86146; 86147; 86160; 86225

== ENCOUNTER 2025-03-29 14:23 | Outpatient (AMB) | payer OTHER, SELFPAY ==
--- OUTSIDE RECORDS SUMMARY | 2025-03-29 14:27 | XMS_ITS | Encounter Summary ---
Author Organization [facility] Address [address] [place] [address] Care Team Providers Care Bilingual Recruiter Name Role Phone Willie Main MD Primary Care Provider [phone] Reason for Visit * Reason Onset Date Comments Hospital Follow-up 03/06/2025 [facility] Encounter Details Date Type Department Care Team ([facility] st Contact Info) Description 03/06/2025 Telephone Adult Medicine [address] [phone] Willie Main MD [address] [place] [phone] Hospital Follow-up ([facility] ) Social History Tobacco Use Types [...] RN - 03/06/2025 1:26 PM EDT Using deaf interpreter [id number] Pt. Evaluated in the ER for abd. [...] appointment needed Hospital patient was treated at: [facility] Was this only an ER visit or [...] was the injury due to: Not 3rd alliance party related documented in this encounter Plan of Treatment Upcoming Encounters Date Type Department Care Team (Late st Contact Info) Description 04/20/2025 8:00 AM EDT Appointment [facility] CT Scan [address] [place] [phone] 05/16/2025 9:20 AM EDT Consult Gastroenterology - [place] [address] [phone] Quirino Boykin MD [address] [address] 07/19/2025 11:00 AM EDT Office Visit Adult Medicine [address] [phone] Willie Main MD [address] [place] [address] 08/16/2025 11:00 AM EDT Appointment [facility] [address] [place] [phone] documented as of this encounter Visit Diagnoses Not on filedocumented in this encounter Care Teams Bilingual Recruiter Relationship Specialty Start Date End Date Willie Main MD [address] [place] [phone] PCP - General Internal Medicine 03/01/25 documented as of this encounter
--- NOTE | 2025-03-29 14:59 | MHC.OFFVIS ---
Vital Signs 03/29/25 15:05 Height 4 ft 8 in Weight 147 lb 7.828 oz BMI 33.1 BP 132/84 Blood Pressure Location Rt brachial Position Sitting Respiration 16 Pulse 88 Pulse Source Pulse Oximeter Pulse Oximetry (%) 98 Oxygen Delivery Method Room Air Intake Visit Reasons: SLE Intake Note: Patient presents for SLE. 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 Services: Hydrate Control Tender Offered & Declined Hydrate Control Tender Name: Natividad Warren Information Interpreted: non-clinical & clinical Outside Sales Manager: Outside Sales Manager Present (Natividad Warren) Accompanied by: Daughter Allergies Penicillins [PENICILLINS] Allergy (Unknown, Verified 03/29/25 15:05) SWELLING amlodipine Allergy (Verified 03/29/25 15:05) Headache azathioprine Allergy (Verified 03/29/25 15:05) Rash HPI Comments Details: Patient is a 48-year-old female with hypertension, hyperlipidemia, GERD and 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 At that time she was following up for her lupus complicated by lupus nephritis. She was doing well was just complaining of a rash to her left lower extremity. It appeared to be viral in nature and she was given acyclovir. This did not help the rash much. She was sent to Dermatology who diagnosed it as a dermatitis and she is given a pill for the itching. 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 Mucosal lesions. Positive anti-DNA, SS- A. 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 On hydroxychloroquine, Myfortec, prednisone. Myfortec tapered Off 2013. Eye exam OK 08/20, 12/22. Stopped hydroxychlorquine in spring 2015 - ? Eye abnormality Flare of SLE summer 2015 - back on prednisone, azathioprine added - azathioprine caused skin rash and stopped 2016 Cellcept and prednisone started 2016 Prednisone tapered off, December 2020 WHO III GN develpoe summer 2022; Cellcept increased;high dose prednisone started CellCept switch to Myfortic 11/2023 due to diarrhea Current Rheumatology Medication(s): Myfortic 720 mg twice a day Prednisone 5mg bid [facility] Medical History shelter (current) use of systemic steroids On mycophenolate mofetil therapy GERD (gastroesophageal reflux disease) Eczema Tendinopathy of right rotator cuff Dyslipidemia SLE (systemic lupus erythematosus) HTN (hypertension) Lupus Surgical History History of hysterectomy Family History Mother Hypertension Father Hypertension History of thyroid disorder Sister Strabismus Maternal Grandmother Diabetes Maternal Grandfather FH: prostate cancer Social History Household Members: Spouse Housing: Apartment Alcohol intake: never Patient Tobacco Use Status: Never used Tobacco service: No Current occupational status: unemployed Review of Systems Const Details: Review of Systems Constitutional: Denies fever, chills, weight loss ENT: Denies vision changes, eye pain or eye redness, dental caries, dry mouth GI: Denies nausea, vomiting, diarrhea, abdominal pain, change in BM Pulm: Denies SOB, CHAPPELL, hemoptysis, wheezing Cards: Denies chest pain, palpitations Skin: Denies Raynaud's, rash, nail changes, photosensitivity, FISH AND WILDLIFE WARDEN: Denies headaches, weakness, paresthesias, recurrent falls MSK: as per HPI All other systems reviewed and are unremarkable except noted above Physical Exam Vital Signs: Last Vital Signs Pulse 88 03/29/25 15:05 Resp 16 03/29/25 15:05 BP 132/84 03/29/25 15:05 Pulse Ox 98 03/29/25 15:05 Oxygen Delivery Method Room Air 03/29/25 15:05 BMI result Body Mass Index 33.1 Vital signs reviewed Physical Examination CONSTITUITIONAL Patient alert and cooperative. Well appearing and in no apparent painful distress HEENT Conjunctiva and sclera clear. ?Pupils equal round and reactive to light. ?No lymphadenopathy. ? CHEST/RESPIRATORY SYSTEM Normal respiratory effort and able to speak in complete sentences. ?Clear to auscultation bilaterally. ?No crackles, rales, rhonchi, wheezes heard. CARDIAC SYSTEM Regular rate and rhythm. ?S1 and S2 heard no murmurs. ?Radial pulses intact bilaterally MSK Hands: ?Able to make a fist. No synovitis noted to the MCPs, PIPs or DIPs. ?No tenderness to palpation of these joints. No deformities noted. ? Wrists: ?Full range of motion at the wrists without pain. ?No tenderness to palpation or synovitis noted to the wrists. Elbows: Full range of motion without pain. No tenderness, weakness, swelling, increased warmth or erythema. Shoulders: Full range of active range of motion without pain. No tenderness, weakness, swelling, increased warmth or erythema. Knees: ?Full range of motion. ?No tenderness, swelling, increased warmth or erythema.?No effusion or crepitations Ankles: Full range of motion. ?No tenderness, swelling, increased warmth or erythema.? Feet: ?Negative squeeze test. ?No tenderness to palpation or swelling of the MTPs. Tender points:?No tenderness to palpation of the bilateral trapezius, supraspinatus, greater trochanters, anterior costochondral junctions, bilateral gluteal areas, bilateral suboccipital muscle insertions Rash noted to gaiter region of the left lower leg Results Reviewed Results Reviewed: Laboratory Tests 03/26/25 08:46 WBC 10.5 RBC 3.98 L Hgb 11.1 L Hct 35.0 L ESR 25 H Sodium 137 Potassium 4.1 Chloride 104 Carbon Dioxide 25 BUN 24 H Creatinine 1.02 AST 19 ALT 15 Alkaline Phosphatase 57 C-Reactive Protein < 0.10 Total Protein 7.3 Laboratory Tests 08/11/24 03/26/25 08:54 08:46 Double Strand DNA Ab 27 H 32 H Complement C3 125 130 Complement C4 17 17 Urine tests 03/26/25 08:40 Urine Protein Negative Urine Blood Moderate (2+) H U Random Total Protein < 7 Assessment & Plan Assessment & Plan (1) SLE (systemic lupus erythematosus): Comment: 2009 - joint pains, rash, ? Mucosal lesions. Positive anti-DNA, SS- A. 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 On hydroxychloroquine, Myfortec, prednisone. Myfortec tapered Off 2013. Eye exam OK 08/20, 12/22. Stopped hydroxychlorquine in spring 2015 - ? Eye abnormality Flare of SLE summer 2015 - back on prednisone, azathioprine added - azathioprine caused skin rash and stopped 2016 Cellcept and prednisone started 2016 Prednisone tapered off, December 2020 WHO III GN developed summer 2022; Cellcept increased; high dose prednisone started CellCept switch to Myfortic 11/2023 due to diarrhea Code(s): M32.9 - Systemic lupus erythematosus, unspecified Category: Medical Qualifiers: Systemic lupus erythematosus type: unspecified Systemic lupus erythematosus organ involvement: glomerular disease Qualified Code(s): M32.14 - Glomerular disease in systemic lupus erythematosus Plan: #SLE c/b LN III Patient is a 48-year-old female with 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 UPC stable. Follow with urology for persistent microscopic hematuria. Currently in remission Plan - Myfortiq 720mg bid - Decrease prednisone: 5mg AM, 2.5mg PM - RTC 4 months - Labs before visit: CBC, CMP, ESR, CRP, C3, C4, dsDNA, UA, UPC (2) On mycophenolate mofetil therapy: Code(s): Z79.624 - terminal supervisor (current) use of inhibitors of nucleotide synthesis Category: Medical Plan: #Long-term Use of Mycophenolate/Mycophenolic Acid Discussed with patient the benefits and risks of mycophenolate/mycophenolic acid for the management of the rheumatic condition Benefits include improved disease control and reduction of mortality Risks include GI upset especially diarrhea, anemia, leukopenia, hepatotoxicity, lymphoproliferative malignancies, PML Mycophenolate and mycophenolic acid are teratogenic and should be avoided in patients who are desiring the Monitoring: ?CBC, LFTs, BMP Recommended holding medication during and for up to 1 week after resolution of a febrile illness (3) shelter (current) use of systemic steroids: Code(s): Z79.52 - terminal supervisor (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) use of systemic steroids Category: Medical Plan: #Long-term Use of Steroids Discussed with patient the risks and benefits of steroid for managing the rheumatic condition Benefits include: - Reduced pain, improved mobility, increased participation in activities, and decreased progression of disease Risks include: - GI upset, potential ultrasound worsening or formation (especially in patients > 65 years old), elevated blood pressure/worsening hypertension, elevated blood sugar/worsening diabetes control, worsening of bone density, elevated lipids/worsening triglycerides, cataract formation, weight gain Recommended using proton pump inhibitors (PPIs) for the duration of steroid use to reduce the risk of gastric ulcers and vitamin-D daily to reduce the risk of osteoporosis Labs checked: ?A1c, T spot, hepatitis-B and C serologies Pneumocystis jiroveci prophylaxis: ?Patient with risk factors including steroids greater than 50 mg for more than 30 days, age greater than 60 years, and lung involvement from underlying rheumatic disease requires prophylaxis and will be given so Plan I spent 30 minutes reviewing the record and labs, taking a history, examining the patient, discussing the treatment plan and documenting in the medical record Medications: Changed From prednisone 5 mg PO BID 60 tabs 1RF M32.14 - Glomerular disease in systemic lupus erythematosus To prednisone 1 tablet in the morning, 1/2 tablet in the evening 7.5 mg (1.5 x 5 mg) PO DIRECTED 90 days 135 tabs 1RF M32.14 - Glomerular disease in systemic lupus erythematosus Coding Level of Care Code Est Pt Level 4 (31539) Complex EM visit Add On G2211 Diagnoses Systemic lupus erythematosus with glomerular disease, unspecified SLE type M32.14 Systemic lupus erythematosus type: unspecified Systemic lupus erythematosus organ involvement: glomerular disease On mycophenolate mofetil therapy Z79.624 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
[2025-03-29 15:05] VITALS: BP 132/84; PULSE 88; RESP 16; O2SAT 98; BMI 33.1
== END 2025-03-29 15:43 | disposition home or self-care (01) ==
LOC: HO.RHE 14:23
PROVIDERS: PCP Internal Medicine; Visit Provider Student in an Organized Health Care Education/Training Program
DX: M32.14 Glomerular disease in systemic lupus erythematosus (principal); Z79.624 Long term (current) use of inhibitors of nucleotide synthesis; Z79.52 Long term (current) use of systemic steroids
CPT/HCPCS: 99214; G2211

== ENCOUNTER → 2025-03-29 14:23 | Outpatient (BNVA) | payer OTHER, SELFPAY | PROVIDERS: PCP Internal Medicine; Visit Provider Student in an Organized Health Care Education/Training Program | DX: M32.14 Glomerular disease in systemic lupus erythematosus (principal); Z79.52 Long term (current) use of systemic steroids; Z79.899 Other long term (current) drug therapy | CPT/HCPCS: 99212 ==

== ENCOUNTER 2025-07-31 09:45 | Outpatient (REF) | payer OTHER, SELFPAY ==
--- OUTSIDE RECORDS SUMMARY | 2025-07-31 11:41 | XMS_ITS | Patient Health Record ---
Author Organization [facility] Address [address] [place] [address] Care Team Providers Care Creative Technologist Name Role Phone Joshua Martinez Unavailable [phone] Reason For Referral No Information Plan Of Treatment No Information
--- OUTSIDE RECORDS SUMMARY | 2025-07-31 11:41 | XMS_ITS | Clinical Summary ---
Author Organization [address] [place] [address] [place] [phone] Phone Care Team Providers Care Ui Designer Name Role Phone Willie Gardner MD Primary Care Provider [phone] Allergies Active Allergy Reactions Criticality Noted Date Comments Azathioprine Other 12/09/2016 Other Reaction(s): Rash/Dermatitis Penicillins 07/24/2013 Medications mirtazapine (REMERON) 7.5 mg tablet TAKE 1 TABLET BY MOUTH EVERY NIGHT AT BEDTIME 90 tablet 4 Active cetirizine (ZyrTEC) 5 mg tablet Take 1 tablet (5 mg total) by mouth 1 (one) time each day. 4 Active clotrimazole-be tamethasone (LOTRISONE) 1-0.05 % cream APPLY TO AFFECTED SKIN ON FEET TWICE DAILY 4 Active MULTIVITAMIN ORAL Take by mouth. 1 Active mycophenolate (CELLCEPT) 500 mg tablet Take 1 tablet (500 mg total) by mouth 5 (five) times a day. 1 Active potassium chloride 20 mEq tablet extended release Take 1 Tablet by mouth 2 times daily for 5 days. 4 Active topiramate (TOPAMAX) 50 mg tablet TAKE 1 TABLET BY MOUTH EVERY DAY 7 tablet 5 Active omeprazole (PriLOSEC) [address] capsule Take 1 capsule (20 mg total) by mouth 1 (one) time each day. Do not crush or chew. 90 capsule 1 5 Active cyclobenzaprine (FLEXERIL) 10 mg tabletIndicatio ns:Mid back pain on right side Take 0.5-1 tablets (5-10 mg total) by mouth at bedtime as needed for muscle spasms. 30 tablet 5 Active predniSONE (DELTASONE) 5 mg tablet Take 1.5 tablets (7.5 mg total) by mouth 1 (one) time each day. Take one tab in the a.m. and a 1/2 tab in the evening 5 Active cholecalciferol (VITAMIN D-3) 50 mcg (2,000 unit) capsule Take 1 capsule (2,000 Units total) by mouth 1 (one) time each day. 90 capsule 1 5 Active amLODIPine (NORVASC) 5 mg tablet Take 1 tablet (5 mg total) by mouth 1 (one) time each day. 90 tablet 1 5 Active amLODIPine (NORVASC) 5 mg tablet Take 1 tablet (5 mg total) by mouth 1 (one) time each day. 3 07/19/20 25 Discontinu ed(Reorder ) cholecalciferol (VITAMIN D-3) 50 mcg (2,000 unit) capsule Take 1 capsule (2,000 Units total) by mouth 1 (one) time each day. 3 07/19/20 25 Discontinu ed(Reorder ) Active Problems Problem Noted Date Diagnosed Date Abnormal CT of the abdomen 06/06/2025 Epiploic appendagitis 06/06/2025 SLE (systemic lupus erythema tosus) ([facility] V24, [facility] V28) 09/24/2024 Overview (09/24/2024): 2009 - joint pains, rash, ? Mucosal lesions. Positive anti-DNA, SS- A. 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 On hydroxychloroquine, Myfortec, prednisone. Myfortec tapered Off [...] Episode of recurrent major d epressive disorder ([facility] V24) 11/04/2017 Essential hypertension 08/18/2017 Eczema 05/12/2017 Migraine without aura and wi thout status migrainosus, not intractable 01/16/2016 Overview (09/24/2024): Follows with neurology. GERD (gastroesophageal reflux disease) 5 Overview (09/24/2024): Seen by ENT and had upper airway endoscopy - 01/20. 02/25/2018: Upper GI endoscopy normal on chronic treatment with PPI and NSAIDs. Encounters Date Type Department Care Team Description 07/19/2025 11:00 AM EDT Office Visit Adult Medicine [address] [phone] Willie Gardner MD Essential hypertension (Primary Dx); Skin lesions; Systemic lupus erythematosus, unspecified SLE type, unspecified organ involvement status (CMS/HCC V24, CMS/HCC V28); Gastroesophageal reflux disease, unspecified whether esophagitis present; Lupus nephritis ([facility] V24, [facility] V28) 06/06/2025 10:00 AM EDT Consult Gastroenterology - [place] [address] [place] [address] Quirino Boykin MD Epiploic appendagitis (Primary Dx); Abnormal CT of the abdomen 05/07/2025 9:38 AM EDT - 05/07/2025 11:59 PM EDT Hospital Encounter [address] [phone] Cervicalgia Discharge Disposition: Home or Self Care from Last 3 Months Immunizations Name Administration [...] TUBAL LIGATION UPPER GASTROINTESTINAL ENDOSCOPY 02/25/2018 PROCEDURE: MS UPPER GI ENDOSCOPY PERFORMED; COMMENT: Visually normal on chronic treatment with NSAIDs and PPIs; duodenal biopsies: negative. PARTIAL HYSTERECTOMY 09/2018 N/A PROCEDURE: MS SUPRACERVICAL ABDL HYSTER W/WO RMVL TUBE OVARY Medical History Medical History Date Comments SLE (systemic lupus erythema tosus) ([facility] V24, [facility] V28) DX:SLE (systemic lupus erythematosus) ([facility]); COMMENT: 2009 Anemia DX:Anemia Hypertension DX:Hypertension; COMMENT: [...] Sign Reading Time Taken Comments Blood Pressure 130/78 07/19/2025 10:39 AM EDT Pulse 86 07/19/2025 10:39 AM EDT Temperature 36.5 C (97.7 F) 07/19/2025 10:39 AM EDT Respiratory Rate 14 07/19/2025 10:39 AM EDT Oxygen Saturation 99% 07/19/2025 10:39 AM EDT Inhaled Oxygen Concentration - - Weight 67.1 kg (148 lb) 07/19/2025 10:39 AM EDT Height 142.2 cm (4' 8 ) 07/19/2025 10:39 AM EDT Body Mass Index 33.18 07/19/2025 10:39 AM EDT Plan of Treatment Upcoming Encounters Date Type Department Care Team (Late st Contact Info) Description 08/16/2025 11:00 AM EDT [facility]ointment [facility] [address] [phone] 02/08/2026 9:30 AM EDT Office Visit Adult Medicine [address] [phone] Willie Gardner MD [address] [place] [address] Health Maintenance Due Date Last Done Comments Cervical Cancer Screening: Pap Smear 1996 Pneumococcal Vaccine: Pediatrics (0 to 5 Years) and At-Risk Patients (6 to 49 Years) (2 of 2 - PCV) 08/28/2014 08/28/2013 COVID-19 Vaccine (3 - Pfizer risk series) 09/17/2021 08/20/2021, 07/30/2021 Colorectal Cancer Screening: Colonoscopy 10/17/2022 HIV Screening 10/17/2022 Medicare Annual Wellness Visit 10/17/2022 Social Influencers of Health Screening 10/17/2022 DTaP,Tdap,and Td Vaccines (2 - Td or Tdap) 09/11/2024 09/11/2014 Depression Screening 11/08/2024 Hypertension/CHF/CAD Annual BMP Blood Test 01/23/2026 01/23/2025, 2023 Breast Cancer Screening 08/16/2026 08/16/20 24, 09/23/2023, 11/11/2021, Additional history exists Cholesterol Screening (Lipid Panel) 11/16/2027 11/16/2022 Hepatitis A Vaccines Aged Out 06/10/2015, 02/15/2015, 02/07/2014 No longer eligible based on patient's age to complete this topic Hepatitis B Vaccines Completed 06/10/2015, 02/15/2015, 02/07/2014 Hepatitis C Screening Completed 07/05/2019 Influenza Vaccine Completed 07/17/2025, , 07/24/2021, Additional history exists HIB Vaccines Aged Out No longer eligi [...] Name Priority Date/Time Associated Diagnosis Comments XR CERVICAL SPINE 4-5 VIEWS Routine 05/07/2025 9:46 AM EDT Cervicalgia HM ANNUAL BMP BLOOD TEST Routine 2023 NUBIA SCREENING DIGITAL Routine 09/23/2023 11:40 AM EST Encounter for screening mammogram for malignant neoplasm of breast LIPID PANEL Routine 11/16/2022 HEPATITIS C SCREENING Routine 07/05/2019 from Last 3 Months or Most Recently Relevant to Health Maintenance Results * XR Cervical Spine 4-5 Views (05/07/2025 9:46 AM EDT) Anatomical Region Laterality Modality Spine, C-spine Radiographic Amanda ging 05/07/2025 10:0 7 AM EDT Impressions 05/07/2025 10:16 AM EDT No fracture or dislocation of the cervical spine. -------- FINAL REPORT -------- Dictated By: Fern Reed Dictated Date: 05/07/2025 10:07 ET Assigned Physician: Fern Reed Reviewed and Electronically Signed By: Fern Reed Signed Date: 05/07/2025 10:16 ET Workstation ID: [id number] Transcribed By: Self Edit Transcribed Date: 05/07/2025 10:07 ET Narrative 05/07/2025 10:16 AM EDT HISTORY: cervicalgia TECHNIQUE: 4 views of the cervical spine COMPARISON: None FINDINGS: The cervical spine is visualized from C1-C7. Vertebral body height is maintained. Decreased disc height at C5-C6 with endplate sclerosis. Small anterior osteophytes are present. The cervical alignment is maintained without spondylolisthesis. No acute fracture or dislocation is seen. There is no prevertebral soft tissue swelling. Procedure Note Fern Reed MD - 05/07/2025 HISTORY: cervicalgia TECHNIQUE: 4 views of the cervical spine COMPARISON: None FINDINGS: The cervical spine is visualized from C1-C7. Vertebral body height ismaintained. Decreased disc height at C5-C6 with endplate sclerosis. Smallanterior osteophytes are present. The cervical alignment is maintainedwithout spondylolisthesis. No acute fracture or dislocation is seen. Thereis no prevertebral soft tissue swelling. IMPRESSION: No fracture or dislocation of the cervical spine. -------- FINAL REPORT -------- Dictated By: Fern Reed Dictated Date: 05/07/2025 10:07 ET Assigned Physician: Fern Reed Reviewed and Electronically Signed By: Fern Reed Signed Date: 05/07/2025 10:16 ET Workstation ID: [id number] Transcribed By: Self Edit Transcribed Date: 05/07/2025 10:07 ET us Keegan ROACH IMG XR PROCEDURES Final Result * Annual BMP Blood Test (2023) Annual BMP Blood Test ABSTRACTED us Historical Provider HEALTH MAINTENANCE Final Result * NUBIA SCREENING DIGITAL (09/23/2023 11:40 AM EST) Anatomical Region Laterality Modality Mammography 09/23/2023 10:3 1 AM EST Narrative 09/23/2023 11:40 AM EST [facility] Diagnostic Imaging Department [address] [place], [place] [id number] Patient: CHRISTINA RICKETTS/Age/Sex: 1975 - 47 - F Unit#: [id number] [facility] Mnemonic/Ordering Site: DIGSC/SPMAM Ordering Physician: WILLIE GARDNER MD Nubia Screening Digital - 09/23/23 - 1045 Report Status:Signed EXAM: Nubia Screening Digital EXAM DATE AND TIME: 09/23/2023 10:46 AM HISTORY: Annual screening COMPARISON: Multiple exams dating back to 2019 TECHNIQUE: Bilateral digital breast tomosynthesis was performed in the CC and MLO projections. Computer aided detection with Lalina 3D 3.1 was employed. TISSUE DENSITY: c. The breasts are heterogeneously dense, which may obscure small masses. FINDINGS: Cluster of microcalcifications in the upper outer right breast seen on the CC and MLO view. No associated mass or architectural distortion. The left breast is unremarkable. IMPRESSION: Cluster of microcalcifications in the upper outer right breast seen on the CC and MLO view. Recommend diagnostic mammogram of the right breast with magnification CC, MLO, and true lateral views. BI-RADS: Category 0: Incomplete - Need Additional Imaging Evaluation Dictating Physician: ADALGISA STINSON MD Electronically Signed by: ADALGISA STINSON MD Dic Date/Time: 09/23/23 1137 Sign date/Time: 09/23/23 1140 Procedure Note Adalgisa Stinson MD - 12/14/2023 [facility] Diagnostic Imaging Department [address] [place] [id number] Patient: ANTHONY RIVERALESCHRISTINA D.O.B./Age/Sex: 1975 - 47 - F Unit#: [id number] Location/Status: [facility] CLI Mnemonic/Ordering Site: [facility] Ordering Physician: WILLIE GARDNER MD [facility] Screening Digital - 09/23/23 - 1045 Report Status:Signed EXAM: [facility] Screening Digital EXAM DATE AND TIME: 09/23/2023 10:46 AM HISTORY: Annual screening COMPARISON: Multiple exams dating back to 2019 TECHNIQUE: Bilateral digital breast tomosynthesis was performed in the CCand MLO projections. Computer aided detection with Lalina 3D 3.1was employed. TISSUE DENSITY: c. The [...] Final Result * (ABNORMAL) Lipid panel (11/16/2022) Pathologist [facility] LDL/HDL Ratio 3 0 - 4 Triglycerides 177(A) 0 - 150 mg/dL Cholesterol 167 0 - 200 mg/dL HDL 60 >=40 mg/dL LDL Cholesterol 72 0 - 100 mg/dL Blood Venous blood specimen / Unknown Historical Provider LAB BLOOD ORDERABLES Dania l Result * Hepatitis C Screening (07/05/2019) Pathologist [facility] Hepatitis C Screening ABSTRACTED Historical Leia [facility] Final Result from Last 3 Months or Most Recently Relevant to Health Maintenance Insurance [employer] MEDICARE Member Subscriber Plan / Payer (Ef fective 2024-Present) Name:CHRISTINA CRUZ Relation to Subscriber:Self Name:Christina Ricketts Payer ID:[id number] Group ID:[id number] Type:Not on file Address: [place] [address] [id number] Care Teams Ui Designer Relationship Specialty Start Date End Date Willie Gardner MD [address] [place] [phone] PCP - General Internal Medicine 03/01/25
--- OUTSIDE RECORDS SUMMARY | 2025-07-31 11:41 | XMS_ITS | Clinical Summary ---
Author Organization [facility] Address [address] [place] [address] Care Team Providers Care Shuttler Car Name Role Phone Willie Main MD Primary Care Provider [phone] Allergies Active Allergy Reactions Criticality Noted Date [...] 95 02/11/2024 8:21 AM EDT Temperature 36.6 C (97.8 F) 02/11/2024 8:21 AM EDT Respiratory Rate - - Oxygen Saturation 100% [...] Smear) 1996 Colon Cancer Screening (Colonoscopy) 2020 DTap / Tdap / Td (2 - Td or Tdap) 09/11/2024 09/11/2014 COVID-19 Vaccine ( season) 2025 08/20/2021, 07/30/2021 Influenza Vaccine (#1) 2025 2, 07/24/2021, 09/13/2019, Additional history exists Pneumococcal Vaccine Aged Out 08/28/2013 No long er eligible based on patient's age to complete this topic Hepatitis B Vaccines Completed 06/10/2015, 02/15/2015, 02/07/2014 RSV Ped < 20 months Aged Out No longe r eligible based on patient's age to complete this topic Care Teams Shuttler Car Relationship Specialty Start Date End Date Willie Main MD PCP - General Internal Medicine 01/28/24
--- OUTSIDE RECORDS SUMMARY | 2025-07-31 11:41 | XMS_ITS | Clinical Summary ---
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 Not on amado e 03/06/2023 Are you concerned about learning? Not on file 03/06/2023 No 03/06/2023 No 03/06/2023 Digital Access Answer Date Recorded No 04/04/2023 No 04/04/2023 No 04/04/2023 Reliable internet access at home? Not on file 04/04/2023 Device with a working camera? Not on file Comments Unknown Sex and Gender Information Value Date Recorded Sex Assigned at Not on file Legal Sex Female 10:24 AM EST Gender Identity Not on file Sexual Orientation Not on file Plan of Treatment Health Maintenance Due Date Last Done Comments LIPID PANEL 1975 DEPRESSION SCREENING 1987 SMOKING Hx and SMOKELESS TOBACCO SCREENING 1988 HEPATITIS C SCREENING 1993 HIV ONE-TIME SCREENING (18-65 YEARS) 1993 PAP SMEAR 1996 MAMMOGRAM 2015 COLOGUARD 2020 COLONOSCOPY 2020 COLORECTAL CANCER SCREENING 2020 FIT TEST 2020 FOBT 2020 SIGMOIDOSCOPY 2020 VIRTUAL COLONOSCOPY 2020 Adult Td,Tdap Booster 09/11/2024 09/11/2014 INFLUENZA VACCINE (#1) 2025 , 09/13/2019, 09/09/2018, Additional history exists COVID-19 VACCINE (2024- season) 2025 08/20/2021, 07/30/2021 PNEUMOCOCCAL VACCINES (0-49 years) Aged Out 08/28/2013 No longer eligible based on patient's age to complete this topic HEPATITIS A VACCINES Aged Out 06/10/2015, 02/15/2015, 02/07/2014 No longer eligible based on patient's age to complete this topic HIB VACCINES Aged Out No longer eligi ble based on patient's age to complete this topic MENINGOCOCCAL VACCINES (ACWY) Aged Out No longer eligible based on patient's age to complete this topic MENINGOCOCCAL VACCINES (B) Aged Out N o longer eligible based on patient's age to complete this topic Medical Devices Not on file Insurance [facility] CARE MEDICARE REPLACEMENT DOC V[employer] MEDICARE [facility]PLACEMENT MEDICARE REPLACEMENT [facility] ONE CARE MEDICARE REPLACEMENT DOC VILL[employer]ERTE [id number] Care Teams Newspaper Delivery Driver Relationship Specialty Start Date End Date Willie Main MD [address] [place] [phone] PCP - General Internal Medicine 09/29/21 Additional Source Comments The information contained in this document represents components of the legal health record. It is not the complete legal health record.[facility]
--- OUTSIDE RECORDS SUMMARY | 2025-07-31 11:41 | XMS_ITS | Clinical Summary ---
Author Organization 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 12/15/19 24 Active Cholecalcifero l (Vitamin D3) 50 MCG (1999) tabletIndicati ons:Vitamin D deficiency, not otherwise specified Take 2,000 [...] (one) time each day 01/04/20 25 Active amLODIPine (NORVASC) 10 MG tabletIndicati ons:Hypertensi on Take 1 tablet (10 mg total) by mouth 1 (one) time each day 90 tablet 3 04/04/20 25 026 Active ferrous sulfate (Fe Tabs) 325 (65 Fe) MG EC tabletIndicati ons:Iron deficiency anemia, not otherwise specified Take 1 tablet (325 mg total) by mouth 1 (one) time each day with breakfast Do not crush, chew, or split. 90 tablet 3 02/06/20 25 025 Discontinued ferrous sulfate (Fe Tabs) 325 (65 Fe) MG EC tabletIndicati ons:Iron deficiency anemia, not otherwise specified Take 1 tablet (325 mg total) by mouth in the morning and 1 tablet (325 mg total) in the evening. Take with meals. Do not crush, chew, or split. 180 tablet 3 07/02/20 25 025 Discontinued(Si de effects) Active Problems Problem Noted Date Diagnosed Date [...] Positive anti-DNA, SS- A. Negative SS-B, anti-almanza, anti-ACADEMIC HOSPITALIST. On hydroxychloroquine, Myfortec, prednisone. Myfortec tapered Off [...] Encounters Date Type Department Care Team Description 07/03/2025 10:15 AM EDT Office Visit [facility] [address] [address] Mary Lopes ARNP Stage 3a chronic kidney disease (HCC) (Primary Dx); SLE glomerulonephritis syndrome, WHO class III (HCC); Hypertension; Persistent proteinuria; Iron deficiency anemia, not otherwise specified; Vitamin D deficiency, not otherwise specified 07/02/2025 Office Communication [facility] [address] [address] Moses MaryFELICITAS burrows 07/02/2025 Orders Only [facility] [address] [address] Mary Lopes ARNP Iron deficiency anemia, not otherwise specified (Primary Dx) 06/08/2025 Orders Only [facility] [address] [address] Mary Lopes ARNP Stage 3a chronic kidney disease (HCC); SLE glomerulonephritis syndrome, WHO class III (HCC); Iron deficiency anemia, not otherwise specified; Hypertension from Last 3 Months Immunizations Immunization Administration Dates Next Due Hep A / Hep B 06/10/2015,02/15/2015,02/07/2014 Influenza, MDCK, PF, Quadrivalent 2021,07/24/2021,09/13/2019,09/09 Influenza, MDCK, Quadrivalen t, with preservative 07/29/2017 Influenza, Unspecified 08/31/2016,2014,09/11/2014,07/24 PPD Test 11/20/2015 Pfizer SARS-COV-2 08/20/2021,07/30/2021 Pneumococcal Polysaccharide 08/28/2013 Tdap 09/11/2014 Family History Medical History Relation Comments Hypertension Mother Relation Status Comments Mother Social History Tobacco Use Types Packs/Day Years [...] Sign Reading Time Taken Comments Blood Pressure 122/80 07/03/2025 10:17 AM EDT Pulse 95 07/03/2025 9:57 AM EDT Temperature - - Respiratory Rate - - Oxygen Saturation 99% 07/03/2025 9:57 AM EDT Inhaled Oxygen Concentration - - Weight 66.3 kg (146 lb 3.2 oz) 07/03/2025 9:57 A M EDT Height - - Body Mass Index - - Plan of Treatment Upcoming Encounters Date Type Department Care Team (Late st Contact Info) Description 01/01/2026 1:15 PM EST Office Visit [facility] [address] [facility] [address] [place] [address] Kevon Boston MD [address] [facility] [address] [place] [address] Health Maintenance Due Date Last Done [...] Colorectal Cancer Screening: Sigmoidoscopy 2024 Influenza Vaccine (#1) 2025 2, 07/24/2021, 09/13/2019, Additional history exists Procedures Procedure Name Priority Date/Time Associated Diagnosis Comments FERRITIN Routine 06/29/2025 8:53 AM EDT Stage 3a chronic kidney disease (HCC) SLE glomerulonephritis syndrome, WHO class III (HCC) Iron deficiency anemia, not otherwise specified Hypertension IRON PANEL (FE, TIBC, TSAT) Routine 06/29/2025 8:53 AM EDT Stage 3a chronic kidney disease (HCC) SLE glomerulonephritis syndrome, WHO class III (HCC) Iron deficiency anemia, not otherwise specified Hypertension PROTEIN / CREATININE RATIO, URINE Routine 06/29/2025 8:53 AM EDT Stage 3a chronic kidney disease (HCC) SLE glomerulonephritis syndrome, WHO class III (HCC) Iron deficiency anemia, not otherwise specified Hypertension URINE ALBUMIN / CREATININE RATIO Routine 06/29/2025 8:53 AM EDT Stage 3a chronic kidney disease (HCC) SLE glomerulonephritis syndrome, WHO class III (HCC) Iron deficiency anemia, not otherwise specified Hypertension CBC Routine 06/29/2025 8:53 AM EDT Stage 3a chronic kidney disease (HCC) SLE glomerulonephritis syndrome, WHO class III (HCC) Iron deficiency anemia, not otherwise specified Hypertension RENAL FUNCTION PANEL Routine 06/29/2025 8:53 AM EDT Stage 3a chronic kidney disease (HCC) SLE glomerulonephritis syndrome, WHO class III (HCC) Iron deficiency anemia, not otherwise specified Hypertension PTH, INTACT Routine 06/29/2025 8:53 AM EDT Stage 3a chronic kidney disease (HCC) SLE glomerulonephritis syndrome, WHO class III (HCC) Iron deficiency anemia, not otherwise specified Hypertension from Last 3 Months Results * (ABNORMAL) Iron Panel (Fe, TIBC, TSAT) (06/29/2025 8:53 AM EDT) TIBC 364 250 - 450 ug/dL [facility] UIBC 340 131 - 425 ug/dL [facility] Iron 24(L) 27 - 159 ug/dL [facility] Iron Saturation (TSat) 7(LL) 15 - 55 % [facility] Blood Venous blood / Unknown 06/29/2025 8:53 AM EDT 06/29/2025 Mary Lopes [facility] LAB BLOOD ORDERABLES Final Result [facility] [address] [place] [address] * Urine Protein / creatinine ratio (06/29/2025 8:53 AM EDT) Creatinine, Ur 143.6 Not Estab. mg/dL [facility] Protein, Ur 9.4 Not Estab. mg/dL [facility] Urine Protein/Creatin ine Ratio 65 0 - 200 mg/g creat [facility] Urine Urine specimen obtained by clean catch procedure / Unknown 06/29/2025 8:53 AM EDT 06/29/2025 Mary Lopes [facility] LAB URINE ORDERABLES Final Result Performing Organization Address City/[facility]/ZIP Co de Phone Number [facility] [address] [place] [address] * Urine Albumin / Creatinine Ratio (06/29/2025 8:53 AM EDT) Albumin, Urine 11.8 Not Estab. ug/mL [facility] Albumin/Creatin ine Ratio 8 0 - 29 mg/g creat [facility] Comment: Normal: 0 - 29 Moderately increased: 30 - 300 Severely increased: >300 Urine Urine specimen obtained by clean catch procedure / Unknown 06/29/2025 8:53 AM EDT 06/29/2025 Mary [facility] LAB URINE ORDERABLES Final Result Performing Organization Address [facility] Co de Phone Number [facility] [address] [place] [address] * (ABNORMAL) CBC (06/29/2025 8:53 AM EDT) WBC 8.4 3.4 - 10.8 x10E3/uL [facility] RBC 3.66(L) 3.77 - 5.28 x10E6/uL [facility] Hemoglobin 9.8(L) 11.1 - 15.9 g/dL [facility] Hematocrit 30.7(L) 34.0 - 46.6 % [facility] MCV 84 79 - 97 fL [facility] MCH 26.8 26.6 - 33.0 pg [facility] MCHC 31.9 31.5 - 35.7 g/dL [facility] RDW 13.7 11.7 - 15.4 % [facility] Platelets 420 150 - 450 x10E3/uL [facility] Blood Venous blood / Unknown 06/29/2025 8:53 AM EDT 06/29/2025 Mary [facility] LAB BLOOD ORDERABLES Final Result Performing Organization Address City/[facility]/ZIP Co de Phone Number [facility] [address] [place] [address] * PTH, intact (06/29/2025 8:53 AM EDT) PTH 43 15 - 65 pg/mL [facility] Blood Venous blood / Unknown 06/29/2025 8:53 AM EDT 06/29/2025 Mary [facility] LAB BLOOD ORDERABLES Final Result Performing Organization Address City/[facility]/ZIP Co de Phone Number [facility] [address] [place] [address] * (ABNORMAL) Ferritin (06/29/2025 8:53 AM EDT) Ferritin 14(L) 15 - 150 ng/mL [facility] Blood Venous blood / Unknown 06/29/2025 8:53 AM EDT 06/29/2025 [facility] Final Result [facility] [address] [place] [address] * Renal function panel (06/29/2025 8:53 AM EDT) Glucose 76 70 - 99 mg/dL [facility] BUN 14 6 - 24 mg/dL [facility] Creatinine 0.98 0.57 - 1.00 mg/dL [facility] eGFR CKD-EPI CR 2020 71 >59 mL/min/1.7 3 [facility] BUN/Creatinine Ratio 14 9 - 23 [facility] Sodium 138 134 - 144 mmol/L [facility] Potassium 3.9 3.5 - 5.2 mmol/L [facility] Chloride 103 96 - 106 mmol/L [facility] Bicarbonate (CO2) 22 20 - 29 mmol/L [facility] Calcium 8.9 8.7 - 10.2 mg/dL [facility] Albumin 3.9 3.9 - 4.9 g/dL [facility] Phosphorus 3.8 3.0 - 4.3 mg/dL [facility] Blood Venous blood / Unknown 06/29/2025 8:53 AM EDT 06/29/2025 Mary Lopes [facility] LAB BLOOD ORDERABLES Final Result [facility] [address] [place] [address] from Last 3 Months Insurance [facility] Care Teams Asparagus Cutter Relationship Specialty Start Date End Date Willie Main MD [address] [place] [phone] PCP - General Internal Medicine 10/24/24
[2025-07-31 13:27] LABS: Appearance Urine Clear; Glucose Urine UA Negative (Negative); PH 6.0 (5.0-9.0); Specific Gravity - Urine 1.020 (1.005-1.025); UMIC TRIGGER UA YES
[2025-07-31 13:39] LABS: MANUAL DIFF FLAG NO
[2025-07-31 13:43] LABS: Hematocrit 33.7 % (37.0-47.0); Hemoglobin 10.6 g/dl (12.0-16.0); Imm Gran Abs Auto 0.02 X10*3/uL (0.00-0.03); Imm Gran Pct Auto 0.3 % (0.0-0.4); Lymphocytes Absolute Auto 3.4 X10*3/uL (1.2-4.9); Mean Corpuscular HGB Conc 31.5 g/dl (31.0-35.0); Mean Corpuscular Hemoglobin 25.7 pg (27.0-33.0); Mean Corpuscular Volume 81.8 fL (80.0-98.0); NRBC Abs Auto 0.000 X10*3/uL (0.0-0.012); NRBC Pct Auto 0.0 /100WBC (0.0-0.2); Platelet Count 469 X10*3/uL (160-400); Red Blood Count 4.12 X10*6/uL (4.20-5.50); White Blood Count 7.3 X10*3/uL (4.8-10.8)
[2025-07-31 13:56] LABS: Alanine Aminotransferase 15 U/L (0-31); Albumin Level 4.3 g/dL (3.5-5.0); Alkaline Phosphatase 76 U/L (39-117); Anion Gap 13 (12-20); Aspartate Amino Transferase 21 U/L (5-31); Blood Urea Nitrogen 18 mg/dL (9-16); Calcium 9.0 mg/dL (8.4-10.2); Carbon Dioxide 28 mmol/L (22-29); Chloride 103 mmol/L (96-108); Estimated Glomerular Filt Rate 57; Potassium 4.2 mmol/L (3.3-5.1); Sodium 140 mmol/L (135-145); Total Protein 7.6 g/dL (6.5-8.0)
[2025-07-31 14:14] LABS: Protein/Creatinine Ratio, Ur 0.09 (<0.2); Total Protein Urine Random 16 mg/dL (<12)
== END 2025-07-31 09:46 | disposition home or self-care (01) ==
LOC: HO.HMGCLDS 09:45
PROVIDERS: PCP Internal Medicine; Visit Provider Student in an Organized Health Care Education/Training Program
DX: M32.14 Glomerular disease in systemic lupus erythematosus (principal)
CPT/HCPCS: 36415; 80053; 81001; 82570; 84156; 85025; 85652; 86140; 86160; 86225

== ENCOUNTER 2025-08-02 11:28 | Outpatient (AMB) | payer OTHER, SELFPAY ==
--- NOTE | 2025-08-02 11:36 | A.OFFVIS_ITS ---
Vital Signs 08/02/25 11:43 Height 4 ft 8 in Weight 144 lb 13.499 oz BMI 32.5 BP 132/78 Blood Pressure Location Rt brachial Position Sitting Pulse 91 Pulse Source Pulse Oximeter Pulse Oximetry (%) 99 Oxygen Delivery Method Room Air Intake Visit Reasons: SLE Intake Note: Patient presents for SLE follow up. Patient stated she has been having a rash for three month and is warm to the touch. Salesperson Yard Goods Required: Yes Salesperson Yard Goods Language: Law Firm Partner Services: Salesperson Yard Goods Present Salesperson Yard Goods Name: Ronald [phone] Information Interpreted: non-clinical & clinical Allergies Penicillins (PENICILLINS) Allergy (Unknown, Verified 08/02/25 11:41) SWELLING amlodipine Allergy (Verified 08/02/25 11:41) Headache azathioprine Allergy (Verified 08/02/25 11:41) Rash Medication List - Last Reconciled 08/02/25 by Nida Villarreal MD acetaminophen (Tylenol) 325 mg PO QID PRN acyclovir 5% 1 appl topical 6XD 14 days azelastine 0.05% 0 drps ophthalmic (eye) cholecalciferol (vitamin D3) 50 mcg PO DAILY diphenoxylate-atropine 2.5-0.025 mg (Lomotil) 1 tab PO TID PRN meclizine (Dramamine Less Drowsy) 25 mg PO TID PRN mirtazapine 7.5 mg PO BEDTIME multivitamin with iron 1 tab PO DAILY mycophenolate sodium 720 mg (2 x 360 mg) PO Q12H 90 days omeprazole 20 mg PO DAILY prednisone 5 mg PO BID HPI Comments Details: Patient is a 49-year-old female with hypertension, hyperlipidemia, GERD and 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 - On Myfortiq 720mg twice a day and prednisone 5mg bid - She continues to do well - Denies joint pain, ulcers in the nose or mouth - Went to the hospital for back pain and was referred to a specialist - Plan to decrease prednisone 5mg AM and 2.5mg PM Today - On Myfortiq 720mg twice a day and prednisone 5mg AM and 2.5mg PM - She decreased prednisone to 5mg AM and 2.5mg PM - Complaining of legs changing color, feel hot and swollen. 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 Mucosal lesions. Positive anti-DNA, SS- A. Negative SS-B, anti-almanza, anti-TRUCK JUMPER. On hydroxychloroquine, Myfortec, prednisone. Myfortec tapered Off 2013. Eye exam OK 08/20, 12/22. Stopped hydroxychlorquine in spring 2015 - ? Eye abnormality Flare of SLE summer 2015 - back on prednisone, azathioprine added - azathioprine caused skin rash and stopped 2016 Cellcept and prednisone started 2016 Prednisone tapered off, December 2020 WHO III GN develpoe summer 2022; Cellcept increased;high dose prednisone started CellCept switch to Myfortic 11/2023 due to diarrhea Current Rheumatology Medication(s): Myfortic 720 mg twice a day Prednisone 5mg AM and 2.5mg PM [facility] Medical History nursing home (current) use of systemic steroids On mycophenolate mofetil therapy GERD (gastroesophageal reflux disease) Eczema Tendinopathy of right rotator cuff Dyslipidemia SLE (systemic lupus erythematosus) HTN (hypertension) Lupus Surgical History History of hysterectomy Family History Mother Hypertension Father Hypertension History of thyroid disorder Sister Strabismus Maternal Grandmother Diabetes Maternal Grandfather FH: prostate cancer Social History Household Members: Spouse Housing: Apartment Alcohol intake: never Patient Tobacco Use Status: Never used Tobacco service: No Current occupational status: unemployed Review of Systems Const Details: Review of Systems Constitutional: Denies fever, chills, weight loss ENT: Denies vision changes, eye pain or eye redness, dental caries, dry mouth GI: Denies nausea, vomiting, diarrhea, abdominal pain, change in BM Pulm: Denies SOB, CHAPPELL, hemoptysis, wheezing Cards: Denies chest pain, palpitations Skin: Denies Raynaud's, nail changes, photosensitivity, BELT BUCKLE MAKER: Denies headaches, weakness, paresthesias, recurrent falls MSK: as per HPI All other systems reviewed and are unremarkable except noted above Physical Exam Exam Exam: Vital signs reviewed Physical Examination CONSTITUITIONAL Patient alert and cooperative. Well appearing and in no apparent painful distress HEENT Conjunctiva and sclera clear. No lymphadenopathy. CHEST/RESPIRATORY SYSTEM Normal respiratory effort and able to speak in complete sentences. Clear to auscultation bilaterally. No crackles, rales, rhonchi, wheezes heard. CARDIAC SYSTEM Regular rate and rhythm. S1 and S2 heard no murmurs. Radial pulses intact bilaterally MSK Hands * Right Hand: Able to make a fist. No swelling or tenderness to palpation of the MCPs, PIPs or DIPs. * Left Hand: Able to make a fist. No swelling or tenderness to palpation of the MCPs, PIPs or DIPs. Wrists * Right Wrist: Full ROM to flexion and extension. No swelling or TTP * Left Wrist: Full ROM to flexion and extension. No swelling or TTP Elbows * Right Elbow: Full ROM. No swelling or TTP. No TTP of the medial epicondyle. No TTP of the lateral epicondyle * Left Elbow: Full ROM. No swelling or TTP. No TTP of the medial epicondyle. No TTP of the lateral epicondyle Shoulders * Right shoulder: Full ROM. No swelling noted. No TTP of the AC joint. No TTP of the subacromial bursa. No TTP of the posterior shoulder * Left shoulder: Full ROM. No swelling noted. No TTP of the AC joint. No TTP of the subacromial bursa. No TTP of the posterior shoulder Knees * Right knee: Full ROM. No swelling noted. No TTP of the knee joint line. No TTP of pes anserine bursa * Left knee: Full ROM. No swelling noted. No TTP of the knee joint line. No TTP of pes anserine bursa. * Crepitations felt bilaterally Ankles * Right ankle: Good ankle dorsiflexion and plantar flexion. No swelling. No TTP of the ankle joint * Left ankle: Good ankle dorsiflexion and plantar flexion. No swelling. No TTP of the ankle joint Feet * Right foot: Negative squeeze test * Left foot: Negative squeeze test Tender points? * No tenderness to palpation of the bilateral trapezius, supraspinatus, anterior costochondral junctions, bilateral suboccipital muscle insertions SKIN Scattered hyperpigmented rash on the legs that are painful to touch and warm Vital Signs: Last Vital Signs Pulse 91 08/02/25 11:43 BP 132/78 08/02/25 11:43 Pulse Ox 99 08/02/25 11:43 Oxygen Delivery Method Room Air 08/02/25 11:43 BMI result Body Mass Index 32.5 Results Reviewed Results Reviewed: Laboratory Tests 07/31/25 07/31/25 10:08 10:18 WBC 7.3 RBC 4.12 L Hgb 10.6 L Hct 33.7 L Plt Count 469 H ESR 30 H Sodium 140 Potassium 4.2 Chloride 103 Carbon Dioxide 28 BUN 18 H Creatinine 1.03 AST 21 ALT 15 C-Reactive Protein 0.19 Laboratory Tests 03/26/25 07/31/25 08:46 10:08 Double Strand DNA Ab 32 H 28 H Complement C3 130 139 Complement C4 17 18 Laboratory Tests 07/31/25 10:15 Urine Color Yellow Urine Appearance Clear Urine Protein Negative Urine Blood Moderate (2+) H Urine RBC 11-20 H Protein/Creatinin Ratio 0.09 Assessment & Plan Assessment & Plan (1) SLE (systemic lupus erythematosus): Comment: 2009 - joint pains, rash, ? Mucosal lesions. Positive anti-DNA, SS- A. Negative SS-B, anti-almanza, anti-TRUCK JUMPER. On hydroxychloroquine, Myfortec, prednisone. Myfortec tapered Off 2013. Eye exam [place] 08/20, 12/22. Stopped hydroxychlorquine in spring 2015 - ? Eye abnormality Flare of SLE summer 2015 - back on prednisone, azathioprine added - azathioprine caused skin rash and stopped 2016 Cellcept and prednisone started 2016 Prednisone tapered off, December 2020 WHO III GN developed summer 2022; Cellcept increased; high dose prednisone started CellCept switch to Myfortic 11/2023 due to diarrhea Code(s): M32.9 - Systemic lupus erythematosus, unspecified Category: Medical Qualifiers: Systemic lupus erythematosus type: unspecified Systemic lupus erythematosus organ involvement: glomerular disease Qualified Code(s): M32.14 - Glomerular disease in systemic lupus erythematosus Plan: #SLE c/b LN III Patient is a 49-year-old female with 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 UPC stable. Attempted to decrease prednisone but this caused a rash on her legs which is likely related to thedecreased prednisone causing this flare. Given the rash and elevated dsDNA she meets criteria for Benlysta (VARUN-SLEDAI 4) Plan - Myfortiq 720mg bid - Start Benlysta 200mg SC every week - Prednisone: Take 20mg for 10 days then, 15mg for 10 days then, 12.5mg for 10 days then, 10mg for 10 days then 7.5mg until follow up - RTC 4 months - Labs before visit: CBC, CMP, ESR, CRP, C3, C4, dsDNA, UA, UPC (2) On mycophenolate mofetil therapy: Code(s): Z79.624 - nursing home (current) use of inhibitors of nucleotide synthesis Category: Medical Plan: #Long-term Use of Mycophenolate/Mycophenolic Acid Discussed with patient the benefits and risks of mycophenolate/mycophenolic acid for the management of the rheumatic condition Benefits include improved disease control and reduction of mortality Risks include GI upset especially diarrhea, anemia, leukopenia, hepatotoxicity, lymphoproliferative malignancies, PML Mycophenolate and mycophenolic acid are teratogenic and should be avoided in patients who are desiring the Monitoring: ?CBC, LFTs, BMP Recommended holding medication during and for up to 1 week after resolution of a febrile illness (3) long term care phlebotomist (current) use of systemic steroids: Code(s): Z79.52 - long term care phlebotomist (current) use of systemic steroids Category: Medical Plan: #Long-term Use of Steroids Discussed with patient the risks and benefits of steroid for managing the rheumatic condition Benefits include: - Reduced pain, improved mobility, increased participation in activities, and decreased progression of disease Risks include: - GI upset, potential ultrasound worsening or formation (especially in patients > 65 years old), elevated blood pressure/worsening hypertension, elevated blood sugar/worsening diabetes control, worsening of bone density, elevated lipids/worsening triglycerides, cataract formation, weight gain Recommended using proton pump inhibitors (PPIs) for the duration of steroid use to reduce the risk of gastric ulcers and vitamin-D daily to reduce the risk of osteoporosis Labs checked: ?A1c, T spot, hepatitis-B and C serologies Pneumocystis jiroveci prophylaxis: ?Patient with risk factors including steroids greater than 50 mg for more than 30 days, age greater than 60 years, and lung involvement from underlying rheumatic disease requires prophylaxis and will be given so (4) Encounter for monitoring of belimumab therapy: Code(s): Z51.81 - Encounter for therapeutic drug level monitoring; Z79.620 - long term care phlebotomist (c urrent) use of immunosuppressive biologic Plan: #nursing home Belimumab Discussed with patient the risks and benefits of hydroxychloroquine in managing the rheumatic condition Benefits include: - Reduced pain, reduce mortality, maintenance of remission and reduction of flares Risks include: - insomnia, injection site reactions, psychiatric events such as worsening depression/anxiety or suicidal ideation, increased risk of infection Plan I spent 45 minutes reviewing the record and labs, taking a history, examining the patient, discussing the treatment plan, answering questions, time spent for PA documentation and documenting in the medical record Orders: Orders Complete Blood Count Auto Diff 2 Months M32.9 - Systemic lupus erythematosus, unspecified C Reactive Protein 2 Months M32.9 - Systemic lupus erythematosus, unspecified Complement C3 2 Months M32.9 - Systemic lupus erythematosus, unspecified Complement C4 2 Months M32.9 - Systemic lupus erythematosus, unspecified Protein Creatinine Ratio, Ur 2 Months M32.9 - Systemic lupus erythematosus, unspecified Comprehensive Met. Panel 2 Months M32.9 - Systemic lupus erythematosus, unspecified Erythrocyte Sedimentation Rate 2 Months M32.9 - Systemic lupus erythematosus, unspecified Anti DNA DS Antibody 2 Months M32.9 - Systemic lupus erythematosus, unspecified UA ClnCatch+Micro w/rflx Cult 2 Months M32.9 - Systemic lupus erythematosus, unspecified Medications: New prednisone Take 4 tablets daily for 10 days then 3 tablets daily for 10 days then 2.5 tablets daily for 10 days then 2 tablets daily for 10 days then 1.5 tablets daily for 10 days then 1 tablet daily until follow up 5 mg PO DIRECTED 160 tabs 0RF M32.14 - Glomerular disease in systemic lupus erythematosus belimumab (Benlysta) inject into upper thigh or abdomen; rotate sites 200 mg subcut QWEEK 4 mL 5RF M32.14 - Glomerular disease in systemic lupus erythematosus Refilled mycophenolate sodium 720 mg (2 x 360 mg) PO Q12H 360 tabs 1RF 90 days M32.14 - Glomerular disease in systemic lupus erythematosus Discontinued prednisone 1 tablet in the morning, 1/2 tablet in the evening Discontinued Reason: Doctor's Order 7.5 mg (1.5 x 5 mg) PO DIRECTED 90 days 135 tabs 1RF M32.14 - Glomerular disease in systemic lupus erythematosus Coding Level of Care Code Est Pt Level 5 (51399) Complex EM visit Add On G2211 Diagnoses Systemic lupus erythematosus with glomerular disease, unspecified SLE type M32.14 Systemic lupus erythematosus type: unspecified Systemic lupus erythematosus organ involvement: glomerular disease On mycophenolate mofetil therapy Z79.624 nursing home (current) use of systemic steroids Z79.52 Encounter for monitoring of belimumab therapy Z51.81; Z79.620
[2025-08-02 11:43] VITALS: BP 132/78; PULSE 91; O2SAT 99; BMI 32.5
--- OUTSIDE RECORDS SUMMARY | 2025-08-02 16:19 | XMS_ITS | Clinical Summary ---
Author Organization [facility] Address [address] [address] Phone Care Team Providers Care System Planning Engineer Name Role Phone Willie Main MD [...] topic Medical Devices Not on file Insurance [facility] MEDICARE REPLACEMENT DOC VILL[employer] [facility] MEDICARE REPLACEMENT MEDICARE REPLACEMENT [facility] ONE CARE MEDICARE REPLACEMENT [place] [id number] Care Teams System Planning Engineer Relationship Specialty Start Date End Date Willie Main MD [address] [place] [id number] PCP - General Internal Medicine 09/29/21 Additional Source Comments The information contained in this document represents components of the legal health record. It is not the complete legal health record.[facility]
--- OUTSIDE RECORDS SUMMARY | 2025-08-02 16:19 | XMS_ITS | Clinical Summary ---
Author Organization [facility] Address [address] [address] [place] [address] Phone Care Team Providers Care Waistband Setter Lockstitch Name Role Phone Willie Main MD Primary Care Provider [phone] Allergies Active Allergy Reactions Criticality Noted Date [...] 1 (one) time each day 5 Active amLODIPine (NORVASC) 10 MG tabletIndicatio ns:Hypertension Take 1 tablet (10 mg total) by mouth 1 (one) time each day 90 tablet 3 5 04/04/20 26 Active Active Problems Problem Noted Date [...] Positive anti-DNA, SS- A. Negative SS-B, anti-almanza, anti-FEEDER CATCHER TOBACCO. On hydroxychloroquine, Myfortec, prednisone. Myfortec tapered Off [...] Office Visit [facility] [address] [address] Mary Lopes ARNP Stage 3a chronic kidney disease (HCC) (Primary Dx); SLE glomerulonephritis syndrome, WHO class III (HCC); Hypertension; Persistent proteinuria; Iron deficiency anemia, not otherwise specified; Vitamin D deficiency, not otherwise specified 07/02/2025 Office Communication [facility] [address] [address] Mary Lopes ARNP 07/02/2025 Orders Only [facility] [address] [address] Mary Lopes ARNP Iron deficiency anemia, not otherwise specified (Primary Dx) 06/08/2025 Orders Only [facility] [address] [address] Mary Lopes ARNP Stage 3a chronic kidney [...] Visit [facility] [address] [address] Kevon Boston MD [address] [address] Health Maintenance Due Date [...] Screening: Sigmoidoscopy 2024 Influenza Vaccine (#1) 2025 , 07/24/2021, 09/13/2019, Additional history exists Procedures Procedure [...] TIBC 364 250 - 450 ug/dL [facility] UIBC 340 131 - 425 ug/dL [facility] Iron 24(L) 27 - 159 ug/dL [facility] Iron Saturation (TSat) 7(LL) 15 - 55 % [facility] Blood Venous blood / Unknown 06/29/2025 8:53 AM EDT 06/29/2025 Mary Lopes [facility] LAB BLOOD ORDERABLES Final Result Performing Organization Address City/[facility]/ZIP Co de Phone Number [facility] [address] [place] [address] * Urine Protein / creatinine ratio (06/29/2025 8:53 AM EDT) Creatinine, Ur 143.6 Not Estab. mg/dL [facility] Protein, Ur 9.4 Not Estab. mg/dL [facility] Urine Protein/Creatin ine Ratio 65 0 - 200 mg/g creat [facility] Urine Urine specimen obtained by clean catch procedure / Unknown 06/29/2025 8:53 AM EDT 06/29/2025 [facility] LAB URINE ORDERABLES Final Result [facility] [place] [address] [place] [address] * Urine Albumin / Creatinine Ratio (06/29/2025 8:53 AM EDT) Albumin, Urine 11.8 Not Estab. ug/mL [facility] Albumin/Creatin ine Ratio 8 0 - 29 mg/g creat [facility] Comment: Normal: 0 - 29 Moderately increased: 30 - 300 Severely increased: >300 Urine Urine specimen obtained by clean catch procedure / Unknown 06/29/2025 8:53 AM EDT 06/29/2025 Mary POLK LAB URINE ORDERABLES Final Result [facility] [address] [place] [address] * (ABNORMAL) CBC (06/29/2025 8:53 AM EDT) Pathologist [facility] WBC 8.4 3.4 - 10.8 x10E3/uL [facility] RBC 3.66(L) 3.77 - 5.28 x10E6/uL [facility] Hemoglobin 9.8(L) 11.1 - 15.9 g/dL [facility] Hematocrit 30.7(L) 34.0 - 46.6 % [facility] MCV 84 79 - 97 fL [facility] MCH 26.8 26.6 - 33.0 pg [facility] MCHC 31.9 31.5 - 35.7 g/dL [facility] RDW 13.7 11.7 - 15.4 % [facility] Platelets 420 150 - 450 x10E3/uL [facility] Blood Venous blood / Unknown 06/29/2025 8:53 AM EDT 06/29/2025 [facility] LAB BLOOD ORDERABLES Final Result [facility] [address] [place] [address] * PTH, intact (06/29/2025 8:53 AM EDT) PTH 43 15 - 65 pg/mL [facility] Blood Venous blood / Unknown 06/29/2025 8:53 AM EDT 06/29/2025 [facility] LAB BLOOD ORDERABLES Final Result Performing Organization Address City/[facility]/ZIP Co de Phone Number [facility] [place] [address] [place] [address] * (ABNORMAL) Ferritin (06/29/2025 8:53 AM EDT) Pathologist [facility] Ferritin 14(L) 15 - 150 ng/mL [facility] Blood Venous blood / Unknown 06/29/2025 8:53 AM EDT 06/29/2025 [facility] LAB BLOOD ORDERABLES Final Result Performing Organization Address City/[facility]/ZIP Co de Phone Number [facility] [address] [place] [address] * Renal function panel (06/29/2025 8:53 AM EDT) Glucose 76 70 - 99 mg/dL [facility] BUN 14 6 - 24 mg/dL [facility] Creatinine 0.98 0.57 - 1.00 mg/dL [facility] eGFR CKD-EPI CR 2020 71 >59 mL/min/1.7 3 [facility] BUN/Creatinine Ratio 14 9 - 23 [facility] Sodium 138 134 - 144 mmol/L [facility] Potassium 3.9 3.5 - 5.2 mmol/L [facility] Chloride 103 96 - 106 mmol/L [facility] Bicarbonate (CO2) 22 20 - 29 mmol/L [facility] Calcium 8.9 8.7 - 10.2 mg/dL [facility] Albumin 3.9 3.9 - 4.9 g/dL [facility] Phosphorus 3.8 3.0 - 4.3 mg/dL [facility] Blood Venous blood / Unknown 06/29/2025 8:53 AM EDT 06/29/2025 Mary [facility] LAB BLOOD ORDERABLES Final Result [facility] [address] [place] [address] from Last 3 Months Insurance Count Includes [facility] Count Includes [facility] DOC [place] [id number] Care Teams Waistband Setter Lockstitch Relationship Specialty Start Date End Date Willie Main MD [address] [place], [place] [address] [address] PCP - General Internal Medicine 10/24/24
--- OUTSIDE RECORDS SUMMARY | 2025-08-02 16:19 | XMS_ITS | Clinical Summary ---
Author Organization [facility] Address [address] [place] [address] Care Team Providers Care Poultry Grader Name Role Phone Willie Main MD Primary Care Provider [phone] Allergies Active Allergy Reactions Criticality Noted Date [...] age to complete this topic Care Teams Poultry Grader Relationship Specialty Start Date End Date Willie Main MD PCP - General Internal Medicine 01/28/24
--- OUTSIDE RECORDS SUMMARY | 2025-08-02 16:20 | XMS_ITS | Patient Health Record ---
Author Organization [facility] Address [address] [place] [address] Care Team Providers Care Bulb Sorter Name Role Phone Joshua Martinez Unavailable [phone] Reason For Referral No Information Plan Of Treatment No Information
== END 2025-08-02 12:39 | disposition home or self-care (01) ==
LOC: HO.RHES 11:29
PROVIDERS: PCP Internal Medicine; Visit Provider Student in an Organized Health Care Education/Training Program
DX: M32.14 Glomerular disease in systemic lupus erythematosus (principal); Z79.624 Long term (current) use of inhibitors of nucleotide synthesis; Z79.52 Long term (current) use of systemic steroids; Z51.81 Encounter for therapeutic drug level monitoring; Z79.620 Long term (current) use of immunosuppressive biologic
CPT/HCPCS: 99215; G2211

== ENCOUNTER → 2025-08-02 11:28 | Outpatient (BNVA) | payer OTHER, SELFPAY | PROVIDERS: PCP Internal Medicine; Visit Provider Student in an Organized Health Care Education/Training Program | DX: M32.14 Glomerular disease in systemic lupus erythematosus (principal); R21 Rash and other nonspecific skin eruption; Z79.52 Long term (current) use of systemic steroids; Z79.624 Long term (current) use of inhibitors of nucleotide synthesis | CPT/HCPCS: 99212 ==

== ENCOUNTER 2025-09-18 09:29 | Outpatient (REF) | payer OTHER, SELFPAY ==
--- NOTE | ~2025-09-18 | US_ITS ---
CLINICAL HISTORY: R31.29 - Other microscopic hematuria US Renal Comparison: US/SR - US KIDNEY BILATERAL - 06/08/24 10:11 EDT Findings: The right kidney measures 8.4 cm in length. Normal echotexture. The left kidney measures 9.7 cm in length. Normal echotexture. No hydronephrosis of either kidney. Normal color Doppler. No visible calculi. IMPRESSION: No acute abnormality of the kidneys. There may be a mild degree of atrophy of the right kidney. This document has been electronically signed by: Amy Davidson MD on 09/19/2025 16:56:06
--- OUTSIDE RECORDS SUMMARY | 2025-09-18 10:26 | XMS_ITS | Patient Health Record ---
Author Organization [facility] Address [address] [place] [address] Care Team Providers Care Family Consumer Scientist Name Role Phone Joshua Martinez Unavailable [phone] Reason For Referral No Information Plan Of Treatment No Information
--- OUTSIDE RECORDS SUMMARY | 2025-09-18 10:26 | XMS_ITS | Clinical Summary ---
Author Organization [facility] Address [address] [place] [address] Phone Care Team Providers Care Food And Beverage Coordinator Name Role Phone Willie Main MD Primary Care Provider [phone] Allergies Active Allergy Reactions Criticality Noted Date Comments Azathioprine Other 12/09/2016 Other Reaction(s): Rash/Dermatitis Penicillins 07/24/2013 Medications mirtazapine (REMERON) 7.5 mg tablet TAKE 1 TABLET BY MOUTH EVERY NIGHT AT BEDTIME 90 tablet 4 Active cetirizine (ZyrTEC) 5 mg tablet Take 1 tablet (5 mg total) by mouth 1 (one) time each day. 4 Active clotrimazole-b etamethasone (LOTRISONE) 1-0.05 % cream [...] MOUTH EVERY DAY 7 tablet 5 Active cyclobenzaprin e (FLEXERIL) 10 mg tabletIndicati [...] 1/2 tab in the evening 5 Active cholecalcifero l (VITAMIN D-3) 50 mcg (2,000 unit) capsule Take 1 capsule (2,000 Units total) by mouth 1 (one) time each day. 90 capsule 1 5 Active amLODIPine (NORVASC) 5 mg tablet Take 1 tablet (5 mg total) by mouth 1 (one) time each day. 90 tablet 1 5 Active LORazepam (Ativan) 0.5 mg tablet Take one tab one hour prior to take off may repeat x one in flight if needed 4 tablet 5 Active omeprazole (PriLOSEC) [address] capsule TAKE 1 CAPSULE(20 MG) BY MOUTH 1 TIME EACH DAY. DO NOT CRUSH OR CHEW 90 capsule 1 5 Active omeprazole (PriLOSEC) [address] capsule Take 1 capsule (20 mg total) by mouth 1 (one) time each day. Do not crush or chew. 90 capsule 1 5 025 Discontinued Active Problems Problem Noted Date Diagnosed Date Abnormal CT of the abdomen 06/06/2025 Epiploic appendagitis 06/06/2025 SLE (systemic lupus erythema tosus) ([facility] V24, [facility] V28) 09/24/2024 Overview (09/24/2024): 2009 - joint pains, rash, ? Mucosal lesions. Positive anti-DNA, SS- A. 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 On hydroxychloroquine, Myfortec, prednisone. Myfortec tapered Off [...] Episode of recurrent major d epressive disorder (CMS/HCC V24) 11/04/2017 Essential hypertension 08/18/2017 Eczema 05/12/2017 Migraine without aura and wi thout status migrainosus, not intractable 01/16/2016 Overview (09/24/2024): Follows with neurology. GERD (gastroesophageal reflux disease) 5 Overview (09/24/2024): Seen by ENT and had upper airway endoscopy - 01/20. 02/25/2018: Upper GI endoscopy normal on chronic treatment with PPI and NSAIDs. Atypical ductal hyperplasia, breast Encounters Date Type Department Care Team Description 08/16/2025 10:03 AM EDT - 08/16/2025 11:59 PM EDT [facility] [address] [address] Encounter for screening mammogram for breast cancer Discharge Disposition: Home or Self Care 07/19/2025 11:00 AM EDT Office Visit Adult Medicine [address] [phone] Willie Main MD Essential hypertension (Primary Dx); Skin lesions; Systemic lupus erythematosus, unspecified SLE type, unspecified organ involvement status (CMS/HCC V24, CMS/HCC V28); Gastroesophageal reflux disease, unspecified whether esophagitis present; Lupus nephritis (CMS/HCC V24, CMS/HCC V28) from Last 3 Months Immunizations Immunization Administration Dates Next Due Hepatitis A-Hepatitis B [...] TUBAL LIGATION UPPER GASTROINTESTINAL ENDOSCOPY 02/25/2018 PROCEDURE: [place] UPPER GI ENDOSCOPY PERFORMED; COMMENT: Visually normal on chronic treatment with NSAIDs and PPIs; duodenal biopsies: negative. PARTIAL HYSTERECTOMY 09/2018 N/A PROCEDURE: [place] SUPRACERVICAL ABDL HYSTER W/WO RMVL TUBE OVARY STEREOTACTIC CORE BIOPSY Medical History Medical History Date Comments SLE (systemic lupus erythema tosus) ([facility] V24, [facility] V28) DX:SLE (systemic lupus erythematosus) ([facility]); COMMENT: 2009 Anemia DX:Anemia Hypertension DX:Hypertension; COMMENT: [...] Sexual Orientation Not on file Obstetrics History Para Term AB IAB SAB Ectopic Multiple Livin g Live Births 3 Last Filed Vital Signs Vital Sign Reading Time Taken Comments Blood Pressure 130/78 07/19/2025 10:39 AM EDT Pulse 86 07/19/2025 10:39 AM EDT Temperature 36.5 C (97.7 F) 07/19/2025 10:39 AM EDT Respiratory Rate 14 07/19/2025 10:39 AM EDT Oxygen Saturation 99% 07/19/2025 10:39 AM EDT Inhaled Oxygen Concentration - - Weight 65.3 kg (144 lb) 08/16/2025 10:19 AM EDT Height 142.2 cm (4' 8 ) 08/16/2025 10:19 AM EDT Body Mass Index 32.28 08/16/2025 10:19 AM EDT Plan of Treatment Upcoming Encounters Date Type Department Care Team (Late st Contact Info) Description 02/08/2026 9:30 AM EDT Office Visit Adult Medicine [address] [phone] Willie Main MD [address] [place] [phone] Health Maintenance Due Date Last Done Comments Colorectal Cancer Screening: Colonoscopy 1975 Cervical Cancer Screening: Pap Smear 1996 Pneumococcal Vaccine: Pediatrics (0 to 5 Years) and At-Risk Patients (6 to 49 Years) (2 of 2 - PCV) 08/28/2014 08/28/2013 COVID-19 Vaccine (3 - Pfizer risk series) 09/17/2021 08/20/2021, 07/30/2021 HIV Screening 10/17/2022 Medicare Annual Wellness Visit 10/17/2022 Social Influencers of Health Screening 10/17/2022 DTaP,Tdap,and Td Vaccines (2 - Td or Tdap) 09/11/2024 09/11/2014 Depression Screening 11/08/2024 Hypertension/CHF/CAD Annual BMP Blood Test 01/23/2026 01/23/2025, 2023 Breast Cancer Screening 08/16/2027 08/16/20 25, 08/16/2024, 09/23/2023, Additional history exists Cholesterol Screening (Lipid Panel) 11/16/2027 11/16/2022 RSV Immunization Adult Patients (1 - 1-dose 75+ series) 2050 Hepatitis A Vaccines Aged Out 06/10/2015, 02/15/2015, [...] Procedure Name Priority Date/Time Associated Diagnosis Comments MG MAMMO DIGITAL SCREENING W JOSE ALFREDO BILAT Routine 08/16/2025 10:23 AM EDT Encounter for screening mammogram for breast cancer ANNUAL BMP BLOOD TEST Routine 2023 LIPID PANEL Routine 11/16/2022 HEPATITIS C SCREENING Routine 07/05/2019 from Last 3 Months or Most Recently Relevant to Health Maintenance Results * MG Mammo Digital Screening w Jose Alfredo bilat (08/16/2025 10:23 AM EDT) Anatomical Region Laterality Modality Breast Bilateral Mammography 08/16/2025 11:0 2 AM EDT Impressions 08/16/2025 11:19 AM EDT Benign. BI-RADS CATEGORY: 2 - BENIGN RECOMMENDATION: Screening bilateral mammogram is recommended in 1 year. [facility]amm[facility] Location: [facility] , [address] [place] [address], [id number], . -------- FINAL REPORT -------- Dictated By: Kavon Garcia Dictated Date: 08/16/2025 11:02 ET Assigned Physician: Kavon Garcia Reviewed and Electronically Signed By: Kavon Garcia Signed Date: 08/16/2025 11:19 ET Workstation ID: [id number] Transcribed By: Self Edit Transcribed Date: 08/16/2025 11:02 ET Narrative 08/16/2025 11:19 AM EDT CLINICAL: 49 years old, Female, routine annual exam. COMPARISON: 08/16/2024 and 10/21/2023. TECHNIQUE: Bilateral MLO and CC views were obtained digitally with 3-D mammogram (digital breast tomosynthesis). Computer-aided detection was utilized in evaluation of this exam (CAD). FINDINGS: Postbiopsy marker clip adjacent to a stable circumscribed mass in the upper outer quadrant of the right breast. No suspicious mass or architectural distortion. No suspicious calcification. There has been no significant change from prior exam(s). BREAST DENSITY: C - The breasts are heterogeneously dense which may obscure small masses. Procedure Note Kavon Garcia MD - 08/16/2025 CLINICAL: 49 years old, Female, routine annual exam. COMPARISON: 08/16/2024 and 10/21/2023. TECHNIQUE: Bilateral MLO and CC views were obtained digitally with 3-Dmammogram (digital breast tomosynthesis). Computer-aided detection wasutilized in evaluation of this exam (CAD). FINDINGS: Postbiopsy marker clip adjacent to a stable circumscribed massin the upper outer quadrant of the right breast. No suspicious mass or architectural distortion. No suspiciouscalcification. There has been no significant change from prior exam(s). BREAST DENSITY: C - The breasts are heterogeneously dense which mayobscure small masses. IMPRESSION: Benign. BI-RADS CATEGORY: 2 - BENIGN RECOMMENDATION: Screening bilateral mammogram is recommended in 1 year. [facility]amm[facility] Location: [facility] , [address] [place] [address], [id number], . -------- FINAL REPORT -------- Dictated By: Kavon Garcia Dictated Date: 08/16/2025 11:02 ET Assigned Physician: Kavon Garcia Reviewed and Electronically Signed By: Kavon Garcia Signed Date: 08/16/2025 11:19 ET Workstation ID: [id number] Transcribed By: Self Edit Transcribed Date: 08/16/2025 11:02 ET Result [facility] Self Referral Sppl IMG BI PROCEDURES Final Resul t * Annual BMP Blood Test (2023) Pathologist [facility] Annual BMP Blood Test ABSTRACTED Historical Provider HEALTH MAINTENANCE Final Result * (ABNORMAL) Lipid panel (11/16/2022) Pathologist [facility] LDL/HDL Ratio 3 0 - 4 Triglycerides 177(A) 0 - 150 mg/dL Cholesterol 167 0 - 200 mg/dL HDL 60 >=40 mg/dL LDL Cholesterol 72 0 - 100 mg/dL Blood Venous blood specimen / Unknown Result [facility] Historical Provider LAB BLOOD ORDERABLES Dania l Result * Hepatitis C Screening (07/05/2019) Pathologist [facility] Hepatitis C Screening ABSTRACTED Historical Provider HEALTH MAINTENANCE Final Result from Last 3 Months or Most Recently Relevant to Health Maintenance Insurance [facility] MEDICARE Member Subscriber Plan / Payer (Ef fective 2024-Present) Name:CHRISTINA CRUZ Relation to Subscriber:Self Name:Acosta Mckinney Crhistina Payer ID:[id number] Group ID:[id number] Type:Not on file Address: [address] [phone] Care Teams Food And Beverage Coordinator Relationship Specialty Start Date End Date Willie Main MD [address] [place] [phone] PCP - General Internal Medicine 03/01/25
== END 2025-09-18 09:30 | disposition home or self-care (01) ==
LOC: HO.HMGCX 09:29
PROVIDERS: PCP Internal Medicine; Visit Provider Urology
DX: R31.29 Other microscopic hematuria (principal); N18.9 Chronic kidney disease, unspecified
CPT/HCPCS: 76775

== ENCOUNTER → 2025-09-18 09:36 | Outpatient (BNV) | payer OTHER, SELFPAY | PROVIDERS: PCP Internal Medicine; Visit Provider Radiology Diagnostic Radiology | DX: R31.29 Other microscopic hematuria (principal) | CPT/HCPCS: 76775 ==

== ENCOUNTER 2025-09-20 09:12 | Outpatient (REF) | payer OTHER, SELFPAY ==
[2025-09-20 09:35] LABS: MANUAL DIFF FLAG NO
[2025-09-20 10:04] LABS: Hematocrit 40.9 % (37.0-47.0); Hemoglobin 12.8 g/dl (12.0-16.0); Imm Gran Abs Auto 0.06 X10*3/uL (0.00-0.03); Imm Gran Pct Auto 0.6 % (0.0-0.4); Lymphocytes Absolute Auto 3.0 X10*3/uL (1.2-4.9); Mean Corpuscular HGB Conc 31.3 g/dl (31.0-35.0); Mean Corpuscular Hemoglobin 26.9 pg (27.0-33.0); Mean Corpuscular Volume 85.9 fL (80.0-98.0); NRBC Abs Auto 0.000 X10*3/uL (0.0-0.012); NRBC Pct Auto 0.0 /100WBC (0.0-0.2); Platelet Count 374 X10*3/uL (160-400); Red Blood Count 4.76 X10*6/uL (4.20-5.50); White Blood Count 10.4 X10*3/uL (4.8-10.8)
--- OUTSIDE RECORDS SUMMARY | 2025-09-20 10:28 | XMS_ITS | Patient Health Record ---
Author Organization [facility] Address [address] [place] [address] Care Team Providers Care Coupon Collection Clerk Name Role Phone Joshua Martinez Unavailable [phone] Reason For Referral No Information Plan Of Treatment No Information
--- OUTSIDE RECORDS SUMMARY | 2025-09-20 10:28 | XMS_ITS | Clinical Summary ---
Author Organization [facility] Address [address] [address] Phone Care Team Providers Care Mystery Shopper Name Role Phone Willie Main MD Primary [...] 09/13/2019, 09/09/2018, Additional history exists COVID-19 VACCINE ( season) 2025 08/20/2021, 07/30/2021 PNEUMOCOCCAL VACCINES (0-49 years) Aged Out 08/28/2013 No longer eligible based on patient's age to complete this topic HEPATITIS A VACCINES Aged Out 06/10/2015, 02/15/2015, 02/07/2014 No longer eligible based on patient's age to complete this topic HIB VACCINES Aged Out No longer eligi ble based on patient's age to complete this topic IPV VACCINES Aged Out No longer eligi ble based on patient's age to complete this topic MENINGOCOCCAL VACCINES (ACWY) Aged Out No longer eligible based on patient's age to complete this topic MENINGOCOCCAL VACCINES (B) Aged Out N o longer eligible based on patient's age to complete this topic Medical Devices Not on file Insurance [facility] MEDICARE REPLACEMENT [address] [id number] [facility] MEDICARE REPLACEMENT [facility] MEDICARE REPLACEMENT [place] [address] MEDICARE REPLACEMENT [facility] MEDICARE REPLACEMENT [facility] ONE CARE MEDICARE REPLACEMENT [address] [id number] Care Teams Mystery Shopper Relationship Specialty Start Date End Date Willie Main MD [address] [place] [phone] PCP - General Internal Medicine 09/29/21 Additional Source Comments The information contained in this document represents components of the legal health record. It is not the complete legal health record.[facility]
--- OUTSIDE RECORDS SUMMARY | 2025-09-20 10:28 | XMS_ITS | Clinical Summary ---
Author Organization [facility] Address [address] [place] [address] Care Team Providers Care Sheltered Workshop Executive Director Name Role Phone Willie Main MD Primary Care Provider [phone] Allergies Active Allergy Reactions Criticality Noted Date [...] age to complete this topic Care Teams Sheltered Workshop Executive Director Relationship Specialty Start Date End Date Willie Main MD PCP - General Internal Medicine 01/28/24
--- OUTSIDE RECORDS SUMMARY | 2025-09-20 10:29 | XMS_ITS | Clinical Summary ---
Author Organization [facility] Address [address] [place] [address] Phone Care Team Providers Care Insurance Billing Clerk Name Role Phone Willie Main MD Primary Care Provider [phone] Allergies Active Allergy Reactions Criticality Noted Date [...] appendagitis 06/06/2025 SLE (systemic lupus erythema tosus) ([facility] V24, [facility] V28) 09/24/2024 Overview (09/24/2024): 2009 - joint pains, rash, ? Mucosal lesions. Positive anti-DNA, SS- A. 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 On hydroxychloroquine, Myfortec, prednisone. Myfortec tapered Off [...] EDT [facility] [address] [phone] Encounter for screening mammogram for breast cancer Discharge Disposition: Home or Self Care 07/19/2025 11:00 AM EDT Office Visit Adult Medicine [address] [phone] Willie aMin MD Essential hypertension (Primary Dx); Skin lesions; [...] TUBAL LIGATION UPPER GASTROINTESTINAL ENDOSCOPY 02/25/2018 PROCEDURE: [place] UPPER GI ENDOSCOPY PERFORMED; COMMENT: Visually normal on chronic treatment with NSAIDs and PPIs; duodenal biopsies: negative. PARTIAL HYSTERECTOMY 09/2018 N/A PROCEDURE: [place] SUPRACERVICAL ABDL HYSTER W/WO RMVL TUBE OVARY STEREOTACTIC CORE BIOPSY Medical History Medical History Date Comments SLE (systemic lupus erythema tosus) ([facility] V24, [facility] V28) DX:SLE (systemic lupus erythematosus) ([facility]); COMMENT: 2009 Anemia DX:Anemia Hypertension DX:Hypertension; COMMENT: [...] 9:30 AM EDT Office Visit Adult Medicine [address] [phone] Willie Main MD [address] [place] [phone] Health Maintenance Due Date Last Done Comments [...] year. Mammo Location: [facility], [address] [place] [address], [phone], . -------- FINAL REPORT -------- Dictated By: Kavon Garcia Dictated Date: 08/16/2025 11:02 ET Assigned Physician: Kavon Garcia Reviewed and Electronically Signed By: Kavon Garcia Signed Date: 08/16/2025 11:19 ET Workstation ID: [id number] Transcribed By: Self Edit Transcribed Date: 08/16/2025 [...] year. Mammo Location: [facility], [address] [place] [address], [address], . -------- FINAL REPORT -------- Dictated By: Kavon Garica Dictated Date: 08/16/2025 11:02 ET Assigned Physician: Kavon Garcia Reviewed and Electronically Signed By: Kavon Garcia Signed Date: 08/16/2025 11:19 ET Workstation ID: [id number] Transcribed By: Self Edit Transcribed Date: 08/16/2025 11:02 ET Result [facility] Self Referral Sppl IMG BI PROCEDURES Final Resul t * Annual BMP Blood Test (2023) Pathologist [facility] Annual BMP Blood Test ABSTRACTED Historical Provider HEALTH MAINTENANCE Final Result * (ABNORMAL) Lipid panel (11/16/2022) Pathologist [facility] LDL/HDL Ratio 3 0 - 4 Triglycerides 177(A) 0 - 150 mg/dL Cholesterol 167 0 - 200 mg/dL HDL 60 >=40 mg/dL LDL Cholesterol 72 0 - 100 mg/dL Blood Venous blood specimen / Unknown Result [facility] Historical Provider LAB BLOOD ORDERABLES Dania l Result * Hepatitis C Screening (07/05/2019) Pathologist [facility] Hepatitis C Screening ABSTRACTED Historical Provider HEALTH MAINTENANCE Final Result from Last 3 Months or Most Recently Relevant to Health Maintenance Insurance [facility] MEDICARE Member Subscriber Plan / Payer (Ef fective 2024-Present) Name:CHRISTINA CRUZ Relation to Subscriber:Self Name:Acosta Mckinney Christina Payer ID:[id number] Group ID:[id number] Type:Not on file Address: [address] [phone] Care Teams Insurance Billing Clerk Relationship Specialty Start Date End Date Willie Main MD [address] [place] [phone] PCP - General Internal Medicine 03/01/25
[2025-09-20 10:42] LABS: Alanine Aminotransferase 24 U/L (0-31); Albumin Level 4.3 g/dL (3.5-5.0); Alkaline Phosphatase 64 U/L (39-117); Anion Gap 12 (12-20); Aspartate Amino Transferase 23 U/L (5-31); Blood Urea Nitrogen 15 mg/dL (9-16); Calcium 9.0 mg/dL (8.4-10.2); Carbon Dioxide 25 mmol/L (22-29); Chloride 105 mmol/L (96-108); Estimated Glomerular Filt Rate 51; Potassium 3.9 mmol/L (3.3-5.1); Sodium 138 mmol/L (135-145); Total Protein 7.2 g/dL (6.5-8.0)
[2025-09-20 10:52] LABS: Appearance Urine Clear; Glucose Urine UA Negative (Negative); PH 5.5 (5.0-9.0); Specific Gravity - Urine 1.015 (1.005-1.025); UMIC TRIGGER UACC YES
[2025-09-20 11:11] LABS: UACC Culture Trigger YES
[2025-09-20 11:24] LABS: Protein/Creatinine Ratio, Ur 0.09 (<0.2); Total Protein Urine Random 16 mg/dL (<12)
== END 2025-09-20 09:13 | disposition home or self-care (01) ==
LOC: HO.LAB 09:12
PROVIDERS: PCP Internal Medicine; Visit Provider Student in an Organized Health Care Education/Training Program
DX: M32.9 Systemic lupus erythematosus, unspecified (principal); Z79.899 Other long term (current) drug therapy
CPT/HCPCS: 36415; 80053; 81001; 82570; 84156; 85025; 85652; 86140; 86160; 86225; 87086

== ENCOUNTER 2025-09-25 10:50 | Outpatient (AMB) | payer OTHER, SELFPAY ==
--- NOTE | 2025-09-25 10:57 | MHC.OFFVIS ---
Vital Signs 09/25/25 11:02 Height 4 ft 8 in Weight 146 lb 9.718 oz BMI 32.9 BP 132/80 Blood Pressure Location Lt brachial Position Sitting Pulse 91 Pulse Source Pulse Oximeter Pulse Oximetry (%) 98 Oxygen Delivery Method Room Air Intake Visit Reasons: 2months Intake Note: Patient presents for SLE follow up. 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 - On Myfortiq 720mg twice a day and prednisone 5mg AM and 2.5mg PM - She decreased prednisone to 5mg AM and 2.5mg PM - Complaining of legs changing color, feel hot and swollen. 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 Mucosal lesions. Positive anti-DNA, SS- A. Negative SS-B, anti-almanza, anti-MEDICAL BILLING ASSISTANT. On hydroxychloroquine, Myfortec, prednisone. Myfortec tapered Off 2013. Eye exam OK 08/20, 12/22. Stopped hydroxychlorquine in spring 2015 - ? Eye abnormality Flare of SLE summer 2015 - back on prednisone, azathioprine added - azathioprine caused skin rash and stopped 2016 Cellcept and prednisone started 2016 Prednisone tapered off, December 2020 WHO III GN developed summer 2022; Cellcept increased; high dose prednisone started CellCept switch to Myfortic 11/2023 due to diarrhea Current Rheumatology Medication(s): Myfortic 720 mg twice a day Prednisone 7.5mg daily Benlysta 200mg SC weekly [facility] Medical History FDC (current) use of systemic steroids On mycophenolate mofetil therapy GERD (gastroesophageal reflux disease) Eczema Tendinopathy of right rotator cuff Dyslipidemia SLE (systemic lupus erythematosus) HTN (hypertension) Lupus Surgical History History of hysterectomy Family History Mother Hypertension Father Hypertension History of thyroid disorder Sister Strabismus Maternal Grandmother Diabetes Maternal Grandfather FH: prostate cancer Social History Household Members: Spouse Housing: Apartment Alcohol intake: never Patient Tobacco Use Status: Never used Tobacco service: No Current occupational status: unemployed Review of Systems Narrative Review of Systems Constitutional: Denies fever, chills, weight loss ENT: Denies vision changes, eye pain or eye redness, dental caries, dry mouth GI: Denies nausea, vomiting, diarrhea, abdominal pain, change in BM Pulm: Denies SOB, CHAPPELL, hemoptysis, wheezing Cards: Denies chest pain, palpitations Skin: Denies Raynaud's, rash, nail changes, photosensitivity, DIGITAL STRATEGY DIRECTOR: Denies headaches, weakness, paresthesias, recurrent falls MSK: as per HPI All other systems reviewed and are unremarkable except noted above Physical Exam Exam Exam: Vital signs reviewed Physical Examination CONSTITUITIONAL Patient alert and cooperative. Well appearing and in no apparent painful distress MSK Hands Right Hand: Able to make a fist. No swelling or tenderness to palpation of the MCPs, PIPs or DIPs. No deformities noted. Left Hand: Able to make a fist. No swelling or tenderness to palpation of the MCPs, PIPs or DIPs. No deformities noted. Wrists Right Wrist: Full ROM to flexion and extension. No swelling or TTP Left Wrist: Full ROM to flexion and extension. No swelling or TTP Elbows Right Elbow: Full ROM. No swelling or TTP. No TTP of the medial epicondyle. No TTP of the lateral epicondyle Left Elbow: Full ROM. No swelling or TTP. No TTP of the medial epicondyle. No TTP of the lateral epicondyle Shoulders Right shoulder: Full ROM. No swelling noted. No TTP of the AC joint. No TTP of the subacromial bursa. No TTP of the posterior shoulder Left shoulder: Full ROM. No swelling noted. No TTP of the AC joint. No TTP of the subacromial bursa. No TTP of the posterior shoulder Knees Right knee: Full ROM. No swelling noted. No TTP of the knee joint line. No TTP of pes anserine bursa Left knee: Full ROM. No swelling noted. No TTP of the knee joint line. No TTP of pes anserine bursa. Ankles Right ankle: Good ankle dorsiflexion and plantar flexion. No swelling. No TTP of the ankle joint Left ankle: Good ankle dorsiflexion and plantar flexion. No swelling. No TTP of the ankle joint Feet Right foot: Negative squeeze test Left foot: Negative squeeze test Tender points? No tenderness to palpation of the bilateral trapezius, supraspinatus, anterior costochondral junctions, bilateral suboccipital muscle insertions SKIN No rashes Vital Signs: Last Vital Signs BP 132/80 09/25/25 11:02 BMI result Body Mass Index 32.9 Results Reviewed Results Reviewed: Laboratory Tests 07/31/25 09/20/25 10:08 09:33 WBC 10.4 RBC 4.76 Hgb 12.8 D Hct 40.9 D Plt Count 374 ESR 30 H 18 Sodium 138 Potassium 3.9 Chloride 105 Carbon Dioxide 25 BUN 15 Creatinine 1.13 AST 23 ALT 24 C-Reactive Protein 0.18 Laboratory Tests 07/31/25 09/20/25 10:08 09:33 Double Strand DNA Ab 28 H 24 H Complement C3 139 145 Complement C4 18 25 Laboratory Tests 09/20/25 09:25 Urine Color Yellow Urine Appearance Clear Ur Specific Printer 1.015 Urine Protein Trace Urine RBC 11-20 H U Random Total Protein 16 H Protein/Creatinin Ratio 0.09 Assessment & Plan Assessment & Plan (1) SLE (systemic lupus erythematosus): Comment: 2010 - joint pains, rash, ? Mucosal lesions. Positive anti-DNA, SS- A. Negative SS-B, anti-almanza, anti-MEDICAL BILLING ASSISTANT. On hydroxychloroquine, Myfortec, prednisone. Myfortec tapered Off 2013. Eye exam [place] 08/20, 12/22. Stopped hydroxychlorquine in spring 2015 - ? Eye abnormality Flare of SLE summer 2015 - back on prednisone, azathioprine added - azathioprine caused skin rash and stopped 2016 Cellcept and prednisone started 2016 Prednisone tapered off, December 2020 WHO III GN developed summer 2022; Cellcept increased; high dose prednisone started CellCept switch to Myfortic 11/2023 due to diarrhea Benlysta added 07/2025 due to persistent disease Code(s): M32.9 - Systemic lupus erythematosus, unspecified Category: Medical Qualifiers: Systemic lupus erythematosus type: unspecified Systemic lupus erythematosus organ involvement: glomerular disease Qualified Code(s): M32.14 - Glomerular disease in systemic lupus erythematosus Plan: #SLE c/b LN III Patient is a 49-year-old female with 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 UPC stable. Doing better on Benlysta Will attempt to decrease prednisone Plan - Myfortiq 720mg bid - Benlysta 200mg SC every week - Prednisone 5mg - RTC 4 months - Labs before visit: CBC, CMP, ESR, CRP, C3, C4, dsDNA, UA, UPC (2) On mycophenolate mofetil therapy: Code(s): Z79.624 - FDC (current) use of inhibitors of nucleotide synthesis Category: Medical Plan: #Long-term Use of Mycophenolate/Mycophenolic Acid Discussed with patient the benefits and risks of mycophenolate/mycophenolic acid for the management of the rheumatic condition Benefits include improved disease control and reduction of mortality Risks include GI upset especially diarrhea, anemia, leukopenia, hepatotoxicity, lymphoproliferative malignancies, PML Mycophenolate and mycophenolic acid are teratogenic and should be avoided in patients who are desiring the Monitoring: ?CBC, LFTs, BMP Recommended holding medication during and for up to 1 week after resolution of a febrile illness (3) FDC (current) use of systemic steroids: Code(s): Z79.52 - FDC (current) use of systemic steroids Category: Medical Plan: #Long-term Use of Steroids Discussed with patient the risks and benefits of steroid for managing the rheumatic condition Benefits include: - Reduced pain, improved mobility, increased participation in activities, and decreased progression of disease Risks include: - GI upset, potential ultrasound worsening or formation (especially in patients > 65 years old), elevated blood pressure/worsening hypertension, elevated blood sugar/worsening diabetes control, worsening of bone density, elevated lipids/worsening triglycerides, cataract formation, weight gain Recommended using proton pump inhibitors (PPIs) for the duration of steroid use to reduce the risk of gastric ulcers and vitamin-D daily to reduce the risk of osteoporosis Labs checked: ?A1c, T spot, hepatitis-B and C serologies Pneumocystis jiroveci prophylaxis: ?Patient with risk factors including steroids greater than 50 mg for more than 30 days, age greater than 60 years, and lung involvement from underlying rheumatic disease requires prophylaxis and will be given so (4) Encounter for monitoring of belimumab therapy: Code(s): Z51.81 - Encounter for therapeutic drug level monitoring; Z79.620 - bed bug exterminator (current) use of immunosuppressive biologic Plan: #FDC Belimumab Discussed with patient the risks and benefits of hydroxychloroquine in managing the rheumatic condition Benefits include: - Reduced pain, reduce mortality, maintenance of remission and reduction of flares Risks include: - insomnia, injection site reactions, psychiatric events such as worsening depression/anxiety or suicidal ideation, increased risk of infection Plan I spent 30 minutes reviewing the record and labs, taking a history, examining the patient, discussing the treatment plan, answering questions, and documenting in the medical record Orders: Orders Complete Blood Count Auto Diff 4 Months M3. - Systemic lupus erythematosus, unspecified Comprehensive Met. Panel 4 Months . - Systemic lupus erythematosus, unspecified C Reactive Protein 4 Months . - Systemic lupus erythematosus, unspecified Complement C3 4 Months M3. - Systemic lupus erythematosus, unspecified Complement C4 4 Months M32. - Systemic lupus erythematosus, unspecified Anti DNA DS Antibody 4 Months 2. - Systemic lupus erythematosus, unspecified Erythrocyte Sedimentation Rate 4 Months M32. - Systemic lupus erythematosus, unspecified UA ClnCatch+Micro w/rflx Cult 4 Months M3. - Systemic lupus erythematosus, unspecified Protein Creatinine Ratio, Ur 4 Months 2. - Systemic lupus erythematosus, unspecified Medications: New prednisone 5 mg PO DAILY 90 tabs 1RF M32.14 - Glomerular disease in systemic lupus erythematosus Refilled belimumab (Benlysta) inject into upper thigh or abdomen; rotate sites 200 mg subcut QWEEK 4 mL 5RF M32.14 - Glomerular disease in systemic lupus erythematosus mycophenolate sodium 720 mg (2 x 360 mg) PO Q12H 360 tabs 1RF 90 days M32.14 - Glomerular disease in systemic lupus erythematosus Discontinued prednisone Take 4 tablets daily for 10 days then 3 tablets daily for 10 days then 2.5 tablets daily for 10 days then 2 tablets daily for 10 days then 1.5 tablets daily for 10 days then 1 tablet daily until follow up Discontinued Reason: Doctor's Order 5 mg PO DIRECTED 160 tabs 0RF M32.14 - Glomerular disease in systemic lupus erythematosus Coding Level of Care Code Est Pt Level 4 (62394) Complex EM visit Add On G2211 Diagnoses Systemic lupus erythematosus with glomerular disease, unspecified SLE type M32.14 Systemic lupus erythematosus type: unspecified Systemic lupus erythematosus organ involvement: glomerular disease On mycophenolate mofetil therapy Z79.624 FDC (current) use of systemic steroids Z79.52 Encounter for monitoring of belimumab therapy Z51.81; Z79.620
[2025-09-25 11:02] VITALS: BP 132/80; PULSE 91; O2SAT 98; BMI 32.9
== END 2025-09-25 11:23 | disposition home or self-care (01) ==
LOC: HO.RHES 10:51
PROVIDERS: PCP Internal Medicine; Visit Provider Student in an Organized Health Care Education/Training Program
DX: M32.14 Glomerular disease in systemic lupus erythematosus (principal); Z79.624 Long term (current) use of inhibitors of nucleotide synthesis; Z79.52 Long term (current) use of systemic steroids; Z51.81 Encounter for therapeutic drug level monitoring; Z79.620 Long term (current) use of immunosuppressive biologic
CPT/HCPCS: 99214; G2211

== ENCOUNTER → 2025-09-25 10:50 | Outpatient (BNVA) | payer OTHER, SELFPAY | PROVIDERS: PCP Internal Medicine; Visit Provider Student in an Organized Health Care Education/Training Program | DX: M32.14 Glomerular disease in systemic lupus erythematosus (principal); Z79.624 Long term (current) use of inhibitors of nucleotide synthesis | CPT/HCPCS: 99212 ==

== ENCOUNTER 2025-10-08 12:40 | Outpatient (AMB) | payer OTHER, SELFPAY ==
--- NOTE | 2025-10-08 13:05 | A.OFFVIS_ITS ---
Intake Visit Reasons: 1y/US (set)UA) Intake Note: Patient is present for a 1yr follow up with US * 09/19 Renal US Urology Medication:None Antibiotic Allergies:Penicillins Blood Thinners:None Net Front End Developer Required: Yes Net Front End Developer Language: Manufacturing Intern Services: Net Front End Developer Present Net Front End Developer Name: Vladimir Information Interpreted: non-clinical & clinical Accompanied by: Self / Same As Patient Allergies Penicillins (PENICILLINS) Allergy (Unknown, Verified 10/08/25 13:05) SWELLING amlodipine Allergy (Verified 10/08/25 13:05) Headache azathioprine Allergy (Verified 10/08/25 13:05) Rash HPI Comments Details: 10/08/25--Natividad is a 49-year-old female who has been evaluated due to microscopic hematuria she is here for 1 year follow-up. History of Lupus, chronic kidney disease, Glomerulonephritis; she had a renal ultrasound on 09/18/2025 no suspicious renal parenchymal lesions or kidney stones. History of Present Illness The patient is a 49 year old individual presenting for a 1-year follow-up for microscopic hematuria. A renal ultrasound was performed on September 18, which showed no suspicious renal parenchymal lesions or kidney stones. The patient has a past medical history of rheumatoid arthritis. Results - Urinalysis: Stable - Renal Ultrasound (09/18/25): No suspicious renal parenchymal lesions or kidney stones were noted. Plan Microscopic Hematuria - The patient presented for a 1-year follow-up for microscopic hematuria. - A renal ultrasound from last month was negative for kidney stones or masses, and a urinalysis today was stable. - As the monitoring has been reassuring, no further follow-up will be scheduled. FU prn. 10/09/24---Natividad is a 48-year-old female who is here in follow-up due to evaluation for microscopic hematuria. Last visit 07/21/2023?I reviewed the CT of the abdomen/pelvis results from 05/15/2023 revealed Kidneys are normal; no calculi are seen, calculi seen. Subcentimeter cyst in the lower pole right kidney, too small to characterize. I have discussed follow-up renal ultrasound 06/08/2024 -echogenic changes findings consistent with chronic kidney disease. I have discussed with the patient referring her to Nephrology. She is on amlodipine and hydrochlorothiazide for management of hypertension. The patient states she already is followed by nephrology, [facility] ([facility]rology)- Sienna Arreaga MD. Plan repeat urine cytology. Will follow-up in 1 year and if no new findings we will follow-up on a p.r.n. basis. Review of chart: 07/21/2023?Natividad is a 47-year-old female who presents today to the office to establish as a new patient for an evaluation of hematuria. Natividad is a 47 year old female with history of Lupus followed by Rheumatology. She presents today for an evaluation of microscopic hematuria. The patient is a Romanian speaking female accompanied with her friend who interpreted today during the visit. I reviewed the CT of the abdomen/pelvis results from 05/15/2023 revealed Kidneys are normal; no calculi are seen, calculi seen. Subcentimeter cyst in the lower pole right kidney, too small to characterize. I reviewed the urine culture results from 05/14/2023 which came back 50,000 to 100,000 cfu/ml mixed bacterial stacy characteristic of urogenital contamination. [facility] Medical History FPC (current) use of systemic steroids On mycophenolate mofetil therapy GERD (gastroesophageal reflux disease) Eczema Tendinopathy of right rotator cuff Dyslipidemia SLE (systemic lupus erythematosus) HTN (hypertension) Lupus Surgical History History of hysterectomy Family History Mother Hypertension Father Hypertension History of thyroid disorder Sister Strabismus Maternal Grandmother Diabetes Maternal Grandfather FH: prostate cancer Social History Household Members: Spouse Housing: Apartment Alcohol intake: never Patient Tobacco Use Status: Never used Tobacco service: No Current occupational status: unemployed Review of Systems Const All systems reviewed & are unremarkable except as noted in HPI and below Reports no additional complaints Eyes Reports no additional complaints ENT Reports no additional complaints Card Reports no additional complaints Resp Reports no additional complaints GI Reports no additional complaints Reports as per HPI Musc Reports no additional complaints Skin/Breast Reports system reviewed and no additional complaints, except as documented Neuro Reports no additional complaints Psych Reports no additional complaints Endo Reports no additional complaints Loy/Lymph Reports no additional complaints Aller/Immun Reports no additional complaints Assessment & Plan Assessment & Plan (1) Microscopic hematuria: Code(s): R31.29 - Other microscopic hematuria Category: Medical (2) CKD (chronic kidney disease): Code(s): N18.9 - Chronic kidney disease, unspecified Category: Medical (3) Glomerulonephritis determined by biopsy: Comment: Biopsy 08/2023: WHO class III GN from SLE. Nephro: Dr. Garcia Code(s): N05.9 - Unspecified nephritic syndrome with unspecified morphologic changes Category: Medical Plan Microscopic Hematuria - The patient presented for a 1-year follow-up for microscopic hematuria. - A renal ultrasound from last month was negative for kidney stones or masses, and a urinalysis today was stable. - As the monitoring has been reassuring, no further follow-up will be scheduled. FU prn. Patient Instructions: The patient had an opportunity to ask questions regarding treatment plan. The patient expressed understanding and agreement with the above treatment plan. The patient is aware they should contact our office by phone for worsening of their current condition or the appearance of new symptoms. Compliance is encouraged with any medications and followup testing that is ordered. It is a privilege to be allowed the opportunity to participate in the urologic care of your patient. If you have any questions or concerns regarding treatment for the above conditions please do not hesitate to contact me. The office telephone contact is [phone]. This note is constructed in part using voice recognition software. While every effort has been made to ensure accuracy charge preparation technician errors may have been included. Yours sincerely, Garrett Dang MD Scribe Plan - Not visible on output: Patient was informed and verbally consented to the use of an ambient scribe for clinic note documentation during this visit. Coding Level of Care Code Est Pt Level 4 (75846) Diagnoses Microscopic hematuria R31.29 CKD (chronic kidney disease) N18.9 Glomerulonephritis determined by biopsy N05.9
--- OUTSIDE RECORDS SUMMARY | 2025-10-08 16:19 | XMS_ITS | Clinical Summary ---
Author Organization [facility] Address [address] [place] [address] Phone Care Team Providers Care Social Welfare Administrator Name Role Phone Willie Main MD Primary Care Provider [phone] Allergies Active Allergy Reactions Criticality Noted Date [...] appendagitis 06/06/2025 SLE (systemic lupus erythema tosus) ([facility] V24, [facility] V28) 09/24/2024 Overview (09/24/2024): 2009 - joint pains, rash, ? Mucosal lesions. Positive anti-DNA, SS- A. Negative SS-B, anti-almanza, anti-SALES AND MARKETING SPECIALIST. On hydroxychloroquine, Myfortec, prednisone. Myfortec tapered Off [...] EDT Hospital [facility] [address] [phone] Encounter for screening mammogram for breast cancer Discharge Disposition: Home or Self Care 07/19/2025 11:00 AM EDT Office Visit Adult Medicine [address] [phone] Willie Main MD Essential hypertension (Primary Dx); [...] TUBAL LIGATION UPPER GASTROINTESTINAL ENDOSCOPY 02/25/2018 PROCEDURE: NV UPPER GI ENDOSCOPY PERFORMED; COMMENT: Visually normal on chronic treatment with NSAIDs and PPIs; duodenal biopsies: negative. PARTIAL HYSTERECTOMY 09/2018 N/A PROCEDURE: NV SUPRACERVICAL ABDL HYSTER W/WO RMVL TUBE OVARY STEREOTACTIC CORE BIOPSY Medical History Medical History Date Comments SLE (systemic lupus erythema tosus) ([facility] V24, [facility] V28) DX:SLE (systemic lupus erythematosus) ([facility]); [...] 9:30 AM EDT Office Visit Adult Medicine [address] [phone] Willie Main MD [address] [place] [phone] Health Maintenance Due Date Last Done Comments [...] year. Mammo Location: [facility], [address] [place] [address], [address], . -------- FINAL REPORT -------- Dictated By: Kavon Garcia Dictated Date: 08/16/2025 11:02 ET Assigned Physician: Kavon Garcia Reviewed and Electronically Signed By: Kavon Garcia Signed Date: 08/16/2025 11:19 ET Workstation ID: [id number] Transcribed By: Self Edit Transcribed Date: 08/16/2025 [...] year. Mammo Location: [facility], [address] [place] [address], [phone], . -------- FINAL REPORT -------- Dictated By: Kavon Garcia Dictated Date: 08/16/2025 11:02 ET Assigned Physician: Kavon Garcia Reviewed and Electronically Signed By: Kavon Garcia Signed Date: 08/16/2025 11:19 ET Workstation ID: [id number] Transcribed By: Self Edit Transcribed Date: 08/16/2025 11:02 ET Result [facility] Self Referral Sppl IMG BI PROCEDURES Final Resul t * Annual BMP Blood Test (2023) Pathologist [facility] Annual BMP Blood Test ABSTRACTED Historical Provider HEALTH MAINTENANCE Final Result * (ABNORMAL) Lipid panel (11/16/2022) Pathologist [facility] LDL/HDL Ratio 3 0 - 4 Triglycerides 177(A) 0 - 150 mg/dL Cholesterol 167 0 - 200 mg/dL HDL 60 >=40 mg/dL LDL Cholesterol 72 0 - 100 mg/dL Blood Venous blood specimen / Unknown Result [facility] Historical Provider LAB BLOOD ORDERABLES Dania l Result * Hepatitis C Screening (07/05/2019) Pathologist [facility] Hepatitis C Screening ABSTRACTED Historical Provider HEALTH MAINTENANCE Final Result from Last 3 Months or Most Recently Relevant to Health Maintenance Insurance [facility] MEDIC[facility] Member Subscriber Plan / Payer (Ef fective 2024-Present) Name:CHRISTINA CRUZ Relation to Subscriber:Self Name:Acosta Mckinney Christina Payer ID:[id number] Group ID:[id number] Type:Not on file Address: [address] [id number] Care Teams Social Welfare Administrator Relationship Specialty Start Date End Date Willie Main MD [address] [place] [phone] PCP - General Internal Medicine 03/01/25
--- OUTSIDE RECORDS SUMMARY | 2025-10-08 16:19 | XMS_ITS | Clinical Summary ---
Author Organization [facility] Address [address] [address] Phone Care Team Providers Care Experience Designer Name Role Phone Willie Main MD Primary [...] topic Medical Devices Not on file Insurance [facility] C[facility] MEDICARE REPLACEMENT [address] [place] [facility] MEDICARE REPLACEMENT MEDICARE REPLACEMENT [facility] MEDICARE REPLACEMENT [place] [id number] Care Teams Experience Designer Relationship Specialty Start Date End Date Willei Main MD [address] [place] [id number] PCP - General Internal Medicine 09/29/21 Additional Source Comments The information contained in this document represents components of the legal health record. It is not the complete legal health record.[facility]
--- OUTSIDE RECORDS SUMMARY | 2025-10-08 16:19 | XMS_ITS | Clinical Summary ---
Author Organization [facility] Address [address] [place] [address] Care Team Providers Care Deputy Sheriff Civil Division Name Role Phone Willie Main MD Primary Care Provider Allergies Active Allergy Reactions Criticality Noted Date [...] age to complete this topic Care Teams Deputy Sheriff Civil [employer] Relationship Specialty Start Date End Date Willie Main MD PCP - General Internal Medicine 01/28/24
--- OUTSIDE RECORDS SUMMARY | 2025-10-08 16:19 | XMS_ITS | Clinical Summary ---
Author Organization [facility] Address [address] [facility] [address] [place] [address] Phone Care Team Providers Care Consumer Recruiter Name Role Phone Willie Main MD Primary Care Provider [phone] Allergies Active Allergy Reactions Criticality Noted Date [...] Positive anti-DNA, SS- A. Negative SS-B, anti-almanza, anti-[employer] IN[employer]ER [employer]. On hydroxychloroquine, Myfortec, prednisone. Myfortec tapered Off [...] chronic treatment with PPI and NSAIDs. Immunizations Immunization Administration Dates Next Due Hep [...] Office Visit [facility] [address] [facility] [address] [place] [address] Kevon Boston MD [address] [facility] [address] [place] [address] Health Maintenance Due Date Last [...] 2025 2, 07/24/2021, 09/13/2019, Additional history exists Insurance [facility] [place] [id number] [facility] [place] [id number] Care Teams Consumer Recruiter Relationship Specialty Start Date End Date Willie Main MD [address] [place] [address] JACOBY Mcmahon [phone] PCP - General Internal Medicine 10/24/24
== END 2025-10-08 13:34 | disposition home or self-care (01) ==
LOC: HO.HUSH 12:41
PROVIDERS: PCP Internal Medicine; Visit Provider Urology
DX: R31.29 Other microscopic hematuria (principal); N18.9 Chronic kidney disease, unspecified; N05.9 Unspecified nephritic syndrome with unspecified morphologic changes; Z13.9 Encounter for screening, unspecified
CPT/HCPCS: 99214

== ENCOUNTER → 2025-10-08 12:40 | Outpatient (BNVA) | payer OTHER, SELFPAY | PROVIDERS: PCP Internal Medicine; Visit Provider Urology | DX: R31.29 Other microscopic hematuria (principal); I12.9 Hypertensive chronic kidney disease with stage 1 through stage 4 chronic kidney disease, or unspecified chronic kidney disease; N18.9 Chronic kidney disease, unspecified | CPT/HCPCS: 81003; 99212 ==